=== PATIENT | female | born 1995 | race Caucasian/White ===

== ENCOUNTER 2017-02-04 20:07 | Emergency (ER) | payer SELFPAY ==
[~2017-02-04] VITALS: Ht 157.5 cm; Wt 54.4 kg
[~2017-02-04 20:07] MED LIST: ALPR0.254 PO; CEPH-264 PO; HYDR-965 PO; HYDR-971 PO; PHEN-318 PO
[2017-02-04] MEDS ORDERED: IV NORMAL SALINE 1000ML BAG 1,000 ML IV SCH ×2 (21:01→23:45)
[2017-02-04 21:12] LABS: BILIRUBIN,URINE NEGATIVE (NEG); GLUCOSE,URINE NEGATIVE (NEG); NITRITE,URINE NEGATIVE (NEG); PH,URINE 6.5; PROTEIN,URINE NEGATIVE (NEG-TRACE); UROBILINOGEN,URINE 0.2 mg/dL (0.2 mg/dL)
[2017-02-04 21:15] LABS: BASO # 0.1 x10^3/uL (0.0-0.2); BASO % 1 % (0-3); EOS % 7 % (0-3); HEMATOCRIT 33.7 % (36.0-47.0); HEMOGLOBIN 11.2 g/dL (12.0-15.5); LYMPH # 2.4 x10^3/uL (1.0-4.8); LYMPH % 39 % (24-48); MEAN CORPUSCULAR HEMOGLOBIN 26 pg (25-35); MEAN CORPUSCULAR HGB CONC 33 g/dL (31-37); MEAN CORPUSCULAR VOLUME 77 fL (79-100); MONO % 10 % (0-9); NEUT % 44 % (31-73); PLATELET COUNT 340 x10^3/uL (140-400); RED BLOOD COUNT 4.38 x10^6/uL (3.50-5.40); RED CELL DISTRIBUTION WIDTH 13.7 % (11.5-14.5); WHITE BLOOD COUNT 6.2 x10^3/uL (4.0-11.0)
[2017-02-04] MEDS ORDERED: IOHEXOL 300 MG/ML 75 ML VIAL IV ONE (21:15)
[2017-02-04] MEDS ORDERED: ONDANSETRON PF 4 MG/2 ML VIAL. IV ONE (21:15)
[2017-02-04 21:19] LABS: BACTERIA,URINE MODERATE /HPF (0-FEW); RBC,URINE 0 /HPF (0-2); SQUAMOUS EPITHELIAL CELL,UR MANY /LPF; YEAST,URINE PRESENT /HPF
[2017-02-04 21:21] LABS: CALCIUM 8.4 mg/dL (8.5-10.1); CREATININE 0.5 mg/dL (0.6-1.0); GFR 155.7; POTASSIUM 4.1 mmol/L (3.5-5.1)
[2017-02-04] MEDS: MORPHINE SULFATE 4 MG/ML DISP.SYRIN. IV/SQ PRN ×2 (21:21→23:37)
[2017-02-04 21:27] LABS: ALBUMIN 3.1 g/dL (3.4-5.0); ALBUMIN/GLOBULIN RATIO 0.9 (1.0-1.7); TOTAL BILIRUBIN 0.2 mg/dL (0.2-1.0); TOTAL PROTEIN 6.6 g/dL (6.4-8.2)
--- NOTE | 2017-02-04 22:29 | RAD ---
PROCEDURE CT study of the abdomen and pelvis with contrast HISTORY Nausea and vomiting and severe abdominal pain for 4 days. TECHNIQUE After IV infusion of 75 cc of Omnipaque 300, helical CT scanning of the abdomen and pelvis was performed. No GI contrast was administered. This may decrease the sensitivity to detect GI tract pathology. One or more of the following individualized dose reduction techniques were utilized for this study: 1. Automated exposure control 2. Adjustment of the mA and/or kV according to patient size 3. Use of iterative reconstruction technique COMPARISON August 30, 2016. FINDINGS The liver and spleen and pancreas are homogeneous. The gallbladder is surgically absent. No extrahepatic biliary ductal dilatation is seen. No adrenal mass is evident. Both kidneys are normal. Urinary bladder wall is smooth. No bulky abdominal or pelvic lymphadenopathy is seen. No significant change in size of inguinal lymph nodes bilaterally is seen. No focal aneurysmal dilatation of the abdominal aorta is seen. A moderate amount of fecal retention is seen throughout the colon and down into the rectosigmoid region. Postoperative changes of the stomach are seen. No small bowel obstruction is evident. There is wall thickening of the small bowel on the left side of the abdomen. The appendix appears normal. No free intraperitoneal air or free fluid is seen. No uterine mass is seen. Neither ovary can be visualized in this study given the fluid-filled small bowel loops. Generalized subcutaneous soft tissue edema is seen. No pleural effusion is evident. No lung base consolidation is seen. No osteolytic process is seen. IMPRESSION Moderate fecal retention throughout the colon down into the rectosigmoid region. There is wall thickening of the small bowel on the left side which could be due to enteritis. No bowel obstruction or free air or free fluid is evident. Generalized soft tissue edema of the abdomen and pelvis. No pleural effusion is seen. Electronically signed by: Tobias Monae MD (February 04, 2017 22:27:36)
--- NOTE | 2017-02-04 23:35 | PHYS DOC ---
Past Medical History Past Medical History: Gallstones, Kidney Stone, Ovarian Cyst, Seizure, UTI, Other Additional Past Medical Histor: pyodermia, PSYCHOGENIC NON EPILLEPTIC SEIZURES , cilliac, chrones Past Surgical History: Cholecystectomy, Gastric Bypass, Other Additional Past Surgical Histo: adenoidectomy Alcohol Use: None Drug Use: None Adult General Chief Complaint Chief Complaint: ABDOMINAL PAIN HPI HPI Patient is a 21 year old female brought to the ED by a friend with 2 complaints. #1, she is complaining of severe abdominal pain. This started about 2 weeks ago. She's had nausea with dry heaves but no vomiting. She's had liquid stools with no blood. She's had Tristan with abdominal pain in the past, she was told she might have celiac and also told she might have Crohn's. She thinks she had endoscopy, does not remember where. The patient is homeless, she works at [employer]. She is not able to follow a gluten-free diet as recommended because she is homeless. In fact, tonight she went to eat at [employer] and had some breadsticks and that seemed to make her abdominal pain worse. #2 she complains that he has had severe pain in both ankles and both wrists for a few days, it seems to be moving up to her knees and hips. It's hard to stand up because of pain. She's never had this before. She is not sure if any of those joints are swollen. She's had no fever or chills. Patient has no primary medical doctor, she is homeless, she is currently staying with a friend and is planning to move in with another friend or someone here in the next day or 2. Review of Systems Review of Systems Constitutional: Denies fever or chills [] Eyes: Denies change in visual acuity, redness, or eye pain [] HENT: Denies nasal congestion or sore throat [] Respiratory: Denies cough or shortness of breath [] GI: As in history of present illness : Denies dysuria or hematuria [] Musculoskeletal: Ankle and wrist pain as in history of present illness Integument: Denies rash or skin lesions [] Neurologic: Denies headache, focal weakness or sensory changes [] Current Medications Current Medications Current Medications Medications (Trade) Dose Ordered Sig/Julia Start Time Stop Time Status Last Admin Dose Admin Iohexol (Omnipaque 300 Mg/ml) 75 ml 1X ONCE 02/04/17 21:15 02/04/17 21:16 DC 02/04/17 21:35 75 ML Morphine Sulfate 4 mg PRN Q2HR PRN 02/04/17 23:45 02/05/17 23:44 Ondansetron HCl (Zofran) 4 mg PRN Q8HRS PRN 02/04/17 23:45 02/05/17 23:44 Sodium Chloride 1,000 ml @ 125 mls/hr Q8H 02/04/17 23:45 02/05/17 23:44 Allergies Allergies Allergies Coded Allergies Type Severity Reaction Last Updated Verified NSAIDS (Non-Steroidal Anti-Inflamma Allergy Intermediate 04/06/16 Yes Sulfa (Sulfonamide Antibiotics) Allergy Intermediate 04/06/16 Yes codeine Allergy Intermediate 04/06/16 Yes cyclobenzaprine Allergy Intermediate 04/06/16 Yes dicyclomine Allergy Intermediate 04/06/16 Yes fentanyl Allergy Intermediate 04/06/16 Yes ketorolac Allergy Intermediate 04/06/16 Yes tramadol Allergy Intermediate 04/06/16 Yes Physical Exam Physical Exam Constitutional: Well developed, well nourished, alert, mentating normally, appears to not feel well, no toxidrome, tachycardic HENT: Normocephalic, atraumatic, bilateral external ears normal, nose normal. [ ] Eyes: conjunctiva normal, no discharge. [] Neck: Normal range of motion, no stridor. [] Cardiovascular:Heart rate regular rhythm, no murmur [] Lungs & Thorax: Bilateral breath sounds clear to auscultation [] Abdomen: Bowel sounds are quiet but present, no bruit, no distention, no mass, no pulsatile mass. Tender to palpation across the upper abdomen on both right upper and left upper quadrants, less tender to palpation across the lower abdomen, no localized tenderness, no guarding Skin: Warm, dry, no erythema, no rash. [] Extremities: No tenderness, no cyanosis, no clubbing, ROM intact, no edema. Wrists and ankles are without swelling, no redness, no warmth, no deformity, no appreciable abnormality on exam. Neurologic: Alert and oriented X 3, normal motor function, normal sensory function, no focal deficits noted. [] Current Patient Data Vital Signs Vital Signs Date Time Temp Pulse Resp B/P (MAP) Pulse Ox O2 Delivery O2 Flow Rate FiO2 02/04/17 23:37 16 100 02/04/17 21:21 Room Air 02/04/17 21:09 106 112/79 (90) 02/04/17 20:19 98.8 98.8 Lab Values Laboratory Tests Test 02/04/17 19:29 02/04/17 20:20 02/04/17 20:30 POC Urine HCG, Qualitative Hcg negative (Negative) Urine Collection Type Void Urine Color Straw Urine Clarity Clear Urine pH 6.5 Urine Specific [place] <=1.005 Urine Protein Negative mg/dL (NEG-TRACE) Urine Glucose (UA) Negative mg/dL (NEG) Urine Ketones (Stick) Negative mg/dL (NEG) Urine Blood Negative (NEG) Urine Nitrite Negative (NEG) Urine Bilirubin Negative (NEG) Urine Urobilinogen Dipstick 0.2 mg/dL (0.2 mg/dL) Urine Leukocyte Esterase Moderate (NEG) Urine RBC 0 /HPF (0-2) Urine WBC 1-4 /HPF (0-4) Urine Squamous Epithelial Cells Many /LPF Urine Bacteria Moderate /HPF (0-FEW) Urine Yeast Present /HPF White Blood Count 6.2 x10^3/uL (4.0-11.0) Red Blood Count 4.38 x10^6/uL (3.50-5.40) Hemoglobin 11.2 g/dL (12.0-15.5) L Hematocrit 33.7 % (36.0-47.0) L Mean Corpuscular Volume 77 fL (79-100) L Mean Corpuscular Hemoglobin 26 pg (25-35) Mean Corpuscular Hemoglobin Concent 33 g/dL (31-37) Red Cell Distribution Width 13.7 % (11.5-14.5) Platelet Count 340 x10^3/uL (140-400) Neutrophils (%) (Auto) 44 % (31-73) Lymphocytes (%) (Auto) 39 % (24-48) Monocytes (%) (Auto) 10 % (0-9) H Eosinophils (%) (Auto) 7 % (0-3) H Basophils (%) (Auto) 1 % (0-3) Neutrophils # (Auto) 2.7 x10^3uL (1.8-7.7) Lymphocytes # (Auto) 2.4 x10^3/uL (1.0-4.8) Monocytes # (Auto) 0.6 x10^3/uL (0.0-1.1) Eosinophils # (Auto) 0.4 x10^3/uL (0.0-0.7) Basophils # (Auto) 0.1 x10^3/uL (0.0-0.2) Sodium Level 142 mmol/L (136-145) Potassium Level 4.1 mmol/L (3.5-5.1) Chloride Level 106 mmol/L (98-107) Carbon Dioxide Level 28 mmol/L (21-32) Anion Gap 8 (6-14) Blood Urea Nitrogen 9 mg/dL (7-20) Creatinine 0.5 mg/dL (0.6-1.0) L Estimated GFR (Cockcroft-Gault) 155.7 BUN/Creatinine Ratio 18 (6-20) Glucose Level 58 mg/dL (70-99) L Calcium Level 8.4 mg/dL (8.5-10.1) L Total Bilirubin 0.2 mg/dL (0.2-1.0) Aspartate Amino Transferase (AST) 22 U/L (15-37) Alanine Aminotransferase (ALT) 20 U/L (14-59) Alkaline Phosphatase 72 U/L (46-116) Total Protein 6.6 g/dL (6.4-8.2) Albumin 3.1 g/dL (3.4-5.0) L Albumin/Globulin Ratio 0.9 (1.0-1.7) L Lipase 122 U/L (73-393) Laboratory Tests 02/04/17 20:30 Laboratory Tests 02/04/17 20:30 EKG EKG [] Radiology/Procedures Radiology/Procedures CT scan of the abdomen and pelvis read by the radiologist. [] COMPARISON August 30, 2016. FINDINGS The liver and spleen and pancreas are homogeneous. The gallbladder is surgically absent. No extrahepatic biliary ductal dilatation is seen. No adrenal mass is evident. Both kidneys are normal. Urinary bladder wall is smooth. No bulky abdominal or pelvic lymphadenopathy is seen. No significant change in size of inguinal lymph nodes bilaterally is seen. No focal aneurysmal dilatation of the abdominal aorta is seen. A moderate amount of fecal retention is seen throughout the colon and down into the rectosigmoid region. Postoperative changes of the stomach are seen. No small bowel obstruction is evident. There is wall thickening of the small bowel on the left side of the abdomen. The appendix appears normal. No free intraperitoneal air or free fluid is seen. No uterine mass is seen. Neither ovary can be visualized in this study given the fluid-filled small bowel loops. Generalized subcutaneous soft tissue edema is seen. No pleural effusion is evident. No lung base consolidation is seen. No osteolytic process is seen. IMPRESSION Moderate fecal retention throughout the colon down into the rectosigmoid region. There is wall thickening of the small bowel on the left side which could be due to enteritis. No bowel obstruction or free air or free fluid is evident. Generalized soft tissue edema of the abdomen and pelvis. No pleural effusion is seen. Electronically signed by: Tobias Monae MD (February 04, 2017 22:27:36) Course & Med Decision Making Course & Med Decision Making Pertinent Labs and Imaging studies reviewed. (See chart for details) 21-year-old female complaining of abdominal pain, CT scan consistent with enteritis, nonspecific finding. No other specific findings noted. Labs Unremarkable including normal lipase and white count. Also complaining of bilateral wrist and bilateral ankle pain, I am not finding anything on exam, nonspecific joint pain without arthritis. I discussed with the patient and her friend that I recommend admitting her to the hospital for IV fluids, bowel rest, IV pain and nausea medication, GI consultation. I discussed the patient with Dr. crawley, [facility], who agreed to admit the patient. I wrote bridge orders. The patient ended up deciding that she cannot be admitted. She needs to move and also has missed too much work and needs to go to work. She asked for a prescription for pain medicine for discharge and I advised her that that would not be possible because I'm advising her to be admitted to the hospital for abdominal pain and I don't believe it is safe to discharge her with undiagnosed abdominal pain and give her opiates. I encouraged her to follow up as soon as possible and return if things worsen or if she changes her mind. [] Dragon Disclaimer Dragon Disclaimer This electronic medical record was generated, in whole or in part, using a voice recognition dictation system. Departure Departure Impression: Primary Impression: Abdominal pain Additional Impression: Enteritis Disposition: 07 AGAINST MEDICAL ADVICE Admitting Physician: Leslie Crawley Condition: STABLE Referrals: NO PCP (PCP) Patient Instructions: Abdominal Pain, [id number] Additional Instructions: As we discussed, CT scan showed inflammation of your small intestine. This is called "enteritis" but is not specific for any specific cause. It could be infection, it could be Crohn's disease, like you have been told in the past you might have. I recommended that you be admitted to the hospital for IV fluids, IV pain and nausea medicine, and to see GI specialist and have more testing. You have elected to not be admitted to the hospital and I am asking you to sign out AGAINST MEDICAL ADVICE to signify but I did advise you to stay but you elected not to. I advise you to stick with clear liquids over the next 2-3 days to rest your stomach. Make a follow-up appointment to be rechecked, you were given names and phone numbers of primary care doctors. If worse, or if you change your mind, return to emergency department. Problem Qualifiers DEENA GONSALES MD February 04, 2017 23:35
[2017-02-04] MEDS ORDERED: ONDANSETRON PF 4 MG/2 ML VIAL. IV PRN (23:45)
[2017-02-04] MEDS ORDERED: MORPHINE SULFATE 4 MG/ML DISP.SYRIN. IV PRN (23:45)
[2017-02-05] VITALS: BP 113/70
[2017-02-05] MEDS ORDERED: CARI350T PO (05:21)
[2017-02-05] MEDS ORDERED: ALPR1TAB6 PO (05:21)
[2017-02-05] MEDS ORDERED: LAMO200T3 PO (05:21)
== END 2017-02-05 00:16 | disposition left against medical advice (07) ==
LOC: ER 20:07
DX: K52.9 Noninfective gastroenteritis and colitis, unspecified (principal); R19.7 Diarrhea, unspecified; Z90.49 Acquired absence of other specified parts of digestive tract; Z98.84 Bariatric surgery status; Z59.0 Homelessness; Z88.2 Allergy status to sulfonamides; Z88.5 Allergy status to narcotic agent; Z88.6 Allergy status to analgesic agent; Z88.8 Allergy status to other drugs, medicaments and biological substances
CPT/HCPCS: 36415; 74177; 80053; 81001; 83690; 84703; 85027; 87086; 96361; 96374; 96375; 96376; 99285; J2270; J2405; J7030; Q9967; 81025

== ENCOUNTER 2017-02-05 03:03 | Inpatient (IN) | payer SELFPAY ==
[2017-02-05] VITALS (7 sets, daily range): BP systolic 88–113; BP diastolic 54–68
[~2017-02-05] VITALS: Ht 157.5 cm; Wt 54.4 kg
[2017-02-05] MEDS ORDERED: IV DEXTROSE 5 %-0.45 % NACL 1,000 ML IV ONE (03:30)
[2017-02-05] MEDS ORDERED: MORPHINE SULFATE 4 MG/ML DISP.SYRIN. IV/SQ PRN (03:30)
[2017-02-05] MEDS ORDERED: ONDANSETRON PF 4 MG/2 ML VIAL. IV ONE (03:30)
--- NOTE | 2017-02-05 04:23 | PHYS DOC ---
Past Medical History Past Medical History: Gallstones, Kidney Stone, Ovarian Cyst, Seizure, UTI, Other Additional Past Medical Histor: pyodermia, PSYCHOGENIC NON EPILLEPTIC SEIZURES , cilliac, chrones Past Surgical History: Cholecystectomy, Gastric Bypass, Other Additional Past Surgical Histo: adenoidectomy Alcohol Use: None Drug Use: None Adult General Chief Complaint Chief Complaint: ABDOMINAL PAIN HPI HPI Patient is a 21 year old female who presents with abdominal pain. Patient was seen in the emergency department late last evening and diagnosed with intractable abdominal pain and enteritis. Due to persistent severe symptoms the patient was told that she would need to be admitted the hospital. While initially agreeable, the patient decided to leave the emergency department AGAINST MEDICAL ADVICE. Patient returns to the emergency department however due to worsening symptoms. Patient states that her symptoms have not changed from her previous visit and she states that the worst of her pain is in her upper abdomen. Patient also states that she has been having trouble with multi-joint pain including her bilateral wrists and ankles. Patient denies any fevers. Patient has had multiple loose stools. Patient rates pain currently is 10 out of 10. Review of Systems Review of Systems Constitutional: Denies fever or chills [] Eyes: Denies change in visual acuity, redness, or eye pain [] HENT: Denies nasal congestion or sore throat [] Respiratory: Denies cough or shortness of breath [] Cardiovascular: Denies chest pain or edema [] GI: Abdominal pain, nausea, diarrhea [] : Denies dysuria or hematuria [] Musculoskeletal: Bilateral wrist and ankle pain [] Integument: Denies rash or skin lesions [] Neurologic: Denies headache, focal weakness or sensory changes [] Current Medications Current Medications Allergies Allergies Allergies Coded Allergies Type Severity Reaction Last Updated Verified NSAIDS (Non-Steroidal Anti-Inflamma Allergy Intermediate 04/06/16 Yes Sulfa (Sulfonamide Antibiotics) Allergy Intermediate 04/06/16 Yes codeine Allergy Intermediate 04/06/16 Yes cyclobenzaprine Allergy Intermediate 04/06/16 Yes dicyclomine Allergy Intermediate 04/06/16 Yes fentanyl Allergy Intermediate 04/06/16 Yes ketorolac Allergy Intermediate 04/06/16 Yes tramadol Allergy Intermediate 04/06/16 Yes Physical Exam Physical Exam Constitutional: Alert, afebrile, appears in moderate discomfort. [] HENT: Normocephalic, atraumatic, bilateral external ears normal, oropharynx moist, no oral exudates, nose normal. [] Eyes: PERRLA, EOMI, conjunctiva normal, no discharge. [] Neck: Normal range of motion, no tenderness, supple, no stridor. [] Cardiovascular: Heart rate regular rhythm, no murmur [] Lungs & Thorax: Bilateral breath sounds clear to auscultation [] Abdomen: Bowel sounds normal, soft, bilateral upper quadrant tenderness to palpation, no masses, no pulsatile masses. [] Skin: Warm, dry, no erythema, no rash. [] Back: No tenderness, no CVA tenderness. [] Extremities: No obvious deformities or joint swelling present, no cyanosis, no clubbing, ROM intact, no edema. [] Neurologic: Alert and oriented X 3, normal motor function, normal sensory function, no focal deficits noted. [] Current Patient Data Vital Signs Vital Signs Date Time Temp Pulse Resp B/P (MAP) Pulse Ox O2 Delivery O2 Flow Rate FiO2 02/05/17 03:09 99.1 95 15 125/76 (92) 97 Room Air 99.1 Lab Values EKG EKG Not performed[] Radiology/Procedures Radiology/Procedures Not performed [] Course & Med Decision Making Course & Med Decision Making Pertinent Labs and Imaging studies reviewed. (See chart for details) Patient was started on IV morphine, Zofran, and IV fluids. The patient has agreed to admission to the hospital for further treatment and specialist consult. Patient admitted to Dr. Crawley. A consult was placed to Dr. Schrader of gastroenterology. Dragon Disclaimer Dragon Disclaimer This electronic medical record was generated, in whole or in part, using a voice recognition dictation system. Departure Departure Impression: Primary Impression: Intractable abdominal pain Disposition: ADMITTED INPATIENT Admitting Physician: Leslie Crawley Condition: STABLE Referrals: NO PCP (PCP) SUZAN MCMAHON MD February 05, 2017 04:23
--- NOTE | 2017-02-05 04:38 | ACF ---
Admission Forms Criteria ABDOMINAL PAIN Clinical Indications for Admission to Inpatient Care (Place 'X' for any and all applicable criteria): Admission is indicated for ANY ONE of the following(1)(2)(3)(4)(5): [X]I. Inpatient admission required rather than observation care (Also use Abdominal Pain: Observation Care, as appropriate) because of ANY ONE of the following: [X]a) Severe pain requiring acute inpatient management [ ]b) Identification of etiology/finding that requires inpatient care (eg, aortic dissection, free air) [ ]c) Absent bowel sounds with complete ileus(6) [ ]d) Suspected toxic megacolon [ ]e) Severe electrolyte abnormalities requiring inpatient care [ ]f) High fever or infection requiring inpatient admission as indicated by ANY ONE of following(7)(8): [ ] i) Appropriate outpatient or observational care antimicrobial treatment unavailable, not effective, or not feasible [ ] ii) Documented bacteremia [ ] iii) Temperature > 104.9 degrees F (oral) [ ] iv) T >103.1 F (oral) or < 96.8 F(rectal) that does not respond to all emergency treatment measures [ ]g) Signs of intestinal obstruction [B] [ ]h) Hemodynamic instability [ ]i) IV fluid to replace significant ongoing losses (greater than 3 L/m2 per day) (12)(13) [ ]j) Percutaneous or open drainage (eg, abscess, biliary tract ) procedures [ ]k) Parenteral nutrition regimen that must be implemented on inpatient basis [ ]l) Other condition,treatment or monitoring requiring inpatient admission. [ ]II. Peritoneal signs present [ ]III. Surgery needed that cannot be performed on an ambulatory basis. [ ]IV. Evaluation requires patient to not eat or drink for extended period ( eg, more than 24 hours). [ ]V. Contraindications and/or Inappropriate clinical situations for Observational Care in patients with abdominal pain, when ANY ONE of the following is required: [ ]a) Thorough evaluation is required to prevent catastrophic events due to delays in diagnosing (e.g.Mesenteric ischemia) 1,3 [ ]b) Patient with severe pathology or with chronic symptoms unlikely to improve in the ED stay (3) [ ]. General contraindications and/or Inappropriate clinical situations for Observational Care in patients with abdominal pain, when ANY ONE of the following is required: [ ]a) Prediction of prolongation of LOS based on ANY ONE of the following may be considered as a contraindication for observational care 2, 3, 4, 5, 6, 7, 8, 9, 10, 11 [ ]i) Age > 65 yrs. [ ]ii) Patient arriving by ambulance [ ]iii) Patient with high acuity [ ]iv) Patient requiring vital sign monitoring [ ]v) Patient on IV medication [ ]b) Systolic blood pressures 180mmHg 3,12 [ ]c) Patient with altered mental status including delirium and other alteration of consciousness, (3) [ ]d) Patient whose discharge disposition will be to a [place] [facility] home or rehabilitation home should not be managed in Emergency Department Observation Unit. CMS rule requires 3 days hospital stay before such placement.3,13 [ ]e) Patient with failure to thrive due to broad array of etiologies 3,16,17 [ ]f) Inability to ambulate 3,14 Extended stay beyond goal length of stay may be needed for(2)(3): [ ]a) Persistent abdominal pain with suspected intra-abdominal process [ ]b) Diagnosed condition requiring continued stay (e.g., pancreatitis, complicated diverticulitis) [ ]c) Surgery (e.g., colectomy) The original [employer] [facility] content created by [employer] has been revised. The portions of the content which have been revised are identified through the use of italic text or in bold, and [facility] has neither reviewed nor approved the modified material.All other unmodified content is copyright [employer]. Please see references footnoted in the original [employer] [facility] edition 2016 Admission Criteria Met?: Yes RULA HENDRICKS February 05, 2017 04:38
[2017-02-05] MEDS ORDERED: IV DEXTROSE 5 %-0.45 % NACL 1,000 ML IV SCH (04:45)
[2017-02-05] MEDS ORDERED: ONDANSETRON PF 4 MG/2 ML VIAL. IV PRN ×2 (04:45→10:00)
[2017-02-05] MEDS ORDERED: ACETAMINOPHEN 325 MG TABLET. PO PRN ×2 (04:45→10:00)
[2017-02-05] MEDS ORDERED: CARI350T PO (05:21)
[2017-02-05] MEDS ORDERED: LAMO200T3 PO (05:21)
[2017-02-05] MEDS ORDERED: ALPR1TAB6 PO (05:21)
[2017-02-05] MEDS: MORPHINE SULFATE 4 MG/ML DISP.SYRIN. IV PRN ×5 (05:58→21:38)
--- NOTE | 2017-02-05 09:09 | PDOC1 ---
History and Physical Past Surgical History Past Surgical History: Cholecystectomy, Other Family History Family History: Other Social History ALCOHOL: none Drugs: None Current Problem List Problem List Problems Medical Problems: (1) Intractable abdominal pain Status: Acute Current Medications Current Medications Current Medications Medications (Trade) Dose Ordered Sig/Julia Start Time Stop Time Status Last Admin Dose Admin Acetaminophen (Tylenol) 650 mg PRN Q4HRS PRN 02/05/17 04:45 02/06/17 04:44 Dextrose/Sodium Chloride 1,000 ml @ 125 mls/hr Q8H 02/05/17 04:45 Lorazepam (Ativan) 1 mg 1X ONCE 02/05/17 04:45 02/05/17 04:46 DC 02/05/17 05:08 1 MG Morphine Sulfate 4 mg PRN Q2HR PRN 02/05/17 04:45 02/06/17 04:44 02/05/17 08:59 4 MG Ondansetron HCl (Zofran) 4 mg PRN Q8HRS PRN 02/05/17 04:45 02/06/17 04:44 Allergies Allergies Allergies Coded Allergies Type Severity Reaction Last Updated Verified NSAIDS (Non-Steroidal Anti-Inflamma Allergy Intermediate 04/06/16 Yes Sulfa (Sulfonamide Antibiotics) Allergy Intermediate 04/06/16 Yes codeine Allergy Intermediate 04/06/16 Yes cyclobenzaprine Allergy Intermediate 04/06/16 Yes dicyclomine Allergy Intermediate 04/06/16 Yes fentanyl Allergy Intermediate 04/06/16 Yes ketorolac Allergy Intermediate 04/06/16 Yes tramadol Allergy Intermediate 04/06/16 Yes ROS Review of System CONSTITUTIONAL: No fever or chills EYES: No recent changes SKIN: No rash or itching CARDIOVASCULAR: No chest pain, syncope, palpitations, or edema RESPIRATORY: No SOB or cough GASTROINTESTINAL: Nausea, abdominal pain, diarrhea. NEUROLOGICAL: No headaches or weakness ENDOCRINE: No cold or heat intolerance GENITOURINARY: No urgency or frequency of urination MUSCULOSKELETAL: No back pain or joint pain LYMPHATICS: No enlarged lymph nodes PSYCHIATRIC: No anxiety or depression Physical Exam Physical Exam GEN.: No apparent distress. Alert and oriented. HEENT: Head is normocephalic, atraumatic NECK: Supple. no JVD LUNGS: Clear to auscultation. HEART: RRR, S1, S2 present. Peripheral pulses intact ABDOMEN: Soft, LLQ tender Positive bowel sounds. EXTREMITIES: Without any cyanosis. NEUROLOGIC: Normal speech, normal tone PSYCHIATRIC: Normal affect, normal mood. SKIN: No ulcerations Vitals Vitals Vital Signs Date Time Temp Pulse Resp B/P (MAP) Pulse Ox O2 Delivery O2 Flow Rate FiO2 02/05/17 07:00 97.7 74 18 102/63 (76) 98 97.7 02/05/17 06:28 Room Air Labs Labs Laboratory Tests Test 02/05/17 03:18 Glucose (Fingerstick) 85 mg/dL (70-99) Laboratory Tests Test 02/05/17 03:18 Glucose (Fingerstick) 85 mg/dL (70-99) VTE Prophylaxis Ordered VTE Prophylaxis Devices: No VTE Pharmacological Prophylaxi: Contraindicated MAGDA LEIGH MD February 05, 2017 09:09
--- NOTE | 2017-02-05 09:22 | PDOC2 ---
GI CONSULT Reason For Consult: Abd pain HPI: HPI: 21 y/o female admitted through ER, currently homeless (last night at [facility] w/ a friend would have been last night), previously evaluated by Dr. Raygoza in 2015 for n/v and abd pain. Was seen in ER the night before, left AMA. H/o Aurelio -en-Y gastric bypass in 2012 w/ Dr. Smith at [facility] and cholecystectomy for gallstones. Previously evaluated (in ) w/ CT (retained stool in colon, free fluid in pelv, normal appendix), SBS (unremarkable), and Celiac serology ( normal). Also had D[employer] eval at that time. Had EGD prior to Aurelio-en-Y, no previous colonoscopy. Tells me has been having wrist, ankle, and knee pain for a couple days; also upper and RLQ pain after eating w/ dry heaves and brown watery stools about twice daily. Started Cipro 4 days ago for UTI. No bleeding. On Pepcid QD-BID and Carafate QID. Works at [employer]. No NSAIDs. CT from first ER visit showed moderate fecal retention and wall thickening of small bowel w/ generalized soft tissue edema of abd and pelv. Labs unrevealing, Hgb 11.2 - stable from previous admission. PMH: PMH: GERD, nephrolithiasis, anxiety, PCOS, Aurelio-en-Y, lithotripsy, cholecystectomy FH: Family History: No pertinent hx, Other (brother - Crohn's) Social History: Smoke: <1 pack per day ALCOHOL: none Drugs: None, Marijuana (in the past) ROS: GEN: Denies fevers, chills, sweats HEENT: Denies blurred vision, sore throat CV: Denies chest pain RESP: Denies shortness of air, cough GI: Per HPI : Denies hematuria, dysuria ENDO: Denies weight changes NEURO: Denies confusion, dizziness MSK: +joint pains SKIN: Denies jaundice, pruritus Vitals: Vitals: Vital Signs Date Time Temp Pulse Resp B/P (MAP) Pulse Ox O2 Delivery O2 Flow Rate FiO2 02/05/17 07:00 97.7 74 18 102/63 (76) 98 97.7 02/05/17 06:28 Room Air Reviewed. Labs: Labs: Laboratory Tests Test 02/05/17 03:18 Glucose (Fingerstick) 85 mg/dL (70-99) Allergies: Coded Allergies: NSAIDS (Non-Steroidal Anti-Inflamma (Verified Allergy, Intermediate, ) Sulfa (Sulfonamide Antibiotics) (Verified Allergy, Intermediate, 04/06/16) codeine (Verified Allergy, Intermediate, 04/06/16) cyclobenzaprine (Verified Allergy, Intermediate, 04/06/16) dicyclomine (Verified Allergy, Intermediate, 04/06/16) fentanyl (Verified Allergy, Intermediate, 04/06/16) ketorolac (Verified Allergy, Intermediate, 04/06/16) tramadol (Verified Allergy, Intermediate, 04/06/16) Medications: Current Medications Medications (Trade) Dose Ordered Sig/Julia Route PRN Reason Start Time Stop Time Status Last Admin Dose Admin Morphine Sulfate 4 mg PRN Q15MIN PRN IV/SQ PAIN GREATER THAN 3/10 02/05/17 03:30 02/06/17 03:29 02/05/17 03:58 Ondansetron HCl (Zofran) 4 mg 1X ONCE IV 02/05/17 03:30 02/05/17 03:31 DC 02/05/17 03:55 Dextrose/Sodium Chloride 1,000 ml @ 125 mls/hr 1X ONCE IV 02/05/17 03:30 02/05/17 11:29 02/05/17 03:58 Lorazepam (Ativan) 1 mg 1X ONCE IV 02/05/17 04:45 02/05/17 04:46 DC 02/05/17 05:08 Morphine Sulfate 4 mg PRN Q2HR PRN IV PAIN 02/05/17 04:45 02/06/17 04:44 02/05/17 05:58 Imaging: Imaging: CT A/P 02/04/17 IMPRESSION Moderate fecal retention throughout the colon down into the rectosigmoid region. There is wall thickening of the small bowel on the left side which could be due to enteritis. No bowel obstruction or free air or free fluid is evident. Generalized soft tissue edema of the abdomen and pelvis. No pleural effusion is seen. PE: GEN: NAD HEENT: Atraumatic, PERRL LUNGS: CTAB HEART: RRR ABD: BS+, diffusely tender to light palpation EXTREMITY: No edema SKIN: No rashes, no jaundice NEURO/PSYCH: A & O 3 A/P: A/P: Abd pain, nausea, diarrhea -CT as above -SBS previously neg, along w/ Celiac serology -s/p cholecystectomy Joint pains -per primary S/p Aurelio-en-Y gastric bypass, h/o GERD -[address] Smith -on H2 rosalba and sucralfate FH Crohn's -- With diarrhea and recent atbx use, check C Diff. Continue H2 rosalba and sucralfate. Try diet. Follow-up w/ Dr. Smith/[facility]. Will ask social work to see. KARI GLASGOW February 05, 2017 09:22
[2017-02-05] MEDS ORDERED: ALBUTEROL SULFATE 2.5 MG/3 ML NEBU. NEB PRN (10:00)
[2017-02-05] MEDS ORDERED: hydrALAZINE 20 MG/ML VIAL. IVP PRN (10:00)
--- NOTE | 2017-02-05 11:09 | HP ---
ADMIT DATE: 02/05/2017 CHIEF COMPLAINT: Abdominal pain. HISTORY OF PRESENT ILLNESS: A 21-year-old female patient with prior history of gallstones, cholecystectomy and Aurelio-en-Y gastric bypass surgery, presented to the ER with complaints of abdominal pain for nearly 3 days, also noted to have nausea, vomiting and the patient had a similar admission in 08/2016. At that time, she was evaluated by Dr. Raygoza. She is complaining of several joint pains with complaints of left and right lower quadrant abdominal pain with dry heaving and nausea and loose motions. She denies any trauma, fever, chills or travel history. Currently, she was staying in a hotel, homeless and she did a CT of the abdomen in the ER, which showed moderate fecal retention throughout the colon down the rectosigmoid region and also some wall thickening of the small bowel in the left side, which could be due to enteritis. PAST MEDICAL HISTORY: GERD, nephrolithiasis, anxiety, PCOS. PAST SURGICAL HISTORY: Lithotripsy, cholecystectomy. FAMILY HISTORY: Brother has Crohn's disease. SOCIAL HISTORY: Former smoker, quit smoking, no alcohol, no substance abuse. REVIEW OF SYSTEMS AND PHYSICAL EXAMINATION: Please see my electronic H and P. ALLERGIES: NSAIDS, SULFA, CODEINE, CYCLOBENZAPRINE, DICYCLOMINE, FENTANYL, TRAMADOL AND TORADOL. LABORATORY REVIEW: Chemistry 85. No CBC, BMP ordered. IMAGING STUDIES: CT of the abdomen as mentioned. ASSESSMENT AND PLAN: 1. Intractable abdominal pain, unclear etiology, questionable enteritis versus constipation. 2. Prior history of Aurelio-en-Y surgery. 3. Intractable nausea. 4. History of gastroesophageal reflux disease. PLAN: 1. Currently, the patient is on symptomatic treatment on IV hydration, normal saline at 75 to 100 mL per hour and IV Protonix p.r.n. 2. Full liquid diet. 3. Gastroenterology has been consulted. The patient continued to have persistent diarrhea. I will order C.diff. 4. Pain control with IV morphine 4 mg every 2 hours. 5. Fall precautions. The patient has a prior history of epilepsy. 6. Home medications reviewed and resumed 7. PRN Zofran for nausea and vomiting 8. Soma for fibromyalgia. MAGDA LEIGH MD DR: LEROY/aurora JOB#: [id number] / [id number] FRANKO
[2017-02-05] MEDS: ALPRAZolam 1 MG TABLET PO SCH ×2 (12:08→21:32)
[2017-02-05] MEDS: lamoTRIgine 100 MG TABLET. PO SCH ×2 (12:08→21:33)
[2017-02-05] MEDS: SUCRALFATE 1 GM TABLET. PO SCH ×3 (12:08→21:32)
[2017-02-05] MEDS: IV NORMAL SALINE 1000ML BAG 1,000 ML IV SCH ×2 (13:01→23:20)
[2017-02-05] MEDS ORDERED: HYDROcodone/APAP 7.5/325MG 1 TAB TABLET PO PRN (14:00)
[2017-02-05] MEDS: NICOTINE 21MG PATCH. TD SCH (14:35)
[2017-02-05] MEDS: CARISOPRODOL 350 MG TABLET PO SCH ×2 (16:28→21:33)
[2017-02-05] MEDS ORDERED: FAMOTIDINE 20 MG TABLET. PO SCH (21:00)
[2017-02-06 00:43] VITALS: BP 107/59
[2017-02-06] MEDS: MORPHINE SULFATE 4 MG/ML DISP.SYRIN. IV PRN ×4 (00:47→11:24)
[2017-02-06 03:00] VITALS: BP 88/47
[2017-02-06 03:45] VITALS: BP 103/57
[2017-02-06 07:00] VITALS: BP 102/61
[2017-02-06] MEDS: SUCRALFATE 1 GM TABLET. PO SCH ×3 (08:18→15:58)
--- NOTE | 2017-02-06 08:52 | PDOC ---
Subjective: Subjective: Ongoing abd pain. Watery stools. Asks for Roxicet. Objective: Objective: Reviewed nursing notes - pt asking for specific pain medication. Per RN - loose stool reported, C Diff not sent. Told staff she had celiac disease but could eat whatever she wanted. Tolerating diet. Vital Signs: Vital Signs Date Time Temp Pulse Resp B/P (MAP) Pulse Ox O2 Delivery O2 Flow Rate FiO2 02/06/17 08:20 16 Room Air 02/06/17 07:48 96 02/06/17 07:00 97.3 70 102/61 (75) 97.3 PE: GEN: NAD LUNGS: CTAB HEART: RRR ABD: BS+, doesn't react when I press w/ stethoscope, flinches when abd palpated w/ hand NEURO/PSYCH: A & O 3 A/P: Abd pain, diarrhea -CT: moderate fecal retention, wall thickening of left small bowel -SBS previously neg, along w/ Celiac serology -s/p cholecystectomy -took Cipro recently for UTI S/p Aurelio-en-Y gastric bypass, h/o GERD -[address] Smith, on H2 rosalba and sucralfate -- Again discussed previously neg Celiac serology. Stool not collected for C Diff. Continue diet, DC per primary. Follow-up w/ Dr. Smith. KARI GLASGOW February 06, 2017 08:51
[2017-02-06] MEDS: lamoTRIgine 100 MG TABLET. PO SCH (10:15)
[2017-02-06] MEDS: NICOTINE 21MG PATCH. TD SCH (10:15)
[2017-02-06] MEDS: ALPRAZolam 1 MG TABLET PO SCH (10:15)
[2017-02-06] MEDS: CARISOPRODOL 350 MG TABLET PO SCH (10:15)
[2017-02-06 11:00] VITALS: BP 102/62
[2017-02-06] MEDS: IV NORMAL SALINE 1000ML BAG 1,000 ML IV SCH (12:40)
[2017-02-06] MEDS ORDERED: oxyCODONE/APAP 7.5/325 1 TAB TABLET PO PRN (13:45)
[2017-02-06 15:00] VITALS: BP 102/62
[2017-02-06] MEDS ORDERED: CYCLOBENZAPRINE 10 MG TABLET. PO PRN (17:15)
--- NOTE | 2017-02-07 00:01 | DS ---
DATE OF DISCHARGE: 02/06/2017 DISCHARGE DIAGNOSES: 1. Abdominal pain, unclear etiology, possible due to enteritis versus constipation. 2. Previous workup such as celiac serology negative. 3. Prior history of Aurelio-en-Y gastric bypass. 4. History of anxiety. 5. Fibromyalgia. BRIEF HOSPITAL COURSE: A 21-year-old female patient admitted to the hospital for symptoms of intractable abdominal pain and nausea and diarrhea; however, during hospitalization, she never had a bowel movement, not able to collect a stool sample. She was evaluated by Gastroenterology. A CT abdomen did not reveal any acute findings other than constipation and fecal retention with some wall thickening of the left small bowel. She was treated symptomatically and symptoms are resolving with oral pain medications. During hospitalization, the patient received IV morphine and her symptoms appear to be improving and as per GI recommendations the patient is supposed to see Dr. Zelaya for followup of Aurelio-en-Y gastric bypass surgery. Today, her pain has been controlled with oral narcotics and she deemed clinically stable enough to go home and follow up with primary care doctor in 2 weeks. DISCHARGE DISPOSITION: Home. DISCHARGE CONDITION: Stable. DISCHARGE EXAMINATION: GENERAL: Alert, oriented x 3. HEART: S1, S2 present. LUNGS: Anterior chest clear. ABDOMEN: Soft, nontender, no organomegaly. EXTREMITIES: No edema. DISCHARGE DISPOSITION: Home. MEDICATIONS: Reviewed and reconciled, new scripts provided. Total time spent for discharge is 31 minutes for patient education, counseling, and coordination of care. MAGDA LEIGH MD DR: LEROY/aurora JOB#: [id number] / [id number]
== END 2017-02-06 12:00 | disposition home or self-care (01) | DRG 392 ==
LOC: ER 03:03 → 4 NORTH 03:15
PROVIDERS: ADMIT Internal Medicine; ATTEND Internal Medicine
DX: K52.9 Noninfective gastroenteritis and colitis, unspecified (principal); K59.00 Constipation, unspecified; F41.9 Anxiety disorder, unspecified; G40.909 Epilepsy, unspecified, not intractable, without status epilepticus; N20.0 Calculus of kidney; M79.7 Fibromyalgia; E28.2 Polycystic ovarian syndrome; F17.210 Nicotine dependence, cigarettes, uncomplicated; K21.9 Gastro-esophageal reflux disease without esophagitis; Z59.0 Homelessness; Z87.442 Personal history of urinary calculi; Z90.49 Acquired absence of other specified parts of digestive tract; Z98.84 Bariatric surgery status; Z88.1 Allergy status to other antibiotic agents; Z88.8 Allergy status to other drugs, medicaments and biological substances; Z88.2 Allergy status to sulfonamides; Z88.5 Allergy status to narcotic agent
CPT/HCPCS: 82947; 94250; 94760; 96374; 96375; J2060; J2270; J2405; J7030; 99285-25

== ENCOUNTER 2017-03-01 08:08 | Inpatient (IN) | payer SELFPAY ==
[~2017-03-01] VITALS: Ht 157.5 cm; Wt 59.4 kg
[~2017-03-01 08:08] MED LIST changes: +ALPR1TAB6 PO; +CARI350T PO; +LAMO200T3 PO; +OXYC-328 PO
--- NOTE | 2017-03-01 08:14 | PHYS DOC ---
Past Medical History Past Medical History: Gallstones, Kidney Stone, Ovarian Cyst, Seizure, UTI, Other Additional Past Medical Histor: pyodermia, PSYCHOGENIC NON EPILLEPTIC SEIZURES , cilliac, chrones Past Surgical History: Cholecystectomy, Gastric Bypass, Other Additional Past Surgical Histo: adenoidectomy Alcohol Use: None Drug Use: None Adult General Chief Complaint Chief Complaint: ABDOMINAL PAIN HPI HPI Patient is a 21 year old female presenting to the emergency department for evaluation of epigastric abdominal pain radiating towards her back that has been going on since last night. She says it is sharp pain and associated with nausea and nonbloody nonbilious emesis. There is no fevers chills dysuria hematuria vaginal bleeding or vaginal discharge. She says this is much different than the pain that when she was admitted and is much more severe. She was admitted to the hospital and appears to have had general surgery and cardiology consultation. It sounds as if she was going to have GI and gynecologic consultation as well but she left for Justin interviews prior to other consultations. Review of Systems Review of Systems Constitutional: Denies fever or chills [] Eyes: Denies change in visual acuity, redness, or eye pain [] HENT: Denies nasal congestion or sore throat [] Respiratory: Denies cough or shortness of breath [] Cardiovascular: No additional information not addressed in HPI [] GI: + abdominal pain, nausea, vomiting. No bloody stools or diarrhea [] : Denies dysuria or hematuria [] Musculoskeletal: Denies back pain or joint pain [] Integument: Denies rash or skin lesions [] Neurologic: Denies headache, focal weakness or sensory changes [] Current Medications Current Medications Current Medications Medications (Trade) Dose Ordered Sig/Julia Start Time Stop Time Status Last Admin Dose Admin Haloperidol Lactate (Haldol) 4 mg 1X ONCE 03/01/17 08:30 03/01/17 08:31 DC 03/01/17 08:48 4 MG Info (Do NOT chart on this entry -- for MONITORING) 1 each PRN DAILY PRN 03/01/17 08:45 03/03/17 08:44 Iohexol (Omnipaque 300 Mg/ml) 75 ml 1X ONCE 03/01/17 08:45 03/01/17 08:46 DC 03/01/17 09:10 75 ML Morphine Sulfate 5 mg 1X ONCE 03/01/17 10:00 03/01/17 10:01 DC Multi-Ingredient Mouthwash/Gargle (Gi Cocktail Single Dose) 15 ml 1X ONCE 03/01/17 08:30 03/01/17 08:31 DC 03/01/17 08:50 15 ML Ondansetron HCl (Zofran) 8 mg 1X ONCE 03/01/17 10:00 03/01/17 10:01 DC Pantoprazole Sodium (Protonix Vial) 40 mg 1X ONCE 03/01/17 08:30 03/01/17 08:31 DC 03/01/17 08:43 40 MG Sodium Chloride 1,000 ml @ 1,000 mls/hr 1X ONCE 03/01/17 08:30 03/01/17 09:29 DC 03/01/17 08:41 1,000 MLS/HR Allergies Allergies Allergies Coded Allergies Type Severity Reaction Last Updated Verified NSAIDS (Non-Steroidal Anti-Inflamma Allergy Intermediate 04/06/16 Yes codeine Allergy Intermediate 03/01/17 Yes diclofenac Allergy Intermediate 02/26/17 Yes dicyclomine Allergy Intermediate 04/06/16 Yes fentanyl Allergy Intermediate 04/06/16 Yes ketorolac Allergy Intermediate 04/06/16 Yes tizanidine Allergy Intermediate Hives 02/25/17 Yes tramadol Allergy Intermediate 03/01/17 Yes cyclobenzaprine Adverse Reaction Intermediate "DOESN'T WORK" 02/06/17 Yes Physical Exam Physical Exam Constitutional: Well developed, well nourished, no acute distress, non-toxic appearance. [] HENT: Normocephalic, atraumatic, bilateral external ears normal, oropharynx moist, no oral exudates, nose normal. [] Eyes: PERRLA, EOMI, conjunctiva normal, no discharge. [] Neck: Normal range of motion, no tenderness, supple, no stridor. [] Cardiovascular:Heart rate regular rhythm, no murmur [] Lungs & Thorax: Bilateral breath sounds clear to auscultation [] Abdomen: Bowel sounds normal, soft, + diffuse upper abd tenderness, no masses, no pulsatile masses. [] Skin: Warm, dry, no erythema, no rash. [] Back: No tenderness, no CVA tenderness. [] Extremities: No tenderness, no cyanosis, no clubbing, ROM intact, no edema. [] Neurologic: Alert and oriented X 3, normal motor function, normal sensory function, no focal deficits noted. [] Current Patient Data Vital Signs Vital Signs Date Time Temp Pulse Resp B/P (MAP) Pulse Ox O2 Delivery O2 Flow Rate FiO2 03/01/17 08:12 98.2 62 16 100 Room Air 98.2 Lab Values Laboratory Tests Test 03/01/17 08:32 White Blood Count 6.6 x10^3/uL (4.0-11.0) Red Blood Count 4.71 x10^6/uL (3.50-5.40) Hemoglobin 11.6 g/dL (12.0-15.5) L Hematocrit 35.4 % (36.0-47.0) L Mean Corpuscular Volume 75 fL (79-100) L Mean Corpuscular Hemoglobin 25 pg (25-35) Mean Corpuscular Hemoglobin Concent 33 g/dL (31-37) Red Cell Distribution Width 14.3 % (11.5-14.5) Platelet Count 323 x10^3/uL (140-400) Neutrophils (%) (Auto) 72 % (31-73) Lymphocytes (%) (Auto) 20 % (24-48) L Monocytes (%) (Auto) 5 % (0-9) Eosinophils (%) (Auto) 2 % (0-3) Basophils (%) (Auto) 1 % (0-3) Neutrophils # (Auto) 4.7 x10^3uL (1.8-7.7) Lymphocytes # (Auto) 1.3 x10^3/uL (1.0-4.8) Monocytes # (Auto) 0.4 x10^3/uL (0.0-1.1) Eosinophils # (Auto) 0.1 x10^3/uL (0.0-0.7) Basophils # (Auto) 0.0 x10^3/uL (0.0-0.2) Sodium Level 138 mmol/L (136-145) Potassium Level 4.0 mmol/L (3.5-5.1) Chloride Level 102 mmol/L (98-107) Carbon Dioxide Level 25 mmol/L (21-32) Anion Gap 11 (6-14) Blood Urea Nitrogen 6 mg/dL (7-20) L Creatinine 0.5 mg/dL (0.6-1.0) L Estimated GFR (Cockcroft-Gault) 155.7 BUN/Creatinine Ratio 12 (6-20) Glucose Level 116 mg/dL (70-99) H Lactic Acid Level 1.3 mmol/L (0.4-2.0) Calcium Level 9.3 mg/dL (8.5-10.1) Magnesium Level 1.9 mg/dL (1.8-2.4) Total Bilirubin 0.3 mg/dL (0.2-1.0) Aspartate Amino Transferase (AST) 22 U/L (15-37) Alanine Aminotransferase (ALT) 32 U/L (14-59) Alkaline Phosphatase 82 U/L (46-116) Creatine Kinase 61 U/L (26-192) Total Protein 7.9 g/dL (6.4-8.2) Albumin 3.8 g/dL (3.4-5.0) Albumin/Globulin Ratio 0.9 (1.0-1.7) L Laboratory Tests 03/01/17 08:32 Laboratory Tests 03/01/17 08:32 EKG EKG [] Radiology/Procedures Radiology/Procedures Indication abdominal pain. Contrast imaging through the abdomen was performed. 75 cc of Omnipaque 300 was administered intravenously. No oral contrast was administered. Note is made of previous examinations 02/25/2017 and 02/04/2017. The patient experienced vomiting during the IV contrast administration and the initial set of images, through the abdomen and pelvis by virtue of substantial motion are nondiagnostic. A second imaging acquisition through the abdomen and pelvis was performed. There is no free air. Postoperative changes in the gallbladder fossa and involving the stomach are noted. There is no evidence of pneumoperitoneum. No acute or significant finding is seen involving the liver or spleen. No pancreatic adrenal or renal anomalies are seen. An acute finding in the abdomen is not apparent. There is a " swirl" sign in the right upper quadrant but this is likely incidental. High-grade mechanical obstruction is not suggested on this exam. (The appearance is similar to a study 08/30/2016 although not present on the most recent study 02/25/2027). Intermittent obstruction not entirely excluded. The kidneys appear normal. The pelvis is unremarkable. IMPRESSION: No definite acute finding. No pneumoperitoneum. "Swirl" sign in the right upper quadrant probably incidental. Intermittent obstruction is not entirely excluded DICTATED and SIGNED BY: SPITTLER,SANTIAGO J MD DATE: 03/01/17 0928 Course & Med Decision Making Course & Med Decision Making Patient once again with abnormal CT and despite multiple rounds of nausea and pain medications she has shown no improvement. I asked patient if she states in the hospital whether she be willing to see the consultations as requested before. Patient says that she would follow directions this time and would see the consult. Patient will be admitted for further symptom control and consultation with GI and gynecology. Patient admitted in stable condition. Dragon Disclaimer Dragon Disclaimer This electronic medical record was generated, in whole or in part, using a voice recognition dictation system. Departure Departure Impression: Primary Impression: Intractable abdominal pain Additional Impression: Nausea & vomiting Disposition: ADMITTED INPATIENT Admitting Physician: Other (REUSCH) Referrals: NO PCP (PCP) Problem Qualifiers CARMEN SANTORO DO Mar 01, 2017 08:14
[2017-03-01] MEDS ORDERED: IV NORMAL SALINE 1000ML BAG 1,000 ML IV ONE (08:30)
[2017-03-01] MEDS ORDERED: HALOPERIDOL LACTATE 5 MG/ML VIAL. IVP ONE (08:30)
[2017-03-01] MEDS ORDERED: LIDO:MAALOX:DONNATAL 1:1:1 15 ML SINGLE DOSE SWSW ONE (08:30)
[2017-03-01] MEDS ORDERED: PANTOPRAZOLE IV PUSH 40 MG VIAL. IVP ONE (08:30)
[2017-03-01 08:42] LABS: BASO % 1 % (0-3); EOS % 2 % (0-3); HEMATOCRIT 35.4 % (36.0-47.0); HEMOGLOBIN 11.6 g/dL (12.0-15.5); LYMPH # 1.3 x10^3/uL (1.0-4.8); LYMPH % 20 % (24-48); MEAN CORPUSCULAR HEMOGLOBIN 25 pg (25-35); MEAN CORPUSCULAR HGB CONC 33 g/dL (31-37); MEAN CORPUSCULAR VOLUME 75 fL (79-100); MONO % 5 % (0-9); NEUT % 72 % (31-73); PLATELET COUNT 323 x10^3/uL (140-400); RED BLOOD COUNT 4.71 x10^6/uL (3.50-5.40); RED CELL DISTRIBUTION WIDTH 14.3 % (11.5-14.5); WHITE BLOOD COUNT 6.6 x10^3/uL (4.0-11.0)
[2017-03-01] MEDS ORDERED: IOHEXOL 300 MG/ML 75 ML VIAL IV ONE (08:45)
[2017-03-01] MEDS ORDERED: CONTRAST GIVEN MC PRN (08:45)
[2017-03-01 08:49] LABS: CALCIUM 9.3 mg/dL (8.5-10.1); CREATININE 0.5 mg/dL (0.6-1.0); GFR 155.7
[2017-03-01 08:55] LABS: ALBUMIN 3.8 g/dL (3.4-5.0); ALBUMIN/GLOBULIN RATIO 0.9 (1.0-1.7); MAGNESIUM 1.9 mg/dL (1.8-2.4); TOTAL BILIRUBIN 0.3 mg/dL (0.2-1.0); TOTAL PROTEIN 7.9 g/dL (6.4-8.2)
--- NOTE | 2017-03-01 09:57 | RAD ---
Indication abdominal pain. Contrast imaging through the abdomen was performed. 75 cc of Omnipaque 300 was administered intravenously. No oral contrast was administered. Note is made of previous examinations 02/25/2017 and 02/04/2017. The patient experienced vomiting during the IV contrast administration and the initial set of images, through the abdomen and pelvis by virtue of substantial motion are nondiagnostic. A second imaging acquisition through the abdomen and pelvis was performed. There is no free air. Postoperative changes in the gallbladder fossa and involving the stomach are noted. There is no evidence of pneumoperitoneum. No acute or significant finding is seen involving the liver or spleen. No pancreatic adrenal or renal anomalies are seen. An acute finding in the abdomen is not apparent. There is a " swirl" sign in the right upper quadrant but this is likely incidental. High-grade mechanical obstruction is not suggested on this exam. (The appearance is similar to a study 08/30/2016 although not present on the most recent study 02/25/2027). Intermittent obstruction not entirely excluded. The kidneys appear normal. The pelvis is unremarkable. IMPRESSION: No definite acute finding. No pneumoperitoneum. "Swirl" sign in the right upper quadrant probably incidental. Intermittent obstruction is not entirely excluded
[2017-03-01] MEDS ORDERED: MORPHINE SULFATE 10 MG/ML VIAL. IV ONE (10:00)
[2017-03-01] MEDS ORDERED: ONDANSETRON PF 4 MG/2 ML VIAL. IV ONE (10:00)
--- NOTE | 2017-03-01 10:40 | ACF ---
Admit Criteria Forms Admit Criteria Forms Admit Criteria Forms ABDOMINAL PAIN Clinical Indications for Admission to Inpatient Care (Place 'X' for any and all applicable criteria): Admission is indicated for ANY ONE of the following(1)(2)(3)(4)(5): [X]I. Inpatient admission required rather than observation care (Also use Abdominal Pain: Observation Care, as appropriate) because of ANY ONE of the following: [X]a) Severe pain requiring acute inpatient management [ ]b) Identification of etiology/finding that requires inpatient care (eg, aortic dissection, free air) [ ]c) Absent bowel sounds with complete ileus(6) [ ]d) Suspected toxic megacolon [ ]e) Severe electrolyte abnormalities requiring inpatient care [ ]f) High fever or infection requiring inpatient admission as indicated by ANY ONE of following(7)(8): [ ] i) Appropriate outpatient or observational care antimicrobial treatment unavailable, not effective, or not feasible [ ] ii) Documented bacteremia [ ] iii) Temperature > 104.9 degrees F (oral) [ ] iv) T >103.1 F (oral) or < 96.8 F(rectal) that does not respond to all emergency treatment measures [ ]g) Signs of intestinal obstruction [B] [ ]h) Hemodynamic instability [ ]i) IV fluid to replace significant ongoing losses (greater than 3 L/m2 per day) (12)(13) [ ]j) Percutaneous or open drainage (eg, abscess, biliary tract ) procedures [ ]k) Parenteral nutrition regimen that must be implemented on inpatient basis [ ]l) Other condition,treatment or monitoring requiring inpatient admission. [ ]II. Peritoneal signs present [ ]III. Surgery needed that cannot be performed on an ambulatory basis. [ ]IV. Evaluation requires patient to not eat or drink for extended period ( eg, more than 24 hours). [ ]V. Contraindications and/or Inappropriate clinical situations for Observational Care in patients with abdominal pain, when ANY ONE of the following is required: [ ]a) Thorough evaluation is required to prevent catastrophic events due to delays in diagnosing (e.g.Mesenteric ischemia) 1,3 [ ]b) Patient with severe pathology or with chronic symptoms unlikely to improve in the ED stay (3) [ ]. General contraindications and/or Inappropriate clinical situations for Observational Care in patients with abdominal pain, when ANY ONE of the following is required: [ ]a) Prediction of prolongation of LOS based on ANY ONE of the following may be considered as a contraindication for observational care 2, 3, 4, 5, 6, 7, 8, 9, 10, 11 [ ]i) Age > 65 yrs. [ ]ii) Patient arriving by ambulance [ ]iii) Patient with high acuity [ ]iv) Patient requiring vital sign monitoring [ ]v) Patient on IV medication [ ]b) Systolic blood pressures 180mmHg 3,12 [ ]c) Patient with altered mental status including delirium and other alteration of consciousness, (3) [ ]d) Patient whose discharge disposition will be to a assisted home or rehabilitation home should not be managed in Emergency Department Observation Unit. CMS rule requires 3 days hospital stay before such placement.3,13 [ ]e) Patient with failure to thrive due to broad array of etiologies 3,16,17 [ ]f) Inability to ambulate 3,14 Extended stay beyond goal length of stay may be needed for(2)(3): [ ]a) Persistent abdominal pain with suspected intra-abdominal process [ ]b) Diagnosed condition requiring continued stay (e.g., pancreatitis, complicated diverticulitis) [ ]c) Surgery (e.g., colectomy) The original [employer] content created by [employer] has been revised. The portions of the content which have been revised are identified through the use of italic text or in bold, and [facility] has neither reviewed nor approved the modified material.All other unmodified content is copyright [employer]. Please see references footnoted in the original [employer] edition 2016 SAUL BISWAS Mar 01, 2017 10:39
[2017-03-01] MEDS ORDERED: ONDANSETRON PF 4 MG/2 ML VIAL. IV PRN (12:00)
[2017-03-01 12:14] VITALS: BP 108/62
--- NOTE | 2017-03-01 13:35 | PDOC ---
G I PROGRESS NOTE Reason for Follow-up ABd pain recurrent Subjective Nausea and emesis today Physical Exam Lungs clear CV S1 S2' ABD hypoactive BS, soft, mild tenderness through out Review of Relevant I have reviewed the following items loren (where applicable) has been applied. Labs Laboratory Tests Test 03/01/17 08:32 White Blood Count 6.6 x10^3/uL (4.0-11.0) Red Blood Count 4.71 x10^6/uL (3.50-5.40) Hemoglobin 11.6 g/dL (12.0-15.5) Hematocrit 35.4 % (36.0-47.0) Mean Corpuscular Volume 75 fL (79-100) Mean Corpuscular Hemoglobin 25 pg (25-35) Mean Corpuscular Hemoglobin Concent 33 g/dL (31-37) Red Cell Distribution Width 14.3 % (11.5-14.5) Platelet Count 323 x10^3/uL (140-400) Neutrophils (%) (Auto) 72 % (31-73) Lymphocytes (%) (Auto) 20 % (24-48) Monocytes (%) (Auto) 5 % (0-9) Eosinophils (%) (Auto) 2 % (0-3) Basophils (%) (Auto) 1 % (0-3) Neutrophils # (Auto) 4.7 x10^3uL (1.8-7.7) Lymphocytes # (Auto) 1.3 x10^3/uL (1.0-4.8) Monocytes # (Auto) 0.4 x10^3/uL (0.0-1.1) Eosinophils # (Auto) 0.1 x10^3/uL (0.0-0.7) Basophils # (Auto) 0.0 x10^3/uL (0.0-0.2) Sodium Level 138 mmol/L (136-145) Potassium Level 4.0 mmol/L (3.5-5.1) Chloride Level 102 mmol/L (98-107) Carbon Dioxide Level 25 mmol/L (21-32) Anion Gap 11 (6-14) Blood Urea Nitrogen 6 mg/dL (7-20) Creatinine 0.5 mg/dL (0.6-1.0) Estimated GFR (Cockcroft-Gault) 155.7 BUN/Creatinine Ratio 12 (6-20) Glucose Level 116 mg/dL (70-99) Lactic Acid Level 1.3 mmol/L (0.4-2.0) Calcium Level 9.3 mg/dL (8.5-10.1) Magnesium Level 1.9 mg/dL (1.8-2.4) Total Bilirubin 0.3 mg/dL (0.2-1.0) Aspartate Amino Transf (AST/SGOT) 22 U/L (15-37) Alanine Aminotransferase (ALT/SGPT) 32 U/L (14-59) Alkaline Phosphatase 82 U/L (46-116) Creatine Kinase 61 U/L (26-192) Total Protein 7.9 g/dL (6.4-8.2) Albumin 3.8 g/dL (3.4-5.0) Albumin/Globulin Ratio 0.9 (1.0-1.7) Lipase 94 U/L (73-393) Laboratory Tests Test 03/01/17 08:32 White Blood Count 6.6 x10^3/uL (4.0-11.0) Red Blood Count 4.71 x10^6/uL (3.50-5.40) Hemoglobin 11.6 g/dL (12.0-15.5) Hematocrit 35.4 % (36.0-47.0) Mean Corpuscular Volume 75 fL (79-100) Mean Corpuscular Hemoglobin 25 pg (25-35) Mean Corpuscular Hemoglobin Concent 33 g/dL (31-37) Red Cell Distribution Width 14.3 % (11.5-14.5) Platelet Count 323 x10^3/uL (140-400) Neutrophils (%) (Auto) 72 % (31-73) Lymphocytes (%) (Auto) 20 % (24-48) Monocytes (%) (Auto) 5 % (0-9) Eosinophils (%) (Auto) 2 % (0-3) Basophils (%) (Auto) 1 % (0-3) Neutrophils # (Auto) 4.7 x10^3uL (1.8-7.7) Lymphocytes # (Auto) 1.3 x10^3/uL (1.0-4.8) Monocytes # (Auto) 0.4 x10^3/uL (0.0-1.1) Eosinophils # (Auto) 0.1 x10^3/uL (0.0-0.7) Basophils # (Auto) 0.0 x10^3/uL (0.0-0.2) Sodium Level 138 mmol/L (136-145) Potassium Level 4.0 mmol/L (3.5-5.1) Chloride Level 102 mmol/L (98-107) Carbon Dioxide Level 25 mmol/L (21-32) Anion Gap 11 (6-14) Blood Urea Nitrogen 6 mg/dL (7-20) Creatinine 0.5 mg/dL (0.6-1.0) Estimated GFR (Cockcroft-Gault) 155.7 BUN/Creatinine Ratio 12 (6-20) Glucose Level 116 mg/dL (70-99) Lactic Acid Level 1.3 mmol/L (0.4-2.0) Calcium Level 9.3 mg/dL (8.5-10.1) Magnesium Level 1.9 mg/dL (1.8-2.4) Total Bilirubin 0.3 mg/dL (0.2-1.0) Aspartate Amino Transf (AST/SGOT) 22 U/L (15-37) Alanine Aminotransferase (ALT/SGPT) 32 U/L (14-59) Alkaline Phosphatase 82 U/L (46-116) Creatine Kinase 61 U/L (26-192) Total Protein 7.9 g/dL (6.4-8.2) Albumin 3.8 g/dL (3.4-5.0) Albumin/Globulin Ratio 0.9 (1.0-1.7) Lipase 94 U/L (73-393) Medications Current Medications Multi-Ingredient Mouthwash/Gargle (Gi Cocktail Single Dose) 15 ml 1X ONCE SWSW Last administered on 03/01/17 08:50; Start 03/01/17 at 08:30; Stop 03/01/17 at 08:31; Status DC Pantoprazole Sodium (Protonix Vial) 40 mg 1X ONCE IVP Last administered on 08:43; Start 03/01/17 at 08:30; Stop 03/01/17 at 08:31; Status DC Sodium Chloride 1,000 ml @ 1,000 mls/hr 1X ONCE IV Last administered on 08:41; Start 03/01/17 at 08:30; Stop 03/01/17 at 09:29; Status DC Haloperidol Lactate (Haldol) 4 mg 1X ONCE IVP Last administered on 03/01/17 08:48; Start 03/01/17 at 08:30; Stop 03/01/17 at 08:31; Status DC Iohexol (Omnipaque 300 Mg/ml) 75 ml 1X ONCE IV Last administered on 03/01/17 09:10; Start 03/01/17 at 08:45; Stop 03/01/17 at 08:46; Status DC Info (Do NOT chart on this entry -- for MONITORING) 1 each PRN DAILY PRN MC SEE COMMENTS; Start 03/01/17 at 08:45; Stop 03/03/17 at 08:44 Morphine Sulfate 5 mg 1X ONCE IV Last administered on 03/01/17 10:44; Start 03/01/17 at 10:00; Stop 03/01/17 at 10:01; Status DC Ondansetron HCl (Zofran) 8 mg 1X ONCE IV Last administered on 03/01/17 10:43 ; Start 03/01/17 at 10:00; Stop 03/01/17 at 10:01; Status DC Ondansetron HCl (Zofran) 4 mg PRN Q8HRS PRN IV NAUSEA/VOMITING; Start 03/01/17 at 12:00; Stop 03/02/17 at 11:59 Active Scripts Active Reported Percocet 10-325 Mg Tablet (Oxycodone/Acetaminophen) 1 Each Tablet 1 Tab PO PRN Q6HRS PRN Lamictal (Lamotrigine) 200 Mg Tablet 1 Tab PO BID Soma (Carisoprodol) 350 Mg Tablet 1 Tab PO BID Alprazolam 1 Mg Tablet 1 Tab PO BID Vitals/I & O Vital Sign - Last 24 Hours 03/01/17 03/01/17 03/01/17 03/01/17 08:12 08:20 08:50 09:50 Temp 98.2 98.2 Pulse 62 62 76 59 Resp 16 B/P (MAP) 128/72 (90) 122/68 (86) 124/59 (80) Pulse Ox 100 99 O2 Delivery Room Air Room Air Room Air 03/01/17 03/01/17 03/01/17 03/01/17 10:20 10:50 11:20 12:14 Temp 97.7 97.7 Pulse 63 60 61 71 Resp 20 B/P (MAP) 110/73 (85) 99/64 (76) 97/54 (68) 108/62 (77) Pulse Ox 99 98 94 O2 Delivery Room Air Room Air Room Air 03/01/17 03/01/17 12:15 12:46 Resp 16 Pulse Ox 98 O2 Delivery Room Air Room Air Problem List Problems Medical Problems: (1) Intractable abdominal pain Status: Acute (2) Nausea & vomiting Status: Acute Assessment Abd pain- S/P gastric bypass/analilia, etiology to be determined. Partial SBO, adhesions, and/or internal hernia lead differential. IBD, malignancy possible as well. Plan iv fluids/antiemetics/analgesics sb series in am KENY CUMMINGS MD Mar 01, 2017 13:35
[2017-03-01] MEDS: MORPHINE SULFATE 2 MG/ML DISP.SYRIN. IV PRN ×4 (13:58→23:20)
[2017-03-01] MEDS ORDERED: PROCHLORPERAZINE 10 MG/2 ML VIAL. IV PRN (14:00)
[2017-03-01] MEDS ORDERED: CARI350T PO (14:01)
[2017-03-01] MEDS ORDERED: ACET500T68 PO (14:01)
[2017-03-01] MEDS: IV NORMAL SALINE 1000ML BAG 1,000 ML IV SCH ×2 (14:02→20:19)
--- NOTE | 2017-03-01 14:42 | PDOC2 ---
CONSULT Date of Consult Date of Consult DATE: 03/01/17 TIME: 14:38 Reason for Consult Reason for Consult: Abd pain Identification/Chief Complaint Chief Complaint RUQ pain radiating to bacN/V Source Source: Patient Past Medical History Cardiovascular: No pertinent hx Pulmonary: No pertinent hx CENTRAL NERVOUS SYSTEM: Other GI: Other Psych: Anxiety, Panic Past Surgical History Past Surgical History: Cholecystectomy Family History Family History: No Significant Social History ALCOHOL: none Drugs: None Current Problem List Problem List Problems Medical Problems: (1) Intractable abdominal pain Status: Acute (2) Nausea & vomiting Status: Acute Current Medications Current Medications Current Medications Multi-Ingredient Mouthwash/Gargle (Gi Cocktail Single Dose) 15 ml 1X ONCE SWSW Last administered on 03/01/17 08:50; Start 03/01/17 at 08:30; Stop 03/01/17 at 08:31; Status DC Pantoprazole Sodium (Protonix Vial) 40 mg 1X ONCE IVP Last administered on 08:43; Start 03/01/17 at 08:30; Stop 03/01/17 at 08:31; Status DC Sodium Chloride 1,000 ml @ 1,000 mls/hr 1X ONCE IV Last administered on 08:41; Start 03/01/17 at 08:30; Stop 03/01/17 at 09:29; Status DC Haloperidol Lactate (Haldol) 4 mg 1X ONCE IVP Last administered on 03/01/17 08:48; Start 03/01/17 at 08:30; Stop 03/01/17 at 08:31; Status DC Iohexol (Omnipaque 300 Mg/ml) 75 ml 1X ONCE IV Last administered on 03/01/17 09:10; Start 03/01/17 at 08:45; Stop 03/01/17 at 08:46; Status DC Info (Do NOT chart on this entry -- for MONITORING) 1 each PRN DAILY PRN MC SEE COMMENTS; Start 03/01/17 at 08:45; Stop 03/03/17 at 08:44 Morphine Sulfate 5 mg 1X ONCE IV Last administered on 03/01/17 10:44; Start 03/01/17 at 10:00; Stop 03/01/17 at 10:01; Status DC Ondansetron HCl (Zofran) 8 mg 1X ONCE IV Last administered on 03/01/17 10:43 ; Start 03/01/17 at 10:00; Stop 03/01/17 at 10:01; Status DC Ondansetron HCl (Zofran) 4 mg PRN Q8HRS PRN IV NAUSEA/VOMITING; Start 03/01/17 at 12:00; Stop 03/02/17 at 11:59 Sodium Chloride 1,000 ml @ 100 mls/hr Q10H IV Last administered on 03/01/17 14:02; Start 03/01/17 at 13:45 Prochlorperazine Edisylate (Compazine) 10 mg PRN Q8HRS PRN IV NAUSEA/VOMITING Last administered on 03/01/17 13:56; Start 03/01/17 at 14:00 Morphine Sulfate 2 mg PRN Q2HR PRN IV PAIN Last administered on 03/01/17 13:58 ; Start 03/01/17 at 14:00 Active Scripts Active Reported Acetaminophen 500 Mg Tablet 1 Tab PO Q6HRS Soma (Carisoprodol) 350 Mg Tablet 1 Tab PO BID Lamictal (Lamotrigine) 200 Mg Tablet 1 Tab PO BID Alprazolam 1 Mg Tablet 1 Tab PO BID Allergies Allergies: Coded Allergies: NSAIDS (Non-Steroidal Anti-Inflamma (Verified Allergy, Intermediate, ) codeine (Verified Allergy, Intermediate, 03/01/17) Tolerates oxycodone diclofenac (Verified Allergy, Intermediate, 02/26/17) dicyclomine (Verified Allergy, Intermediate, 04/06/16) fentanyl (Verified Allergy, Intermediate, 04/06/16) ketorolac (Verified Allergy, Intermediate, 04/06/16) tizanidine (Verified Allergy, Intermediate, Hives, 02/25/17) tramadol (Verified Allergy, Intermediate, 03/01/17) Tolerates oxycodone cyclobenzaprine (Verified Adverse Reaction, Intermediate, "DOESN'T WORK", 02/06/17) Physical Exam General: Alert, Oriented X3, Cooperative, No acute distress HEENT: PERRLA, Mucous membr. moist/pink Abdomen: Other (TTP RUQ Pelvic exam unremarkable, Pap and cultures performed) Extremities: No clubbing, No cyanosis, No edema, Normal pulses, No tenderness/ swelling Vitals VITALS Vital Signs Date Time Temp Pulse Resp B/P (MAP) Pulse Ox O2 Delivery O2 Flow Rate FiO2 03/01/17 14:28 16 98 Room Air 03/01/17 12:14 97.7 71 108/62 (77) 97.7 Labs Labs Laboratory Tests Test 03/01/17 08:32 White Blood Count 6.6 x10^3/uL (4.0-11.0) Red Blood Count 4.71 x10^6/uL (3.50-5.40) Hemoglobin 11.6 g/dL (12.0-15.5) Hematocrit 35.4 % (36.0-47.0) Mean Corpuscular Volume 75 fL (79-100) Mean Corpuscular Hemoglobin 25 pg (25-35) Mean Corpuscular Hemoglobin Concent 33 g/dL (31-37) Red Cell Distribution Width 14.3 % (11.5-14.5) Platelet Count 323 x10^3/uL (140-400) Neutrophils (%) (Auto) 72 % (31-73) Lymphocytes (%) (Auto) 20 % (24-48) Monocytes (%) (Auto) 5 % (0-9) Eosinophils (%) (Auto) 2 % (0-3) Basophils (%) (Auto) 1 % (0-3) Neutrophils # (Auto) 4.7 x10^3uL (1.8-7.7) Lymphocytes # (Auto) 1.3 x10^3/uL (1.0-4.8) Monocytes # (Auto) 0.4 x10^3/uL (0.0-1.1) Eosinophils # (Auto) 0.1 x10^3/uL (0.0-0.7) Basophils # (Auto) 0.0 x10^3/uL (0.0-0.2) Sodium Level 138 mmol/L (136-145) Potassium Level 4.0 mmol/L (3.5-5.1) Chloride Level 102 mmol/L (98-107) Carbon Dioxide Level 25 mmol/L (21-32) Anion Gap 11 (6-14) Blood Urea Nitrogen 6 mg/dL (7-20) Creatinine 0.5 mg/dL (0.6-1.0) Estimated GFR (Cockcroft-Gault) 155.7 BUN/Creatinine Ratio 12 (6-20) Glucose Level 116 mg/dL (70-99) Lactic Acid Level 1.3 mmol/L (0.4-2.0) Calcium Level 9.3 mg/dL (8.5-10.1) Magnesium Level 1.9 mg/dL (1.8-2.4) Total Bilirubin 0.3 mg/dL (0.2-1.0) Aspartate Amino Transf (AST/SGOT) 22 U/L (15-37) Alanine Aminotransferase (ALT/SGPT) 32 U/L (14-59) Alkaline Phosphatase 82 U/L (46-116) Creatine Kinase 61 U/L (26-192) Total Protein 7.9 g/dL (6.4-8.2) Albumin 3.8 g/dL (3.4-5.0) Albumin/Globulin Ratio 0.9 (1.0-1.7) Lipase 94 U/L (73-393) Laboratory Tests Test 03/01/17 08:32 White Blood Count 6.6 x10^3/uL (4.0-11.0) Red Blood Count 4.71 x10^6/uL (3.50-5.40) Hemoglobin 11.6 g/dL (12.0-15.5) Hematocrit 35.4 % (36.0-47.0) Mean Corpuscular Volume 75 fL (79-100) Mean Corpuscular Hemoglobin 25 pg (25-35) Mean Corpuscular Hemoglobin Concent 33 g/dL (31-37) Red Cell Distribution Width 14.3 % (11.5-14.5) Platelet Count 323 x10^3/uL (140-400) Neutrophils (%) (Auto) 72 % (31-73) Lymphocytes (%) (Auto) 20 % (24-48) Monocytes (%) (Auto) 5 % (0-9) Eosinophils (%) (Auto) 2 % (0-3) Basophils (%) (Auto) 1 % (0-3) Neutrophils # (Auto) 4.7 x10^3uL (1.8-7.7) Lymphocytes # (Auto) 1.3 x10^3/uL (1.0-4.8) Monocytes # (Auto) 0.4 x10^3/uL (0.0-1.1) Eosinophils # (Auto) 0.1 x10^3/uL (0.0-0.7) Basophils # (Auto) 0.0 x10^3/uL (0.0-0.2) Sodium Level 138 mmol/L (136-145) Potassium Level 4.0 mmol/L (3.5-5.1) Chloride Level 102 mmol/L (98-107) Carbon Dioxide Level 25 mmol/L (21-32) Anion Gap 11 (6-14) Blood Urea Nitrogen 6 mg/dL (7-20) Creatinine 0.5 mg/dL (0.6-1.0) Estimated GFR (Cockcroft-Gault) 155.7 BUN/Creatinine Ratio 12 (6-20) Glucose Level 116 mg/dL (70-99) Lactic Acid Level 1.3 mmol/L (0.4-2.0) Calcium Level 9.3 mg/dL (8.5-10.1) Magnesium Level 1.9 mg/dL (1.8-2.4) Total Bilirubin 0.3 mg/dL (0.2-1.0) Aspartate Amino Transf (AST/SGOT) 22 U/L (15-37) Alanine Aminotransferase (ALT/SGPT) 32 U/L (14-59) Alkaline Phosphatase 82 U/L (46-116) Creatine Kinase 61 U/L (26-192) Total Protein 7.9 g/dL (6.4-8.2) Albumin 3.8 g/dL (3.4-5.0) Albumin/Globulin Ratio 0.9 (1.0-1.7) Lipase 94 U/L (73-393) Assessment/Plan Assessment/Plan Benign pelvic exam Will follow as needed DUNG ROMERO MD Mar 01, 2017 14:42
[2017-03-01 15:48] VITALS: BP 97/52
[2017-03-01 19:00] VITALS: BP 99/63
[2017-03-01] MEDS: CARISOPRODOL 350 MG TABLET PO SCH (20:19)
[2017-03-01] MEDS: ALPRAZolam 1 MG TABLET PO SCH (20:19)
[2017-03-01] MEDS: lamoTRIgine 100 MG TABLET. PO SCH (20:19)
--- NOTE | 2017-03-01 20:45 | HP ---
ADMIT DATE: 03/01/2017 CHIEF COMPLAINT: Abdominal pain. HISTORY OF PRESENT ILLNESS: The patient is a 21-year-old woman with a past medical history of gastric bypass for weight loss purposes 4 years ago, who presented to the Emergency Room with recurrent abdominal pain. She relates that she actually had been here in the hospital in the past week and partial workup had been done. She, however, had to leave for a job interview. Pain recurred with ____ yesterday and was not amenable to any medications she had at home and therefore she was presented to the hospital. She states pain is all over centered, however, right above her umbilicus. She endorses nausea as well as emesis today. Denies any diarrhea, has not constipated bowel movement yesterday. The patient is now admitted for further workup. PAST MEDICAL HISTORY: Aurelio-en-Y gastric bypass in 2012, cholecystectomy, GERD, history of nephrolithiasis, PCOS. FAMILY HISTORY: Brother with Crohn's. SOCIAL HISTORY: Homeless, smokes less than 1 pack a day, history of cannabis use. No alcohol or other drugs. ALLERGIES: NSAIDS. MEDICATIONS: MAR reconciled with home medications. REVIEW OF SYSTEMS: Positive as per HPI as above. Rest of organ system review is negative. PHYSICAL EXAMINATION: VITAL SIGNS: From today show a blood pressure of 108/62, heart rate of 71, respiratory rate at 20. She is afebrile. GENERAL: This is a well-nourished 21-year-old woman, awake, alert, in mild distress secondary to abdominal pain. HEENT: Shows no scleral icterus. NECK: Supple without any lymphadenopathy. LUNGS: Clear. HEART: Regular rate and rhythm. ABDOMEN: With positive bowel sounds, soft, tenderness to palpation throughout without any guarding or rebound. EXTREMITIES: Show no edema. SKIN: Warm, soft and dry. LABORATORY DATA: CBC with a WBC of 6.6, hemoglobin 11.6, MCV of 75, platelets of 323. Chemistries with BUN and creatinine of 6 and 0.5, normal electrolytes. Normal LFTs, albumin at 3.8. IMAGING STUDIES: CT of the abdomen and pelvis from today, no definite acute findings, ____ sign in the right upper quadrant, probably incidental. ASSESSMENT AND PLAN: The patient is a 21-year-old woman with recurrent abdominal pain for which she actually had been seen by Dr. Raygoza on an outpatient basis in August without findings including a negative celiac workup. Given her previous history, questions of adhesions is higher on list. Further workup will be undertaken as per Dr. Raygoza, who has seen the patient already. To complete the abdominal workup, GRIEVANCE AND APPEALS COORDINATOR consult had been requested at previous hospitalization, but the patient had left before consult had been completed. This has been requested once again. We will keep her n.p.o. for the time being, she has antiemetics as well as IV pain medications available. We will continue IV fluids. ANGELO WAGNER MD DR: DEBORA/nts JOB#: [id number] / [id number]
[2017-03-01 23:00] VITALS: BP 114/69
[2017-03-01] MEDS: oxyCODONE/APAP 10/325 1 TAB TABLET PO PRN (23:31)
[2017-03-02] MEDS: MORPHINE SULFATE 2 MG/ML DISP.SYRIN. IV PRN ×8 (02:15→22:09)
[2017-03-02 03:00] VITALS: BP 101/51
[2017-03-02] MEDS: oxyCODONE/APAP 10/325 1 TAB TABLET PO PRN ×5 (03:31→21:53)
[2017-03-02 04:37] LABS: BASO % 1 % (0-3); EOS % 3 % (0-3); HEMATOCRIT 28.9 % (36.0-47.0); HEMOGLOBIN 9.3 g/dL (12.0-15.5); LYMPH # 2.4 x10^3/uL (1.0-4.8); LYMPH % 42 % (24-48); MEAN CORPUSCULAR HEMOGLOBIN 25 pg (25-35); MEAN CORPUSCULAR HGB CONC 32 g/dL (31-37); MEAN CORPUSCULAR VOLUME 77 fL (79-100); MONO % 9 % (0-9); NEUT % 45 % (31-73); PLATELET COUNT 236 x10^3/uL (140-400); RED BLOOD COUNT 3.76 x10^6/uL (3.50-5.40); RED CELL DISTRIBUTION WIDTH 14.1 % (11.5-14.5); WHITE BLOOD COUNT 5.6 x10^3/uL (4.0-11.0)
[2017-03-02 04:51] LABS: CALCIUM 7.9 mg/dL (8.5-10.1); CREATININE 0.5 mg/dL (0.6-1.0); GFR 155.7; POTASSIUM 3.6 mmol/L (3.5-5.1)
[2017-03-02 07:00] VITALS: BP 112/61
[2017-03-02] MEDS ORDERED: BARIUM SULFATE 340 GM SUSPENSION. PO ONE (07:45)
[2017-03-02] MEDS ORDERED: BARIUM SULFATE 60% 355 ML SUSP PO ONE (07:45)
[2017-03-02] MEDS ORDERED: SIMETHICONE/SOD BICARB/CITRIC ACID PACKET. PO ONE (07:45)
[2017-03-02] MEDS: ALPRAZolam 1 MG TABLET PO SCH ×2 (08:09→20:10)
[2017-03-02] MEDS: CARISOPRODOL 350 MG TABLET PO SCH ×2 (08:09→20:09)
[2017-03-02] MEDS: lamoTRIgine 100 MG TABLET. PO SCH ×2 (09:00→20:10)
--- NOTE | 2017-03-02 09:09 | PDOC ---
Objective: Objective: Out for SBS. Per RN - asked for pain and nausea meds before leaving. Vital Signs: Vital Signs Date Time Temp Pulse Resp B/P (MAP) Pulse Ox O2 Delivery O2 Flow Rate FiO2 03/02/17 08:11 12 100 Room Air 03/02/17 07:00 98.7 65 112/61 (78) 98.7 Labs: Laboratory Tests Test 03/02/17 03:45 03/02/17 03:48 Sodium Level 142 mmol/L Potassium Level 3.6 mmol/L Chloride Level 108 mmol/L Carbon Dioxide Level 25 mmol/L Anion Gap 9 Blood Urea Nitrogen 4 mg/dL Creatinine 0.5 mg/dL Estimated GFR (Cockcroft-Gault) 155.7 Glucose Level 101 mg/dL Calcium Level 7.9 mg/dL White Blood Count 5.6 x10^3/uL Red Blood Count 3.76 x10^6/uL Hemoglobin 9.3 g/dL Hematocrit 28.9 % Mean Corpuscular Volume 77 fL Mean Corpuscular Hemoglobin 25 pg Mean Corpuscular Hemoglobin Concent 32 g/dL Red Cell Distribution Width 14.1 % Platelet Count 236 x10^3/uL Neutrophils (%) (Auto) 45 % Lymphocytes (%) (Auto) 42 % Monocytes (%) (Auto) 9 % Eosinophils (%) (Auto) 3 % Basophils (%) (Auto) 1 % Neutrophils # (Auto) 2.6 x10^3uL Lymphocytes # (Auto) 2.4 x10^3/uL Monocytes # (Auto) 0.5 x10^3/uL Eosinophils # (Auto) 0.2 x10^3/uL Basophils # (Auto) 0.0 x10^3/uL Imaging: CT A/P 03/01/17 IMPRESSION: No definite acute finding. No pneumoperitoneum. "Swirl" sign in the right upper quadrant probably incidental. Intermittent obstruction is not entirely excluded. PE: no exam/out of room A/P: Abd pain - chronic -s/p Aurelio-en-Y, cholecystectomy -h/o GERD on H2 rosalba and Carafate -multiple CTs here, normal SBS, normal Celiac serology, surgery hand COMMUNITY PROGRAM ASSISTANT have seen -usually asks for refills of all meds prior to DC -- Out of room for imaging. Will follow on results. KARI GLASGOW Mar 02, 2017 09:09
[2017-03-02] MEDS: SUCRALFATE 1 GM TABLET. PO SCH ×4 (09:30→20:09)
[2017-03-02] MEDS: IV NORMAL SALINE 1000ML BAG 1,000 ML IV SCH ×2 (09:45→14:26)
[2017-03-02] MEDS ORDERED: ACETAMINOPHEN 325 MG TABLET. PO PRN (13:00)
[2017-03-02] MEDS ORDERED: DOCUSATE SODIUM 100 MG CAPSULE. PO PRN (13:00)
[2017-03-02] MEDS ORDERED: hydrALAZINE 20 MG/ML VIAL. IVP PRN (13:00)
[2017-03-02] MEDS ORDERED: ONDANSETRON PF 4 MG/2 ML VIAL. IV PRN (13:00)
--- NOTE | 2017-03-02 13:02 | PDOC ---
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 , no intervention SBS pending cont ivf, npo, pain control pt is possible a pain meds seeker hope dc soon History of Present Illness History of Present Illness still abd pain, nausea, very anxious Vitals Vitals Vital Signs Date Time Temp Pulse Resp B/P (MAP) Pulse Ox O2 Delivery O2 Flow Rate FiO2 03/02/17 08:11 12 100 Room Air 03/02/17 07:00 98.7 65 112/61 (78) 98.7 Physical Exam General: Alert, Oriented X3, Cooperative, No acute distress Heart: Regular rate Lungs: Clear Abdomen: Other (TTP RUQ Pelvic exam unremarkable, Pap and cultures performed) Extremities: No clubbing, No cyanosis, No edema, Normal pulses, No tenderness/ swelling Labs LABS Laboratory Tests Test 03/02/17 03:45 03/02/17 03:48 Sodium Level 142 mmol/L (136-145) Potassium Level 3.6 mmol/L (3.5-5.1) Chloride Level 108 mmol/L (98-107) Carbon Dioxide Level 25 mmol/L (21-32) Anion Gap 9 (6-14) Blood Urea Nitrogen 4 mg/dL (7-20) Creatinine 0.5 mg/dL (0.6-1.0) Estimated GFR (Cockcroft-Gault) 155.7 Glucose Level 101 mg/dL (70-99) Calcium Level 7.9 mg/dL (8.5-10.1) White Blood Count 5.6 x10^3/uL (4.0-11.0) Red Blood Count 3.76 x10^6/uL (3.50-5.40) Hemoglobin 9.3 g/dL (12.0-15.5) Hematocrit 28.9 % (36.0-47.0) Mean Corpuscular Volume 77 fL (79-100) Mean Corpuscular Hemoglobin 25 pg (25-35) Mean Corpuscular Hemoglobin Concent 32 g/dL (31-37) Red Cell Distribution Width 14.1 % (11.5-14.5) Platelet Count 236 x10^3/uL (140-400) Neutrophils (%) (Auto) 45 % (31-73) Lymphocytes (%) (Auto) 42 % (24-48) Monocytes (%) (Auto) 9 % (0-9) Eosinophils (%) (Auto) 3 % (0-3) Basophils (%) (Auto) 1 % (0-3) Neutrophils # (Auto) 2.6 x10^3uL (1.8-7.7) Lymphocytes # (Auto) 2.4 x10^3/uL (1.0-4.8) Monocytes # (Auto) 0.5 x10^3/uL (0.0-1.1) Eosinophils # (Auto) 0.2 x10^3/uL (0.0-0.7) Basophils # (Auto) 0.0 x10^3/uL (0.0-0.2) Review of Systems Review of Systems no fever, chills, sob or chest pain Assessment and Plan Assessmemt and Plan Problems Medical Problems: (1) Intractable abdominal pain Status: Acute (2) Nausea & vomiting Status: Acute Problems: Comment Review of Relevant I have reviewed the following items loren (where applicable) has been applied. Labs Laboratory Tests Test 03/01/17 08:32 03/02/17 03:45 03/02/17 03:48 White Blood Count 6.6 x10^3/uL (4.0-11.0) 5.6 x10^3/uL (4.0-11.0) Red Blood Count 4.71 x10^6/uL (3.50-5.40) 3.76 x10^6/uL (3.50-5.40) Hemoglobin 11.6 g/dL (12.0-15.5) 9.3 g/dL (12.0-15.5) Hematocrit 35.4 % (36.0-47.0) 28.9 % (36.0-47.0) Mean Corpuscular Volume 75 fL (79-100) 77 fL (79-100) Mean Corpuscular Hemoglobin 25 pg (25-35) 25 pg (25-35) Mean Corpuscular Hemoglobin Concent 33 g/dL (31-37) 32 g/dL (31-37) Red Cell Distribution Width 14.3 % (11.5-14.5) 14.1 % (11.5-14.5) Platelet Count 323 x10^3/uL (140-400) 236 x10^3/uL (140-400) Neutrophils (%) (Auto) 72 % (31-73) 45 % (31-73) Lymphocytes (%) (Auto) 20 % (24-48) 42 % (24-48) Monocytes (%) (Auto) 5 % (0-9) 9 % (0-9) Eosinophils (%) (Auto) 2 % (0-3) 3 % (0-3) Basophils (%) (Auto) 1 % (0-3) 1 % (0-3) Neutrophils # (Auto) 4.7 x10^3uL (1.8-7.7) 2.6 x10^3uL (1.8-7.7) Lymphocytes # (Auto) 1.3 x10^3/uL (1.0-4.8) 2.4 x10^3/uL (1.0-4.8) Monocytes # (Auto) 0.4 x10^3/uL (0.0-1.1) 0.5 x10^3/uL (0.0-1.1) Eosinophils # (Auto) 0.1 x10^3/uL (0.0-0.7) 0.2 x10^3/uL (0.0-0.7) Basophils # (Auto) 0.0 x10^3/uL (0.0-0.2) 0.0 x10^3/uL (0.0-0.2) Sodium Level 138 mmol/L (136-145) 142 mmol/L (136-145) Potassium Level 4.0 mmol/L (3.5-5.1) 3.6 mmol/L (3.5-5.1) Chloride Level 102 mmol/L (98-107) 108 mmol/L (98-107) Carbon Dioxide Level 25 mmol/L (21-32) 25 mmol/L (21-32) Anion Gap 11 (6-14) 9 (6-14) Blood Urea Nitrogen 6 mg/dL (7-20) 4 mg/dL (7-20) Creatinine 0.5 mg/dL (0.6-1.0) 0.5 mg/dL (0.6-1.0) Estimated GFR (Cockcroft-Gault) 155.7 155.7 BUN/Creatinine Ratio 12 (6-20) Glucose Level 116 mg/dL (70-99) 101 mg/dL (70-99) Lactic Acid Level 1.3 mmol/L (0.4-2.0) Calcium Level 9.3 mg/dL (8.5-10.1) 7.9 mg/dL (8.5-10.1) Magnesium Level 1.9 mg/dL (1.8-2.4) Total Bilirubin 0.3 mg/dL (0.2-1.0) Aspartate Amino Transf (AST/SGOT) 22 U/L (15-37) Alanine Aminotransferase (ALT/SGPT) 32 U/L (14-59) Alkaline Phosphatase 82 U/L (46-116) Creatine Kinase 61 U/L (26-192) Total Protein 7.9 g/dL (6.4-8.2) Albumin 3.8 g/dL (3.4-5.0) Albumin/Globulin Ratio 0.9 (1.0-1.7) Lipase 94 U/L (73-393) Laboratory Tests Test 03/02/17 03:45 03/02/17 03:48 Sodium Level 142 mmol/L (136-145) Potassium Level 3.6 mmol/L (3.5-5.1) Chloride Level 108 mmol/L (98-107) Carbon Dioxide Level 25 mmol/L (21-32) Anion Gap 9 (6-14) Blood Urea Nitrogen 4 mg/dL (7-20) Creatinine 0.5 mg/dL (0.6-1.0) Estimated GFR (Cockcroft-Gault) 155.7 Glucose Level 101 mg/dL (70-99) Calcium Level 7.9 mg/dL (8.5-10.1) White Blood Count 5.6 x10^3/uL (4.0-11.0) Red Blood Count 3.76 x10^6/uL (3.50-5.40) Hemoglobin 9.3 g/dL (12.0-15.5) Hematocrit 28.9 % (36.0-47.0) Mean Corpuscular Volume 77 fL (79-100) Mean Corpuscular Hemoglobin 25 pg (25-35) Mean Corpuscular Hemoglobin Concent 32 g/dL (31-37) Red Cell Distribution Width 14.1 % (11.5-14.5) Platelet Count 236 x10^3/uL (140-400) Neutrophils (%) (Auto) 45 % (31-73) Lymphocytes (%) (Auto) 42 % (24-48) Monocytes (%) (Auto) 9 % (0-9) Eosinophils (%) (Auto) 3 % (0-3) Basophils (%) (Auto) 1 % (0-3) Neutrophils # (Auto) 2.6 x10^3uL (1.8-7.7) Lymphocytes # (Auto) 2.4 x10^3/uL (1.0-4.8) Monocytes # (Auto) 0.5 x10^3/uL (0.0-1.1) Eosinophils # (Auto) 0.2 x10^3/uL (0.0-0.7) Basophils # (Auto) 0.0 x10^3/uL (0.0-0.2) Medications Current Medications Multi-Ingredient Mouthwash/Gargle (Gi Cocktail Single Dose) 15 ml 1X ONCE SWSW Last administered on 03/01/17 08:50; Start 03/01/17 at 08:30; Stop 03/01/17 at 08:31; Status DC Pantoprazole Sodium (Protonix Vial) 40 mg 1X ONCE IVP Last administered on 08:43; Start 03/01/17 at 08:30; Stop 03/01/17 at 08:31; Status DC Sodium Chloride 1,000 ml @ 1,000 mls/hr 1X ONCE IV Last administered on 08:41; Start 03/01/17 at 08:30; Stop 03/01/17 at 09:29; Status DC Haloperidol Lactate (Haldol) 4 mg 1X ONCE IVP Last administered on 03/01/17 08:48; Start 03/01/17 at 08:30; Stop 03/01/17 at 08:31; Status DC Iohexol (Omnipaque 300 Mg/ml) 75 ml 1X ONCE IV Last administered on 03/01/17 09:10; Start 03/01/17 at 08:45; Stop 03/01/17 at 08:46; Status DC Info (Do NOT chart on this entry -- for MONITORING) 1 each PRN DAILY PRN MC SEE COMMENTS; Start 03/01/17 at 08:45; Stop 03/03/17 at 08:44 Morphine Sulfate 5 mg 1X ONCE IV Last administered on 03/01/17 10:44; Start 03/01/17 at 10:00; Stop 03/01/17 at 10:01; Status DC Ondansetron HCl (Zofran) 8 mg 1X ONCE IV Last administered on 03/01/17 10:43 ; Start 03/01/17 at 10:00; Stop 03/01/17 at 10:01; Status DC Ondansetron HCl (Zofran) 4 mg PRN Q8HRS PRN IV NAUSEA/VOMITING Last administered on 03/01/17 19:20; Start 03/01/17 at 12:00; Stop 03/02/17 at 11:59 ; Status DC Sodium Chloride 1,000 ml @ 100 mls/hr Q10H IV Last administered on 03/01/17 20:19; Start 03/01/17 at 13:45 Prochlorperazine Edisylate (Compazine) 10 mg PRN Q8HRS PRN IV NAUSEA/VOMITING Last administered on 03/01/17 13:56; Start 03/01/17 at 14:00 Morphine Sulfate 2 mg PRN Q2HR PRN IV PAIN Last administered on 03/02/17 08:11 ; Start 03/01/17 at 14:00 Alprazolam (Xanax) 1 mg BID PO Last administered on 03/02/17 08:09; Start 08/07 at 21:00 Carisoprodol (Soma) 350 mg BID PO Last administered on 03/02/17 08:09; Start 03/01/17 at 21:00 Lamotrigine (LaMICtal) 200 mg BID PO Last administered on 03/01/17 20:19; Start 03/01/17 at 21:00 Oxycodone/ Acetaminophen (Percocet 10/325) 1 tab PRN Q4HRS PRN PO SEVERE PAIN Last administered on 03/02/17 08:10; Start 03/01/17 at 23:15 Barium Sulfate (E-Z-Hd) 340 gm 1X ONCE PO Last administered on 03/02/17 11:04 ; Start 03/02/17 at 07:45; Stop 03/02/17 at 07:46; Status DC Barium Sulfate (Liquid E-Z Paque) 355 ml 1X ONCE PO Last administered on 09:14; Start 03/02/17 at 07:45; Stop 03/02/17 at 07:46; Status DC Simethicone/ Sodium Bicarb/ Citric Ac (E-Z-Gas) 1 packet 1X ONCE PO ; Start 09/06 at 07:45; Stop 03/02/17 at 07:46; Status DC Famotidine (Pepcid) 20 mg QHS PO ; Start 03/02/17 at 21:00 Sucralfate (Carafate) 1 gm QIDACHS PO ; Start 03/02/17 at 09:30 Active Scripts Active Reported Acetaminophen 500 Mg Tablet 1 Tab PO Q6HRS Soma (Carisoprodol) 350 Mg Tablet 1 Tab PO BID Lamictal (Lamotrigine) 200 Mg Tablet 1 Tab PO BID Alprazolam 1 Mg Tablet 1 Tab PO BID Vitals/I & O Vital Sign - Last 24 Hours 03/01/17 03/01/17 03/01/17 03/01/17 13:58 15:48 19:00 19:20 Temp 97.9 98.8 97.9 98.8 Pulse 65 75 Resp 16 22 18 20 B/P (MAP) 97/52 (67) 99/63 (75) Pulse Ox 98 97 100 97 O2 Delivery Room Air Room Air Room Air Room Air 03/01/17 03/01/17 03/01/17 03/01/17 20:00 21:20 23:00 23:20 Temp 98.1 98.1 Pulse 68 Resp 20 18 20 B/P (MAP) 114/69 (84) Pulse Ox 97 97 97 O2 Delivery Room Air Room Air Room Air Room Air 03/01/17 03/01/17 03/02/17 03/02/17 23:31 23:50 00:31 02:15 Resp 20 20 Pulse Ox 97 97 97 97 O2 Delivery Room Air Room Air 03/02/17 03/02/17 03/02/17 03/02/17 03:00 03:31 04:19 07:00 Temp 97.7 98.7 97.7 98.7 Pulse 66 65 Resp 18 20 20 18 B/P (MAP) 101/51 (68) 112/61 (78) Pulse Ox 94 97 97 100 O2 Delivery Room Air Room Air Room Air Room Air 03/02/17 03/02/17 03/02/17 03/02/17 08:00 08:05 08:07 08:10 Resp 18 18 12 Pulse Ox 97 O2 Delivery Room Air Room Air Room Air Room Air 03/02/17 08:11 Resp 12 Pulse Ox 100 O2 Delivery Room Air Intake and Output 03/01/17 03/01/17 03/02/17 14:59 22:59 06:59 Intake Total 1000 ml 400 ml 0 ml Balance 1000 ml 400 ml 0 ml TONY HOPE MD Mar 02, 2017 13:02
--- NOTE | 2017-03-02 13:14 | RAD ---
EXAM: Single contrast upper GI and small bowel follow-through. HISTORY: Abdominal pain, vomiting, gastric bypass. COMPARISON: CT, 03/01/2017. Small bowel follow-through 09/03/2016. FINDINGS: A bankruptcy attorney image was obtained. Stool throughout the colon is consistent with constipation. Cholecystectomy clips are noted. There are no distended small bowel loops. Barium contrast was administered orally and followed in its course to the esophagus, postoperative stomach, small bowel and proximal colon with fluoroscopy and plain radiograph. 21 fluoroscopic images were obtained. Fluoroscopy time 3.6 minutes. The esophagus appears normal in morphology and mucosal pattern. The gastroesophageal junction opened promptly and is in its expected position. No reflux was observed. The postoperative stomach appears as expected without evidence of gastrogastric fistula. The efferent limb is mildly prominent but not dilated. There are no clearly dilated small bowel loops more distally. Progression was somewhat slow, with contrast reaching the right colon at 180 minutes. No clear stricture or transition point is identified. IMPRESSION: 1. Mildly slow transit of the small bowel at 180 minutes. This is similar to the study of 09/03/2016. 2. No evidence of obstruction. The swelling of the mesentery seen on prior CT there is compressed the superior mesenteric vein, but does not clearly result in obstruction. Correlate clinically to assess significance. 3. Expected changes of gastric bypass procedure. No gastrogastric fistula.
[2017-03-02 15:00] VITALS: BP 99/62
[2017-03-02 19:00] VITALS: BP 107/75
[2017-03-02] MEDS ORDERED: FAMOTIDINE 20 MG TABLET. PO SCH (21:00)
[2017-03-02 23:00] VITALS: BP 111/62
[2017-03-03] MEDS: MORPHINE SULFATE 2 MG/ML DISP.SYRIN. IV PRN ×4 (00:05→07:53)
[2017-03-03] MEDS: oxyCODONE/APAP 10/325 1 TAB TABLET PO PRN ×4 (02:07→16:18)
[2017-03-03] MEDS: IV NORMAL SALINE 1000ML BAG 1,000 ML IV SCH ×2 (02:24→15:45)
[2017-03-03 03:00] VITALS: BP 107/64
[2017-03-03 04:52] LABS: BASO # 0.1 x10^3/uL (0.0-0.2); BASO % 1 % (0-3); EOS % 7 % (0-3); HEMATOCRIT 29.2 % (36.0-47.0); HEMOGLOBIN 9.4 g/dL (12.0-15.5); LYMPH % 48 % (24-48); MEAN CORPUSCULAR HEMOGLOBIN 25 pg (25-35); MEAN CORPUSCULAR HGB CONC 32 g/dL (31-37); MEAN CORPUSCULAR VOLUME 77 fL (79-100); MONO % 8 % (0-9); NEUT % 36 % (31-73); PLATELET COUNT 228 x10^3/uL (140-400); RED CELL DISTRIBUTION WIDTH 14.2 % (11.5-14.5); WHITE BLOOD COUNT 6.2 x10^3/uL (4.0-11.0)
[2017-03-03 05:29] LABS: CALCIUM 8.1 mg/dL (8.5-10.1); CREATININE 0.6 mg/dL (0.6-1.0); GFR 126.2; POTASSIUM 3.9 mmol/L (3.5-5.1)
[2017-03-03 07:00] VITALS: BP 115/74
[2017-03-03] MEDS: SUCRALFATE 1 GM TABLET. PO SCH ×3 (07:47→16:18)
[2017-03-03] MEDS: CARISOPRODOL 350 MG TABLET PO SCH (07:47)
[2017-03-03] MEDS: lamoTRIgine 100 MG TABLET. PO SCH (07:47)
[2017-03-03] MEDS: ALPRAZolam 1 MG TABLET PO SCH (07:48)
[2017-03-03] MEDS ORDERED: ALPR1TAB6 PO (09:45)
[2017-03-03] MEDS ORDERED: OXYC1TAB9 PO (09:45)
[2017-03-03 11:00] VITALS: BP 100/55
--- NOTE | 2017-03-03 12:35 | PDOC ---
Subjective: Subjective: Still has pain, eating well. Wants to make sure she has the correct prescriptions before she leaves. "I need to look at them." Objective: Objective: Per RN - eating well, DC today. Apparently pt's mom requested to page Dr. Smith during the night last night. Vital Signs: Vital Signs Date Time Temp Pulse Resp B/P (MAP) Pulse Ox O2 Delivery O2 Flow Rate FiO2 03/03/17 12:21 16 Room Air 03/03/17 11:00 97.9 75 100/55 (70) 99 97.9 Labs: Laboratory Tests Test 03/03/17 04:20 White Blood Count 6.2 x10^3/uL Red Blood Count 3.80 x10^6/uL Hemoglobin 9.4 g/dL Hematocrit 29.2 % Mean Corpuscular Volume 77 fL Mean Corpuscular Hemoglobin 25 pg Mean Corpuscular Hemoglobin Concent 32 g/dL Red Cell Distribution Width 14.2 % Platelet Count 228 x10^3/uL Neutrophils (%) (Auto) 36 % Lymphocytes (%) (Auto) 48 % Monocytes (%) (Auto) 8 % Eosinophils (%) (Auto) 7 % Basophils (%) (Auto) 1 % Neutrophils # (Auto) 2.3 x10^3uL Lymphocytes # (Auto) 3.0 x10^3/uL Monocytes # (Auto) 0.5 x10^3/uL Eosinophils # (Auto) 0.4 x10^3/uL Basophils # (Auto) 0.1 x10^3/uL Sodium Level 141 mmol/L Potassium Level 3.9 mmol/L Chloride Level 108 mmol/L Carbon Dioxide Level 26 mmol/L Anion Gap 7 Blood Urea Nitrogen 6 mg/dL Creatinine 0.6 mg/dL Estimated GFR (Cockcroft-Gault) 126.2 Glucose Level 92 mg/dL Calcium Level 8.1 mg/dL Imaging: UGI, SBFT 03/02/17 IMPRESSION: 1. Mildly slow transit of the small bowel at 180 minutes. This is similar to the study of 09/03/2016. 2. No evidence of obstruction. The swelling of the mesentery seen on prior CT there is compressed the superior mesenteric vein, but does not clearly result in obstruction. Correlate clinically to assess significance. 3. Expected changes of gastric bypass procedure. No gastrogastric fistula. PE: GEN: curled up in bed LUNGS: clear HEART: RRR ABD: heating pad NEURO/PSYCH: A & O 3 A/P: Abd pain - chronic -s/p Aurelio-en-Y, cholecystectomy -h/o GERD on H2 rosalba and Carafate -multiple CTs here, normal SBS x 2, normal Celiac serology, surgery and [employer] evals -- DC planned for today, okay w/ GI, again suggested f/u w/ bariatric surgeon. KARI GLASGOW Mar 03, 2017 12:35
--- NOTE | 2017-03-03 12:36 | PDOC3 ---
Discharge Summary [facility] Date of Admission: Mar 01, 2017 Discharge Date: Mar 03, 2017 Admitting Diagnosis Abd pain - chronic -s/p Aurelio-en-Y, cholecystectomy -h/o GERD on H2 rosalba and Carafate ANxiety Problems: Final Diagnosis CONSULTS gi ob Brief Hospital Course Ms. Villarreal is a 21 old F, severe anxiety, s/p Aurelio en Y gastric bypass sx, cholecystectomy before, comes here for pain control. She has this chronic abd pain. ct neg. SBS neg. no GI intervention done. still severe pain. pt eats well. she said no PCP, no money, and homeless, and was rejected by medicaid, not sure why , and not willing to talk to SW again. dc home with percocet 10/325 30pills, xanax 1mg 20pills. dc time 35min . General: Alert, Oriented X3, Cooperative, No acute distress Heart: Regular rate Lungs: Clear Abdomen: Other (TTP RUQ Pelvic exam unremarkable, Pap and cultures performed) Extremities: No clubbing, No cyanosis, No edema, Normal pulses, No tenderness/ swelling Problems: Disposition home CONDITION AT DISCHARGE: Improved Diet gi soft Scheduled Acetaminophen (Acetaminophen), 1 TAB PO Q6HRS, (Reported) Alprazolam (Alprazolam), 1 TAB PO BID Carisoprodol (Soma), 1 TAB PO BID, (Reported) Lamotrigine (Lamictal), 1 TAB PO BID, (Reported) Scheduled PRN Oxycodone Hcl/Acetaminophen (Oxycodone-Acetaminophen 10-325), 1 TAB PO PRN Q4HRS PRN for SEVERE PAIN Discontinued Medications Carisoprodol (Soma), 1 TAB PO BID, (Reported) Follow Up pcp and gi sx TONY Elena MD Mar 03, 2017 12:36
[2017-03-03] MEDS ORDERED: CARI350T14 PO (13:09)
[2017-03-03 15:00] VITALS: BP 119/69
== END 2017-03-03 17:30 | disposition home or self-care (01) | DRG 392 ==
LOC: ER 08:08 → 4 NORTH 10:04
PROVIDERS: ADMIT Internal Medicine Hematology & Oncology; ATTEND Internal Medicine Hematology & Oncology
DX: R10.9 Unspecified abdominal pain (principal); F17.210 Nicotine dependence, cigarettes, uncomplicated; F41.9 Anxiety disorder, unspecified; G89.29 Other chronic pain; K21.9 Gastro-esophageal reflux disease without esophagitis; K46.9 Unspecified abdominal hernia without obstruction or gangrene; Z59.0 Homelessness; Z87.442 Personal history of urinary calculi; Z98.84 Bariatric surgery status; Z90.49 Acquired absence of other specified parts of digestive tract
CPT/HCPCS: 36415; 74177; 74249; 80048; 80053; 82550; 83605; 83690; 83735; 85027; 88175; 96361; 96374; 96375; C9113; J0780; J1630; J2270; J2405; J7030; Q9967; 99285-25

== ENCOUNTER 2017-04-27 16:55 | Emergency (ER) | payer SELFPAY ==
[~2017-04-27] VITALS: Ht 157.5 cm; Wt 59.0 kg
[~2017-04-27 16:55] MED LIST changes: +ACET500T68 PO; +CARI350T14 PO; +OXYC1TAB9 PO
[2017-04-27 17:16] VITALS: BP 116/68
--- NOTE | 2017-04-27 17:47 | PHYS DOC ---
Past Medical History Past Medical History: Gallstones, Kidney Stone, Ovarian Cyst, Seizure, UTI, Other Additional Past Medical Histor: pyodermia, PSYCHOGENIC NON EPILLEPTIC SEIZURES , cilliac, chrones Past Surgical History: Cholecystectomy, Gastric Bypass, Other Additional Past Surgical Histo: adenoidectomy Alcohol Use: None Drug Use: None Adult General Chief Complaint Chief Complaint: RIB PAIN [facility] HPI Patient is a 21 year old female presents to emergency department stating that she fell down her stairs approximately one week ago and landed on her left ribs. She states that she hit the floor with the ribs as well as a bar at the bottom of the floor. Patient states that she did have increased pain and discomfort with deep breathing. Patient states that she also has dental pain on bilateral lower back areas. Patient appears to be allergic to nonsteroidal anti- inflammatories and cannot take ibuprofen or Toradol. Patient is also allergic to tramadol. Patient states she's been taken Tylenol for her pain and discomfort with minimal relief. Review of Systems Review of Systems Constitutional: Denies fever or chills [] Eyes: Denies change in visual acuity, redness, or eye pain [] HENT: Denies nasal congestion or sore throat. Complaint of dental pain Respiratory: Denies cough or shortness of breath [] Cardiovascular: No additional information not addressed in HPI [] GI: Denies abdominal pain, nausea, vomiting, bloody stools or diarrhea [] : Denies dysuria or hematuria [] Musculoskeletal: Denies back pain or joint pain [] Integument: Denies rash or skin lesions [] Neurologic: Denies headache, focal weakness or sensory changes [] Endocrine: Denies polyuria or polydipsia [] Allergies Allergies Allergies Coded Allergies Type Severity Reaction Last Updated Verified NSAIDS (Non-Steroidal Anti-Inflamma Allergy Intermediate 04/06/16 Yes codeine Allergy Intermediate 03/01/17 Yes diclofenac Allergy Intermediate 02/26/17 Yes dicyclomine Allergy Intermediate 04/06/16 Yes fentanyl Allergy Intermediate 04/06/16 Yes ketorolac Allergy Intermediate 04/06/16 Yes tizanidine Allergy Intermediate Hives 02/25/17 Yes tramadol Allergy Intermediate 03/01/17 Yes cyclobenzaprine Adverse Reaction Intermediate "DOESN'T WORK" 02/06/17 Yes Physical Exam Physical Exam Constitutional: Well developed, well nourished, no acute distress, non-toxic appearance. [] HENT: Normocephalic, atraumatic, bilateral external ears normal, oropharynx moist, no oral exudates, nose normal. Patient appears to have redness noted at the bilateral molar areas on each side. Tenderness noted. Eyes: PERRLA, EOMI, conjunctiva normal, no discharge. [] Neck: Normal range of motion, no tenderness, supple, no stridor. [] Cardiovascular:Heart rate regular rhythm, no murmur [] Lungs & Thorax: Bilateral breath sounds clear to auscultation bilateral hand sewer appeared with no crepitus no deformities are no step-offs noted. No discoloration noted. Equal chest expansion noted. Abdomen: Bowel sounds normal, soft, no tenderness, no masses, no pulsatile masses. [] Skin: Warm, dry, no erythema, no rash. [] Back: No tenderness Extremities: No tenderness, no cyanosis, no clubbing, ROM intact, no edema. [] Neurologic: Alert and oriented X 3, normal motor function, normal sensory function, no focal deficits noted. [] Psychologic: Affect normal, judgement normal, mood normal. [] Current Patient Data Vital Signs Vital Signs Date Time Temp Pulse Resp B/P (MAP) Pulse Ox O2 Delivery O2 Flow Rate FiO2 04/27/17 17:16 105 20 99 Room Air Lab Values Laboratory Tests Test 04/27/17 16:47 POC Urine HCG, Qualitative Hcg negative (Negative) EKG EKG [] Radiology/Procedures Radiology/Procedures [] Course & Med Decision Making Course & Med Decision Making Pertinent Labs and Imaging studies reviewed. (See chart for details) X-rays were negative for any bony abnormalities per . Lidoderm patch will be placed on the ribs for pain. Recommended Tylenol for dental pain as well as amoxicillin. Patient will be discharged home in stable condition signs and symptoms to return back to emergency department as been provided. Patient agrees with discharge instructions treatment regimens and follow-up recommendations. [] Dragon Disclaimer Dragon Disclaimer This electronic medical record was generated, in whole or in part, using a voice recognition dictation system. Departure Departure Impression: Primary Impression: Rib pain on left side Additional Impression: Pain, dental Disposition: HOME, SELF-CARE Condition: STABLE Referrals: NO PCP (PCP) Patient Instructions: Dental Pain, [id number], Rib Contusion Additional Instructions: Activity as tolerated. Lidoderm patches as needed to help with the pain and discomfort upon placed a daily. Tylenol for dental pain. Levaquin for dental infection. She states the chair allergic to amoxicillin. Ice packs on 20 minutes off 20 minutes several times a day. Follow-up with the dentist within the next week. Follow-up through primary care physician in the next week. Return back to emergency department for signs and symptoms of become worse. Scripts Levofloxacin (LEVAQUIN) 500 Mg Tablet 1 TAB PO DAILY, #10 TAB Prov: MAURICIO GARCIA APRN 04/27/17 Lidocaine (Lidocaine) 1 Each Adh..patch 1 EACH TP DAILY, #5 PATCH Prov: MAURICIO GARCIA APRN 04/27/17 Problem Qualifiers MAURICIO GARCIA APRN Apr 27, 2017 17:47
[2017-04-27] MEDS ORDERED: LEVO500T59 PO (18:26)
[2017-04-27] MEDS ORDERED: LIDO700A39 TP (18:26)
[2017-04-27] MEDS ORDERED: ALPR1TAB6 PO (18:34)
[2017-04-27] MEDS ORDERED: LIDOCAINE (700MG/PATCH) PATCH. TD ONE (18:45)
--- NOTE | 2017-04-28 08:38 | RAD ---
Indication persistent pain associated with a fall 2 weeks previously. A single view of the chest was obtained as well as films targeted to left ribs. No prior imaging of the chest is available. The heart and pulmonary vessels appear normal. The lungs are clear. There is no pleural fluid. There is no pneumothorax. Films of left ribs appear normal. IMPRESSION: Normal single view of the chest. Normal plain films left ribs
== END 2017-04-27 18:30 | disposition home or self-care (01) ==
LOC: ER 16:55
DX: R07.81 Pleurodynia (principal); K08.89 Other specified disorders of teeth and supporting structures; Z87.442 Personal history of urinary calculi; Z90.49 Acquired absence of other specified parts of digestive tract; Z98.84 Bariatric surgery status; W10.9XXA Fall (on) (from) unspecified stairs and steps, initial encounter; Y93.89 Activity, other specified; Y99.8 Other external cause status; Y92.89 Other specified places as the place of occurrence of the external cause
CPT/HCPCS: 71101; 81025; 99284

== ENCOUNTER 2017-06-02 15:08 | Emergency (ER) | payer SELFPAY ==
[~2017-06-02] VITALS: Ht 157.5 cm; Wt 59.0 kg
[~2017-06-02 15:08] MED LIST changes: +LEVO500T59 PO; +LIDO700A39 TP
[2017-06-02] MEDS ORDERED: FAMOTIDINE 20 MG/2 ML VIAL IVP ONE (15:45)
[2017-06-02] MEDS ORDERED: MORPHINE SULFATE 10 MG/ML VIAL. IV ONE (15:45)
[2017-06-02] MEDS ORDERED: IV NORMAL SALINE 1000ML BAG 1,000 ML IV ONE (15:45)
[2017-06-02] MEDS ORDERED: ONDANSETRON PF 4 MG/2 ML VIAL. IV ONE (15:45)
[2017-06-02] MEDS ORDERED: HALOPERIDOL LACTATE 5 MG/ML VIAL. IVP ONE (15:45)
[2017-06-02 15:54] LABS: BASO % 1 % (0-3); EOS % 4 % (0-3); HEMATOCRIT 34.6 % (36.0-47.0); HEMOGLOBIN 10.9 g/dL (12.0-15.5); LYMPH # 1.1 x10^3/uL (1.0-4.8); LYMPH % 32 % (24-48); MEAN CORPUSCULAR HEMOGLOBIN 25 pg (25-35); MEAN CORPUSCULAR HGB CONC 32 g/dL (31-37); MEAN CORPUSCULAR VOLUME 79 fL (79-100); MONO % 10 % (0-9); NEUT % 54 % (31-73); PLATELET COUNT 230 x10^3/uL (140-400); RED BLOOD COUNT 4.37 x10^6/uL (3.50-5.40); RED CELL DISTRIBUTION WIDTH 18.4 % (11.5-14.5); WHITE BLOOD COUNT 3.6 x10^3/uL (4.0-11.0)
[2017-06-02 16:04] LABS: BILIRUBIN,URINE NEGATIVE (NEG); GLUCOSE,URINE NEGATIVE (NEG); NITRITE,URINE NEGATIVE (NEG); PH,URINE 6.5; PROTEIN,URINE NEGATIVE (NEG-TRACE); UROBILINOGEN,URINE 0.2 mg/dL (0.2 mg/dL)
[2017-06-02 16:07] LABS: BARBITURATES NEG (NEG); BENZODIAZEPINES POS (NEG); CANNABINOIDS NEG (NEG); COCAINE NEG (NEG); METHADONE NEG (NEG); OPIATES POS (NEG); PHENCYCLIDINE NEG (NEG)
[2017-06-02 16:11] LABS: CALCIUM 8.8 mg/dL (8.5-10.1); CREATININE 0.6 mg/dL (0.6-1.0); GFR 126.2; POTASSIUM 3.4 mmol/L (3.5-5.1)
--- NOTE | 2017-06-02 16:16 | PHYS DOC ---
Past Medical History Past Medical History: Asthma, Gallstones, Kidney Stone, Ovarian Cyst, Seizure, UTI, Other Additional Past Medical Histor: pyodermia, PSYCHOGENIC NON EPILLEPTIC SEIZURES , cilliac, chrones Past Surgical History: Cholecystectomy, Gastric Bypass, Other Additional Past Surgical Histo: adenoidectomy Alcohol Use: None Drug Use: None Adult General Chief Complaint Chief Complaint: ABDOMINAL PAIN HPI HPI Patient is a 21 year old female with history of asthma, kidney stones, gallstones, who presents today with moderate right lower quadrant abdominal pain with nausea and vomiting that began 2 days ago. Patient's also complaining of right upper and lower dental pain that began 2 days ago. Patient denies any fever. Denies any trismus. Denies any chance she is . She is under house arrest. Patient denies any unusual vaginal discharge. Denies any concerns for STDs. Review of Systems Review of Systems Constitutional: Denies fever or chills [] Eyes: Denies change in visual acuity, redness, or eye pain [] HENT: Right upper and lower dental pain Respiratory: Denies cough or shortness of breath [] Cardiovascular: No additional information not addressed in HPI [] GI: Right lower quadrant abdominal pain with nausea and vomiting : Denies dysuria or hematuria [] Musculoskeletal: Denies back pain or joint pain [] Integument: Denies rash or skin lesions [] Neurologic: Denies headache, focal weakness or sensory changes [] Current Medications Current Medications Current Medications Medications (Trade) Dose Ordered Sig/Julia Start Time Stop Time Status Last Admin Dose Admin Famotidine (Pepcid) 20 mg 1X ONCE 06/02/17 15:45 06/02/17 15:46 DC 06/02/17 16:04 20 MG Haloperidol Lactate (Haldol) 5 mg 1X ONCE 06/02/17 15:45 06/02/17 15:46 DC 06/02/17 16:04 5 MG Morphine Sulfate 5 mg 1X ONCE 06/02/17 15:45 06/02/17 15:46 DC 06/02/17 16:05 5 MG Ondansetron HCl (Zofran) 4 mg 1X ONCE 06/02/17 15:45 06/02/17 15:46 DC 06/02/17 16:04 4 MG Sodium Chloride 1,000 ml @ 1,000 mls/hr 1X ONCE 06/02/17 15:45 06/02/17 16:44 DC 06/02/17 16:04 1,000 MLS/HR Allergies Allergies Allergies Coded Allergies Type Severity Reaction Last Updated Verified NSAIDS (Non-Steroidal Anti-Inflamma Allergy Intermediate 04/06/16 Yes codeine Allergy Intermediate 03/01/17 Yes diclofenac Allergy Intermediate 02/26/17 Yes dicyclomine Allergy Intermediate 04/06/16 Yes fentanyl Allergy Intermediate 04/06/16 Yes ketorolac Allergy Intermediate 04/06/16 Yes tizanidine Allergy Intermediate Hives 02/25/17 Yes tramadol Allergy Intermediate 03/01/17 Yes cyclobenzaprine Adverse Reaction Intermediate "DOESN'T WORK" 02/06/17 Yes Physical Exam Physical Exam Constitutional: Well developed, well nourished, no acute distress, non-toxic appearance. [] HENT: Normocephalic, atraumatic, bilateral external ears normal, oropharynx moist, no oral exudates, nose normal. [] Dentition noted. Scattered infected dental caries noted. Tooth #2 and 19 are broken and decayed no dental abscess or gum erythema. Eyes: PERRLA, EOMI, conjunctiva normal, no discharge. [] Neck: Normal range of motion, no tenderness, supple, no stridor. [] Cardiovascular:Heart rate regular rhythm, no murmur [] Lungs & Thorax: Bilateral breath sounds clear to auscultation [] Abdomen: Bowel sounds normal, soft, no right lower quadrant tenderness with a negative psoas sign, negative obturator sign, negative Rovsing sign, no masses, no pulsatile masses. No guarding, no rebound pain or tenderness Skin: Warm, dry, no erythema, no rash. [] Back: No tenderness, no CVA tenderness. [] Extremities: No tenderness, no cyanosis, no clubbing, ROM intact, no edema. [] Neurologic: Alert and oriented X 3, normal motor function, normal sensory function, no focal deficits noted. [] Psychologic: Affect normal, judgement normal, mood normal. [] Current Patient Data Vital Signs Vital Signs Date Time Temp Pulse Resp B/P (MAP) Pulse Ox O2 Delivery O2 Flow Rate FiO2 06/02/17 16:22 83 19 108/63 (78) 97 Room Air 06/02/17 15:27 98.2 98.2 Lab Values Laboratory Tests Test 06/02/17 15:20 06/02/17 15:25 06/02/17 15:30 Urine Collection Type Unknown Urine Color Yellow Urine Clarity Clear Urine pH 6.5 Urine Specific [place] 1.010 Urine Protein Negative mg/dL (NEG-TRACE) Urine Glucose (UA) Negative mg/dL (NEG) Urine Ketones (Stick) Negative mg/dL (NEG) Urine Blood Large (NEG) Urine Nitrite Negative (NEG) Urine Bilirubin Negative (NEG) Urine Urobilinogen Dipstick 0.2 mg/dL (0.2 mg/dL) Urine Leukocyte Esterase Trace (NEG) Urine RBC >40 /HPF (0-2) Urine WBC 1-4 /HPF (0-4) Urine Squamous Epithelial Cells Mod /LPF Urine Bacteria Few /HPF (0-FEW) Urine Opiates Screen Pos (NEG) Urine Methadone Screen Neg (NEG) Urine Barbiturates Neg (NEG) Urine Phencyclidine Screen Neg (NEG) Urine Amphetamine/Methamphetamine Neg (NEG) Urine Benzodiazepines Screen Pos (NEG) Urine Cocaine Screen Neg (NEG) Urine Cannabinoids Screen Neg (NEG) Urine Ethyl Alcohol Neg (NEG) POC Urine HCG, Qualitative Hcg negative (Negative) White Blood Count 3.6 x10^3/uL (4.0-11.0) L Red Blood Count 4.37 x10^6/uL (3.50-5.40) Hemoglobin 10.9 g/dL (12.0-15.5) L Hematocrit 34.6 % (36.0-47.0) L Mean Corpuscular Volume 79 fL (79-100) Mean Corpuscular Hemoglobin 25 pg (25-35) Mean Corpuscular Hemoglobin Concent 32 g/dL (31-37) Red Cell Distribution Width 18.4 % (11.5-14.5) H Platelet Count 230 x10^3/uL (140-400) Neutrophils (%) (Auto) 54 % (31-73) Lymphocytes (%) (Auto) 32 % (24-48) Monocytes (%) (Auto) 10 % (0-9) H Eosinophils (%) (Auto) 4 % (0-3) H Basophils (%) (Auto) 1 % (0-3) Neutrophils # (Auto) 1.9 x10^3uL (1.8-7.7) Lymphocytes # (Auto) 1.1 x10^3/uL (1.0-4.8) Monocytes # (Auto) 0.4 x10^3/uL (0.0-1.1) Eosinophils # (Auto) 0.1 x10^3/uL (0.0-0.7) Basophils # (Auto) 0.0 x10^3/uL (0.0-0.2) Sodium Level 145 mmol/L (136-145) Potassium Level 3.4 mmol/L (3.5-5.1) L Chloride Level 107 mmol/L (98-107) Carbon Dioxide Level 27 mmol/L (21-32) Anion Gap 11 (6-14) Blood Urea Nitrogen 8 mg/dL (7-20) Creatinine 0.6 mg/dL (0.6-1.0) Estimated GFR (Cockcroft-Gault) 126.2 BUN/Creatinine Ratio 13 (6-20) Glucose Level 123 mg/dL (70-99) H Calcium Level 8.8 mg/dL (8.5-10.1) Total Bilirubin 0.1 mg/dL (0.2-1.0) L Aspartate Amino Transferase (AST) 38 U/L (15-37) H Alanine Aminotransferase (ALT) 24 U/L (14-59) Alkaline Phosphatase 73 U/L (46-116) Total Protein 6.9 g/dL (6.4-8.2) Albumin 3.3 g/dL (3.4-5.0) L Albumin/Globulin Ratio 0.9 (1.0-1.7) L Ethyl Alcohol Level < 10 mg/dL (0-10) Laboratory Tests 06/02/17 15:30 Laboratory Tests 06/02/17 15:30 EKG EKG [] Radiology/Procedures Radiology/Procedures []PROCEDURE: ABDOMEN COMPLETE Indication:Abdominal pain. Grayscale images of the abdomen were obtained. Comparison none. Note is made of several abdominal and pelvic CT examinations the most recent being 03/01/2017 Liver:There is some increased attenuation of the ultrasound beam by the liver compatible with fatty infiltration. A focal mass lesion is not seen and the visualized liver Gallbladder:The patient has had a previous cholecystectomy. The common bile duct diameter of approximately 8 mm is probably normal given the postcholecystectomy state Spleen:Normal Pancreas:As visualized normal Kidneys:Normal Abdominal aorta and IVC:Normal Ancillary findings:No definite abnormality is seen in the right lower quadrant Impression:Status post cholecystectomy. Mildly prominent common bile duct is likely normal given the postcholecystectomy state. Fatty infiltration of the liver DICTATED and SIGNED BY: SANTIAGO VALIENTE MD DATE: 06/02/171700 CC: LOY HEREDIA APRN; NO PCP; NON,STAFF ~ Course & Med Decision Making Course & Med Decision Making Pertinent Labs and Imaging studies reviewed. (See chart for details) Patient is in the ED with right lower quadrant abdominal pain as well as dental pain. She has been seen in the ED multiple times for dental pain as well as abdominal pain. She could not get a CT of the abdomen and pelvic because she's had multiple CTs and has no tenderness on exam to the RLQ. CBC with a WBC of 3.6 which is lower than her normal WBC. Recommended she follows up with the PCP to have this rechecked. CMP with AST of 38, ALT is normal. Abdominal ultrasound was negative for any acute findings. She is advised to follow-up with her PCP or GI doctor which was provided. Discharged with Zofran. She was provided return precautions and discharged in stable condition. Discharged with penicillin for chronic dental infection. Instructed to take Tylenol for pain. Dragon Disclaimer Dragon Disclaimer This electronic medical record was generated, in whole or in part, using a voice recognition dictation system. Departure Departure Impression: Primary Impression: Abdominal pain Additional Impressions: Dentalgia Infected dental caries Disposition: HOME, SELF-CARE Condition: STABLE Referrals: NO PCP (PCP) KENY CUMMINGS MD follow up with your doctor as well as the provided doctor as soon as you can Patient Instructions: Abdominal Pain, Dental Caries Additional Instructions: You were seen for chronic abdominal pain with nausea and vomiting. Please follow -up with your primary care doctor or the provided form coverer as soon as possible. You need to follow up with your primary care doctor as well to have your labs rechecked. You can take Tylenol for your chronic pain. Please complete your antibiotics for dental infection and follow-up with your dentist as soon as possible Scripts Penicillin V Potassium (PENICILLIN V POTASSIUM) 500 Mg Tablet 1 TAB PO TID, #30 TAB Prov: LOY HEREDIA APRN 06/02/17 Problem Qualifiers Primary Impression: Abdominal pain Abdominal location: right lower quadrant Qualified Codes: R10.31 - Right lower quadrant pain LOY HEREDIA APRN Jun 02, 2017 16:16
[2017-06-02 16:17] LABS: ALBUMIN 3.3 g/dL (3.4-5.0); ALBUMIN/GLOBULIN RATIO 0.9 (1.0-1.7); TOTAL BILIRUBIN 0.1 mg/dL (0.2-1.0); TOTAL PROTEIN 6.9 g/dL (6.4-8.2)
[2017-06-02 16:23] LABS: BACTERIA,URINE FEW /HPF (0-FEW); RBC,URINE >40 /HPF (0-2); SQUAMOUS EPITHELIAL CELL,UR MOD /LPF
--- NOTE | 2017-06-02 17:06 | RAD ---
Indication:Abdominal pain. Grayscale images of the abdomen were obtained. Comparison none. Note is made of several abdominal and pelvic CT examinations the most recent being 03/01/2017 Liver:There is some increased attenuation of the ultrasound beam by the liver compatible with fatty infiltration. A focal mass lesion is not seen and the visualized liver Gallbladder:The patient has had a previous cholecystectomy. The common bile duct diameter of approximately 8 mm is probably normal given the postcholecystectomy state Spleen:Normal Pancreas:As visualized normal Kidneys:Normal Abdominal aorta and IVC:Normal Ancillary findings:No definite abnormality is seen in the right lower quadrant Impression:Status post cholecystectomy. Mildly prominent common bile duct is likely normal given the postcholecystectomy state. Fatty infiltration of the liver
[2017-06-02 17:22] VITALS: BP 104/59
[2017-06-02] MEDS ORDERED: PENI500T PO (17:22)
== END 2017-06-02 17:37 | disposition home or self-care (01) ==
LOC: ER 15:08
DX: R10.31 Right lower quadrant pain (principal); K04.7 Periapical abscess without sinus; K02.9 Dental caries, unspecified; R11.2 Nausea with vomiting, unspecified; J45.909 Unspecified asthma, uncomplicated; Z87.442 Personal history of urinary calculi; Z90.49 Acquired absence of other specified parts of digestive tract; Z87.440 Personal history of urinary (tract) infections; Z98.84 Bariatric surgery status; Z88.6 Allergy status to analgesic agent; Z88.4 Allergy status to anesthetic agent; Z88.5 Allergy status to narcotic agent; Z88.8 Allergy status to other drugs, medicaments and biological substances
CPT/HCPCS: 36415; 76700; 80053; 80307; 81001; 81025; 85025; 96361; 96374; 96375; 99285; G0480; J1630; J2270; J2405; J7030; S0028; G0479

== ENCOUNTER 2017-12-25 17:39 | Emergency (ER) | payer SELFPAY ==
[2017-12-25] MEDS: HYDROcodone/APAP 5/325MG 1 TAB TABLET PO (18:37)
[2017-12-28 15:22] LABS: CHLAMYDIA PROBE Negative (Negative); GC PROBE Negative (Negative)
== END 2017-12-25 19:13 | disposition home or self-care (01) ==
LOC: ER 17:39
DX: L73.1 Pseudofolliculitis barbae (principal); N76.0 Acute vaginitis; J45.909 Unspecified asthma, uncomplicated; Z87.442 Personal history of urinary calculi; Z87.440 Personal history of urinary (tract) infections; Z90.49 Acquired absence of other specified parts of digestive tract; Z98.84 Bariatric surgery status; Z88.6 Allergy status to analgesic agent; Z88.5 Allergy status to narcotic agent; Z88.4 Allergy status to anesthetic agent; Z88.8 Allergy status to other drugs, medicaments and biological substances; Z88.1 Allergy status to other antibiotic agents
CPT/HCPCS: 87491; 87591; 99284; Q0111

== ENCOUNTER 2018-05-09 20:30 | Emergency (ER) | payer SELFPAY ==
[~2018-05-09] VITALS: Ht 157.5 cm; Wt 61.2 kg
[~2018-05-09 20:30] MED LIST changes: +METR500T PO; +OXYC-411 PO; -OXYC1TAB9 PO; +PENI500T PO; +SULF1TAB24 PO
--- NOTE | 2018-05-09 21:03 | PHYS DOC ---
Past Medical History Past Medical History: Asthma, Gallstones, Kidney Stone, Ovarian Cyst, Seizure, UTI, Other Additional Past Medical Histor: pyodermia, PSYCHOGENIC NON EPILLEPTIC SEIZURES , cilliac, chrones Past Surgical History: Cholecystectomy, Gastric Bypass, Other Additional Past Surgical Histo: adenoidectomy Alcohol Use: None Drug Use: None Adult General Chief Complaint Chief Complaint: ABDOMINAL PAIN HPI HPI Patient is a 22-year-old female that presents to the emergency department complaining of severe abdominal pain. Patient states that her symptoms began on Thursday. She describes the pain as sharp and radiating to her back and is 10/10 in severity. She states that laying on her stomach makes the pain worse and says that nothing has helped improve the pain. He states that she has had kidney stones before but that this pain "is much worse". She says that she has a history of panic attacks which have been treated previously with alprazolam. Review of Systems Review of Systems Constitutional: Endorses fever and chills [] Eyes: Denies change in visual acuity, redness, or eye pain [] HENT: Denies nasal congestion or sore throat [] Respiratory: Denies cough or shortness of breath [] Cardiovascular: Denies chest pain. Endorses palpitations[] GI: Endorses abdominal pain, nausea, vomiting. Denies bloody stools or diarrhea [] : Denies dysuria or hematuria [] Musculoskeletal: Endorses back pain [] Neurologic: Denies headache, focal weakness or sensory changes [] Complete systems were reviewed and found to be within normal limits, except as documented in this note. Current Medications Current Medications Current Medications Medications (Trade) Dose Ordered Sig/Julia Start Time Stop Time Status Last Admin Dose Admin Famotidine (Pepcid Vial) 20 mg 1X ONCE 05/09/18 21:30 05/09/18 21:31 DC 05/09/18 21:40 20 MG Info (CONTRAST GIVEN -- Rx MONITORING) 1 each PRN DAILY PRN 05/09/18 21:45 05/11/18 21:44 Iohexol (Omnipaque 240 Mg/ml) 30 ml 1X ONCE 05/09/18 22:00 05/09/18 22:01 DC 05/09/18 21:53 30 ML Lorazepam (Ativan) 1 mg 1X ONCE 05/09/18 21:30 05/09/18 21:31 DC 05/09/18 21:41 1 MG Morphine Sulfate (Morphine Sulfate) 4 mg 1X ONCE 05/09/18 23:00 05/09/18 23:01 DC 05/09/18 22:54 4 MG Ondansetron HCl (Zofran) 4 mg 1X ONCE 05/09/18 21:30 05/09/18 21:31 DC 05/09/18 21:41 4 MG Sodium Chloride 1,000 ml @ 1,000 mls/hr 1X ONCE 05/09/18 21:30 05/09/18 22:29 DC 05/09/18 21:30 1,000 MLS/HR Allergies Allergies Allergies Coded Allergies Type Severity Reaction Last Updated Verified NSAIDS (Non-Steroidal Anti-Inflamma Allergy Severe 05/09/18 Yes diclofenac Allergy Severe 05/09/18 Yes ketorolac Allergy Severe 05/09/18 Yes meloxicam Allergy Severe "I STOP BREATHING" 05/09/18 Yes codeine Allergy Intermediate 03/01/17 Yes dicyclomine Allergy Intermediate 04/06/16 Yes fentanyl Allergy Intermediate 04/06/16 Yes tizanidine Allergy Intermediate Hives 02/25/17 Yes tramadol Allergy Intermediate 03/01/17 Yes amoxicillin Allergy Mild rash 12/25/17 Yes cyclobenzaprine Adverse Reaction Intermediate "DOESN'T WORK" 02/06/17 Yes Physical Exam Physical Exam Constitutional: Well developed, well nourished, acute distress, non-toxic appearance. [] HENT: Normocephalic, atraumatic, bilateral external ears normal, oropharynx moist, no oral exudates, nose normal. [] Eyes: PERRL, EOMI. [] Neck: Normal range of motion, no tenderness, supple, no stridor. [] Cardiovascular:Heart rate regular rhythm, no murmur [] Lungs & Thorax: Bilateral breath sounds clear to auscultation [] Abdomen: Bowel sounds normal, soft, severe bilateral upper abdominal pain, no masses, no pulsatile masses. [] Skin: Warm, dry, no erythema, no rash. [] Back: Bilateral flank pain, no CVA tenderness. [] Extremities: No tenderness, no cyanosis, no clubbing, ROM intact, no edema. [] Neurologic: Alert and oriented X 3, normal motor function, normal sensory function, no focal deficits noted. [] Current Patient Data Vital Signs Vital Signs Date Time Temp Pulse Resp B/P (MAP) Pulse Ox O2 Delivery O2 Flow Rate FiO2 05/09/18 20:38 98.0 104 22 132/74 (93) 100 Room Air 98.0 Lab Values Laboratory Tests Test 05/09/18 20:45 05/09/18 20:46 White Blood Count 6.8 x10^3/uL (4.0-11.0) Red Blood Count 4.90 x10^6/uL (3.50-5.40) Hemoglobin 10.8 g/dL (12.0-15.5) L Hematocrit 34.6 % (36.0-47.0) L Mean Corpuscular Volume 71 fL (79-100) L Mean Corpuscular Hemoglobin 22 pg (25-35) L Mean Corpuscular Hemoglobin Concent 31 g/dL (31-37) Red Cell Distribution Width 15.9 % (11.5-14.5) H Platelet Count 403 x10^3/uL (140-400) H Neutrophils (%) (Auto) 48 % (31-73) Lymphocytes (%) (Auto) 41 % (24-48) Monocytes (%) (Auto) 7 % (0-9) Eosinophils (%) (Auto) 3 % (0-3) Basophils (%) (Auto) 1 % (0-3) Neutrophils # (Auto) 3.3 x10^3uL (1.8-7.7) Lymphocytes # (Auto) 2.8 x10^3/uL (1.0-4.8) Monocytes # (Auto) 0.5 x10^3/uL (0.0-1.1) Eosinophils # (Auto) 0.2 x10^3/uL (0.0-0.7) Basophils # (Auto) 0.1 x10^3/uL (0.0-0.2) Platelet Estimate Adequate (ADEQUATE) Hypochromasia Mod Microcytosis Mod Urine Collection Type Unknown Urine Color Yellow Urine Clarity Clear Urine pH 8.0 Urine Specific [place] 1.015 Urine Protein Negative mg/dL (NEG-TRACE) Urine Glucose (UA) Negative mg/dL (NEG) Urine Ketones (Stick) Negative mg/dL (NEG) Urine Blood Negative (NEG) Urine Nitrite Negative (NEG) Urine Bilirubin Negative (NEG) Urine Urobilinogen Dipstick 0.2 mg/dL (0.2 mg/dL) Urine Leukocyte Esterase Negative (NEG) Urine RBC 0 /HPF (0-2) Urine WBC 0 /HPF (0-4) Urine Squamous Epithelial Cells Mod /LPF Urine Bacteria 0 /HPF (0-FEW) Urine Mucus Slight /LPF Sodium Level 138 mmol/L (136-145) Potassium Level 4.4 mmol/L (3.5-5.1) Chloride Level 101 mmol/L (98-107) Carbon Dioxide Level 26 mmol/L (21-32) Anion Gap 11 (6-14) Blood Urea Nitrogen 3 mg/dL (7-20) L Creatinine 0.6 mg/dL (0.6-1.0) Estimated GFR (Cockcroft-Gault) 125.0 BUN/Creatinine Ratio 5 (6-20) L Glucose Level 94 mg/dL (70-99) Calcium Level 9.5 mg/dL (8.5-10.1) Total Bilirubin 0.3 mg/dL (0.2-1.0) Aspartate Amino Transferase (AST) 23 U/L (15-37) Alanine Aminotransferase (ALT) 21 U/L (14-59) Alkaline Phosphatase 69 U/L (46-116) Total Protein 7.7 g/dL (6.4-8.2) Albumin 3.9 g/dL (3.4-5.0) Albumin/Globulin Ratio 1.0 (1.0-1.7) Lipase 100 U/L (73-393) POC Urine HCG, Qualitative Hcg negative (Negative) Laboratory Tests 05/09/18 20:45 Laboratory Tests 05/09/18 20:45 EKG EKG [] Radiology/Procedures Radiology/Procedures [] Course & Med Decision Making Course & Med Decision Making Pertinent Labs and Imaging studies reviewed. (See chart for details) [] Dragon Disclaimer Dragon Disclaimer This electronic medical record was generated, in whole or in part, using a voice recognition dictation system. Departure Departure Impression: Primary Impression: Abdominal pain Additional Impression: Back pain Disposition: HOME, SELF-CARE Condition: STABLE Referrals: NO PCP (PCP) Patient Instructions: Abdominal Pain (Nonspecific), Chronic Back Pain Scripts Lidocaine (Lidocaine) 1 Each Adh..patch 1 EACH TP Q12HR, #5 PATCH Keep patch on for 12 hours then please remove and keep off for next 12 hours. Prov: FCO FLORES DO 05/09/18 Orphenadrine Citrate (ORPHENADRINE CITRATE) 100 Mg Tablet.er 1 TAB PO BID PRN for MUSCLE PAIN, #14 TAB 0 Refills Prov: FCO FLORES DO 05/09/18 Problem Qualifiers Primary Impression: Abdominal pain Abdominal location: generalized Qualified Codes: R10.84 - Generalized abdominal pain Additional Impression: Back pain Back pain location: thoracic back pain Chronicity: chronic Back pain laterality: bilateral Qualified Codes: M54.6 - Pain in thoracic spine; G89.29 - Other chronic pain FCO FLORES DO May 09, 2018 21:03
[2018-05-09 21:26] LABS: BASO # 0.1 x10^3/uL (0.0-0.2); BASO % 1 % (0-3); EOS # 0.2 x10^3/uL (0.0-0.7); EOS % 3 % (0-3); HEMATOCRIT 34.6 % (36.0-47.0); HEMOGLOBIN 10.8 g/dL (12.0-15.5); LYMPH # 2.8 x10^3/uL (1.0-4.8); LYMPH % 41 % (24-48); MEAN CORPUSCULAR HEMOGLOBIN 22 pg (25-35); MEAN CORPUSCULAR HGB CONC 31 g/dL (31-37); MEAN CORPUSCULAR VOLUME 71 fL (79-100); MONO # 0.5 x10^3/uL (0.0-1.1); MONO % 7 % (0-9); NEUT # 3.3 x10^3uL (1.8-7.7); NEUT % 48 % (31-73); PLATELET COUNT 403 x10^3/uL (140-400); RED CELL DISTRIBUTION WIDTH 15.9 % (11.5-14.5); WHITE BLOOD COUNT 6.8 x10^3/uL (4.0-11.0)
[2018-05-09] MEDS ORDERED: FAMOTIDINE 20 MG/2 ML VIAL IVP ONE (21:30)
[2018-05-09] MEDS ORDERED: IV NORMAL SALINE 1000ML BAG 1,000 ML IV ONE (21:30)
[2018-05-09] MEDS ORDERED: ONDANSETRON PF 4 MG/2 ML VIAL. IV ONE (21:30)
[2018-05-09] MEDS ORDERED: LORazepam 1 MG TABLET PO ONE (21:30)
[2018-05-09 21:33] LABS: BILIRUBIN,URINE NEGATIVE (NEG); CLARITY,URINE CLEAR; COLOR,URINE YELLOW; NITRITE,URINE NEGATIVE (NEG); PROTEIN,URINE NEGATIVE (NEG-TRACE); UROBILINOGEN,URINE 0.2 mg/dL (0.2 mg/dL)
[2018-05-09 21:36] LABS: CALCIUM 9.5 mg/dL (8.5-10.1); CREATININE 0.6 mg/dL (0.6-1.0); POTASSIUM 4.4 mmol/L (3.5-5.1)
[2018-05-09 21:44] LABS: BACTERIA,URINE 0 /HPF (0-FEW); RBC,URINE 0 /HPF (0-2); SQUAMOUS EPITHELIAL CELL,UR MOD /LPF; WBC,URINE 0 /HPF (0-4)
[2018-05-09 21:45] LABS: ALBUMIN 3.9 g/dL (3.4-5.0); TOTAL BILIRUBIN 0.3 mg/dL (0.2-1.0); TOTAL PROTEIN 7.7 g/dL (6.4-8.2)
[2018-05-09] MEDS ORDERED: CONTRAST GIVEN. MC PRN (21:45)
[2018-05-09] MEDS ORDERED: IOHEXOL 240 MG/ML 50ML VIAL. PO ONE (22:00)
[2018-05-09 22:02] LABS: HYPOCHROMIA MOD; MICROCYTOSIS MOD; PLT ESTIMATE ADEQUATE (ADEQUATE)
[2018-05-09] MEDS ORDERED: MORPHINE SULFATE 4 MG/ML VIAL. IV ONE ×2 (22:30→23:00)
--- NOTE | 2018-05-09 23:05 | RAD ---
PQRS Compliance statement: One or more of the following individualized dose reduction techniques were utilized for this examination: 1. Automated exposure control. 2. Adjustment of the mA and/or kV according to patient size. 3. Use of iterative reconstruction technique. Indication:severe abd and bilat flank pain, oral only per order, TECHNIQUE: CT abdomen and pelvis without IV contrast with multiplanar reformats. COMPARISON: 03/01/2017 FINDINGS: Limited exam due to lack of IV contrast. Heart is normal in size. Clear lung bases. The noncontrast morphology of the liver and spleen is within normal limits. Status post cholecystectomy. Noncontrast appearance of the pancreas and adrenals within normal limits. No nephrolithiasis or hydronephrosis. No free pelvic fluid or ascites. No bowel obstruction. No enlarged retroperitoneal or pelvic adenopathy. Enlarged bilateral groin lymph nodes are seen, the largest on the right side measuring 1.5 x 1.1 cm and on the left side measuring 1.1 x 0.8 cm. 6.0 x 4.6 cm right adnexal low attenuating lesion is seen. Stable twisting of the central mesentery seen. No pneumoperitoneum. Gastric bypass changes noted. Urinary bladder demonstrates no radiopaque stones. Anteverted uterus. No suspicious bony lesion. IMPRESSION: Limited exam due to lack of IV contrast. 1. No bowel obstruction. 2. Mildly enlarged bilateral groin lymph nodes likely reactive. 3. Right adnexal low attenuating lesion likely cyst. Nonemergent ultrasound of the pelvis is recommended. Electronically signed by: Yunier Garcia DO (05/09/2018 11:01 PM) [facility]
[2018-05-09 23:06] VITALS: BP 99/56
[2018-05-09] MEDS ORDERED: ORPH100T PO (23:42)
[2018-05-09] MEDS ORDERED: LIDO700A39 TP (23:42)
[2018-05-10] MEDS ORDERED: oxyCODONE IR 5 MG TABLET PO ONE
[2018-05-10] MEDS ORDERED: LORazepam 1 MG TABLET PO ONE
[2018-05-10] MEDS ORDERED: ORPHENADRINE CITRATE 60 MG/2 ML VIAL. IV ONE
[2018-05-10] MEDS ORDERED: LIDOCAINE (700MG/PATCH) PATCH. TD ONE
== END 2018-05-10 00:08 | disposition home or self-care (01) ==
LOC: ER 20:30
DX: R10.84 Generalized abdominal pain (principal); R11.2 Nausea with vomiting, unspecified; G89.29 Other chronic pain; M54.6 Pain in thoracic spine; J45.909 Unspecified asthma, uncomplicated; Z87.442 Personal history of urinary calculi; Z87.440 Personal history of urinary (tract) infections; Z90.49 Acquired absence of other specified parts of digestive tract; Z98.84 Bariatric surgery status; Z88.6 Allergy status to analgesic agent; Z88.1 Allergy status to other antibiotic agents; Z88.8 Allergy status to other drugs, medicaments and biological substances
CPT/HCPCS: 36415; 74176; 80053; 81001; 81025; 83690; 85025; 96361; 96374; 96375; 96376; 99285; J2270; J2360; J2405; J7030; Q9966; S0028

== ENCOUNTER 2018-05-23 22:35 | Emergency (ER) | payer SELFPAY ==
[~2018-05-23] VITALS: Ht 157.5 cm; Wt 64.0 kg
[~2018-05-23 22:35] MED LIST changes: +ORPH100T PO
[2018-05-23 22:45] VITALS: BP 103/58
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
[2018-05-23] MEDS ORDERED: ALPRAZolam 0.5 MG TABLET PO ONE (23:15)
[2018-05-23] MEDS ORDERED: FAMOTIDINE 20 MG/2 ML VIAL IVP ONE (23:15)
[2018-05-23] MEDS ORDERED: ONDANSETRON PF 4 MG/2 ML VIAL. IV ONE (23:15)
[2018-05-23] MEDS ORDERED: MORPHINE SULFATE 10 MG/ML VIAL. IV ONE (23:15)
[2018-05-23] MEDS ORDERED: IV NORMAL SALINE 1000ML BAG 1,000 ML IV ONE (23:15)
[2018-05-23 23:27] LABS: BILIRUBIN,URINE NEGATIVE (NEG); CLARITY,URINE CLEAR; COLOR,URINE YELLOW; NITRITE,URINE NEGATIVE (NEG); PH,URINE 6.5; PROTEIN,URINE NEGATIVE (NEG-TRACE); UROBILINOGEN,URINE 0.2 mg/dL (0.2 mg/dL)
[2018-05-23 23:33] LABS: BARBITURATES NEG (NEG); BENZODIAZEPINES NEG (NEG); CANNABINOIDS NEG (NEG); COCAINE NEG (NEG); METHADONE NEG (NEG); OPIATES POS (NEG); PHENCYCLIDINE NEG (NEG)
[2018-05-23 23:34] LABS: BACTERIA,URINE 0 /HPF (0-FEW); RBC,URINE 0 /HPF (0-2); SQUAMOUS EPITHELIAL CELL,UR FEW /LPF; WBC,URINE 0 /HPF (0-4)
[2018-05-23 23:37] LABS: AMPHETAMINE/METHAMPHETAMINE NEG (NEG)
[2018-05-23 23:48] LABS: BASO # 0.1 x10^3/uL (0.0-0.2); BASO % 1 % (0-3); EOS # 0.3 x10^3/uL (0.0-0.7); EOS % 4 % (0-3); HEMATOCRIT 33.4 % (36.0-47.0); HEMOGLOBIN 10.4 g/dL (12.0-15.5); LYMPH # 4.1 x10^3/uL (1.0-4.8); LYMPH % 51 % (24-48); MEAN CORPUSCULAR HEMOGLOBIN 22 pg (25-35); MEAN CORPUSCULAR HGB CONC 31 g/dL (31-37); MEAN CORPUSCULAR VOLUME 71 fL (79-100); MONO # 0.6 x10^3/uL (0.0-1.1); MONO % 7 % (0-9); NEUT % 38 % (31-73); PLATELET COUNT 379 x10^3/uL (140-400); RED BLOOD COUNT 4.73 x10^6/uL (3.50-5.40); RED CELL DISTRIBUTION WIDTH 15.7 % (11.5-14.5); WHITE BLOOD COUNT 8.1 x10^3/uL (4.0-11.0)
[2018-05-23 23:55] LABS: CALCIUM 8.7 mg/dL (8.5-10.1); CREATININE 0.6 mg/dL (0.6-1.0); POTASSIUM 4.2 mmol/L (3.5-5.1)
[2018-05-24 00:01] LABS: ALBUMIN 3.5 g/dL (3.4-5.0); ALBUMIN/GLOBULIN RATIO 1.1 (1.0-1.7); TOTAL BILIRUBIN 0.2 mg/dL (0.2-1.0); TOTAL PROTEIN 6.8 g/dL (6.4-8.2)
--- NOTE | 2018-05-24 00:41 | RAD ---
Complete pelvic ultrasound HISTORY: Pelvic pain. TECHNIQUE: Transvaginal sonography with grayscale and duplex Doppler sonography was utilized. FINDINGS: Retroverted uterus. Small subcentimeter cervical cysts. No uterine mass. Uterus measures 5.8 x 3.9 x 2.6 cm. Endometrium thickness is 0.5 cm which is normal. No endometrial mass or hypervascularity. Right ovary measures 3.6 x 2.7 x 2.1 cm with a dominant 2.2 x 2.1 x 1.4 cm follicle and a few subcentimeter follicles. Left ovary measures 3.4 x 2.5 x 2.0 cm. Left ovarian follicles are present largest measuring 1.6 cm. There is symmetric intact bilateral ovarian blood flow with normal waveforms. No significant volume of pelvic free fluid documented. IMPRESSION: Normal exam. Electronically signed by: Rod Morris MD (05/24/2018 12:37 AM) [facility]
[2018-05-24] MEDS ORDERED: MORPHINE SULFATE 10 MG/ML VIAL. IV ONE (01:00)
--- NOTE | 2018-05-24 01:50 | RAD ---
Lumbar spine x-rays 3 views HISTORY: Fall, back pain, history of prior treatment for lumbar fracture 2 years ago. FINDINGS: Mild dextroconvex lumbar scoliosis. Lumbar vertebral body height and alignment intact. No fracture of the lumbar spine evident. Mild endplate Schmorl's nodes at T12-L1 and L1-L2 with disc space narrowing at these levels. IMPRESSION: No acute osseous injury of the lumbar spine. Changes of lumbar disc disease. Electronically signed by: Rod Morris MD (05/24/2018 1:47 AM) [facility]
[2018-05-24 04:34] LABS: PLT ESTIMATE ADEQUATE (ADEQUATE)
[2018-05-24 04:35] LABS: HYPOCHROMIA MOD; MICROCYTOSIS MOD
== END 2018-05-24 01:06 | disposition home or self-care (01) ==
LOC: ER 22:35
DX: S30.0XXA Contusion of lower back and pelvis, initial encounter (principal); N83.201 Unspecified ovarian cyst, right side; J45.909 Unspecified asthma, uncomplicated; F41.9 Anxiety disorder, unspecified; K21.9 Gastro-esophageal reflux disease without esophagitis; Z90.49 Acquired absence of other specified parts of digestive tract; Z90.89 Acquired absence of other organs; Z87.442 Personal history of urinary calculi; Z88.6 Allergy status to analgesic agent; Z88.5 Allergy status to narcotic agent; Z88.1 Allergy status to other antibiotic agents; Z88.8 Allergy status to other drugs, medicaments and biological substances; W18.30XA Fall on same level, unspecified, initial encounter; Y93.89 Activity, other specified; Y92.89 Other specified places as the place of occurrence of the external cause; Y99.8 Other external cause status
CPT/HCPCS: 36415; 72100; 76830; 80053; 80307; 81001; 81025; 85025; 96374; 96375; 96376; 99285; G0480; J2270; J2405; J7030; S0028; G0479

== ENCOUNTER 2018-06-08 22:09 | Emergency (ER) | payer SELFPAY ==
[~2018-06-08] VITALS: Ht 160 cm; Wt 64.0 kg
[2018-06-08 23:37] LABS: BILIRUBIN,URINE NEGATIVE (NEG); CLARITY,URINE CLEAR; COLOR,URINE YELLOW; NITRITE,URINE NEGATIVE (NEG); PROTEIN,URINE NEGATIVE (NEG-TRACE); UROBILINOGEN,URINE 0.2 mg/dL (0.2 mg/dL)
--- NOTE | 2018-06-08 23:40 | PHYS DOC ---
Past Medical History Past Medical History: Asthma, Gallstones, Kidney Stone, Ovarian Cyst, Seizure, UTI, Other Additional Past Medical Histor: pyodermia, PSYCHOGENIC NON EPILLEPTIC SEIZURES , cilliac, chrones Past Surgical History: Cholecystectomy, Gastric Bypass, Other Additional Past Surgical Histo: adenoidectomy Alcohol Use: None Drug Use: None Adult General Chief Complaint Chief Complaint: ABDOMINAL PAIN HPI HPI Patient is a 22 year old female who presents with abdominal pain. Patient began having pain about 16 hours earlier. Over the course of this day, her pain worsened and she had persistent nausea. No vomiting. The pain is located in the upper portion of her abdomen. The patient is status post gastric bypass surgery which was completed 5 years earlier. She also had cholecystectomy in the same year. No fever or chills. Her last menstrual cycle was 2 weeks earlier. She does endorse some difficulty getting her urine stream to start. She denies any irregular vaginal discharge. Review of Systems Review of Systems Constitutional: Denies fever or chills Eyes: Denies HENT: Denies Respiratory: Denies cough Cardiovascular: No additional information GI: as documented above : Denies dysuria or hematuria Musculoskeletal: Denies back pain or joint pain Integument: Denies rash or skin lesions Neurologic: Denies headache, Endocrine: Denies polyuria All other systems were reviewed and found to be within normal limits, except as documented in this note. Current Medications Current Medications Current Medications Medications (Trade) Dose Ordered Sig/Julia Start Time Stop Time Status Last Admin Dose Admin Famotidine (Pepcid Vial) 20 mg 1X ONCE 06/09/18 02:15 06/09/18 02:16 DC 06/09/18 02:02 20 MG Lorazepam (Ativan) 1 mg 1X ONCE 06/09/18 02:00 06/09/18 02:01 DC 06/09/18 02:02 1 MG Morphine Sulfate (Morphine Sulfate) 4 mg 1X ONCE 06/09/18 03:00 06/09/18 03:01 Ondansetron HCl (Zofran) 4 mg 1X ONCE 06/09/18 02:00 06/09/18 02:01 DC 06/09/18 02:00 4 MG Sodium Chloride 1,000 ml @ 1,000 mls/hr 1X ONCE 06/09/18 03:00 06/09/18 03:59 06/09/18 02:31 1,000 MLS/HR Allergies Allergies Allergies Coded Allergies Type Severity Reaction Last Updated Verified NSAIDS (Non-Steroidal Anti-Inflamma Allergy Severe 05/09/18 Yes diclofenac Allergy Severe 05/09/18 Yes ketorolac Allergy Severe 05/09/18 Yes meloxicam Allergy Severe "I STOP BREATHING" 05/09/18 Yes codeine Allergy Intermediate 03/01/17 Yes dicyclomine Allergy Intermediate 04/06/16 Yes fentanyl Allergy Intermediate 04/06/16 Yes tizanidine Allergy Intermediate Hives 02/25/17 Yes tramadol Allergy Intermediate 03/01/17 Yes amoxicillin Allergy Mild rash 12/25/17 Yes cyclobenzaprine Adverse Reaction Intermediate "DOESN'T WORK" 02/06/17 Yes Physical Exam Physical Exam Constitutional: Well developed, well nourished, uncomfortable appearing female HENT: Normocephalic, atraumatic, bilateral external ears normal, oropharynx moist Eyes: PERRLA, EOMI Neck: Normal range of motion Cardiovascular:Heart rate regular rhythm, no murmur Lungs & Thorax: Bilateral breath sounds clear to auscultation Abdomen: Bowel sounds normal, soft, TTP over epigastrium. Abd soft Skin: Warm, dry Extremities: No tenderness, no edema Neurologic: Alert and oriented X 3 Psychologic: Affect normal Current Patient Data Vital Signs Vital Signs Date Time Temp Pulse Resp B/P (MAP) Pulse Ox O2 Delivery O2 Flow Rate FiO2 06/09/18 01:25 19 99 Room Air 06/08/18 23:37 98.3 76 114/67 (83) 98.3 Lab Values Laboratory Tests Test 06/08/18 22:42 06/08/18 23:32 06/08/18 23:59 Urine Collection Type Unknown Urine Color Yellow Urine Clarity Clear Urine pH 8.0 Urine Specific [place] <=1.005 Urine Protein Negative mg/dL (NEG-TRACE) Urine Glucose (UA) Negative mg/dL (NEG) Urine Ketones (Stick) Negative mg/dL (NEG) Urine Blood Large (NEG) Urine Nitrite Negative (NEG) Urine Bilirubin Negative (NEG) Urine Urobilinogen Dipstick 0.2 mg/dL (0.2 mg/dL) Urine Leukocyte Esterase Trace (NEG) Urine RBC 20-40 /HPF (0-2) Urine WBC Occ /HPF (0-4) Urine Squamous Epithelial Cells Few /LPF Urine Bacteria 0 /HPF (0-FEW) POC Urine HCG, Qualitative Hcg negative (Negative) White Blood Count 7.1 x10^3/uL (4.0-11.0) Red Blood Count 4.62 x10^6/uL (3.50-5.40) Hemoglobin 10.2 g/dL (12.0-15.5) L Hematocrit 32.2 % (36.0-47.0) L Mean Corpuscular Volume 70 fL (79-100) L Mean Corpuscular Hemoglobin 22 pg (25-35) L Mean Corpuscular Hemoglobin Concent 32 g/dL (31-37) Red Cell Distribution Width 16.3 % (11.5-14.5) H Platelet Count 343 x10^3/uL (140-400) Neutrophils (%) (Auto) 34 % (31-73) Lymphocytes (%) (Auto) 53 % (24-48) H Monocytes (%) (Auto) 8 % (0-9) Eosinophils (%) (Auto) 3 % (0-3) Basophils (%) (Auto) 1 % (0-3) Neutrophils # (Auto) 2.4 x10^3uL (1.8-7.7) Lymphocytes # (Auto) 3.8 x10^3/uL (1.0-4.8) Monocytes # (Auto) 0.6 x10^3/uL (0.0-1.1) Eosinophils # (Auto) 0.2 x10^3/uL (0.0-0.7) Basophils # (Auto) 0.1 x10^3/uL (0.0-0.2) Platelet Estimate Adequate (ADEQUATE) Hypochromasia Slight Microcytosis Marked Sodium Level 140 mmol/L (136-145) Potassium Level 3.8 mmol/L (3.5-5.1) Chloride Level 105 mmol/L (98-107) Carbon Dioxide Level 24 mmol/L (21-32) Anion Gap 11 (6-14) Blood Urea Nitrogen 6 mg/dL (7-20) L Creatinine 0.6 mg/dL (0.6-1.0) Estimated GFR (Cockcroft-Gault) 125.0 Glucose Level 90 mg/dL (70-99) Calcium Level 9.0 mg/dL (8.5-10.1) Total Bilirubin 0.4 mg/dL (0.2-1.0) Direct Bilirubin 0.1 mg/dL (0.0-0.2) Aspartate Amino Transferase (AST) 18 U/L (15-37) Alanine Aminotransferase (ALT) 18 U/L (14-59) Alkaline Phosphatase 65 U/L (46-116) Total Protein 7.5 g/dL (6.4-8.2) Albumin 3.8 g/dL (3.4-5.0) Lipase 113 U/L (73-393) Laboratory Tests 06/08/18 23:59 Laboratory Tests 06/08/18 23:59 EKG EKG [] Radiology/Procedures Radiology/Procedures FINDINGS: The bibasilar lungs are clear. No evidence of free air identified in the abdomen. The evaluation of the solid organs is limited due to lack of IV contrast. The evaluation of bowel is limited due to lack of oral contrast. The visualized noncontrasted liver, spleen, adrenals grossly appears unremarkable. Cholecystectomy clips identified. Prior changes of gastric bypass. The small bowel is nondilated. Feces and gas noted throughout the colon. The appendix is normal. Urinary bladder is mildly distended. No evidence of intrarenal collecting system calculi or hydronephrosis identified. There is a punctate 2 mm calcification identified in the right pelvis region which is most likely pelvic phlebolith or less likely ureteral calculus. The course of the ureters evaluation is limited on this examination due to multiple nondistended small bowel loops in the abdomen. No evidence of lytic bony destructive lesion. IMPRESSION: 1. No evidence of intrarenal collecting system calculi or hydronephrosis identified. There is a punctate 2 mm calcification identified in the right pelvis region which is most likely pelvic phlebolith or less likely ureteral calculus. The course of the ureters evaluation is limited on this examination due to multiple nondistended small bowel loops in the abdomen. Course & Med Decision Making Course & Med Decision Making Pertinent Labs and Imaging studies reviewed. (See chart for details) 23:30: Patient is seen and examined. Standard abd pain workup ordered. Meds for pain/nausea. Allergy to codeine and fentanyl but has tolerated morphine in the past. 02:45: All results are reviewed and discussed with the patient. There are no acute findings on her lab panel other than she is noted to have hematuria. Her last period was 2 weeks earlier. She denies vaginal bleeding. CT scan findings as documented above. Given her clinical presentation, it seems likely that she is having a small stone. There is no [place]. Her pain is currently improved although she continues to complain of pain. I did review the patient's [facility] record which did reveal a couple of recent prescriptions for opiates but no prolonged history of frequent prescriptions. This evening, she'll be discharged home. She'll be given medication for pain at home. She is advised to follow-up with her primary care doctor or return to the ER for any new or worsening symptoms. Dragon Disclaimer Dragon Disclaimer This electronic medical record was generated, in whole or in part, using a voice recognition dictation system. Departure Departure Referrals: ALEX PEOPLES (PCP) SEGUN HERNÁNDEZ DO Jun 08, 2018 23:40
[2018-06-08 23:42] LABS: BACTERIA,URINE 0 /HPF (0-FEW); RBC,URINE 20-40 /HPF (0-2); SQUAMOUS EPITHELIAL CELL,UR FEW /LPF; WBC,URINE OCC /HPF (0-4)
[2018-06-08] MEDS ORDERED: ONDANSETRON PF 4 MG/2 ML VIAL. IV ONE (23:45)
[2018-06-08] MEDS ORDERED: MORPHINE SULFATE 4 MG/ML VIAL. IV ONE (23:45)
[2018-06-09 00:11] LABS: BASO # 0.1 x10^3/uL (0.0-0.2); BASO % 1 % (0-3); EOS # 0.2 x10^3/uL (0.0-0.7); EOS % 3 % (0-3); HEMATOCRIT 32.2 % (36.0-47.0); HEMOGLOBIN 10.2 g/dL (12.0-15.5); LYMPH # 3.8 x10^3/uL (1.0-4.8); LYMPH % 53 % (24-48); MEAN CORPUSCULAR HEMOGLOBIN 22 pg (25-35); MEAN CORPUSCULAR HGB CONC 32 g/dL (31-37); MEAN CORPUSCULAR VOLUME 70 fL (79-100); MONO # 0.6 x10^3/uL (0.0-1.1); MONO % 8 % (0-9); NEUT # 2.4 x10^3uL (1.8-7.7); NEUT % 34 % (31-73); PLATELET COUNT 343 x10^3/uL (140-400); RED BLOOD COUNT 4.62 x10^6/uL (3.50-5.40); RED CELL DISTRIBUTION WIDTH 16.3 % (11.5-14.5); WHITE BLOOD COUNT 7.1 x10^3/uL (4.0-11.0)
[2018-06-09 00:26] LABS: CREATININE 0.6 mg/dL (0.6-1.0); POTASSIUM 3.8 mmol/L (3.5-5.1)
[2018-06-09 00:31] LABS: ALBUMIN 3.8 g/dL (3.4-5.0); DIRECT BILIRUBIN 0.1 mg/dL (0.0-0.2); TOTAL BILIRUBIN 0.4 mg/dL (0.2-1.0); TOTAL PROTEIN 7.5 g/dL (6.4-8.2)
[2018-06-09] MEDS ORDERED: MORPHINE SULFATE 4 MG/ML VIAL. IV ONE ×2 (01:00→03:00)
--- NOTE | 2018-06-09 01:55 | RAD ---
Examination: Ultrasound kidneys HISTORY: History of right flank pain, blood in the uterine COMPARISON: None available. FINDINGS: The right kidney measures 9.5 x 4.8 x 4.0 cm . The left kidney measures 10.6 x 4.9 x 4.2 cm. Bilateral ureteral jets identified identified in the urinary bladder. No evidence of hydronephrosis. Urinary bladder is mildly distended. IMPRESSION: 1. No evidence of hydronephrosis. Electronically signed by: Jamie Lugo MD (06/09/2018 1:52 AM) [facility]
[2018-06-09] MEDS ORDERED: ONDANSETRON PF 4 MG/2 ML VIAL. IV ONE (02:00)
[2018-06-09] MEDS ORDERED: FAMOTIDINE 20 MG/2 ML VIAL IVP ONE (02:15)
--- NOTE | 2018-06-09 02:17 | RAD ---
Examination: CT of the abdomen pelvis without contrast HISTORY: History of hematuria, abdominal pain COMPARISON: 05/09/2018 TECHNIQUE: Axial CT images of the abdomen pelvis were performed without contrast. Coronal and sagittal deformities are performed Exposure: One or more of the following individualized dose reduction techniques were utilized for this examination: 1. Automated exposure control 2. Adjustment of the mA and/or kV according to patient size 3. Use of iterative reconstruction technique. FINDINGS: The bibasilar lungs are clear. No evidence of free air identified in the abdomen. The evaluation of the solid organs is limited due to lack of IV contrast. The evaluation of bowel is limited due to lack of oral contrast. The visualized noncontrasted liver, spleen, adrenals grossly appears unremarkable. Cholecystectomy clips identified. Prior changes of gastric bypass. The small bowel is nondilated. Feces and gas noted throughout the colon. The appendix is normal. Urinary bladder is mildly distended. No evidence of intrarenal collecting system calculi or hydronephrosis identified. There is a punctate 2 mm calcification identified in the right pelvis region which is most likely pelvic phlebolith or less likely ureteral calculus. The course of the ureters evaluation is limited on this examination due to multiple nondistended small bowel loops in the abdomen. No evidence of lytic bony destructive lesion. IMPRESSION: 1. No evidence of intrarenal collecting system calculi or hydronephrosis identified. There is a punctate 2 mm calcification identified in the right pelvis region which is most likely pelvic phlebolith or less likely ureteral calculus. The course of the ureters evaluation is limited on this examination due to multiple nondistended small bowel loops in the abdomen. Electronically signed by: Jamie Lugo MD (06/09/2018 2:14 AM) [facility] [place]
[2018-06-09 02:47] LABS: PLT ESTIMATE ADEQUATE (ADEQUATE)
[2018-06-09 02:48] LABS: HYPOCHROMIA SLIGHT; MICROCYTOSIS MARKED
[2018-06-09] MEDS ORDERED: OXYC5CAP PO (02:56)
[2018-06-09] MEDS ORDERED: IV NORMAL SALINE 1000ML BAG 1,000 ML IV ONE (03:00)
[2018-06-09 03:19] VITALS: BP 117/60
== END 2018-06-09 03:31 | disposition home or self-care (01) ==
LOC: ER 22:09
DX: R10.13 Epigastric pain (principal); R11.0 Nausea; J45.909 Unspecified asthma, uncomplicated; Z90.49 Acquired absence of other specified parts of digestive tract; Z90.89 Acquired absence of other organs; Z87.440 Personal history of urinary (tract) infections; Z88.8 Allergy status to other drugs, medicaments and biological substances; Z88.1 Allergy status to other antibiotic agents; Z88.6 Allergy status to analgesic agent; Z88.5 Allergy status to narcotic agent
CPT/HCPCS: 36415; 74176; 76770; 80048; 80076; 81001; 81025; 83690; 85025; 96374; 96375; 96376; 99285; J2060; J2270; J2405; J7030; S0028

== ENCOUNTER 2018-07-07 04:05 | Emergency (ER) | payer SELFPAY ==
[~2018-07-07] VITALS: Ht 157.5 cm; Wt 64.0 kg
[~2018-07-07 04:05] MED LIST changes: +OXYC5CAP PO
[2018-07-07 04:48] LABS: BILIRUBIN,URINE SMALL (NEG); CLARITY,URINE CLOUDY; COLOR,URINE AMBER; NITRITE,URINE NEGATIVE (NEG); PH,URINE 5.5; PROTEIN,URINE 30 mg/dL (NEG-TRACE)
[2018-07-07 04:54] LABS: RBC,URINE TNTC /HPF (0-2)
[2018-07-07 04:55] LABS: AMORPHOUS SEDIMENT,UR PRESENT /HPF; BACTERIA,URINE MOD /HPF (0-FEW); SQUAMOUS EPITHELIAL CELL,UR MANY /LPF
[2018-07-07 05:13] LABS: BASO % 1 % (0-3); EOS # 0.2 x10^3/uL (0.0-0.7); EOS % 3 % (0-3); HEMATOCRIT 32.8 % (36.0-47.0); LYMPH # 1.8 x10^3/uL (1.0-4.8); LYMPH % 39 % (24-48); MEAN CORPUSCULAR HEMOGLOBIN 21 pg (25-35); MEAN CORPUSCULAR HGB CONC 31 g/dL (31-37); MEAN CORPUSCULAR VOLUME 70 fL (79-100); MONO # 0.5 x10^3/uL (0.0-1.1); MONO % 10 % (0-9); NEUT # 2.2 x10^3uL (1.8-7.7); NEUT % 47 % (31-73); PLATELET COUNT 287 x10^3/uL (140-400); RED BLOOD COUNT 4.72 x10^6/uL (3.50-5.40); RED CELL DISTRIBUTION WIDTH 17.4 % (11.5-14.5); WHITE BLOOD COUNT 4.7 x10^3/uL (4.0-11.0)
[2018-07-07 05:18] LABS: CREATININE 0.7 mg/dL (0.6-1.0); GFR 104.6; POTASSIUM 3.5 mmol/L (3.5-5.1)
[2018-07-07 05:23] LABS: ALBUMIN 3.5 g/dL (3.4-5.0); DIRECT BILIRUBIN 0.1 mg/dL (0.0-0.2); TOTAL BILIRUBIN 0.2 mg/dL (0.2-1.0); TOTAL PROTEIN 7.3 g/dL (6.4-8.2)
[2018-07-07] MEDS ORDERED: PROCHLORPERAZINE 10 MG/2 ML VIAL. IV ONE (05:30)
[2018-07-07] MEDS ORDERED: MORPHINE SULFATE 4 MG/ML VIAL. IV ONE ×2 (05:30→07:00)
[2018-07-07] MEDS ORDERED: IV NORMAL SALINE 1000ML BAG 1,000 ML IV ONE (05:30)
--- NOTE | 2018-07-07 05:39 | PHYS DOC ---
Past Medical History Past Medical History: Gallstones Additional Past Medical Histor: pyodermia, PSYCHOGENIC NON EPILLEPTIC SEIZURES , cilliac, chrones Past Surgical History: Cholecystectomy, Gastric Bypass, Tonsillectomy Additional Past Surgical Histo: RHINOPLASTY Alcohol Use: None Drug Use: None Adult General Chief Complaint Chief Complaint: ABDOMINAL PAIN HPI HPI Patient is a 22 year old female who presents with abdominal pain. The patient states she was evaluated in the emergency department one month earlier when she was diagnosed with a kidney stone. She was discharged home with prescription for pain medications. She had since followed up with her primary care physician on 18 of June and was prescribed 60 Percocet at that time. The patient is treated for chronic low back pain and sees her doctor monthly. She presents to the ER today complaining of abdominal pain. The pain is been diffuse but sometimes localizes to the right upper quadrant. She also has lower abdominal pain. She complains of difficulty starting her urine stream and some dysuria. No fever. She did have some nausea with emesis that started in the last 12 hours. She describes a few streaks of blood in the last episode of emesis but no overt bleeding. Review of Systems Review of Systems Constitutional: + chills Eyes: Denies change in visual acuity HENT: Denies nasal congestion or sore throat Respiratory: Denies cough or shortness of breath Cardiovascular: No additional information not addressed in HPI GI: as documented above : as documented above Musculoskeletal: Denies back pain Integument: Denies rash or skin lesions Neurologic: Denies neuro complaints All other systems were reviewed and found to be within normal limits, except as documented in this note. Current Medications Current Medications Current Medications Medications (Trade) Dose Ordered Sig/Julia Start Time Stop Time Status Last Admin Dose Admin Morphine Sulfate (Morphine Sulfate) 4 mg 1X ONCE 07/07/18 07:00 07/07/18 07:01 DC 07/07/18 06:54 4 MG Ondansetron HCl (Zofran) 4 mg 1X ONCE 07/07/18 07:00 07/07/18 07:01 DC 07/07/18 06:54 4 MG Prochlorperazine Edisylate (Compazine) 10 mg 1X ONCE 07/07/18 05:30 07/07/18 05:31 DC 07/07/18 05:11 10 MG Sodium Chloride 1,000 ml @ 1,000 mls/hr 1X ONCE 07/07/18 05:30 07/07/18 06:29 DC 07/07/18 05:10 1,000 MLS/HR Allergies Allergies Allergies Coded Allergies Type Severity Reaction Last Updated Verified NSAIDS (Non-Steroidal Anti-Inflamma Allergy Severe 05/09/18 Yes diclofenac Allergy Severe 05/09/18 Yes ketorolac Allergy Severe 05/09/18 Yes meloxicam Allergy Severe "I STOP BREATHING" 05/09/18 Yes codeine Allergy Intermediate 03/01/17 Yes dicyclomine Allergy Intermediate 04/06/16 Yes fentanyl Allergy Intermediate 04/06/16 Yes tizanidine Allergy Intermediate Hives 02/25/17 Yes tramadol Allergy Intermediate 03/01/17 Yes amoxicillin Allergy Mild rash 12/25/17 Yes cyclobenzaprine Adverse Reaction Intermediate "DOESN'T WORK" 02/06/17 Yes Physical Exam Physical Exam Constitutional: Well developed, well nourished, mild distress, actively nauseated HENT: Normocephalic, atraumatic, bilateral external ears normal, oropharynx moist Eyes: PERRLA Neck: Normal range of motion Cardiovascular:Heart rate regular rhythm Lungs & Thorax: Bilateral breath sounds clear Abdomen: Bowel sounds normal, soft, subjectively tender to palpation but no guarding or rebound Skin: Warm, dry, no erythema Back: No tenderness Extremities: No edema Neurologic: Alert and oriented X 3 Psychologic: Affect normal Current Patient Data Vital Signs Vital Signs Date Time Temp Pulse Resp B/P (MAP) Pulse Ox O2 Delivery O2 Flow Rate FiO2 07/07/18 06:30 76 96/53 (67) 98 07/07/18 04:40 98.1 16 Room Air 98.1 Lab Values Laboratory Tests Test 07/07/18 04:35 07/07/18 04:43 07/07/18 04:50 Urine Collection Type Unknown Urine Color Maria Guadalupe Urine Clarity Cloudy Urine pH 5.5 Urine Specific [place] >=1.030 Urine Protein 30 mg/dL (NEG-TRACE) Urine Glucose (UA) Negative mg/dL (NEG) Urine Ketones (Stick) Negative mg/dL (NEG) Urine Blood Large (NEG) Urine Nitrite Negative (NEG) Urine Bilirubin Small (NEG) Urine Urobilinogen Dipstick 1.0 mg/dL (0.2 mg/dL) Urine Leukocyte Esterase Moderate (NEG) Urine RBC Tntc /HPF (0-2) Urine WBC 5-10 /HPF (0-4) Urine Squamous Epithelial Cells Many /LPF Urine Amorphous Sediment Present /HPF Urine Bacteria Mod /HPF (0-FEW) Urine Mucus Mod /LPF POC Urine HCG, Qualitative Hcg negative (Negative) White Blood Count 4.7 x10^3/uL (4.0-11.0) Red Blood Count 4.72 x10^6/uL (3.50-5.40) Hemoglobin 10.0 g/dL (12.0-15.5) L Hematocrit 32.8 % (36.0-47.0) L Mean Corpuscular Volume 70 fL (79-100) L Mean Corpuscular Hemoglobin 21 pg (25-35) L Mean Corpuscular Hemoglobin Concent 31 g/dL (31-37) Red Cell Distribution Width 17.4 % (11.5-14.5) H Platelet Count 287 x10^3/uL (140-400) Neutrophils (%) (Auto) 47 % (31-73) Lymphocytes (%) (Auto) 39 % (24-48) Monocytes (%) (Auto) 10 % (0-9) H Eosinophils (%) (Auto) 3 % (0-3) Basophils (%) (Auto) 1 % (0-3) Neutrophils # (Auto) 2.2 x10^3uL (1.8-7.7) Lymphocytes # (Auto) 1.8 x10^3/uL (1.0-4.8) Monocytes # (Auto) 0.5 x10^3/uL (0.0-1.1) Eosinophils # (Auto) 0.2 x10^3/uL (0.0-0.7) Basophils # (Auto) 0.0 x10^3/uL (0.0-0.2) Platelet Estimate Adequate (ADEQUATE) Hypochromasia Mod Poikilocytosis Present Anisocytosis Present Microcytosis Marked Ovalocytes Present Sodium Level 139 mmol/L (136-145) Potassium Level 3.5 mmol/L (3.5-5.1) Chloride Level 104 mmol/L (98-107) Carbon Dioxide Level 24 mmol/L (21-32) Anion Gap 11 (6-14) Blood Urea Nitrogen 7 mg/dL (7-20) Creatinine 0.7 mg/dL (0.6-1.0) Estimated GFR (Cockcroft-Gault) 104.6 Glucose Level 93 mg/dL (70-99) Calcium Level 9.0 mg/dL (8.5-10.1) Total Bilirubin 0.2 mg/dL (0.2-1.0) Direct Bilirubin 0.1 mg/dL (0.0-0.2) Aspartate Amino Transferase (AST) 145 U/L (15-37) H Alanine Aminotransferase (ALT) 147 U/L (14-59) H Alkaline Phosphatase 127 U/L (46-116) H Total Protein 7.3 g/dL (6.4-8.2) Albumin 3.5 g/dL (3.4-5.0) Laboratory Tests 07/07/18 04:50 Laboratory Tests 07/07/18 04:50 EKG EKG [] Radiology/Procedures Radiology/Procedures FINDINGS: Lack of intravenous contrast limits evaluation of solid organs, vasculature, and lymph nodes. Also evaluation is limited given lack of retroperitoneal/visceral fat. Lower chest: Dependent opacities likely atelectasis. Relative hypoattenuation of the blood pool to the myocardium may be seen with anemia. Abdomen and Pelvis: No focal liver lesion. Cholecystectomy clips are seen. No biliary ductal dilatation. Spleen is unremarkable. Adrenal glands are normal. Kidneys are normal in size and shape. No hydronephrosis. Moderate to large volume colonic stool content. No small or large bowel dilatation to suggest bowel obstruction. Changes of prior bowel surgery are seen with suture line in the mid abdomen. Extensively prominent mesenteric lymph nodes are seen. Otherwise no abdominal or pelvic lymphadenopathy. Bones: Visualized osseous structures are unremarkable. IMPRESSION: 1. No definite renal tract calculi are seen. 2. Prominent mesenteric lymph nodes are seen, may be seen with mesenteric adenitis. 3. Relative hypoattenuation of the blood pool to the myocardium may be seen with anemia. Course & Med Decision Making Course & Med Decision Making Pertinent Labs and Imaging studies reviewed. (See chart for details) Patient is again evaluated in the ER for abdominal pain. I saw this patient about one month earlier for the same complaint. At that time, she had a punctate calculus that was not possible to be a kidney stone. She had hematuria at that time so renal lithiasis was the working diagnosis. She was discharged home with pain medications. She presents with exactly the same presentation this evening. Her urinalysis does show hematuria. CT scan is ordered. Medications for pain. 06:00: Pain is currently improved. Patient sleeping. No additional emesis. Labs/CT pending. 07:30. CT scan is returned and documented above. Again, the patient has no acute findings to explain her pain or her hematuria. This is a similar workup to one month earlier. This visit, however, she is noted to have some transaminitis which has not been present on other lab panels. The patient does take Percocet frequently. For chronic pain. Patient will be discharged home today. She is encouraged to follow up with her primary care physician and GI regarding her elevated LFTs. She is advised to stop taking Percocet. In lieu of this, she is provided a prescription for oxycodone. She is also advised to avoid any other Tylenol or alcohol until her LFTs have been further worked up. She is currently feeling better and agreeable to the plan for discharge home. UA with few WBC's so she is placed on levaquin for a short course. Dragon Disclaimer Dragon Disclaimer This electronic medical record was generated, in whole or in part, using a voice recognition dictation system. Departure Departure Referrals: ALEX PEOPLES (PCP) Scripts Levofloxacin (LEVAQUIN) 500 Mg Tablet 500 MG PO DAILY for 5 Days, #5 TAB Prov: SEGUN HERNÁNDEZ DO 07/07/18 Metoclopramide Hcl (REGLAN) 10 Mg Tablet 1 TAB PO QID for nausea, #20 TAB Prov: SEGUN HERNÁNDEZ DO 07/07/18 Oxycodone Hcl (OXYCODONE HCL) 5 Mg Tablet 1 TAB PO QID, #30 TAB Prov: SEGUN HERNÁNDEZ DO 07/07/18 SEGUN HERNÁNDEZ DO Jul 07, 2018 05:39
--- NOTE | 2018-07-07 06:06 | RAD ---
EXAM: CT Abdomen and Pelvis without IV contrast CLINICAL HISTORY: ABD PAIN, HEMATURIA. COMPARISON: 06/09/2018, 05/09/2018 TECHNIQUE: Helical CT of the abdomen and pelvis without intravenous contrast. Axial, coronal and sagittal reformatted images were generated. PQRS compliance statement - One or more of the following individualized dose reduction techniques were utilized for this study: 1. Automated exposure control 2. Adjustment of the mA and/or kV according to patient size 3. Use of iterative reconstruction technique FINDINGS: Lack of intravenous contrast limits evaluation of solid organs, vasculature, and lymph nodes. Also evaluation is limited given lack of retroperitoneal/visceral fat. Lower chest: Dependent opacities likely atelectasis. Relative hypoattenuation of the blood pool to the myocardium may be seen with anemia. Abdomen and Pelvis: No focal liver lesion. Cholecystectomy clips are seen. No biliary ductal dilatation. Spleen is unremarkable. Adrenal glands are normal. Kidneys are normal in size and shape. No hydronephrosis. Moderate to large volume colonic stool content. No small or large bowel dilatation to suggest bowel obstruction. Changes of prior bowel surgery are seen with suture line in the mid abdomen. Extensively prominent mesenteric lymph nodes are seen. Otherwise no abdominal or pelvic lymphadenopathy. Bones: Visualized osseous structures are unremarkable. IMPRESSION: 1. No definite renal tract calculi are seen. 2. Prominent mesenteric lymph nodes are seen, may be seen with mesenteric adenitis. 3. Relative hypoattenuation of the blood pool to the myocardium may be seen with anemia. Electronically signed by: Surinder Rodriguez MD (07/07/2018 6:02 AM) [id number]
[2018-07-07 06:30] VITALS: BP 96/53
[2018-07-07] MEDS ORDERED: ONDANSETRON PF 4 MG/2 ML VIAL. IV ONE (07:00)
[2018-07-07] MEDS ORDERED: OXYC5TAB95 PO (07:17)
[2018-07-07] MEDS ORDERED: METO10TA81 PO (07:20)
[2018-07-07] MEDS ORDERED: LEVO500T59 PO (07:38)
[2018-07-07 09:43] LABS: ANISOCYTOSIS PRESENT; HYPOCHROMIA MOD; MICROCYTOSIS MARKED; OVALOCYTES PRESENT; PLT ESTIMATE ADEQUATE (ADEQUATE); POIKILOCYTOSIS PRESENT
== END 2018-07-07 07:37 | disposition home or self-care (01) ==
LOC: ER 04:05
DX: R10.84 Generalized abdominal pain (principal); R11.2 Nausea with vomiting, unspecified; R30.0 Dysuria; Z87.442 Personal history of urinary calculi; Z90.49 Acquired absence of other specified parts of digestive tract; Z90.89 Acquired absence of other organs; Z88.1 Allergy status to other antibiotic agents; Z88.5 Allergy status to narcotic agent; Z88.8 Allergy status to other drugs, medicaments and biological substances
CPT/HCPCS: 36415; 74176; 80048; 80076; 81001; 81025; 85025; 96361; 96374; 96375; 96376; 99285; J0780; J2270; J2405; J7030; 99284

== ENCOUNTER 2018-07-29 18:24 | Emergency (ER) | payer SELFPAY ==
[~2018-07-29] VITALS: Ht 157.5 cm; Wt 61.2 kg
[~2018-07-29 18:24] MED LIST changes: +METO10TA81 PO; +OXYC5TAB95 PO
[2018-07-29 18:50] VITALS: BP 147/74
[2018-07-29] MEDS ORDERED: IV NORMAL SALINE 1000ML BAG 1,000 ML IV SCH (18:54)
[2018-07-29] MEDS ORDERED: ONDANSETRON PF 4 MG/2 ML VIAL. IV ONE (19:00)
[2018-07-29] MEDS ORDERED: MORPHINE SULFATE 4 MG/ML VIAL. IV ONE ×2 (19:00→19:45)
[2018-07-29 19:04] LABS: BILIRUBIN,URINE NEGATIVE (NEG); CLARITY,URINE CLOUDY; COLOR,URINE YELLOW; NITRITE,URINE NEGATIVE (NEG); PROTEIN,URINE NEGATIVE (NEG-TRACE); UROBILINOGEN,URINE 0.2 mg/dL (0.2 mg/dL)
[2018-07-29 19:11] LABS: BARBITURATES NEG (NEG); BENZODIAZEPINES POS (NEG); CANNABINOIDS NEG (NEG); COCAINE NEG (NEG); METHADONE NEG (NEG); OPIATES POS (NEG); PHENCYCLIDINE NEG (NEG)
[2018-07-29 19:15] LABS: AMPHETAMINE/METHAMPHETAMINE NEG (NEG)
[2018-07-29 19:32] LABS: BACTERIA,URINE FEW /HPF (0-FEW)
[2018-07-29 19:33] LABS: SQUAMOUS EPITHELIAL CELL,UR MANY /LPF
[2018-07-29 19:36] LABS: BASO % 1 % (0-3); EOS % 1 % (0-3); HEMATOCRIT 34.2 % (36.0-47.0); HEMOGLOBIN 10.6 g/dL (12.0-15.5); LYMPH # 2.1 x10^3/uL (1.0-4.8); LYMPH % 32 % (24-48); MEAN CORPUSCULAR HEMOGLOBIN 21 pg (25-35); MEAN CORPUSCULAR HGB CONC 31 g/dL (31-37); MEAN CORPUSCULAR VOLUME 69 fL (79-100); MONO # 0.5 x10^3/uL (0.0-1.1); MONO % 8 % (0-9); NEUT % 59 % (31-73); PLATELET COUNT 384 x10^3/uL (140-400); RED BLOOD COUNT 4.96 x10^6/uL (3.50-5.40); RED CELL DISTRIBUTION WIDTH 17.9 % (11.5-14.5); WHITE BLOOD COUNT 6.7 x10^3/uL (4.0-11.0)
[2018-07-29 19:41] LABS: CALCIUM 9.4 mg/dL (8.5-10.1); CREATININE 0.6 mg/dL (0.6-1.0); POTASSIUM 4.1 mmol/L (3.5-5.1)
[2018-07-29 19:49] LABS: ALBUMIN 3.6 g/dL (3.4-5.0); ALBUMIN/GLOBULIN RATIO 0.9 (1.0-1.7); TOTAL BILIRUBIN 0.2 mg/dL (0.2-1.0); TOTAL PROTEIN 7.4 g/dL (6.4-8.2)
[2018-07-29 20:38] LABS: ANISOCYTOSIS SLIGHT; HYPOCHROMIA SLIGHT; MICROCYTOSIS MOD; PLT ESTIMATE ADEQUATE (ADEQUATE)
[2018-07-29] MEDS ORDERED: CONTRAST GIVEN. MC PRN (20:45)
--- NOTE | 2018-07-29 20:50 | RAD ---
EXAM: Abdomen and pelvis CT with intravenous contrast. HISTORY: Right lower quadrant pain. TECHNIQUE: Computed tomographic images of the abdomen and pelvis were obtained following the administration of 75 cc Omnipaque 300 intravenous contrast. Multiplanar reformatting was performed. *One or more of the following individualized dose reduction techniques were utilized for this examination: 1. Automated exposure control. 2. Adjustment of the mA and/or kV according to patient size. 3. Use of iterative reconstruction technique. COMPARISON: 07/07/2018. FINDINGS: Evaluation of the lower thorax demonstrates posterior dependent atelectasis. There is no infiltrate or pleural effusion. The heart is normal in size. No focal hepatic lesion is seen. The gallbladder is surgically absent. The pancreas is unremarkable. The spleen is upper normal in size. There are postoperative changes involving the stomach and small bowel. There is dilatation of the small bowel the level of anastomosis within the left mid abdomen. This is likely postoperative. There is no clear transition point to suggest obstruction or abnormal bowel wall thickening to suggest enteritis. The kidneys are unremarkable. The adrenal glands are unremarkable. There is no appendicitis. There is no lymphadenopathy. The bladder, uterus and adnexal regions are unremarkable. There is no suspicious osseous lesion. IMPRESSION: 1. Stable postoperative changes involving the stomach and small bowel, with a prominent loop of small bowel at the level of anastomosis within the left mid abdomen. There is no evidence of obstruction. 2. Otherwise, relatively unremarkable abdomen and pelvis CT. Electronically signed by: Humaira Love MD (07/29/2018 8:47 PM) [facility]
[2018-07-29] MEDS ORDERED: IOHEXOL 300 MG/ML 100ML VIAL. IV ONE (21:00)
--- NOTE | 2018-07-29 21:05 | PHYS DOC ---
Past Medical History Past Medical History: Gallstones Additional Past Medical Histor: pyodermia, PSYCHOGENIC NON EPILLEPTIC SEIZURES , cilliac, chrones, pcos Past Surgical History: Cholecystectomy, Gastric Bypass, Tonsillectomy Additional Past Surgical Histo: RHINOPLASTY Alcohol Use: None Drug Use: None Adult General Chief Complaint Chief Complaint: ABDOMINAL PAIN [facility] HPI Patient is a 22-year-old female who presents with complaint of right lower quadrant abdominal pain that started yesterday. Patient states that she has had nausea and vomiting with the pain. She rates the pain at a 9 out of 10. She states that she thinks that it could be her PCP last pain. She indicates that she has chronic pain and is prescribed Percocet for this pain but states the Percocet is not helping. She denies any chest pain or shortness of breath. She also denies any fever. Patient denies any urinary discomfort. She states the pain is worsened with movement and with palpation of her abdomen. She states that nothing is improving her pain. Review of Systems Review of Systems Constitutional: Denies fever or chills [] Respiratory: Denies cough or shortness of breath [] Cardiovascular: No additional information not addressed in HPI [] GI: Complains of right lower quadrant pain with nausea and vomiting.[] : Denies dysuria or hematuria [] Integument: Denies rash or skin lesions [] All other systems were reviewed and found to be within normal limits, except as documented in this note. Current Medications Current Medications Current Medications Medications (Trade) Dose Ordered Sig/Julia Start Time Stop Time Status Last Admin Dose Admin Info (CONTRAST GIVEN -- Rx MONITORING) 1 each PRN DAILY PRN 07/29/18 20:45 07/31/18 20:44 Iohexol (Omnipaque 300 Mg/ml) 75 ml 1X ONCE 07/29/18 21:00 07/29/18 21:01 DC 07/29/18 20:44 75 ML Lorazepam (Ativan) 0.25 mg 1X ONCE 07/29/18 20:00 07/29/18 20:05 DC 07/29/18 20:00 0.25 MG Morphine Sulfate (Morphine Sulfate) 4 mg 1X ONCE 07/29/18 19:45 07/29/18 19:49 DC 07/29/18 20:01 4 MG Ondansetron HCl (Zofran Odt) 4 mg 1X ONCE 07/29/18 21:15 07/29/18 21:19 DC 07/29/18 21:17 4 MG Ondansetron HCl (Zofran) 4 mg 1X ONCE 07/29/18 19:00 07/29/18 19:01 DC 07/29/18 19:25 4 MG Sodium Chloride 1,000 ml @ 1,000 mls/hr Q1H 07/29/18 18:54 07/29/18 19:53 DC 07/29/18 19:25 1,000 MLS/HR Allergies Allergies Allergies Coded Allergies Type Severity Reaction Last Updated Verified NSAIDS (Non-Steroidal Anti-Inflamma Allergy Severe 05/09/18 Yes diclofenac Allergy Severe 05/09/18 Yes ketorolac Allergy Severe 05/09/18 Yes meloxicam Allergy Severe "I STOP BREATHING" 05/09/18 Yes codeine Allergy Intermediate 03/01/17 Yes dicyclomine Allergy Intermediate 04/06/16 Yes fentanyl Allergy Intermediate 04/06/16 Yes tizanidine Allergy Intermediate Hives 02/25/17 Yes tramadol Allergy Intermediate 03/01/17 Yes amoxicillin Allergy Mild rash 12/25/17 Yes cyclobenzaprine Adverse Reaction Intermediate "DOESN'T WORK" 02/06/17 Yes Physical Exam Physical Exam Constitutional: Well developed, well nourished, no acute distress, non-toxic appearance. [] HENT: Normocephalic, atraumatic, bilateral external ears normal, oropharynx moist, no oral exudates, nose normal. [] Eyes: PERRLA, EOMI, conjunctiva normal, no discharge. [] Neck: Normal range of motion, no tenderness, supple, no stridor. [] Cardiovascular:Heart rate regular rhythm [] Lungs & Thorax: Bilateral breath sounds clear to auscultation [] Abdomen: Bowel sounds normal, soft, with moderate tenderness to palpation in the right lower quadrant. [] Skin: Warm, dry, no erythema, no rash. [] Extremities: No tenderness, no cyanosis, no clubbing, ROM intact, no edema. [] Neurologic: Alert and oriented X 3, normal motor function, normal sensory function, no focal deficits noted. [] Current Patient Data Vital Signs Vital Signs Date Time Temp Pulse Resp B/P (MAP) Pulse Ox O2 Delivery O2 Flow Rate FiO2 11/8/18 20:01 16 100 Room Air 07/29/18 18:50 98.2 94 147/74 (98) 98.2 Lab Values Laboratory Tests Test 07/29/18 18:45 07/29/18 18:47 07/29/18 19:19 Urine Collection Type Unknown Urine Color Yellow Urine Clarity Cloudy Urine pH 8.0 Urine Specific [place] 1.025 Urine Protein Negative mg/dL (NEG-TRACE) Urine Glucose (UA) Negative mg/dL (NEG) Urine Ketones (Stick) Negative mg/dL (NEG) Urine Blood Large (NEG) Urine Nitrite Negative (NEG) Urine Bilirubin Negative (NEG) Urine Urobilinogen Dipstick 0.2 mg/dL (0.2 mg/dL) Urine Leukocyte Esterase Small (NEG) Urine RBC 6-10 /HPF (0-2) Urine WBC 1-4 /HPF (0-4) Urine Squamous Epithelial Cells Many /LPF Urine Bacteria Few /HPF (0-FEW) Urine Mucus Marked /LPF Urine Opiates Screen Pos (NEG) Urine Methadone Screen Neg (NEG) Urine Barbiturates Neg (NEG) Urine Phencyclidine Screen Neg (NEG) Urine Amphetamine/Methamphetamine Neg (NEG) Urine Benzodiazepines Screen Pos (NEG) Urine Cocaine Screen Neg (NEG) Urine Cannabinoids Screen Neg (NEG) Urine Ethyl Alcohol Neg (NEG) POC Urine HCG, Qualitative Hcg negative (Negative) White Blood Count 6.7 x10^3/uL (4.0-11.0) Red Blood Count 4.96 x10^6/uL (3.50-5.40) Hemoglobin 10.6 g/dL (12.0-15.5) L Hematocrit 34.2 % (36.0-47.0) L Mean Corpuscular Volume 69 fL (79-100) L Mean Corpuscular Hemoglobin 21 pg (25-35) L Mean Corpuscular Hemoglobin Concent 31 g/dL (31-37) Red Cell Distribution Width 17.9 % (11.5-14.5) H Platelet Count 384 x10^3/uL (140-400) Neutrophils (%) (Auto) 59 % (31-73) Lymphocytes (%) (Auto) 32 % (24-48) Monocytes (%) (Auto) 8 % (0-9) Eosinophils (%) (Auto) 1 % (0-3) Basophils (%) (Auto) 1 % (0-3) Neutrophils # (Auto) 4.0 x10^3uL (1.8-7.7) Lymphocytes # (Auto) 2.1 x10^3/uL (1.0-4.8) Monocytes # (Auto) 0.5 x10^3/uL (0.0-1.1) Eosinophils # (Auto) 0.0 x10^3/uL (0.0-0.7) Basophils # (Auto) 0.0 x10^3/uL (0.0-0.2) Platelet Estimate Adequate (ADEQUATE) Hypochromasia Slight Anisocytosis Slight Microcytosis Mod Sodium Level 143 mmol/L (136-145) Potassium Level 4.1 mmol/L (3.5-5.1) Chloride Level 106 mmol/L (98-107) Carbon Dioxide Level 25 mmol/L (21-32) Anion Gap 12 (6-14) Blood Urea Nitrogen 7 mg/dL (7-20) Creatinine 0.6 mg/dL (0.6-1.0) Estimated GFR (Cockcroft-Gault) 125.0 BUN/Creatinine Ratio 12 (6-20) Glucose Level 94 mg/dL (70-99) Calcium Level 9.4 mg/dL (8.5-10.1) Total Bilirubin 0.2 mg/dL (0.2-1.0) Aspartate Amino Transferase (AST) 20 U/L (15-37) Alanine Aminotransferase (ALT) 18 U/L (14-59) Alkaline Phosphatase 70 U/L (46-116) Total Protein 7.4 g/dL (6.4-8.2) Albumin 3.6 g/dL (3.4-5.0) Albumin/Globulin Ratio 0.9 (1.0-1.7) L Lipase 151 U/L (73-393) Laboratory Tests 07/29/18 19:19 Laboratory Tests 07/29/18 19:19 EKG EKG [] Radiology/Procedures Radiology/Procedures [] Impressions: CT abdomen and pelvis demonstrates no acute process. Course & Med Decision Making Course & Med Decision Making Pertinent Labs and Imaging studies reviewed. (See chart for details) Patient had initially indicated the medication that she normally takes for her pain has not been helping with her pain. Patient later stated that the last time she was seen here that she was told by that doctor that he recommended against her taking Percocet due to the Tylenol that is in it. She states that that physician had prescribed plain oxycodone. After completion of workup and informing patient that there were no acute CT findings, patient was informed that she would be discharged home. At this point, patient began to bargain for additional pain medication and ultimately stated that she does not have any of her medication at home because her father recently and she doesn't have any of her medications now. This is a complete change from the history that she had a provided when she had first arrived. When patient was informed that she would need to see her primary care doctor for further pain medication, she continued to escalate her story in order to bargain for additional pain medication. Ultimately, she was given a single by mouth dose of Percocet prior to discharge. Dragon Disclaimer Dragon Disclaimer This electronic medical record was generated, in whole or in part, using a voice recognition dictation system. Departure Departure Impression: Primary Impression: Abdominal pain Additional Impression: Drug-seeking behavior Disposition: 01 HOME, SELF-CARE Condition: STABLE Referrals: ALEX PEOPLES (PCP) Patient Instructions: Abdominal Pain Additional Instructions: Continue taking medications already prescribed and follow-up with your primary provider. Problem Qualifiers Primary Impression: Abdominal pain Abdominal location: right lower quadrant Qualified Codes: R10.31 - Right lower quadrant pain NKIHIL SANTOS Jr. DO Jul 29, 2018 21:05
[2018-07-29] MEDS ORDERED: ONDANSETRON ODT 4 MG TAB.RAPDIS. ONE (21:11)
[2018-07-29] MEDS ORDERED: ONDANSETRON ODT 4 MG TAB.RAPDIS. PO ONE (21:15)
[2018-07-29] MEDS ORDERED: oxyCODONE/APAP 5/325 1 TAB TABLET PO ONE (21:30)
== END 2018-07-29 21:37 | disposition home or self-care (01) ==
LOC: ER 18:24
DX: R10.31 Right lower quadrant pain (principal); R11.2 Nausea with vomiting, unspecified; Z76.5 Malingerer [conscious simulation]; Z98.890 Other specified postprocedural states; Z90.49 Acquired absence of other specified parts of digestive tract; Z90.89 Acquired absence of other organs; Z88.6 Allergy status to analgesic agent; Z88.8 Allergy status to other drugs, medicaments and biological substances; Z88.1 Allergy status to other antibiotic agents; Z88.5 Allergy status to narcotic agent
CPT/HCPCS: 36415; 74177; 80053; 80307; 81001; 81025; 83690; 85025; 96361; 96374; 96375; 96376; 99285; J2060; J2270; J2405; J7030; Q0162; Q9967; 87086

== ENCOUNTER 2018-07-31 13:28 | Emergency (ER) | payer OTHER ==
[~2018-07-31] VITALS: Ht 157.5 cm; Wt 61.2 kg
[2018-07-31 14:10] VITALS: BP 130/62
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
[2018-07-31] MEDS ORDERED: ONDANSETRON ODT 4 MG TAB.RAPDIS. PO ONE (14:45)
== END 2018-07-31 14:47 | disposition home or self-care (01) ==
LOC: ER 13:28
DX: R07.89 Other chest pain (principal); Z76.5 Malingerer [conscious simulation]; Z90.49 Acquired absence of other specified parts of digestive tract; Z90.89 Acquired absence of other organs; Z88.6 Allergy status to analgesic agent; Z88.5 Allergy status to narcotic agent; Z88.1 Allergy status to other antibiotic agents; Z88.8 Allergy status to other drugs, medicaments and biological substances
CPT/HCPCS: 71046; 99284; Q0162

== ENCOUNTER 2018-08-13 05:51 | Emergency (ER) | payer SELFPAY ==
[~2018-08-13] VITALS: Ht 170.2 cm; Wt 61.2 kg
[~2018-08-13 05:51] MED LIST changes: +HYDR-3164 PO; +HYDR-3165 PO; -HYDR-965 PO; -HYDR-971 PO
[2018-08-13 06:36] LABS: BILIRUBIN,URINE NEGATIVE (NEG); CLARITY,URINE CLOUDY; COLOR,URINE YELLOW; NITRITE,URINE NEGATIVE (NEG); PH,URINE 5.5; PROTEIN,URINE NEGATIVE (NEG-TRACE); UROBILINOGEN,URINE 0.2 mg/dL (0.2 mg/dL)
[2018-08-13 06:43] LABS: SQUAMOUS EPITHELIAL CELL,UR MANY /LPF
[2018-08-13 06:44] LABS: BACTERIA,URINE MANY /HPF (0-FEW); RBC,URINE OCC /HPF (0-2)
--- NOTE | 2018-08-13 06:49 | PHYS DOC ---
Past Medical History Past Medical History: Anxiety, Asthma, Gallstones Additional Past Medical Histor: pyodermia, PSYCHOGENIC SEIZURES, cilliac, chrones, pcos, muscle spasms Past Surgical History: Cholecystectomy, Gastric Bypass, Tonsillectomy Additional Past Surgical Histo: RHINOPLASTY, adenoidectomy Additional Information: 09/22 ppd Alcohol Use: None Drug Use: None Adult General Chief Complaint Chief Complaint: abd pain and nausea with vomiting HPI HPI This is a pleasant 22-year-old female presenting to the emergency department today with abdominal pain with nausea and vomiting over the past 24 hours. The pain is a sharp moderate to severe pain that comes and goes in the right side of the abdomen. The pain is nonradiating intermittent and is without alleviating factors. She tried taking her Percocet which did not improve for pain. She is been having dry heaving since. She has a history of gastric bypass surgery in the past along with cholecystectomy. She reports having a fever of 101 last night. She denies dysuria polyuria increase in vaginal discharge or exposure to STDs. Review of systems is negative for chest pain shortness of breath. Positive for nausea abdominal pain and vomiting. Negative for headache neck stiffness. She denies being . All other review of systems is negative. ED course: 22-year-old female presenting the emergency department today with abdominal pain nausea and vomiting. On arrival she is afebrile with a normal heart rate. Saturating well on room air. On examination she is soft and nontender abdomen. It is nondistended. No rebound tenderness or guarding. The remainder the exam is unremarkable. We will give her IV fluids nausea and pain medication here in the emergency room. Blood work sent. Plan on doing CT the abdomen pelvis. CBC shows normal white blood cell count. Hemoglobin is up from previous. Microcytic anemia. Chemistry panel is negative. negative. Urinalysis shows small leuk esterase with negative nitrites. Contaminated specimen. Patient does not have dysuria or polyuria and her symptoms are not consistent with UTI. CT the abdomen pelvis shows no acute abnormality. Repeat abdominal exam: Soft nontender abdomen without rebound tenderness or guarding present. Negative McBurneys point. Negative Ernst sign. The patient has been examined and was not found to have an emergency medical condition. The patient was then discharged home in stable condition to follow up with their primary care physician over the next 1 day. They were to return if their symptoms worsened or if they were concerned for any reason. They were also instructed to return to the emergency department if they were unable to get the recommended and appropriate follow-up. [id number] discharge instructions and return precautions were given. Patient's questions were answered to their satisfaction. Patient is comfortable with plan. Current Medications Current Medications Current Medications Medications (Trade) Dose Ordered Sig/Julia Start Time Stop Time Status Last Admin Dose Admin Info (CONTRAST GIVEN -- Rx MONITORING) 1 each PRN DAILY PRN 08/13/18 08:30 08/15/18 08:29 Iohexol (Omnipaque 300 Mg/ml) 75 ml 1X ONCE 08/13/18 08:30 08/13/18 08:31 DC 08/13/18 08:30 75 ML Metoclopramide HCl (Reglan Vial) 10 mg 1X ONCE 08/13/18 08:45 08/13/18 08:46 DC 08/13/18 08:41 10 MG Morphine Sulfate (Morphine Sulfate) 2 mg PRN Q1HR PRN 08/13/18 06:45 08/13/18 08:40 2 MG Ondansetron HCl (Zofran) 4 mg 1X ONCE 08/13/18 07:00 08/13/18 07:01 DC 08/13/18 06:53 4 MG Sodium Chloride 500 ml @ 500 mls/hr 1X ONCE 08/13/18 07:00 08/13/18 07:59 DC 08/13/18 06:52 500 MLS/HR Allergies Allergies Allergies Coded Allergies Type Severity Reaction Last Updated Verified NSAIDS (Non-Steroidal Anti-Inflamma Allergy Severe "Not supposed to have after bypass" 08/13/18 Yes diclofenac Allergy Severe Hives 08/13/18 Yes meloxicam Allergy Severe "Couldn't breathe" 08/13/18 Yes codeine Allergy Intermediate Hives 08/13/18 Yes dicyclomine Allergy Intermediate Hives 08/13/18 Yes fentanyl Allergy Intermediate "Hives and couldn't breathe" 08/13/18 Yes ketorolac Allergy Intermediate Hives 08/13/18 Yes tizanidine Allergy Intermediate Hives 02/25/17 Yes tramadol Allergy Intermediate Hives 08/13/18 Yes amoxicillin Allergy Mild rash 12/25/17 Yes cyclobenzaprine Adverse Reaction Intermediate "DOESN'T WORK" 02/06/17 Yes Physical Exam Physical Exam Constitutional: Well developed, well nourished, no acute distress, non-toxic appearance. [] HENT: Normocephalic, atraumatic, bilateral external ears normal, oropharynx moist, no oral exudates, nose normal. [] Eyes: PERRLA, EOMI, conjunctiva normal, no discharge. [] Neck: Normal range of motion, no tenderness, supple, no stridor. [] Cardiovascular:Heart rate regular rhythm, no murmur [] Lungs & Thorax: Bilateral breath sounds clear to auscultation [] Abdomen: Bowel sounds normal, soft, no tenderness, no masses, no pulsatile masses. Negative McBurney's point. Negative Ernst sign. Skin: Warm, dry, no erythema, no rash. [] Back: No tenderness, no CVA tenderness. [] Extremities: No tenderness, no cyanosis, no clubbing, ROM intact, no edema. [] Neurologic: Alert and oriented X 3, normal motor function, normal sensory function, no focal deficits noted. [] Psychologic: Affect normal, judgement normal, mood normal. [] Current Patient Data Vital Signs Vital Signs Date Time Temp Pulse Resp B/P (MAP) Pulse Ox O2 Delivery O2 Flow Rate FiO2 08/13/18 09:50 62 21 100/63 (75) 99 Room Air 08/13/18 06:00 98.0 98.0 Lab Values Laboratory Tests Test 08/13/18 06:05 08/13/18 06:08 08/13/18 06:36 Urine Collection Type Unknown Urine Color Yellow Urine Clarity Cloudy Urine pH 5.5 Urine Specific [place] >=1.030 Urine Protein Negative mg/dL (NEG-TRACE) Urine Glucose (UA) Negative mg/dL (NEG) Urine Ketones (Stick) Negative mg/dL (NEG) Urine Blood Negative (NEG) Urine Nitrite Negative (NEG) Urine Bilirubin Negative (NEG) Urine Urobilinogen Dipstick 0.2 mg/dL (0.2 mg/dL) Urine Leukocyte Esterase Small (NEG) Urine RBC Occ /HPF (0-2) Urine WBC 5-10 /HPF (0-4) Urine Squamous Epithelial Cells Many /LPF Urine Bacteria Many /HPF (0-FEW) Urine Mucus Marked /LPF POC Urine HCG, Qualitative Hcg negative (Negative) White Blood Count 8.0 x10^3/uL (4.0-11.0) Red Blood Count 5.14 x10^6/uL (3.50-5.40) Hemoglobin 11.2 g/dL (12.0-15.5) L Hematocrit 35.5 % (36.0-47.0) L Mean Corpuscular Volume 69 fL (79-100) L Mean Corpuscular Hemoglobin 22 pg (25-35) L Mean Corpuscular Hemoglobin Concent 31 g/dL (31-37) Red Cell Distribution Width 18.4 % (11.5-14.5) H Platelet Count 465 x10^3/uL (140-400) H Neutrophils (%) (Auto) 73 % (31-73) Lymphocytes (%) (Auto) 22 % (24-48) L Monocytes (%) (Auto) 4 % (0-9) Eosinophils (%) (Auto) 1 % (0-3) Basophils (%) (Auto) 1 % (0-3) Neutrophils # (Auto) 5.9 x10^3uL (1.8-7.7) Lymphocytes # (Auto) 1.8 x10^3/uL (1.0-4.8) Monocytes # (Auto) 0.3 x10^3/uL (0.0-1.1) Eosinophils # (Auto) 0.0 x10^3/uL (0.0-0.7) Basophils # (Auto) 0.0 x10^3/uL (0.0-0.2) Platelet Estimate Increased (ADEQUATE) Hypochromasia Mod Poikilocytosis Slight Anisocytosis Slight Microcytosis Marked Tear Drop Cells Occ Ovalocytes Few Erik Cells Occ Schistocytes Occ Sodium Level 137 mmol/L (136-145) Potassium Level 4.7 mmol/L (3.5-5.1) Chloride Level 102 mmol/L (98-107) Carbon Dioxide Level 24 mmol/L (21-32) Anion Gap 11 (6-14) Blood Urea Nitrogen 10 mg/dL (7-20) Creatinine 0.7 mg/dL (0.6-1.0) Estimated GFR (Cockcroft-Gault) 104.6 BUN/Creatinine Ratio 14 (6-20) Glucose Level 109 mg/dL (70-99) H Calcium Level 9.3 mg/dL (8.5-10.1) Total Bilirubin 0.4 mg/dL (0.2-1.0) Aspartate Amino Transferase (AST) 25 U/L (15-37) Alanine Aminotransferase (ALT) 15 U/L (14-59) Alkaline Phosphatase 70 U/L (46-116) Total Protein 8.3 g/dL (6.4-8.2) H Albumin 3.8 g/dL (3.4-5.0) Albumin/Globulin Ratio 0.8 (1.0-1.7) L Lipase 115 U/L (73-393) Serum Test, Qualitative Negative (NEG) Laboratory Tests 08/13/18 06:36 Laboratory Tests 08/13/18 06:36 EKG EKG [] Radiology/Procedures Radiology/Procedures [] Course & Med Decision Making Course & Med Decision Making Pertinent Labs and Imaging studies reviewed. (See chart for details) [] Dragon Disclaimer Dragon Disclaimer This electronic medical record was generated, in whole or in part, using a voice recognition dictation system. Departure Departure Impression: Primary Impression: Abdominal pain Additional Impression: Nausea & vomiting Disposition: 01 HOME, SELF-CARE Condition: STABLE Referrals: ALEX PEOPLES (PCP) Patient Instructions: Abdominal Pain Additional Instructions: Thank you for allowing us to participate in your care today. Return to the emergency department you have any new or worsening symptoms, or if you are concerned for any reason. Return to emergency department if you have any new or concerning symptoms including but not limited to fever, chills, nausea, vomiting, intractable pain, any new rashes, chest pain, shortness of air , uncontrolled bleeding, difficulty breathing, and/or vision loss. Follow up with your primary care physician within 1 day. Call your Primary Doctor tomorrow and inform them of your visit today. If you do not have a primary care provider we are happy to provide you with a list of our primary care providers contact information. This condition should be evaluated by your primary care physician and any recommended consulting services for continued management within 1 day after discharge. If at any time, you are having difficulty getting into your primary care doctor or a specialist, return to the emergency department. Problem Qualifiers VONDA ALCANTARA MD Aug 13, 2018 06:49
[2018-08-13] MEDS: MORPHINE SULFATE 2 MG/ML VIAL. IV PRN ×2 (06:52→08:40)
[2018-08-13 06:53] LABS: BASO % 1 % (0-3); EOS % 1 % (0-3); HEMATOCRIT 35.5 % (36.0-47.0); HEMOGLOBIN 11.2 g/dL (12.0-15.5); LYMPH # 1.8 x10^3/uL (1.0-4.8); LYMPH % 22 % (24-48); MEAN CORPUSCULAR HEMOGLOBIN 22 pg (25-35); MEAN CORPUSCULAR HGB CONC 31 g/dL (31-37); MEAN CORPUSCULAR VOLUME 69 fL (79-100); MONO # 0.3 x10^3/uL (0.0-1.1); MONO % 4 % (0-9); NEUT # 5.9 x10^3uL (1.8-7.7); NEUT % 73 % (31-73); PLATELET COUNT 465 x10^3/uL (140-400); RED BLOOD COUNT 5.14 x10^6/uL (3.50-5.40); RED CELL DISTRIBUTION WIDTH 18.4 % (11.5-14.5)
[2018-08-13 06:54] LABS: PREG TEST PT QUAL NEGATIVE (NEG)
[2018-08-13 06:59] LABS: CALCIUM 9.3 mg/dL (8.5-10.1); CREATININE 0.7 mg/dL (0.6-1.0); GFR 104.6; POTASSIUM 4.7 mmol/L (3.5-5.1)
[2018-08-13] MEDS ORDERED: IV NORMAL SALINE 500ML BAG 500 ML IV ONE (07:00)
[2018-08-13] MEDS ORDERED: ONDANSETRON PF 4 MG/2 ML VIAL. IV ONE (07:00)
[2018-08-13 07:03] LABS: ALBUMIN 3.8 g/dL (3.4-5.0); ALBUMIN/GLOBULIN RATIO 0.8 (1.0-1.7); TOTAL BILIRUBIN 0.4 mg/dL (0.2-1.0); TOTAL PROTEIN 8.3 g/dL (6.4-8.2)
[2018-08-13] MEDS ORDERED: CONTRAST GIVEN. MC PRN (08:30)
[2018-08-13] MEDS ORDERED: IOHEXOL 300 MG/ML 100ML VIAL. IV ONE (08:30)
[2018-08-13] MEDS ORDERED: METOCLOPRAMIDE HCL 10 MG/2 ML VIAL. IV ONE (08:45)
--- NOTE | 2018-08-13 09:46 | RAD ---
CT of the abdomen and pelvis with contrast, 08/13/2018: HISTORY: Abdominal pain, nausea and vomiting Multidetector CT imaging was performed following an IV bolus injection of iodinated contrast material. No oral contrast material was administered as requested. Comparison is made to a study from 07/29/2018. The gallbladder is surgically absent. No hepatic abnormality is seen. No pancreatic abnormality is detected. The spleen is of normal size. The kidneys show no evidence of obstruction or mass. There are surgical sutures related to the stomach and small bowel in the left abdomen compatible with a history of previous gastric bypass surgery. The bowel loops are not dilated. The appendix is not clearly visualized. No dilated appendix or pericecal inflammatory process is seen. No free fluid or free air is evident in the abdomen or pelvis. No abdominal or pelvic adenopathy is seen. IMPRESSION: No acute abdominal or pelvic abnormality is detected. PQRS Compliance Statement: One or more of the following individualized dose reduction techniques were utilized for this examination: 1. Automated exposure control 2. Adjustment of the mA and/or kV according to patient size 3. Use of iterative reconstruction technique Electronically signed by: Иван Leos MD (08/13/2018 9:43 AM) [facility]
[2018-08-13 09:50] VITALS: BP 100/63
[2018-08-13 10:30] LABS: PLT ESTIMATE INCREASED (ADEQUATE)
[2018-08-13 10:32] LABS: ANISOCYTOSIS SLIGHT; HYPOCHROMIA MOD; MICROCYTOSIS MARKED; OVALOCYTES FEW; POIKILOCYTOSIS SLIGHT; TEAR DROP CELLS OCC
[2018-08-13 10:33] LABS: BURR CELLS OCC; SCHISTOCYTES OCC
[2018-08-13] MEDS ORDERED: ONDA4TAB7 PO (10:56)
== END 2018-08-13 11:32 | disposition home or self-care (01) ==
LOC: ER 05:51
DX: R11.2 Nausea with vomiting, unspecified (principal); R10.9 Unspecified abdominal pain; D50.9 Iron deficiency anemia, unspecified; F41.9 Anxiety disorder, unspecified; J45.909 Unspecified asthma, uncomplicated; F17.200 Nicotine dependence, unspecified, uncomplicated; Z90.49 Acquired absence of other specified parts of digestive tract; Z90.89 Acquired absence of other organs; Z88.6 Allergy status to analgesic agent; Z88.8 Allergy status to other drugs, medicaments and biological substances; Z88.5 Allergy status to narcotic agent; Z88.1 Allergy status to other antibiotic agents
CPT/HCPCS: 36415; 74177; 80053; 81001; 81025; 83690; 84703; 85025; 87086; 96361; 96374; 96375; 96376; 99284; J2270; J2405; J2765; J7040; Q9967

== ENCOUNTER 2018-09-18 00:36 | Emergency (ER) | payer SELFPAY ==
[~2018-09-18] VITALS: Ht 160 cm; Wt 64.0 kg
[~2018-09-18 00:36] MED LIST changes: +ONDA4TAB7 PO; -OXYC-328 PO; +OXYC1TAB22 PO; +OXYC5TAB4 PO; -OXYC5TAB95 PO
--- NOTE | 2018-09-18 01:48 | PHYS DOC ---
Past Medical History Past Medical History: Anxiety, Asthma, Gallstones Additional Past Medical Histor: pyodermia, PSYCHOGENIC SEIZURES, cilliac, chrones, pcos, muscle spasms Past Surgical History: Cholecystectomy, Gastric Bypass, Tonsillectomy Additional Past Surgical Histo: RHINOPLASTY, adenoidectomy Alcohol Use: None Drug Use: None Adult General Chief Complaint Chief Complaint: ABDOMINAL PAIN HPI HPI Patient is a 22 year old F P/W [facility] thinks she is having withdrawals, takes percocet 10's tid alprazolam one's tid. carisoprodol 350 qid off all meds, three days. thinks she is withdrawing , having increasing pain and panci attacks etc apparently doctor is out of town and so she can't get them 5 ct's normal since april. complaining of abdo pain creeping up slowly since off meds, sharp and intermittent. Review of Systems Review of Systems Constitutional: Denies fever or chills [] Eyes: Denies change in visual acuity, redness, or eye pain [] HENT: Denies nasal congestion or sore throat [] Respiratory: Denies cough or shortness of breath [] Cardiovascular: No additional information not addressed in HPI [] GI: Denies abdominal pain, nausea, vomiting, bloody stools or diarrhea [] : Denies dysuria or hematuria [] Musculoskeletal: Denies back pain or joint pain [] Integument: Denies rash or skin lesions [] Neurologic: Denies headache, focal weakness or sensory changes [] Endocrine: Denies polyuria or polydipsia [] All other systems were reviewed and found to be within normal limits, except as documented in this note. Current Medications Current Medications Current Medications Medications (Trade) Dose Ordered Sig/Julia Start Time Stop Time Status Last Admin Dose Admin Alprazolam (Xanax) 1 mg 1X ONCE 09/18/18 02:00 09/18/18 02:01 DC 09/18/18 02:33 1 MG Carisoprodol (Soma) 350 mg 1X ONCE 09/18/18 02:30 09/18/18 02:31 DC 09/18/18 02:32 350 MG Oxycodone/ Acetaminophen (Percocet 10/325) 1 tab 1X ONCE 09/18/18 02:00 09/18/18 02:01 DC 09/18/18 02:33 1 TAB Allergies Allergies Allergies Coded Allergies Type Severity Reaction Last Updated Verified NSAIDS (Non-Steroidal Anti-Inflamma Allergy Severe "Not supposed to have after bypass" 08/13/18 Yes diclofenac Allergy Severe Hives 08/13/18 Yes meloxicam Allergy Severe "Couldn't breathe" 08/13/18 Yes codeine Allergy Intermediate Hives 08/13/18 Yes dicyclomine Allergy Intermediate Hives 08/13/18 Yes fentanyl Allergy Intermediate "Hives and couldn't breathe" 08/13/18 Yes ketorolac Allergy Intermediate Hives 08/13/18 Yes tizanidine Allergy Intermediate Hives 02/25/17 Yes tramadol Allergy Intermediate Hives 08/13/18 Yes amoxicillin Allergy Mild rash 12/25/17 Yes cyclobenzaprine Adverse Reaction Intermediate "DOESN'T WORK" 02/06/17 Yes Physical Exam Physical Exam Constitutional: Well developed anxious, non-toxic appearance. [] HENT: Normocephalic, atraumatic, bilateral external ears normal, oropharynx moist, no oral exudates, nose normal. [] Eyes: PERRLA, EOMI, conjunctiva normal, no discharge. [] Neck: Normal range of motion, no tenderness, supple, no stridor. [] Pulmonary: Normal respiratory effort no increased work of breathing no obvious chest wall trauma Abdomen: Bowel sounds normal, soft, epigastric and some mild right mid abdominal tenderness patient is tearful with light palpation even of her sweater before even examining her abdomen. In light of that no obvious peritoneal signs No masses, no pulsatile masses. [] Skin: Warm, dry, no erythema, no rash. [] Back: Bilateral CVA tenderness noted no focality Extremities: No tenderness, no cyanosis, no clubbing, ROM intact, no edema. [] Neurologic: Alert and oriented X 3, normal motor function, normal sensory function, no focal deficits noted. [] Psychologic: Anxious and tearful Current Patient Data Vital Signs Vital Signs Date Time Temp Pulse Resp B/P (MAP) Pulse Ox O2 Delivery O2 Flow Rate FiO2 09/18/18 02:33 16 100 Room Air Lab Values Laboratory Tests Test 09/18/18 00:42 09/18/18 00:46 Urine Collection Type Unknown Urine Color Yellow Urine Clarity Cloudy Urine pH 5.5 Urine Specific [place] 1.025 Urine Protein Negative mg/dL (NEG-TRACE) Urine Glucose (UA) Negative mg/dL (NEG) Urine Ketones (Stick) Negative mg/dL (NEG) Urine Blood Negative (NEG) Urine Nitrite Negative (NEG) Urine Bilirubin Negative (NEG) Urine Urobilinogen Dipstick 0.2 mg/dL (0.2 mg/dL) Urine Leukocyte Esterase Small (NEG) Urine RBC 1-2 /HPF (0-2) Urine WBC 5-10 /HPF (0-4) Urine Squamous Epithelial Cells Many /LPF Urine Bacteria Many /HPF (0-FEW) Urine Mucus Marked /LPF POC Urine HCG, Qualitative Hcg negative (Negative) EKG EKG [] Radiology/Procedures Radiology/Procedures [] Course & Med Decision Making Course & Med Decision Making Pertinent Labs and Imaging studies reviewed. (See chart for details) []20-year-old female with history of drug-seeking behavior as well as a prior gastric bypass surgery she's had 5 CT scans since April at this facility that were basically totally normal essentially one of them suggested a possible renal colic less however this also could've been a phlebolith. Currently presenting with recurrent abdominal pain in the setting of her doctor FOR AN EMERGENCY AND SHE HAS RUN OUT OF HER MEDICATION. SHE HAS HAD INCREASING PAIN FOR THE LAST 3 DAYS AND SHE IS FEELING WITHDRAWALS AND PANIC ATTACKS. THIS SOUNDS REASONABLE GIVEN THE FACT THAT HER LAST K TRACKS PRESCRIPTION WAS AUGUST 16 AND SHE HAS RECENTLY RUN OUT OF THE MONTH SUPPLY AND HER DOCTOR IS OUT OF TOWN. We have checked a urinalysis and U and the emergency room or give her oral dose of Percocet alprazolam and care so protocol and I will refill those for the next few days until she can get in to see her doctor. I specifically told him about the 5 CT scans that she has had here recently and that I really felt that the risk of radiation was really not in her best interest especially in light of the fact that withdrawal from her medication is the likely etiology of her symptoms she is agreeable to that she will come back for further evaluation within 48 hours should her symptoms progress in any way despite being on these medications. Dragon Disclaimer Dragon Disclaimer This electronic medical record was generated, in whole or in part, using a voice recognition dictation system. Departure Departure Impression: Primary Impression: Chronic pain Disposition: 01 HOME, SELF-CARE Condition: STABLE Referrals: ALEX PEOPLES (PCP) Scripts Carisoprodol (CARISOPRODOL) 350 Mg Tablet 1 TAB PO QID, #16 TAB Prov: DAMIÁN IBARRA MD 09/18/18 Alprazolam (ALPRAZOLAM) 1 Mg Tablet 1 TAB PO TID, #12 TAB Prov: DAMIÁN IBARRA MD 09/18/18 Oxycodone/Apap 10-325 (PERCOCET 10-325 MG TABLET ) 1 Each Tablet 1 TAB PO TID PRN for PAIN, #12 TAB 0 Refills Prov: DAMIÁN IBARRA MD 09/18/18 DAMIÁN IBARRA MD Sep 18, 2018 01:48
[2018-09-18] MEDS ORDERED: oxyCODONE/APAP 10/325 1 TAB TABLET PO ONE (02:00)
[2018-09-18] MEDS ORDERED: ALPRAZolam 0.5 MG TABLET PO ONE (02:00)
[2018-09-18] MEDS ORDERED: ALPR1TAB6 PO (02:12)
[2018-09-18] MEDS ORDERED: CARI350T14 PO (02:12)
[2018-09-18] MEDS ORDERED: OXYC1TAB22 PO (02:12)
[2018-09-18 02:16] LABS: BILIRUBIN,URINE NEGATIVE (NEG); CLARITY,URINE CLOUDY; COLOR,URINE YELLOW; NITRITE,URINE NEGATIVE (NEG); PH,URINE 5.5; PROTEIN,URINE NEGATIVE (NEG-TRACE); UROBILINOGEN,URINE 0.2 mg/dL (0.2 mg/dL)
[2018-09-18] MEDS ORDERED: CARISOPRODOL 350 MG TABLET PO ONE (02:30)
[2018-09-18 02:31] VITALS: BP 108/55
[2018-09-18 02:40] LABS: BACTERIA,URINE MANY /HPF (0-FEW); SQUAMOUS EPITHELIAL CELL,UR MANY /LPF
== END 2018-09-18 03:20 | disposition home or self-care (01) ==
LOC: ER 00:36
DX: G89.29 Other chronic pain (principal); R10.13 Epigastric pain; F41.9 Anxiety disorder, unspecified; J45.909 Unspecified asthma, uncomplicated; Z90.49 Acquired absence of other specified parts of digestive tract; Z98.84 Bariatric surgery status; Z88.6 Allergy status to analgesic agent; Z88.5 Allergy status to narcotic agent; Z88.1 Allergy status to other antibiotic agents; Z88.8 Allergy status to other drugs, medicaments and biological substances; Z88.4 Allergy status to anesthetic agent
CPT/HCPCS: 81001; 81025; 87086; 99284

== ENCOUNTER 2018-10-20 18:22 | Emergency (ER) | payer SELFPAY ==
[~2018-10-20] VITALS: Ht 157.5 cm; Wt 64.0 kg
[2018-10-20 18:25] VITALS: BP 141/73
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
[2018-10-20] MEDS ORDERED: oxyCODONE/APAP 7.5/325 1 TAB TABLET PO ONE (18:45)
[2018-10-20] MEDS: ALPRAZolam 0.5 MG TABLET PO ONE ×2 (18:47→18:54)
== END 2018-10-20 18:55 | disposition home or self-care (01) ==
LOC: ER 18:22
DX: M54.6 Pain in thoracic spine (principal); G89.11 Acute pain due to trauma; G89.29 Other chronic pain; F41.9 Anxiety disorder, unspecified; J45.909 Unspecified asthma, uncomplicated; Z79.891 Long term (current) use of opiate analgesic; Z90.49 Acquired absence of other specified parts of digestive tract; Z98.84 Bariatric surgery status; Z88.6 Allergy status to analgesic agent; Z88.1 Allergy status to other antibiotic agents; Z88.5 Allergy status to narcotic agent; Z88.8 Allergy status to other drugs, medicaments and biological substances; W00.0XXA Fall on same level due to ice and snow, initial encounter; Y93.89 Activity, other specified; Y92.89 Other specified places as the place of occurrence of the external cause; Y99.8 Other external cause status
CPT/HCPCS: 99283

== ENCOUNTER 2018-11-04 03:26 | Emergency (ER) | payer SELFPAY ==
[~2018-11-04] VITALS: Ht 157.5 cm; Wt 64.0 kg
[2018-11-04 04:30] VITALS: BP 94/60
[2018-11-04] MEDS ORDERED: ALPR1TAB6 PO (04:36)
[2018-11-04] MEDS ORDERED: OXYC1TAB19 PO (04:36)
[2018-11-04] MEDS ORDERED: CARI350T PO (04:36)
--- NOTE | 2018-11-04 04:36 | PHYS DOC ---
Past Medical History Past Medical History: Anxiety, Asthma, Gallstones Additional Past Medical Histor: pyodermia, PSYCHOGENIC SEIZURES, cilliac, chrones, pcos, muscle spasms Past Surgical History: Cholecystectomy, Gastric Bypass, Tonsillectomy Additional Past Surgical Histo: RHINOPLASTY, adenoidectomy Alcohol Use: None Drug Use: None Adult General Chief Complaint Chief Complaint: FLANK PAIN HPI HPI Patient is a 22 year old female with history of anxiety, chronic back pain, chronic anxiety, who presented to the ED today with a long extensive story about her back pain and the need to refill several medications including oxycodone 7.5/325 mg, Xanax 1 mg, Soma 325 mg. She states she takes these medications for chronic back pain and anxiety and her own PCP prescribes them. She states she is currently out of the medications. She states her doctor only comes to the clinic on Mondays and Fridays and that she cannot be seen until she comes up with the money for the $150 co-pay . She states she has chronic mid back pain that radiates to the left lower extremity. Patient denies any loss of bowel/bladder function. After long discussion I offered patient radiology studies for her back, she does not need them, she states she is supposed to have surgery to her thoracic spine in December 2018 and the plan will be to remove her from all the pain medications after her surgery. Informed patient we will give her a 48 hour supply of the medication so that she can see her primary care physician/pain management physician on Thursday. [] Review of Systems Review of Systems Constitutional: Denies fever or chills [] Eyes: Denies change in visual acuity, redness, or eye pain [] HENT: Denies nasal congestion or sore throat [] Respiratory: Denies cough or shortness of breath [] Cardiovascular: [ no chest pain or palpitations Abdomen: Denies nausea, vomiting, bloody stools or diarrhea [] : Denies dysuria or hematuria [] Musculoskeletal: See history of present illness, she also has pain and swelling of her distal right third finger around the nail for the past several days. She denies trauma [] Integument: Denies rash or skin lesions [] Neurologic: Denies headache, focal weakness or sensory changes [] Endocrine: Denies polyuria or polydipsia [] All other systems were reviewed and found to be within normal limits, except as documented in this note. Allergies Allergies Allergies Coded Allergies Type Severity Reaction Last Updated Verified NSAIDS (Non-Steroidal Anti-Inflamma Allergy Severe "Not supposed to have after bypass" 08/13/18 Yes diclofenac Allergy Severe Hives 08/13/18 Yes meloxicam Allergy Severe "Couldn't breathe" 08/13/18 Yes codeine Allergy Intermediate Hives 08/13/18 Yes dicyclomine Allergy Intermediate Hives 08/13/18 Yes fentanyl Allergy Intermediate "Hives and couldn't breathe" 08/13/18 Yes ketorolac Allergy Intermediate Hives 08/13/18 Yes tizanidine Allergy Intermediate Hives 02/25/17 Yes tramadol Allergy Intermediate Hives 08/13/18 Yes amoxicillin Allergy Mild rash 12/25/17 Yes cyclobenzaprine Adverse Reaction Intermediate "DOESN'T WORK" 02/06/17 Yes Physical Exam Physical Exam Constitutional: Well developed, well nourished, mild discomfort, non-toxic appearance. [] HENT: Normocephalic, atraumatic, bilateral external ears normal, oropharynx moist, no oral exudates, nose normal. [] Eyes: PERRLA, EOMI, conjunctiva normal, no discharge. [] Neck: Normal range of motion, no tenderness, supple, no stridor. [] Cardiovascular:Heart rate regular rhythm, no murmur [] Lungs & Thorax: Bilateral breath sounds clear to auscultation [] Abdomen: Bowel sounds normal, soft, no tenderness, no masses, no pulsatile masses. [] Skin: Warm, dry, no erythema, no rash. [] Back: Tenderness bilateral lumbar and thoracic paraspinal musculature. There is no step-off, no crepitus. Patient has normal gait. DTRs are 2/4 and symmetric. No CVA tenderness. [] Extremities: Tenderness and erythema around the right long finger nailbed. There is no drainable abscess appreciated. FDS, FDP, and extensor mechanisms are intact, no cyanosis, no clubbing, ROM intact, no edema. [] Neurologic: Alert and oriented X 3, normal motor function, normal sensory function, no focal deficits noted. [] Psychologic: Affect tearful but distractible, judgement normal, mood normal. [] EKG EKG [] Radiology/Procedures Radiology/Procedures [] Course & Med Decision Making Course & Med Decision Making Pertinent Labs and Imaging studies reviewed. (See chart for details) ED course and medical decision making: Reviewed patient's scheduled medicine prescription history via [employer]. It appears that the last time she had prescriptions filled was on September 24, 2018 where she had 30 day supply of alprazolam, SOMA, and oxycodone acetaminophen. Given the time of day, will prescribe a 48 hour supply to enable her to have a Thursday appointment for refill of these medicines by her pain management team. There is no evidence of a cauda equina syndrome, no evidence of significant infection etiology of her right third finger.[] Dragon Disclaimer Dragon Disclaimer This electronic medical record was generated, in whole or in part, using a voice recognition dictation system. Departure Departure Impression: Primary Impression: Chronic back pain Additional Impression: Paronychia Disposition: 01 HOME, SELF-CARE Condition: IMPROVED Referrals: ALEX PEOPLES (PCP) Follow-up in 2 days Patient Instructions: Chronic Back Pain, Paronychia Additional Instructions: Follow-up with your pain management team in 2 days. Call today to set the appointment. Return to the ER if loss of bowel or bladder control, fever of more than 101, or any other concerns. Scripts Oxycodone/Apap 7.5-325 (PERCOCET 7.5-325 MG TABLET ) 1 Each Tablet 1 TAB PO PRN Q6HRS PRN for PAIN, #10 TAB 0 Refills Prov: GILDARDO WILSON DO 11/04/18 Alprazolam (ALPRAZOLAM) 1 Mg Tablet 1 MG PO PRN Q6HRS PRN for ANXIETY / AGITATION, #10 TAB 0 Refills Prov: GILDARDO WILSON DO 11/04/18 Carisoprodol (SOMA) 350 Mg Tablet 350 MG PO TID&HS, #10 TAB Prov: GILDARDO WILSON DO 11/04/18 Problem Qualifiers Primary Impression: Chronic back pain Back pain location: back pain in unspecified location Back pain laterality: unspecified Qualified Codes: M54.9 - Dorsalgia, unspecified; G89.29 - Other chronic pain GILDARDO WILSON DO Nov 04, 2018 04:36
[2018-11-04] MEDS ORDERED: ALPRAZolam 0.5 MG TABLET PO ONE (05:00)
[2018-11-04] MEDS ORDERED: oxyCODONE/APAP 7.5/325 1 TAB TABLET PO ONE (05:00)
== END 2018-11-04 04:52 | disposition home or self-care (01) ==
LOC: ER 03:26
DX: G89.29 Other chronic pain (principal); L03.011 Cellulitis of right finger; M54.5 Low back pain; M54.6 Pain in thoracic spine; F41.9 Anxiety disorder, unspecified; J45.909 Unspecified asthma, uncomplicated; Z90.89 Acquired absence of other organs; Z90.49 Acquired absence of other specified parts of digestive tract; Z88.6 Allergy status to analgesic agent; Z88.5 Allergy status to narcotic agent; Z88.1 Allergy status to other antibiotic agents; Z88.8 Allergy status to other drugs, medicaments and biological substances
CPT/HCPCS: 99283

== ENCOUNTER 2018-11-10 00:57 | Emergency (ER) | payer OTHER ==
[~2018-11-10] VITALS: Ht 157.5 cm; Wt 64.0 kg
[~2018-11-10 00:57] MED LIST changes: +OXYC1TAB19 PO
--- NOTE | 2018-11-10 01:11 | PHYS DOC ---
Past Medical History Past Medical History: Anxiety, Asthma, Gallstones Additional Past Medical Histor: pyodermia, PSYCHOGENIC SEIZURES, cilliac, chrones, pcos, muscle spasms Past Surgical History: Cholecystectomy, Gastric Bypass, Tonsillectomy Additional Past Surgical Histo: RHINOPLASTY, adenoidectomy Alcohol Use: None Drug Use: None Adult General Chief Complaint Chief Complaint: ABDOMINAL PAIN HPI HPI Patient is a 22 year old female presenting with abdominal pain. patient has had [address] since May 2018 this is in the last 6 months at this facility alone all were essentially normal 1 showed a possible very small punctate calculus in the renal pelvis but it was indeterminate for kidney stone. Coming back in with lower abdominal pain fairly chronic overall. she ran out of her meds a couple days back and she feels like she is having an anxiety attack and also low back spasms as well Review of Systems Review of Systems Constitutional: Denies fever or chills [] Eyes: Denies change in visual acuity, redness, or eye pain [] HENT: Denies nasal congestion or sore throat [] Respiratory: Denies cough or shortness of breath [] Cardiovascular: No additional information not addressed in HPI [] GI: Denies abdominal pain, nausea, vomiting, bloody stools or diarrhea [] : Denies dysuria or hematuria [] Musculoskeletal: Denies back pain or joint pain [] Integument: Denies rash or skin lesions [] Neurologic: Denies headache, focal weakness or sensory changes [] Endocrine: Denies polyuria or polydipsia [] All other systems were reviewed and found to be within normal limits, except as documented in this note. Current Medications Current Medications Current Medications Medications (Trade) Dose Ordered Sig/Julia Start Time Stop Time Status Last Admin Dose Admin Alprazolam (Xanax) 1 mg 1X ONCE 11/10/18 03:00 11/10/18 03:01 DC 11/10/18 02:40 1 MG Ketamine HCl (Ketamine) 15 mg 1X ONCE 11/10/18 02:00 11/10/18 02:01 DC Lorazepam (Ativan) 1 mg 1X ONCE 11/10/18 02:00 11/10/18 02:01 DC 11/10/18 01:44 1 MG Oxycodone/ Acetaminophen (Percocet 10/325) 1 tab 1X ONCE 11/10/18 02:00 11/10/18 02:01 DC 11/10/18 01:51 1 TAB Allergies Allergies Allergies Coded Allergies Type Severity Reaction Last Updated Verified NSAIDS (Non-Steroidal Anti-Inflamma Allergy Severe "Not supposed to have after bypass" 08/13/18 Yes diclofenac Allergy Severe Hives 08/13/18 Yes meloxicam Allergy Severe "Couldn't breathe" 08/13/18 Yes codeine Allergy Intermediate Hives 08/13/18 Yes dicyclomine Allergy Intermediate Hives 08/13/18 Yes fentanyl Allergy Intermediate "Hives and couldn't breathe" 08/13/18 Yes ketorolac Allergy Intermediate Hives 08/13/18 Yes tizanidine Allergy Intermediate Hives 02/25/17 Yes tramadol Allergy Intermediate Hives 08/13/18 Yes amoxicillin Allergy Mild rash 12/25/17 Yes ketamine Allergy Mild HIVES 11/10/18 Yes cyclobenzaprine Adverse Reaction Intermediate "DOESN'T WORK" 02/06/17 Yes Physical Exam Physical Exam Constitutional: Well developed, well nourished, tearful distress, non-toxic appearance. [] HENT: Normocephalic, atraumatic, bilateral external ears normal, oropharynx moist, no oral exudates, nose normal. [] Eyes: PERRLA, EOMI, conjunctiva normal, no discharge. [] Neck: Normal range of motion, no tenderness, supple, no stridor. [] Cardiovascular:Heart rate regular rhythm, no murmur [] Lungs & Thorax: Bilateral breath sounds clear to auscultation [] Abdomen: Bowel sounds normal, soft, rlq and mid epigastric ttp, no masses, no pulsatile masses. [] Skin: Warm, dry, no erythema, no rash. [] Back:ttp noted lower b/l Extremities: No tenderness, no cyanosis, no clubbing, ROM intact, no edema. [] Neurologic: Alert and oriented X 3, normal motor function, normal sensory function, no focal deficits noted. [] Psychologic: Affect normal, judgement normal, anxious and tearful and then will become calm and cooperative when focused on a topic Current Patient Data Vital Signs Vital Signs Date Time Temp Pulse Resp B/P (MAP) Pulse Ox O2 Delivery O2 Flow Rate FiO2 11/10/18 01:44 86 20 108/70 (83) 100 Room Air 11/10/18 01:08 97.5 97.5 Lab Values Laboratory Tests Test 11/10/18 01:04 11/10/18 01:06 11/10/18 01:15 Urine Collection Type Unknown Urine Color Yellow Urine Clarity Cloudy Urine pH 6.5 Urine Specific [place] 1.025 Urine Protein Negative mg/dL (NEG-TRACE) Urine Glucose (UA) Negative mg/dL (NEG) Urine Ketones (Stick) Negative mg/dL (NEG) Urine Blood Negative (NEG) Urine Nitrite Negative (NEG) Urine Bilirubin Negative (NEG) Urine Urobilinogen Dipstick 1.0 mg/dL (0.2 mg/dL) Urine Leukocyte Esterase Moderate (NEG) Urine RBC 0 /HPF (0-2) Urine WBC 5-10 /HPF (0-4) Urine Squamous Epithelial Cells Many /LPF Urine Bacteria Moderate /HPF (0-FEW) Urine Mucus Marked /LPF POC Urine HCG, Qualitative Hcg negative (Negative) White Blood Count 11.0 x10^3/uL (4.0-11.0) Red Blood Count 5.53 x10^6/uL (3.50-5.40) H Hemoglobin 11.6 g/dL (12.0-15.5) L Hematocrit 38.3 % (36.0-47.0) Mean Corpuscular Volume 69 fL (79-100) L Mean Corpuscular Hemoglobin 21 pg (25-35) L Mean Corpuscular Hemoglobin Concent 30 g/dL (31-37) L Red Cell Distribution Width 16.2 % (11.5-14.5) H Platelet Count 493 x10^3/uL (140-400) H Neutrophils (%) (Auto) 63 % (31-73) Lymphocytes (%) (Auto) 32 % (24-48) Monocytes (%) (Auto) 4 % (0-9) Eosinophils (%) (Auto) 1 % (0-3) Basophils (%) (Auto) 1 % (0-3) Neutrophils # (Auto) 7.0 x10^3uL (1.8-7.7) Lymphocytes # (Auto) 3.5 x10^3/uL (1.0-4.8) Monocytes # (Auto) 0.4 x10^3/uL (0.0-1.1) Eosinophils # (Auto) 0.1 x10^3/uL (0.0-0.7) Basophils # (Auto) 0.1 x10^3/uL (0.0-0.2) Platelet Estimate Increased (ADEQUATE) Hypochromasia Mod Microcytosis Mod Sodium Level 142 mmol/L (136-145) Potassium Level 3.5 mmol/L (3.5-5.1) Chloride Level 105 mmol/L (98-107) Carbon Dioxide Level 24 mmol/L (21-32) Anion Gap 13 (6-14) Blood Urea Nitrogen 7 mg/dL (7-20) Creatinine 0.7 mg/dL (0.6-1.0) Estimated GFR (Cockcroft-Gault) 104.6 BUN/Creatinine Ratio 10 (6-20) Glucose Level 108 mg/dL (70-99) H Calcium Level 9.3 mg/dL (8.5-10.1) Total Bilirubin 0.3 mg/dL (0.2-1.0) Aspartate Amino Transferase (AST) 18 U/L (15-37) Alanine Aminotransferase (ALT) 14 U/L (14-59) Alkaline Phosphatase 77 U/L (46-116) Total Protein 8.1 g/dL (6.4-8.2) Albumin 3.8 g/dL (3.4-5.0) Albumin/Globulin Ratio 0.9 (1.0-1.7) L Lipase 308 U/L (73-393) Laboratory Tests 11/10/18 01:15 Laboratory Tests 11/10/18 01:15 EKG EKG [] Radiology/Procedures Radiology/Procedures [] Course & Med Decision Making Course & Med Decision Making Pertinent Labs and Imaging studies reviewed. (See chart for details) []labs unremarkable. no iv narcotics given did give a oxycodone in er, she CHEWED IT WITNESSED BY NURSING STAFF. i advised her this was not appropirate way to ingest oxycodone. i told her i think she is withdrawing from her meds and she should focus on trying to gradually decrease use with aim to eventually get off the meds. she noted a finger problem, she appears to have a healing paronychia nothing to drain some discoloration ofnail mild residual erythema so we gave keflex. i refilled her meds for a couple days and advised her to see her pmd alecia no indication for imaging she has had so many ct's here in the recent past i dont think it is necessary Heriberto Disclaimer Heriberto Disclaimer This electronic medical record was generated, in whole or in part, using a voice recognition dictation system. Departure Departure Impression: Primary Impression: Chronic narcotic use Disposition: HOME, SELF-CARE Condition: STABLE Referrals: ALEX PEOPLES (PCP) Scripts Cephalexin (CEPHALEXIN) 500 Mg Capsule 1 CAP PO QID, #28 CAP Prov: DAMIÁN IBARRA MD 11/10/18 Carisoprodol (CARISOPRODOL) 350 Mg Tablet 1 TAB PO QID, #16 TAB Prov: DAMIÁN IBARRA MD 11/10/18 Alprazolam (ALPRAZOLAM) 1 Mg Tablet 1 TAB PO BID, #10 TAB Prov: DAMIÁN IBARRA MD 11/10/18 Oxycodone/Apap 10-325 (PERCOCET 10-325 MG TABLET ) 1 Each Tablet 1 TAB PO PRN Q6HRS PRN for PAIN, #10 TAB 0 Refills Prov: DAMIÁN IBARRA MD 11/10/18 DAMIÁN IBARRA MD Nov 10, 2018 01:11
[2018-11-10 01:14] LABS: BILIRUBIN,URINE NEGATIVE (NEG); CLARITY,URINE CLOUDY; COLOR,URINE YELLOW; NITRITE,URINE NEGATIVE (NEG); PH,URINE 6.5; PROTEIN,URINE NEGATIVE (NEG-TRACE)
[2018-11-10 01:23] LABS: BASO # 0.1 x10^3/uL (0.0-0.2); BASO % 1 % (0-3); EOS # 0.1 x10^3/uL (0.0-0.7); EOS % 1 % (0-3); HEMATOCRIT 38.3 % (36.0-47.0); HEMOGLOBIN 11.6 g/dL (12.0-15.5); LYMPH # 3.5 x10^3/uL (1.0-4.8); LYMPH % 32 % (24-48); MEAN CORPUSCULAR HEMOGLOBIN 21 pg (25-35); MEAN CORPUSCULAR HGB CONC 30 g/dL (31-37); MEAN CORPUSCULAR VOLUME 69 fL (79-100); MONO # 0.4 x10^3/uL (0.0-1.1); MONO % 4 % (0-9); NEUT % 63 % (31-73); PLATELET COUNT 493 x10^3/uL (140-400); RED BLOOD COUNT 5.53 x10^6/uL (3.50-5.40); RED CELL DISTRIBUTION WIDTH 16.2 % (11.5-14.5)
[2018-11-10 01:28] LABS: BACTERIA,URINE MODERATE /HPF (0-FEW); RBC,URINE 0 /HPF (0-2); SQUAMOUS EPITHELIAL CELL,UR MANY /LPF
[2018-11-10 01:32] LABS: CALCIUM 9.3 mg/dL (8.5-10.1); CREATININE 0.7 mg/dL (0.6-1.0); GFR 104.6; POTASSIUM 3.5 mmol/L (3.5-5.1)
[2018-11-10 01:42] LABS: ALBUMIN 3.8 g/dL (3.4-5.0); ALBUMIN/GLOBULIN RATIO 0.9 (1.0-1.7); TOTAL BILIRUBIN 0.3 mg/dL (0.2-1.0); TOTAL PROTEIN 8.1 g/dL (6.4-8.2)
[2018-11-10 01:44] VITALS: BP 108/70
[2018-11-10] MEDS ORDERED: ALPR1TAB6 PO (01:55)
[2018-11-10] MEDS ORDERED: CARI350T14 PO (01:55)
[2018-11-10] MEDS ORDERED: OXYC1TAB22 PO (01:55)
[2018-11-10] MEDS ORDERED: oxyCODONE/APAP 10/325 1 TAB TABLET PO ONE (02:00)
[2018-11-10] MEDS ORDERED: KETAMINE HCL IN NACL, ISO-OSM 50 MG/5 ML SYRINGE IV ONE (02:00)
[2018-11-10 02:28] LABS: HYPOCHROMIA MOD; MICROCYTOSIS MOD; PLT ESTIMATE INCREASED (ADEQUATE)
[2018-11-10] MEDS ORDERED: CEPH500C PO (02:54)
[2018-11-10] MEDS ORDERED: ALPRAZolam 0.5 MG TABLET PO ONE (03:00)
== END 2018-11-10 02:50 | disposition home or self-care (01) ==
LOC: ER 00:57
DX: F11.90 Opioid use, unspecified, uncomplicated (principal); R10.31 Right lower quadrant pain; R10.13 Epigastric pain; M54.5 Low back pain; F41.9 Anxiety disorder, unspecified; J45.909 Unspecified asthma, uncomplicated; Z90.49 Acquired absence of other specified parts of digestive tract; Z90.89 Acquired absence of other organs; Z88.6 Allergy status to analgesic agent; Z88.5 Allergy status to narcotic agent; Z88.1 Allergy status to other antibiotic agents; Z88.8 Allergy status to other drugs, medicaments and biological substances
CPT/HCPCS: 36415; 80053; 81001; 81025; 83690; 85025; 87086; 96374; 99283; J2060; 99284

== ENCOUNTER 2018-11-16 00:20 | Inpatient (IN) | payer OTHER ==
[~2018-11-16] VITALS: Ht 157.5 cm; Wt 64.0 kg
[~2018-11-16 00:20] MED LIST changes: +CEPH500C PO
[2018-11-16] MEDS ORDERED: IV NORMAL SALINE 1000ML BAG 1,000 ML IV ONE ×3 (01:00→11:45)
[2018-11-16] MEDS ORDERED: ONDANSETRON PF 4 MG/2 ML VIAL. IV ONE ×2 (01:00)
[2018-11-16] MEDS ORDERED: MORPHINE SULFATE 4 MG/ML VIAL. IV ONE (01:00)
[2018-11-16 01:14] LABS: BASO # 0.1 x10^3/uL (0.0-0.2); BASO % 1 % (0-3); EOS # 0.2 x10^3/uL (0.0-0.7); EOS % 2 % (0-3); HEMOGLOBIN 9.5 g/dL (12.0-15.5); LYMPH # 3.8 x10^3/uL (1.0-4.8); LYMPH % 39 % (24-48); MEAN CORPUSCULAR HEMOGLOBIN 21 pg (25-35); MEAN CORPUSCULAR HGB CONC 31 g/dL (31-37); MEAN CORPUSCULAR VOLUME 69 fL (79-100); MONO # 0.5 x10^3/uL (0.0-1.1); MONO % 5 % (0-9); NEUT # 5.1 x10^3uL (1.8-7.7); NEUT % 53 % (31-73); PLATELET COUNT 322 x10^3/uL (140-400); RED BLOOD COUNT 4.49 x10^6/uL (3.50-5.40); RED CELL DISTRIBUTION WIDTH 16.5 % (11.5-14.5); WHITE BLOOD COUNT 9.7 x10^3/uL (4.0-11.0)
[2018-11-16 01:23] LABS: CALCIUM 8.5 mg/dL (8.5-10.1); CREATININE 0.5 mg/dL (0.6-1.0); GFR 154.3; POTASSIUM 3.8 mmol/L (3.5-5.1)
[2018-11-16 01:29] LABS: ALBUMIN/GLOBULIN RATIO 0.9 (1.0-1.7); TOTAL BILIRUBIN 0.2 mg/dL (0.2-1.0); TOTAL PROTEIN 6.5 g/dL (6.4-8.2)
[2018-11-16] MEDS ORDERED: diphenhydrAMINE 50 MG/ML VIAL IVP ONE (01:30)
[2018-11-16] MEDS ORDERED: ALPRAZolam 0.5 MG TABLET ONE (02:30)
[2018-11-16 02:33] LABS: BILIRUBIN,URINE NEGATIVE (NEG); CLARITY,URINE CLEAR; COLOR,URINE YELLOW; NITRITE,URINE NEGATIVE (NEG); PH,URINE 6.5; PROTEIN,URINE NEGATIVE (NEG-TRACE); UROBILINOGEN,URINE 0.2 mg/dL (0.2 mg/dL)
[2018-11-16] MEDS: oxyCODONE/APAP 10/325 1 TAB TABLET PO PRN ×5 (02:35→23:43)
[2018-11-16] MEDS: IV NORMAL SALINE 1000ML BAG 1,000 ML IV SCH ×2 (02:36→10:40)
[2018-11-16 02:42] LABS: BACTERIA,URINE FEW /HPF (0-FEW); RBC,URINE OCC /HPF (0-2); SQUAMOUS EPITHELIAL CELL,UR MANY /LPF
--- NOTE | 2018-11-16 02:43 | PHYS DOC ---
Past Medical History Past Medical History: Anxiety, Asthma, Gallstones Additional Past Medical Histor: pyodermia, PSYCHOGENIC SEIZURES, cilliac, chrones, pcos, muscle spasms Past Surgical History: Cholecystectomy, Gastric Bypass, Tonsillectomy Additional Past Surgical Histo: RHINOPLASTY, adenoidectomy Alcohol Use: None Drug Use: None Adult General Chief Complaint Chief Complaint: ABDOMINAL PAIN [facility] HPI Patient is a 22 year old female with a history of chronic abdominal pain who is been here several times in the past has had 7 CT scans in May that it looked essentially stable who apparently was over at [facility] yesterday. When asked why she was over there she said that she was over an outside of town to try to help her mother out with something and she was having pain so she went over there to get checked out. They did a CT scan and they saw her report of some twisting of the central mesentery with no signs of obstruction they wanted to admit her overnight to consider an operation in the morning she said that she had to leave AGAINST MEDICAL ADVICE right away because her partner and she share one car and she had to get back to the [facility] area where she is living.. Of note when she was here on November 10 I did recommend that she receive further pain medication refills from her primary care doctor and she tells me she has not been able to see that person yet. Patient states that she has had abdominal pain ever since every day on a long- standing basis however yesterday it seemed to get worse like somebody was stabbing her with a pair of scissors in the center of the abdomen and she is having some diarrhea she is passing flatus she is able to eat without vomiting. Review of Systems Review of Systems Constitutional: Denies fever or chills [] Eyes: Denies change in visual acuity, redness, or eye pain [] HENT: Denies nasal congestion or sore throat [] Respiratory: Denies cough or shortness of breath [] Cardiovascular: No additional information not addressed in HPI [] GI: Denies abdominal pain, nausea, vomiting, bloody stools or diarrhea [] : Denies dysuria or hematuria [] Musculoskeletal: Denies back pain or joint pain [] Integument: Denies rash or skin lesions [] Neurologic: Denies headache, focal weakness or sensory changes [] Endocrine: Denies polyuria or polydipsia [] All other systems were reviewed and found to be within normal limits, except as documented in this note. Current Medications Current Medications Current Medications Medications (Trade) Dose Ordered Sig/Julia Start Time Stop Time Status Last Admin Dose Admin Alprazolam (Xanax) 0.5 mg STK-MED ONCE 11/16/18 02:30 11/16/18 02:31 DC Diphenhydramine HCl (Benadryl) 25 mg 1X ONCE 11/16/18 01:30 11/16/18 01:31 DC 11/16/18 01:20 25 MG Morphine Sulfate (Morphine Sulfate) 4 mg 1X ONCE 11/16/18 01:00 11/16/18 01:01 DC 11/16/18 01:02 4 MG Ondansetron HCl (Zofran) 4 mg 1X ONCE 11/16/18 01:00 11/16/18 01:01 DC Oxycodone/ Acetaminophen (Percocet 10/325) 1 tab PRN Q4HRS PRN 11/16/18 02:30 Sodium Chloride 1,000 ml @ 100 mls/hr Q10H 11/16/18 02:30 11/17/18 02:29 Allergies Allergies Allergies Coded Allergies Type Severity Reaction Last Updated Verified NSAIDS (Non-Steroidal Anti-Inflamma Allergy Severe "Not supposed to have after bypass" 08/13/18 Yes diclofenac Allergy Severe Hives 08/13/18 Yes meloxicam Allergy Severe "Couldn't breathe" 08/13/18 Yes codeine Allergy Intermediate Hives 08/13/18 Yes dicyclomine Allergy Intermediate Hives 08/13/18 Yes fentanyl Allergy Intermediate "Hives and couldn't breathe" 08/13/18 Yes ketorolac Allergy Intermediate Hives 08/13/18 Yes tizanidine Allergy Intermediate Hives 02/25/17 Yes tramadol Allergy Intermediate Hives 08/13/18 Yes amoxicillin Allergy Mild rash 12/25/17 Yes ketamine Allergy Mild HIVES 11/10/18 Yes cyclobenzaprine Adverse Reaction Intermediate "DOESN'T WORK" 02/06/17 Yes Physical Exam Physical Exam Constitutional: Well developed, well nourished mild distress, non-toxic appearance. [] HENT: Normocephalic, atraumatic, bilateral external ears normal, oropharynx moist, no oral exudates, nose normal. [] Eyes: PERRLA, EOMI, conjunctiva normal, no discharge. [] Neck: Normal range of motion, no tenderness, supple, no stridor. [] Pulmonary: Normal respiratory effort no increased work of breathing no obvious chest wall trauma Abdomen: Bowel sounds normal, soft, diffusely tender with light palpation but there are no obvious peritoneal signs Skin: Warm, dry, no erythema, no rash. [] Back: No tenderness, no CVA tenderness. [] Extremities: No tenderness, no cyanosis, no clubbing, ROM intact, no edema. [] Neurologic: Alert and oriented X 3, normal motor function, normal sensory function, no focal deficits noted. [] Psychologic: Affect normal, judgement normal, mood normal. [] Current Patient Data Vital Signs Vital Signs Date Time Temp Pulse Resp B/P (MAP) Pulse Ox O2 Delivery O2 Flow Rate FiO2 11/16/18 01:02 15 99 Room Air 11/16/18 00:30 97.8 92 121/58 (79) 97.8 Lab Values Laboratory Tests Test 11/16/18 01:03 11/16/18 02:22 White Blood Count 9.7 x10^3/uL (4.0-11.0) Red Blood Count 4.49 x10^6/uL (3.50-5.40) Hemoglobin 9.5 g/dL (12.0-15.5) L Hematocrit 31.0 % (36.0-47.0) L Mean Corpuscular Volume 69 fL (79-100) L Mean Corpuscular Hemoglobin 21 pg (25-35) L Mean Corpuscular Hemoglobin Concent 31 g/dL (31-37) Red Cell Distribution Width 16.5 % (11.5-14.5) H Platelet Count 322 x10^3/uL (140-400) Neutrophils (%) (Auto) 53 % (31-73) Lymphocytes (%) (Auto) 39 % (24-48) Monocytes (%) (Auto) 5 % (0-9) Eosinophils (%) (Auto) 2 % (0-3) Basophils (%) (Auto) 1 % (0-3) Neutrophils # (Auto) 5.1 x10^3uL (1.8-7.7) Lymphocytes # (Auto) 3.8 x10^3/uL (1.0-4.8) Monocytes # (Auto) 0.5 x10^3/uL (0.0-1.1) Eosinophils # (Auto) 0.2 x10^3/uL (0.0-0.7) Basophils # (Auto) 0.1 x10^3/uL (0.0-0.2) Prothrombin Time 13.0 SEC (11.7-14.0) Prothrombin Time INR 1.0 (0.8-1.1) Sodium Level 140 mmol/L (136-145) Potassium Level 3.8 mmol/L (3.5-5.1) Chloride Level 105 mmol/L (98-107) Carbon Dioxide Level 26 mmol/L (21-32) Anion Gap 9 (6-14) Blood Urea Nitrogen 6 mg/dL (7-20) L Creatinine 0.5 mg/dL (0.6-1.0) L Estimated GFR (Cockcroft-Gault) 154.3 BUN/Creatinine Ratio 12 (6-20) Glucose Level 95 mg/dL (70-99) Calcium Level 8.5 mg/dL (8.5-10.1) Total Bilirubin 0.2 mg/dL (0.2-1.0) Aspartate Amino Transferase (AST) 15 U/L (15-37) Alanine Aminotransferase (ALT) 11 U/L (14-59) L Alkaline Phosphatase 56 U/L (46-116) Total Protein 6.5 g/dL (6.4-8.2) Albumin 3.0 g/dL (3.4-5.0) L Albumin/Globulin Ratio 0.9 (1.0-1.7) L Lipase 77 U/L (73-393) POC Urine HCG, Qualitative Hcg negative (Negative) Laboratory Tests 11/16/18 01:03 Laboratory Tests 11/16/18 01:03 EKG EKG [] Radiology/Procedures Radiology/Procedures [] Impressions: CT abdomen and pelvis from [facility] that was done at [id number] 15 dictated at [address] Garcia impression: #1 appendix is not visualized #2 no bowel obstruction. No nephrolithiasis or hydronephrosis. #3 twisting of the mesentery with focal loop of small bowel surrounding. Findings may represent an internal hernia history of prior abdominal surgery. (FULL REPORT IS IN [facility] CHART) Course & Med Decision Making Course & Med Decision Making Pertinent Labs and Imaging studies reviewed. (See chart for details) I spoke with the nurse practitioner over at [place] that saw this patient. She was able to cloud images from the CT scan over to our system I did speak with radiologist currently instructional leader Dr. Ferdinand BUSBY at 1:30 AM we were actually able to review the images from November 15, 2018 which have been uploaded into our system compared to the images from her recent CT scan August 13, 2018. This anatomic location this area of mesentery looks extremely similar to prior stable in nature according to Dr. Busby. He says there is no inflammatory changes there are some prominent lymph nodes that are probably reactive but there are no signs of bowel obstruction overall this is a stable CT scan in his opinion compared to August 13, 2018. As patient has had multiple CT scans in our facility I suspect that the read from [place] did not have the benefit of reviewing prior recent images. I KNOW THIS patient currently VERY well. She was just here in November 10 to get refills of her pain medication her overall clinical picture is quite similar to usual. I think is very unlikely that she has an acute surgical emergency based on the above. She'll be admitted to the medical service routine surgery consultation. Patient has no vomiting she is passing flatus.[ ] Dragon Disclaimer Dragon Disclaimer This electronic medical record was generated, in whole or in part, using a voice recognition dictation system. Departure Departure Impression: Primary Impression: Abdominal pain Disposition: ADMITTED INPATIENT Admitting Physician: Maria Ines Santa Condition: STABLE Referrals: ALEX PEOPLES (PCP) DAIMÁN IBARRA MD Nov 16, 2018 02:43
[2018-11-16] MEDS: ALPRAZolam 0.5 MG TABLET PO PRN ×5 (02:44→23:42)
[2018-11-16 03:10] VITALS: BP 107/58
[2018-11-16] MEDS: METHOCARBAMOL 500 MG TABLET PO PRN ×2 (04:11→22:48)
[2018-11-16 04:21] LABS: ANISOCYTOSIS SLIGHT; HYPOCHROMIA MOD; MICROCYTOSIS MOD; PLT ESTIMATE ADEQUATE (ADEQUATE); POLYCHROMASIA SLIGHT
--- NOTE | 2018-11-16 05:42 | NUR ---
Per Dr. Tan Santa, no other narcotics to be given to patient. No new orders.
[2018-11-16] MEDS ORDERED: NICOTINE 21MG PATCH. TD PRN (05:45)
[2018-11-16 07:00] VITALS: BP 102/59
[2018-11-16] MEDS ORDERED: HYDROmorphone 2 MG/ML VIAL IV ONE ×3 (08:45→21:30)
--- NOTE | 2018-11-16 08:48 | PDOC2 ---
MEGAN WARNER [employer]TER [employer] WR[employer]PER 11/16/18 0848: CONSULT Date of Consult Date of Consult DATE: 11/16/18 TIME: 08:38 Reason for Consult Reason for Consult: abdominal pain Referring Physician Referring Physician: ER Identification/Chief Complaint Chief Complaint abdominal pain Source Source: Chart review, Patient History of Present Illness Reason for Visit: Patient reports worsening of her abdominal and back pain. Significantly the last few days. I noted multiple ER records and 2 admission for this problems. She has had multiple Ct's and other imaging. She was seen at [place] yesterday-Ct was concerning for possible mesentry twisting with focal loop of small bowel surrounding--she then left AMA for family issues and came here I reviewed ER note--ER physician discussed with radiology and previous imaging compared-- no inflammatory changes there are some prominent lymph nodes that are probably reactive but there are no signs of bowel obstruction overall this is a stable CT scan in his opinion compared to August 13, 2018. As patient has had multiple CT scans in our facility I suspect that the read from [place] did not have the benefit of reviewing prior recent images. She is currently eating a regular breakfast tray, reports loose stools(3-4 days) , dry heaves Has not followed up with bariatric surgeon is this occurred--reports does not have the money to FU with him Past Medical History Cardiovascular: No pertinent hx Pulmonary: No pertinent hx CENTRAL NERVOUS SYSTEM: Other GI: Other Psych: Anxiety, Panic Past Surgical History Past Surgical History: Cholecystectomy Family History Family History: No Significant Social History 1 pack per day ALCOHOL: none Drugs: None Current Problem List Problem List Problems Medical Problems: (1) Abdominal pain Status: Acute Current Medications Current Medications Current Medications Morphine Sulfate (Morphine Sulfate) 4 mg 1X ONCE IV Last administered on at 01:02; Start 11/16/18 at 01:00; Stop 11/16/18 at 01:01; Status DC Sodium Chloride 1,000 ml @ 1,000 mls/hr 1X ONCE IV Last administered on at 01:00; Start 11/16/18 at 01:00; Stop 11/16/18 at 01:59; Status DC Ondansetron HCl (Zofran) 4 mg 1X ONCE IV Last administered on 11/16/18at 01:01 ; Start 11/16/18 at 01:00; Stop 11/16/18 at 01:01; Status DC Ondansetron HCl (Zofran) 4 mg 1X ONCE IV ; Start 11/16/18 at 01:00; Stop at 01:01; Status DC Diphenhydramine HCl (Benadryl) 25 mg 1X ONCE IVP Last administered on at 01:20; Start 11/16/18 at 01:30; Stop 11/16/18 at 01:31; Status DC Sodium Chloride 1,000 ml @ 100 mls/hr Q10H IV Last administered on 11/16/18at 02:36; Start 11/16/18 at 02:30; Stop 11/17/18 at 02:29 Oxycodone/ Acetaminophen (Percocet 10/325) 1 tab PRN Q4HRS PRN PO PAIN Last administered on 11/16/18at 02:35; Start 11/16/18 at 02:30 Alprazolam (Xanax) 1 mg PRN Q4HRS PRN PO ANXIETY Last administered on at 02:44; Start 11/16/18 at 02:30 Alprazolam (Xanax) 0.5 mg STK-MED ONCE .ROUTE ; Start 11/16/18 at 02:30; Stop at 02:31; Status DC Methocarbamol (Robaxin) 500 mg PRN Q6HRS PRN PO MUSCLE SPASMS; Start 11/16/18 at 03:15 Nicotine (Nicoderm Cq 21mg) 1 patch PRN DAILY PRN TD SMOKING CESSATION; Start 11/16/18 at 05:45 Active Scripts Active Cephalexin 500 Mg Capsule 1 Cap PO QID Carisoprodol 350 Mg Tablet 1 Tab PO QID Alprazolam 1 Mg Tablet 1 Tab PO BID Percocet 10-325 Mg Tablet (Oxycodone/Acetaminophen) 1 Each Tablet 1 Tab PO PRN Q6HRS PRN Percocet 7.5-325 Mg Tablet (Oxycodone/Acetaminophen) 1 Each Tablet 1 Tab PO PRN Q6HRS PRN Alprazolam 1 Mg Tablet 1 Mg PO PRN Q6HRS PRN Soma (Carisoprodol) 350 Mg Tablet 350 Mg PO TID&HS Carisoprodol 350 Mg Tablet 1 Tab PO QID Alprazolam 1 Mg Tablet 1 Tab PO TID Percocet 10-325 Mg Tablet (Oxycodone/Acetaminophen) 1 Each Tablet 1 Tab PO TID PRN Zofran (Ondansetron Hcl) 4 Mg Tablet 1 Tab PO PRN Q6-8HRS Reglan (Metoclopramide Hcl) 10 Mg Tablet 1 Tab PO QID Oxycodone Hcl 5 Mg Capsule 1-2 Cap PO TID PRN Lidocaine 1 Each Adh..patch 1 Each TP Q12HR Keep patch on for 12 hours then please remove and keep off for next 12 hours. Orphenadrine Citrate 100 Mg Tablet.er 1 Tab PO BID PRN Penicillin V Potassium 500 Mg Tablet 1 Tab PO TID Reported Acetaminophen 500 Mg Tablet 1 Tab PO Q6HRS Lamictal (Lamotrigine) 200 Mg Tablet 1 Tab PO BID Allergies Allergies: Coded Allergies: NSAIDS (Non-Steroidal Anti-Inflamma (Verified Allergy, Severe, "Not supposed to have after bypass", 08/13/18) diclofenac (Verified Allergy, Severe, Hives, 08/13/18) meloxicam (Verified Allergy, Severe, "Couldn't breathe", 08/13/18) amoxicillin (Verified Allergy, Intermediate, rash, 11/16/18) codeine (Verified Allergy, Intermediate, Hives, 08/13/18) Tolerates oxycodone dicyclomine (Verified Allergy, Intermediate, Hives, 08/13/18) fentanyl (Verified Allergy, Intermediate, "Hives and couldn't breathe", ) ketamine (Verified Allergy, Intermediate, HIVES, 11/16/18) ketorolac (Verified Allergy, Intermediate, Hives, 08/13/18) lidocaine (Verified Allergy, Intermediate, Rash, 11/16/18) tizanidine (Verified Allergy, Intermediate, Hives, 02/25/17) tramadol (Verified Allergy, Intermediate, Hives, 08/13/18) Tolerates oxycodone cyclobenzaprine (Verified Adverse Reaction, Intermediate, "DOESN'T WORK", 02/06/17) ROS General: YES: Other (sweats); No: Chills PSYCHOLOGICAL ROS: No: Anxiety, Depression Eyes: No Blurry vision, No Double vision HEENT: No: Heacaches, Sore Throat Hematological and Lymphatic: No: Bleeding Problems, Blood Clots Respiratory: No: Cough, Shortness of breath Cardiovascular: No Chest Pain, No Palpitations Gastrointestinal: Yes Other (see hpi) Genitourinary: YES Dysuria; No Incontinence Musculoskeletal: Yes Joint Pain, Yes Pain In: (back) Neurological: No Confusion, No Numbness/Tingling Skin: No Pruritus, No Rash Physical Exam General: Alert, Oriented X3, Cooperative, No acute distress HEENT: PERRLA, Mucous membr. moist/pink Lungs: Clear to auscultation, Normal air movement Heart: Regular rate, Normal S1, Normal S2, No murmurs Abdomen: Soft, Other (generalized tenderness with light touch, lap site scars, ND) Extremities: No clubbing, No cyanosis Skin: No rashes, No breakdown Neuro: Normal speech, Sensation intact Psych/Mental Status: Mental status NL, Mood NL MUSCULOSKELETAL: No deformity, No swelling Vitals VITALS Vital Signs Date Time Temp Pulse Resp B/P (MAP) Pulse Ox O2 Delivery O2 Flow Rate FiO2 11/16/18 07:00 98.3 56 16 102/59 (73) 98 Room Air 98.3 Labs Labs Laboratory Tests Test 11/16/18 01:03 11/16/18 01:25 11/16/18 02:15 11/16/18 02:22 White Blood Count 9.7 x10^3/uL (4.0-11.0) Red Blood Count 4.49 x10^6/uL (3.50-5.40) Hemoglobin 9.5 g/dL (12.0-15.5) Hematocrit 31.0 % (36.0-47.0) Mean Corpuscular Volume 69 fL (79-100) Mean Corpuscular Hemoglobin 21 pg (25-35) Mean Corpuscular Hemoglobin Concent 31 g/dL (31-37) Red Cell Distribution Width 16.5 % (11.5-14.5) Platelet Count 322 x10^3/uL (140-400) Neutrophils (%) (Auto) 53 % (31-73) Lymphocytes (%) (Auto) 39 % (24-48) Monocytes (%) (Auto) 5 % (0-9) Eosinophils (%) (Auto) 2 % (0-3) Basophils (%) (Auto) 1 % (0-3) Neutrophils # (Auto) 5.1 x10^3uL (1.8-7.7) Lymphocytes # (Auto) 3.8 x10^3/uL (1.0-4.8) Monocytes # (Auto) 0.5 x10^3/uL (0.0-1.1) Eosinophils # (Auto) 0.2 x10^3/uL (0.0-0.7) Basophils # (Auto) 0.1 x10^3/uL (0.0-0.2) Platelet Estimate Adequate (ADEQUATE) Polychromasia Slight Hypochromasia Mod Anisocytosis Slight Microcytosis Mod Prothrombin Time 13.0 SEC (11.7-14.0) Prothromb Time International Ratio 1.0 (0.8-1.1) Sodium Level 140 mmol/L (136-145) Potassium Level 3.8 mmol/L (3.5-5.1) Chloride Level 105 mmol/L (98-107) Carbon Dioxide Level 26 mmol/L (21-32) Anion Gap 9 (6-14) Blood Urea Nitrogen 6 mg/dL (7-20) Creatinine 0.5 mg/dL (0.6-1.0) Estimated GFR (Cockcroft-Gault) 154.3 BUN/Creatinine Ratio 12 (6-20) Glucose Level 95 mg/dL (70-99) Calcium Level 8.5 mg/dL (8.5-10.1) Total Bilirubin 0.2 mg/dL (0.2-1.0) Aspartate Amino Transf (AST/SGOT) 15 U/L (15-37) Alanine Aminotransferase (ALT/SGPT) 11 U/L (14-59) Alkaline Phosphatase 56 U/L (46-116) Total Protein 6.5 g/dL (6.4-8.2) Albumin 3.0 g/dL (3.4-5.0) Albumin/Globulin Ratio 0.9 (1.0-1.7) Lipase 77 U/L (73-393) Lactic Acid Level 0.8 mmol/L (0.4-2.0) Urine Collection Type Unknown Urine Color Yellow Urine Clarity Clear Urine pH 6.5 Urine Specific [place] >=1.030 Urine Protein Negative mg/dL (NEG-TRACE) Urine Glucose (UA) Negative mg/dL (NEG) Urine Ketones (Stick) Negative mg/dL (NEG) Urine Blood Negative (NEG) Urine Nitrite Negative (NEG) Urine Bilirubin Negative (NEG) Urine Urobilinogen Dipstick 0.2 mg/dL (0.2 mg/dL) Urine Leukocyte Esterase Small (NEG) Urine RBC Occ /HPF (0-2) Urine WBC 5-10 /HPF (0-4) Urine Squamous Epithelial Cells Many /LPF Urine Bacteria Few /HPF (0-FEW) Bedside Urine HCG, Qualitative Hcg negative (Negative) Laboratory Tests Test 11/16/18 01:03 11/16/18 01:25 11/16/18 02:15 11/16/18 02:22 White Blood Count 9.7 x10^3/uL (4.0-11.0) Red Blood Count 4.49 x10^6/uL (3.50-5.40) Hemoglobin 9.5 g/dL (12.0-15.5) Hematocrit 31.0 % (36.0-47.0) Mean Corpuscular Volume 69 fL (79-100) Mean Corpuscular Hemoglobin 21 pg (25-35) Mean Corpuscular Hemoglobin Concent 31 g/dL (31-37) Red Cell Distribution Width 16.5 % (11.5-14.5) Platelet Count 322 x10^3/uL (140-400) Neutrophils (%) (Auto) 53 % (31-73) Lymphocytes (%) (Auto) 39 % (24-48) Monocytes (%) (Auto) 5 % (0-9) Eosinophils (%) (Auto) 2 % (0-3) Basophils (%) (Auto) 1 % (0-3) Neutrophils # (Auto) 5.1 x10^3uL (1.8-7.7) Lymphocytes # (Auto) 3.8 x10^3/uL (1.0-4.8) Monocytes # (Auto) 0.5 x10^3/uL (0.0-1.1) Eosinophils # (Auto) 0.2 x10^3/uL (0.0-0.7) Basophils # (Auto) 0.1 x10^3/uL (0.0-0.2) Platelet Estimate Adequate (ADEQUATE) Polychromasia Slight Hypochromasia Mod Anisocytosis Slight Microcytosis Mod Prothrombin Time 13.0 SEC (11.7-14.0) Prothromb Time International Ratio 1.0 (0.8-1.1) Sodium Level 140 mmol/L (136-145) Potassium Level 3.8 mmol/L (3.5-5.1) Chloride Level 105 mmol/L (98-107) Carbon Dioxide Level 26 mmol/L (21-32) Anion Gap 9 (6-14) Blood Urea Nitrogen 6 mg/dL (7-20) Creatinine 0.5 mg/dL (0.6-1.0) Estimated GFR (Cockcroft-Gault) 154.3 BUN/Creatinine Ratio 12 (6-20) Glucose Level 95 mg/dL (70-99) Calcium Level 8.5 mg/dL (8.5-10.1) Total Bilirubin 0.2 mg/dL (0.2-1.0) Aspartate Amino Transf (AST/SGOT) 15 U/L (15-37) Alanine Aminotransferase (ALT/SGPT) 11 U/L (14-59) Alkaline Phosphatase 56 U/L (46-116) Total Protein 6.5 g/dL (6.4-8.2) Albumin 3.0 g/dL (3.4-5.0) Albumin/Globulin Ratio 0.9 (1.0-1.7) Lipase 77 U/L (73-393) Lactic Acid Level 0.8 mmol/L (0.4-2.0) Urine Collection Type Unknown Urine Color Yellow Urine Clarity Clear Urine pH 6.5 Urine Specific [place] >=1.030 Urine Protein Negative mg/dL (NEG-TRACE) Urine Glucose (UA) Negative mg/dL (NEG) Urine Ketones (Stick) Negative mg/dL (NEG) Urine Blood Negative (NEG) Urine Nitrite Negative (NEG) Urine Bilirubin Negative (NEG) Urine Urobilinogen Dipstick 0.2 mg/dL (0.2 mg/dL) Urine Leukocyte Esterase Small (NEG) Urine RBC Occ /HPF (0-2) Urine WBC 5-10 /HPF (0-4) Urine Squamous Epithelial Cells Many /LPF Urine Bacteria Few /HPF (0-FEW) Bedside Urine HCG, Qualitative Hcg negative (Negative) Assessment/Plan Assessment/Plan chronic abdominal pain I d/w Dr Maitas--Ct findings reviewed, based on previous imaging appears more of a stable CT finding--she is tolerating a regular diet this AM I explained to her I would not adjust any narcotics and she would have to discuss with primary physician here Will consult GI--has seen in past, however I did recommend that she FU with Dr Smith that did her gastric bypass KENY MATIAS MD 11/16/18 1338: CONSULT Assessment/Plan Assessment/Plan Above reviewed, pt seen and examined by myself; 22 year old female S/P prior laparoscopic gastric bypass By Dr Smith; complains of worsening abdominal pain for the last week. The pain prompted her reporting to the ER at [place] and a CT scan was performed there. She describes the pain as severe, nonradiating, and persistent. There are no relieving factors. She reports "spitting up" some as well. The report noted a concern about mesenteric twisting, however there was no clear obstruction. The ER note indicated that review of her CT scan showed similar findings as a prior CT here in July. PMH/PSH/ROS/SH as above. Exam: alert, appears uncomfortable, lungs clear, heart RR and R, abdomen tender mid abdomen with palpation, ext neg for edema. Labs and CT reviewed; A/P) Abdominal pain S/P lab gastric bypass, I've reviewed the CT and note the concern for mesenteric twisting, however the appearance is similar as in July. Unsure if appearance due to prior Aurelio en Y. Given her persistent pain, would recommend that she be transferred to [facility] with Dr Smith who performed her bypass. We are not a bariatric center and do not perform revisional bariatric surgeries here at [facility]. Discussed with MEGAN Alvarado APRN Nov 16, 2018 08:48 KENY MATIAS MD Nov 16, 2018 13:38
--- NOTE | 2018-11-16 08:58 | PDOC1 ---
History and Physical Date of Admission Date of Admission DATE: 11/16/18 TIME: 08:58 Identification/Chief Complaint Chief Complaint Past Medical History Past Medical History: Anxiety, Asthma, Gallstones Additional Past Medical Histor: pyodermia, PSYCHOGENIC SEIZURES, cilliac, chrones, pcos, muscle spasms Past Surgical History: Cholecystectomy, Gastric Bypass, Tonsillectomy Additional Past Surgical Histo: RHINOPLASTY, adenoidectomy Alcohol Use: None Drug Use: None FHX ANXIETY History of Present Illness History of Present Illness seen in er with history of chronic abdominal pain who is been here several times in the past has had 7 CT scans in May that it looked essentially stable who apparently was over at [facility] 11/14 When asked why she was over there she said that she was over an outside of town to try to help her mother out with something and she was having pain so she went over there to get checked out. They did a CT scan and they saw her report of some twisting of the central mesentery with no signs of obstruction they wanted to admit her overnight to consider an operation in the morning she said that she had to leave AGAINST MEDICAL ADVICE Past Medical History Cardiovascular: No pertinent hx Pulmonary: No pertinent hx CENTRAL NERVOUS SYSTEM: Other GI: Other (BYPASS, GASTRIC) Psych: Anxiety, Panic Renal/: No pertinent hx Past Surgical History Past Surgical History: Cholecystectomy Family History Family History: No Significant Social History Smoke: 1 pack per day ALCOHOL: none Drugs: None Current Problem List Problem List Problems Medical Problems: (1) Abdominal pain Status: Acute Current Medications Current Medications Current Medications Morphine Sulfate (Morphine Sulfate) 4 mg 1X ONCE IV Last administered on at 01:02; Start 11/16/18 at 01:00; Stop 11/16/18 at 01:01; Status DC Sodium Chloride 1,000 ml @ 1,000 mls/hr 1X ONCE IV Last administered on at 01:00; Start 11/16/18 at 01:00; Stop 11/16/18 at 01:59; Status DC Ondansetron HCl (Zofran) 4 mg 1X ONCE IV Last administered on 11/16/18at 01:01 ; Start 11/16/18 at 01:00; Stop 11/16/18 at 01:01; Status DC Ondansetron HCl (Zofran) 4 mg 1X ONCE IV ; Start 11/16/18 at 01:00; Stop at 01:01; Status DC Diphenhydramine HCl (Benadryl) 25 mg 1X ONCE IVP Last administered on at 01:20; Start 11/16/18 at 01:30; Stop 11/16/18 at 01:31; Status DC Sodium Chloride 1,000 ml @ 100 mls/hr Q10H IV Last administered on 11/16/18at 02:36; Start 11/16/18 at 02:30; Stop 11/17/18 at 02:29 Oxycodone/ Acetaminophen (Percocet 10/325) 1 tab PRN Q4HRS PRN PO PAIN Last administered on 11/16/18at 02:35; Start 11/16/18 at 02:30 Alprazolam (Xanax) 1 mg PRN Q4HRS PRN PO ANXIETY Last administered on at 02:44; Start 11/16/18 at 02:30 Alprazolam (Xanax) 0.5 mg STK-MED ONCE .ROUTE ; Start 11/16/18 at 02:30; Stop at 02:31; Status DC Methocarbamol (Robaxin) 500 mg PRN Q6HRS PRN PO MUSCLE SPASMS; Start 11/16/18 at 03:15 Nicotine (Nicoderm Cq 21mg) 1 patch PRN DAILY PRN TD SMOKING CESSATION; Start 11/16/18 at 05:45 Hydromorphone HCl (Dilaudid) 1 mg 1X ONCE IV Last administered on 11/16/18at 08 :54; Start 11/16/18 at 08:45; Stop 11/16/18 at 08:48; Status DC Active Scripts Active Cephalexin 500 Mg Capsule 1 Cap PO QID Carisoprodol 350 Mg Tablet 1 Tab PO QID Alprazolam 1 Mg Tablet 1 Tab PO BID Percocet 10-325 Mg Tablet (Oxycodone/Acetaminophen) 1 Each Tablet 1 Tab PO PRN Q6HRS PRN Percocet 7.5-325 Mg Tablet (Oxycodone/Acetaminophen) 1 Each Tablet 1 Tab PO PRN Q6HRS PRN Alprazolam 1 Mg Tablet 1 Mg PO PRN Q6HRS PRN Soma (Carisoprodol) 350 Mg Tablet 350 Mg PO TID&HS Carisoprodol 350 Mg Tablet 1 Tab PO QID Alprazolam 1 Mg Tablet 1 Tab PO TID Percocet 10-325 Mg Tablet (Oxycodone/Acetaminophen) 1 Each Tablet 1 Tab PO TID PRN Zofran (Ondansetron Hcl) 4 Mg Tablet 1 Tab PO PRN Q6-8HRS Reglan (Metoclopramide Hcl) 10 Mg Tablet 1 Tab PO QID Oxycodone Hcl 5 Mg Capsule 1-2 Cap PO TID PRN Lidocaine 1 Each Adh..patch 1 Each TP Q12HR Keep patch on for 12 hours then please remove and keep off for next 12 hours. Orphenadrine Citrate 100 Mg Tablet.er 1 Tab PO BID PRN Penicillin V Potassium 500 Mg Tablet 1 Tab PO TID Reported Acetaminophen 500 Mg Tablet 1 Tab PO Q6HRS Lamictal (Lamotrigine) 200 Mg Tablet 1 Tab PO BID Allergies Allergies: Coded Allergies: NSAIDS (Non-Steroidal Anti-Inflamma (Verified Allergy, Severe, "Not supposed to have after bypass", 08/13/18) diclofenac (Verified Allergy, Severe, Hives, 08/13/18) meloxicam (Verified Allergy, Severe, "Couldn't breathe", 08/13/18) codeine (Verified Allergy, Intermediate, Hives, 08/13/18) Tolerates oxycodone dicyclomine (Verified Allergy, Intermediate, Hives, 08/13/18) fentanyl (Verified Allergy, Intermediate, "Hives and couldn't breathe", ) ketorolac (Verified Allergy, Intermediate, Hives, 08/13/18) tizanidine (Verified Allergy, Intermediate, Hives, 02/25/17) tramadol (Verified Allergy, Intermediate, Hives, 08/13/18) Tolerates oxycodone amoxicillin (Verified Allergy, Mild, rash, 12/25/17) ketamine (Verified Allergy, Mild, HIVES, 11/10/18) cyclobenzaprine (Verified Adverse Reaction, Intermediate, "DOESN'T WORK", 02/06/17) ROS Review of System Review of Systems Review of Systems Constitutional: Denies fever or chills [] Eyes: Denies change in visual acuity, redness, or eye pain [] HENT: Denies nasal congestion or sore throat [] Respiratory: Denies cough or shortness of breath [] Cardiovascular: No additional information not addressed in HPI [] GI: Denies abdominal pain, nausea, vomiting, bloody stools or diarrhea [] : Denies dysuria or hematuria [] Musculoskeletal: Denies back pain or joint pain [] Integument: Denies rash or skin lesions [] Neurologic: Denies headache, focal weakness or sensory changes [] Endocrine: Denies polyuria or polydipsia [] 14 pt systems were reviewed and found to be within normal limits, except as documented PSYCHOLOGICAL ROS: YES: Anxiety Physical Exam Physical Exam Physical Exam Physical Exam Constitutional: Well developed, well nourished mild distress, non-toxic appearance. [] HENT: Normocephalic, atraumatic, bilateral external ears normal, oropharynx moist, no oral exudates, nose normal. [] Eyes: PERRLA, EOMI, conjunctiva normal, no discharge. [] Neck: Normal range of motion, no tenderness, supple, no stridor. [] Pulmonary: Normal respiratory effort no increased work of breathing no obvious chest wall trauma Abdomen: Bowel sounds normal, soft, diffusely tender with light palpation but there are no obvious peritoneal signs Skin: Warm, dry, no erythema, no rash. [] Back: No tenderness, no CVA tenderness. [] Extremities: No tenderness, no cyanosis, no clubbing, ROM intact, no edema. [] Neurologic: Alert and oriented X 3, normal motor function, normal sensory function, no focal deficits noted. [] Psychologic: Affect normal, judgement normal, mood normal. [] General: Alert, Oriented X3, Cooperative, No acute distress Lungs: Clear to auscultation Breasts: Not examined Abdomen: Soft PELVIC: Examination not indicated Extremities: No cyanosis Neuro: Normal speech, Cranial nerves 3-12 NL Psych/Mental Status: Mental status NL, Mood NL Vitals Vitals Vital Signs Date Time Temp Pulse Resp B/P (MAP) Pulse Ox O2 Delivery O2 Flow Rate FiO2 11/16/18 08:54 Room Air 11/16/18 07:00 98.3 56 16 102/59 (73) 98 98.3 Labs Labs Laboratory Tests Test 11/16/18 01:03 11/16/18 01:25 11/16/18 02:15 11/16/18 02:22 White Blood Count 9.7 x10^3/uL (4.0-11.0) Red Blood Count 4.49 x10^6/uL (3.50-5.40) Hemoglobin 9.5 g/dL (12.0-15.5) Hematocrit 31.0 % (36.0-47.0) Mean Corpuscular Volume 69 fL (79-100) Mean Corpuscular Hemoglobin 21 pg (25-35) Mean Corpuscular Hemoglobin Concent 31 g/dL (31-37) Red Cell Distribution Width 16.5 % (11.5-14.5) Platelet Count 322 x10^3/uL (140-400) Neutrophils (%) (Auto) 53 % (31-73) Lymphocytes (%) (Auto) 39 % (24-48) Monocytes (%) (Auto) 5 % (0-9) Eosinophils (%) (Auto) 2 % (0-3) Basophils (%) (Auto) 1 % (0-3) Neutrophils # (Auto) 5.1 x10^3uL (1.8-7.7) Lymphocytes # (Auto) 3.8 x10^3/uL (1.0-4.8) Monocytes # (Auto) 0.5 x10^3/uL (0.0-1.1) Eosinophils # (Auto) 0.2 x10^3/uL (0.0-0.7) Basophils # (Auto) 0.1 x10^3/uL (0.0-0.2) Platelet Estimate Adequate (ADEQUATE) Polychromasia Slight Hypochromasia Mod Anisocytosis Slight Microcytosis Mod Prothrombin Time 13.0 SEC (11.7-14.0) Prothromb Time International Ratio 1.0 (0.8-1.1) Sodium Level 140 mmol/L (136-145) Potassium Level 3.8 mmol/L (3.5-5.1) Chloride Level 105 mmol/L (98-107) Carbon Dioxide Level 26 mmol/L (21-32) Anion Gap 9 (6-14) Blood Urea Nitrogen 6 mg/dL (7-20) Creatinine 0.5 mg/dL (0.6-1.0) Estimated GFR (Cockcroft-Gault) 154.3 BUN/Creatinine Ratio 12 (6-20) Glucose Level 95 mg/dL (70-99) Calcium Level 8.5 mg/dL (8.5-10.1) Total Bilirubin 0.2 mg/dL (0.2-1.0) Aspartate Amino Transf (AST/SGOT) 15 U/L (15-37) Alanine Aminotransferase (ALT/SGPT) 11 U/L (14-59) Alkaline Phosphatase 56 U/L (46-116) Total Protein 6.5 g/dL (6.4-8.2) Albumin 3.0 g/dL (3.4-5.0) Albumin/Globulin Ratio 0.9 (1.0-1.7) Lipase 77 U/L (73-393) Lactic Acid Level 0.8 mmol/L (0.4-2.0) Urine Collection Type Unknown Urine Color Yellow Urine Clarity Clear Urine pH 6.5 Urine Specific [place] >=1.030 Urine Protein Negative mg/dL (NEG-TRACE) Urine Glucose (UA) Negative mg/dL (NEG) Urine Ketones (Stick) Negative mg/dL (NEG) Urine Blood Negative (NEG) Urine Nitrite Negative (NEG) Urine Bilirubin Negative (NEG) Urine Urobilinogen Dipstick 0.2 mg/dL (0.2 mg/dL) Urine Leukocyte Esterase Small (NEG) Urine RBC Occ /HPF (0-2) Urine WBC 5-10 /HPF (0-4) Urine Squamous Epithelial Cells Many /LPF Urine Bacteria Few /HPF (0-FEW) Bedside Urine HCG, Qualitative Hcg negative (Negative) Laboratory Tests Test 11/16/18 01:03 11/16/18 01:25 11/16/18 02:15 11/16/18 02:22 White Blood Count 9.7 x10^3/uL (4.0-11.0) Red Blood Count 4.49 x10^6/uL (3.50-5.40) Hemoglobin 9.5 g/dL (12.0-15.5) Hematocrit 31.0 % (36.0-47.0) Mean Corpuscular Volume 69 fL (79-100) Mean Corpuscular Hemoglobin 21 pg (25-35) Mean Corpuscular Hemoglobin Concent 31 g/dL (31-37) Red Cell Distribution Width 16.5 % (11.5-14.5) Platelet Count 322 x10^3/uL (140-400) Neutrophils (%) (Auto) 53 % (31-73) Lymphocytes (%) (Auto) 39 % (24-48) Monocytes (%) (Auto) 5 % (0-9) Eosinophils (%) (Auto) 2 % (0-3) Basophils (%) (Auto) 1 % (0-3) Neutrophils # (Auto) 5.1 x10^3uL (1.8-7.7) Lymphocytes # (Auto) 3.8 x10^3/uL (1.0-4.8) Monocytes # (Auto) 0.5 x10^3/uL (0.0-1.1) Eosinophils # (Auto) 0.2 x10^3/uL (0.0-0.7) Basophils # (Auto) 0.1 x10^3/uL (0.0-0.2) Platelet Estimate Adequate (ADEQUATE) Polychromasia Slight Hypochromasia Mod Anisocytosis Slight Microcytosis Mod Prothrombin Time 13.0 SEC (11.7-14.0) Prothromb Time International Ratio 1.0 (0.8-1.1) Sodium Level 140 mmol/L (136-145) Potassium Level 3.8 mmol/L (3.5-5.1) Chloride Level 105 mmol/L (98-107) Carbon Dioxide Level 26 mmol/L (21-32) Anion Gap 9 (6-14) Blood Urea Nitrogen 6 mg/dL (7-20) Creatinine 0.5 mg/dL (0.6-1.0) Estimated GFR (Cockcroft-Gault) 154.3 BUN/Creatinine Ratio 12 (6-20) Glucose Level 95 mg/dL (70-99) Calcium Level 8.5 mg/dL (8.5-10.1) Total Bilirubin 0.2 mg/dL (0.2-1.0) Aspartate Amino Transf (AST/SGOT) 15 U/L (15-37) Alanine Aminotransferase (ALT/SGPT) 11 U/L (14-59) Alkaline Phosphatase 56 U/L (46-116) Total Protein 6.5 g/dL (6.4-8.2) Albumin 3.0 g/dL (3.4-5.0) Albumin/Globulin Ratio 0.9 (1.0-1.7) Lipase 77 U/L (73-393) Lactic Acid Level 0.8 mmol/L (0.4-2.0) Urine Collection Type Unknown Urine Color Yellow Urine Clarity Clear Urine pH 6.5 Urine Specific [place] >=1.030 Urine Protein Negative mg/dL (NEG-TRACE) Urine Glucose (UA) Negative mg/dL (NEG) Urine Ketones (Stick) Negative mg/dL (NEG) Urine Blood Negative (NEG) Urine Nitrite Negative (NEG) Urine Bilirubin Negative (NEG) Urine Urobilinogen Dipstick 0.2 mg/dL (0.2 mg/dL) Urine Leukocyte Esterase Small (NEG) Urine RBC Occ /HPF (0-2) Urine WBC 5-10 /HPF (0-4) Urine Squamous Epithelial Cells Many /LPF Urine Bacteria Few /HPF (0-FEW) Bedside Urine HCG, Qualitative Hcg negative (Negative) Images Images PER MY PERSONAL REVIEW OLD CT CT of the abdomen and pelvis with contrast, 08/13/2018: HISTORY: Abdominal pain, nausea and vomiting Multidetector CT imaging was performed following an IV bolus injection of iodinated contrast material. No oral contrast material was administered as requested. Comparison is made to a study from 07/29/2018. The gallbladder is surgically absent. No hepatic abnormality is seen. No pancreatic abnormality is detected. The spleen is of normal size. The kidneys show no evidence of obstruction or mass. There are surgical sutures related to the stomach and small bowel in the left abdomen compatible with a history of previous gastric bypass surgery. The bowel loops are not dilated. The appendix is not clearly visualized. No dilated appendix or pericecal inflammatory process is seen. No free fluid or free air is evident in the abdomen or pelvis. No abdominal or pelvic adenopathy is seen. IMPRESSION: No acute abdominal or pelvic abnormality is detected. PQRS Compliance Statement: One or more of the following individualized dose reduction techniques were utilized for this examination: 1. Automated exposure control 2. Adjustment of the mA and/or kV according to patient size 3. Use of iterative reconstruction technique Electronically signed by: Иван Leos MD (08/13/2018 9:43 AM) [facility] VTE Prophylaxis Ordered VTE Prophylaxis Devices: No VTE Pharmacological Prophylaxi: Contraindicated Assessment/Plan Assessment/Plan Impression: Abdominal pain HYPOTENSION ANXIETY DISORDER MICROCYTIC ANEMIA DEHYDRATION TOBACCO ABUSE POSSIBLE UTI plan iv dilaudid 1 mg x 1 iv fluid bolus 1000 ml NS X 1 SURG CONSULT[address] FU with Dr Smith that did her gastric bypass SOON REG DIET ADAT GI CONSULT AMBULATE HOME LATER TODAY IF OK WITH GI IV FLUID SUPPORT IV PROTONIX MELVI MOTA MD Nov 16, 2018 08:58
[2018-11-16 10:58] VITALS: BP 81/52
--- NOTE | 2018-11-16 10:59 | NUR ---
Patients blood pressure 81/52, notified Dr. Castellanos, new order received for NS 1 L bolus.
[2018-11-16] MEDS ORDERED: ALPRAZolam 1 MG TABLET PO PRN (11:45)
[2018-11-16] MEDS ORDERED: ONDANSETRON ODT 4 MG TAB.RAPDIS. PO PRN (12:00)
[2018-11-16] MEDS ORDERED: ACETAMINOPHEN 500 MG TABLET PO PRN (12:00)
[2018-11-16] MEDS ORDERED: LIDOCAINE (700MG/PATCH) PATCH. TD SCH (12:30)
[2018-11-16] MEDS: lamoTRIgine 100 MG TABLET. PO SCH ×2 (12:33→19:46)
[2018-11-16] MEDS: METOCLOPRAMIDE 10 MG TABLET. PO SCH ×3 (12:33→19:47)
[2018-11-16] MEDS ORDERED: IRON POLYSACCHARIDE COMPLEX 150 MG CAPSULE PO SCH (13:00)
--- NOTE | 2018-11-16 13:21 | PDOC2 ---
GI CONSULT Reason For Consult: Abd pain HPI: HPI: 22 y/o female seen earlier this morning. Chronic pain issues. Left C ER AMA - CT abnormal w/ concern for mesentery twisting, then ER physician (here) reviewed new/old imaging - chronic findings. Surgery following, GI asked to see for abd pain. Pain ongoing for awhile w/ retching and diarrhea ("going like crazy" - but none today). History difficult - she is quite dramatic, boyfriend and mom present with lots of questions, wanting to know why she's not having surgery now. S/p Aurelio-en-Y (Dr. Dupont - can't remember when last saw) and some vague h/o PUD (?after bypass). On Pepcid but off Carafate. Lots of CTs in the past, also SBS and celiac serology (both neg/normal). S/p cholecystectomy for stones. Recent atbx use for finger infection. Concern for drug-seeking in the past and recs to follow-up w/ bariatric surgeon. PMH: PMH: GERD, nephrolithiasis, anxiety, ?PUD, chronic pain Aurelio-en-Y, lithotripsy, cholecystectomy FH: Family History: No pertinent hx, Other Social History: Smoke: <1 pack per day ALCOHOL: none Drugs: Marijuana ROS: GEN: Denies fevers, chills, sweats HEENT: Denies blurred vision, sore throat CV: Denies chest pain RESP: Denies shortness of air, cough GI: Per HPI : Denies hematuria, dysuria ENDO: Denies weight changes NEURO: Denies confusion, dizziness MSK: Denies weakness, joint pain/swelling SKIN: Denies jaundice, pruritus Vitals: Vitals: Vital Signs Date Time Temp Pulse Resp B/P (MAP) Pulse Ox O2 Delivery O2 Flow Rate FiO2 11/16/18 11:35 Room Air 11/16/18 10:58 97.9 66 16 81/52 (62) 98 97.9 Labs: Labs: Laboratory Tests Test 11/16/18 01:03 11/16/18 01:25 11/16/18 02:15 11/16/18 02:22 White Blood Count 9.7 x10^3/uL (4.0-11.0) Red Blood Count 4.49 x10^6/uL (3.50-5.40) Hemoglobin 9.5 g/dL (12.0-15.5) Hematocrit 31.0 % (36.0-47.0) Mean Corpuscular Volume 69 fL (79-100) Mean Corpuscular Hemoglobin 21 pg (25-35) Mean Corpuscular Hemoglobin Concent 31 g/dL (31-37) Red Cell Distribution Width 16.5 % (11.5-14.5) Platelet Count 322 x10^3/uL (140-400) Neutrophils (%) (Auto) 53 % (31-73) Lymphocytes (%) (Auto) 39 % (24-48) Monocytes (%) (Auto) 5 % (0-9) Eosinophils (%) (Auto) 2 % (0-3) Basophils (%) (Auto) 1 % (0-3) Neutrophils # (Auto) 5.1 x10^3uL (1.8-7.7) Lymphocytes # (Auto) 3.8 x10^3/uL (1.0-4.8) Monocytes # (Auto) 0.5 x10^3/uL (0.0-1.1) Eosinophils # (Auto) 0.2 x10^3/uL (0.0-0.7) Basophils # (Auto) 0.1 x10^3/uL (0.0-0.2) Platelet Estimate Adequate (ADEQUATE) Polychromasia Slight Hypochromasia Mod Anisocytosis Slight Microcytosis Mod Prothrombin Time 13.0 SEC (11.7-14.0) Prothromb Time International Ratio 1.0 (0.8-1.1) Sodium Level 140 mmol/L (136-145) Potassium Level 3.8 mmol/L (3.5-5.1) Chloride Level 105 mmol/L (98-107) Carbon Dioxide Level 26 mmol/L (21-32) Anion Gap 9 (6-14) Blood Urea Nitrogen 6 mg/dL (7-20) Creatinine 0.5 mg/dL (0.6-1.0) Estimated GFR (Cockcroft-Gault) 154.3 BUN/Creatinine Ratio 12 (6-20) Glucose Level 95 mg/dL (70-99) Calcium Level 8.5 mg/dL (8.5-10.1) Total Bilirubin 0.2 mg/dL (0.2-1.0) Aspartate Amino Transf (AST/SGOT) 15 U/L (15-37) Alanine Aminotransferase (ALT/SGPT) 11 U/L (14-59) Alkaline Phosphatase 56 U/L (46-116) Total Protein 6.5 g/dL (6.4-8.2) Albumin 3.0 g/dL (3.4-5.0) Albumin/Globulin Ratio 0.9 (1.0-1.7) Lipase 77 U/L (73-393) Lactic Acid Level 0.8 mmol/L (0.4-2.0) Urine Collection Type Unknown Urine Color Yellow Urine Clarity Clear Urine pH 6.5 Urine Specific [place] >=1.030 Urine Protein Negative mg/dL (NEG-TRACE) Urine Glucose (UA) Negative mg/dL (NEG) Urine Ketones (Stick) Negative mg/dL (NEG) Urine Blood Negative (NEG) Urine Nitrite Negative (NEG) Urine Bilirubin Negative (NEG) Urine Urobilinogen Dipstick 0.2 mg/dL (0.2 mg/dL) Urine Leukocyte Esterase Small (NEG) Urine RBC Occ /HPF (0-2) Urine WBC 5-10 /HPF (0-4) Urine Squamous Epithelial Cells Many /LPF Urine Bacteria Few /HPF (0-FEW) Bedside Urine HCG, Qualitative Hcg negative (Negative) Test 11/16/18 12:25 Iron Level 10 ug/dL (50-170) Total Iron Binding Capacity 405 ug/dL (250-450) Iron Saturation 2 % (15-34) Allergies: Coded Allergies: NSAIDS (Non-Steroidal Anti-Inflamma (Verified Allergy, Severe, "Not supposed to have after bypass", 08/13/18) diclofenac (Verified Allergy, Severe, Hives, 08/13/18) meloxicam (Verified Allergy, Severe, "Couldn't breathe", 08/13/18) amoxicillin (Verified Allergy, Intermediate, rash, 11/16/18) codeine (Verified Allergy, Intermediate, Hives, 08/13/18) Tolerates oxycodone dicyclomine (Verified Allergy, Intermediate, Hives, 08/13/18) fentanyl (Verified Allergy, Intermediate, "Hives and couldn't breathe", ) ketamine (Verified Allergy, Intermediate, HIVES, 11/16/18) ketorolac (Verified Allergy, Intermediate, Hives, 08/13/18) lidocaine (Verified Allergy, Intermediate, Rash, 11/16/18) tizanidine (Verified Allergy, Intermediate, Hives, 02/25/17) tramadol (Verified Allergy, Intermediate, Hives, 08/13/18) Tolerates oxycodone cyclobenzaprine (Verified Adverse Reaction, Intermediate, "DOESN'T WORK", 02/06/17) Medications: Current Medications Medications (Trade) Dose Ordered Sig/Julia Route PRN Reason Start Time Stop Time Status Last Admin Dose Admin Morphine Sulfate (Morphine Sulfate) 4 mg 1X ONCE IV 11/16/18 01:00 11/16/18 01:01 DC 11/16/18 01:02 Sodium Chloride 1,000 ml @ 1,000 mls/hr 1X ONCE IV 11/16/18 01:00 11/16/18 01:59 DC 11/16/18 01:00 Ondansetron HCl (Zofran) 4 mg 1X ONCE IV 11/16/18 01:00 11/16/18 01:01 DC 11/16/18 01:01 Diphenhydramine HCl (Benadryl) 25 mg 1X ONCE IVP 11/16/18 01:30 11/16/18 01:31 DC 11/16/18 01:20 Sodium Chloride 1,000 ml @ 100 mls/hr Q10H IV 11/16/18 02:30 11/17/18 02:29 11/16/18 10:40 Oxycodone/ Acetaminophen (Percocet 10/325) 1 tab PRN Q4HRS PRN PO MODERATE-SEVERE PAIN 11/16/18 02:30 11/16/18 10:39 Alprazolam (Xanax) 1 mg PRN Q4HRS PRN PO ANXIETY 11/16/18 02:30 11/16/18 10:39 Nicotine (Nicoderm Cq 21mg) 1 patch PRN DAILY PRN TD SMOKING CESSATION 11/16/18 05:45 11/16/18 10:40 Hydromorphone HCl (Dilaudid) 1 mg 1X ONCE IV 11/16/18 08:45 11/16/18 08:48 DC 11/16/18 08:54 Sodium Chloride 1,000 ml @ 1,000 mls/hr 1X ONCE IV 11/16/18 11:00 11/16/18 11:59 DC 11/16/18 11:00 Metoclopramide HCl (Reglan) 10 mg QID PO 11/16/18 13:00 11/16/18 12:33 Lamotrigine (LaMICtal) 200 mg BID PO 11/16/18 12:30 11/16/18 12:33 Polysaccharide Iron Complex (Niferex 150) 150 mg DAILY PO 11/16/18 13:00 11/16/18 12:33 Imaging: Imaging: Reviewed. PE: GEN: NAD HEENT: Atraumatic, PERRL LUNGS: CTAB HEART: RRR ABD: BS+, soft, non-distended, more tender w/ palpation w/ hands compared to stethoscope EXTREMITY: No edema SKIN: No rashes, no jaundice NEURO/PSYCH: A & O 3, tearful A/P: A/P: Chronic abd pain, retching, diarrhea S/p Aurelio-en-Y, ?PUD ?abnormal CT - stable per discussion in chart [id number] CRC screen - average risk S/p cholecystectomy -- Pain control per primary. Agree with PPI - change to PO if eating. Add Carafate and iron. Check stool studies consider her reports of diarrhea and recent atbx use. KARI GLASGOW Nov 16, 2018 13:21
[2018-11-16] MEDS: DOXYCYCLINE HYCLATE 100 MG in IV DEXTROSE 5% 100ML 100 ML IV SCH ×2 (13:50→21:05)
--- NOTE | 2018-11-16 14:04 | RAD ---
EXAM: Abdomen acute complete. HISTORY: Pain. COMPARISON: CT dated 08/12/2018. FINDINGS: A frontal view the chest and frontal upright and supine views of the abdomen are obtained. There is no infiltrate, pleural effusion or pneumothorax. The heart is normal in size. There is gas and stool within the colon. There are no SPECT sutures within the left mid abdomen and left upper quadrant. There is no evidence of bowel obstruction. There are postoperative clips. There is no free air. IMPRESSION: 1. No acute pulmonary finding. 2. Nonobstructive bowel gas pattern. Electronically signed by: Humaira Love MD (11/16/2018 2:01 PM) [place] [id number]
[2018-11-16 14:15] VITALS: BP_SYST 83; BP_SYST 90; BP_DIAS 38; BP_DIAS 46
--- NOTE | 2018-11-16 14:29 | NUR ---
NEIL notified pt needs inpatient transfer to [facility]. NEIL phoned [facility] transfer line and requested a transfer. NEIL faxed referral and provided Physician phone number. Acceptance and admission pending. Will continue to follow.
[2018-11-16] MEDS: FERROUS SULFATE ORAL 300 MG/5 ML SOLUTION. PO SCH (14:45)
[2018-11-16] MEDS: SUCRALFATE 1 GM/10 ML ORAL.SUSP. PO SCH ×2 (16:08→19:47)
[2018-11-16] MEDS: CYANOCOBALAMIN (VITAMIN B-12) 1,000 MCG/ML VIAL IM SCH (16:32)
[2018-11-16 19:50] VITALS: BP 92/49
[2018-11-16 23:04] VITALS: BP 97/50
[2018-11-16] MEDS ORDERED: diphenhydrAMINE HCL 25 MG CAPSULE PO ONE (23:15)
[2018-11-17 03:21] VITALS: BP 91/40
[2018-11-17] MEDS: ALPRAZolam 0.5 MG TABLET PO PRN (03:48)
[2018-11-17] MEDS: oxyCODONE/APAP 10/325 1 TAB TABLET PO PRN (03:48)
[2018-11-17] MEDS: IV NORMAL SALINE 1000ML BAG 1,000 ML IV SCH (03:51)
[2018-11-17 06:01] LABS: BASO # 0.1 x10^3/uL (0.0-0.2); BASO % 1 % (0-3); EOS # 0.3 x10^3/uL (0.0-0.7); EOS % 5 % (0-3); HEMATOCRIT 26.2 % (36.0-47.0); HEMOGLOBIN 8.1 g/dL (12.0-15.5); LYMPH # 3.1 x10^3/uL (1.0-4.8); LYMPH % 52 % (24-48); MEAN CORPUSCULAR HEMOGLOBIN 21 pg (25-35); MEAN CORPUSCULAR HGB CONC 31 g/dL (31-37); MEAN CORPUSCULAR VOLUME 70 fL (79-100); MONO # 0.4 x10^3/uL (0.0-1.1); MONO % 7 % (0-9); NEUT # 2.2 x10^3uL (1.8-7.7); NEUT % 36 % (31-73); PLATELET COUNT 244 x10^3/uL (140-400); RED BLOOD COUNT 3.76 x10^6/uL (3.50-5.40); RED CELL DISTRIBUTION WIDTH 16.8 % (11.5-14.5)
[2018-11-17 06:23] LABS: CALCIUM 8.2 mg/dL (8.5-10.1); CREATININE 0.5 mg/dL (0.6-1.0); GFR 154.3; POTASSIUM 4.1 mmol/L (3.5-5.1)
[2018-11-17 07:00] VITALS: BP 91/50
[2018-11-17] MEDS ORDERED: PANTOPRAZOLE IV PUSH 40 MG VIAL. IVP SCH (07:30)
[2018-11-17] MEDS: SUCRALFATE 1 GM/10 ML ORAL.SUSP. PO SCH ×2 (07:30→11:30)
[2018-11-17] MEDS ORDERED: BARIUM SULFATE 60% 355 ML SUSP PO ONE (08:00)
[2018-11-17] MEDS: FERROUS SULFATE ORAL 300 MG/5 ML SOLUTION. PO SCH (08:00)
--- NOTE | 2018-11-17 08:42 | PDOC ---
Objective: Objective: RN called me last night and said the pt told her Dr. Raygoza was going to order stronger pain meds. Reviewed w/ today's RN - possible transfer to [facility]? Currently out for SBS, was upset she couldn't have pain meds before, but was also upset she was awakened during the night for vitals. No stools charted. Vital Signs: Vital Signs Date Time Temp Pulse Resp B/P (MAP) Pulse Ox O2 Delivery O2 Flow Rate FiO2 11/17/18 07:00 98.0 66 16 91/50 (64) 98 Room Air 98.0 Labs: Laboratory Tests Test 11/16/18 12:25 11/17/18 05:20 Erythrocyte Sedimentation Rate 10 Reticulocyte Count (auto) 1.1 % Iron Level 10 ug/dL Total Iron Binding Capacity 405 ug/dL Iron Saturation 2 % Vitamin B12 Level 189 pg/mL Prolactin 53.0 ng/mL Anti-Nuclear Antibody Interpret Pending White Blood Count 6.0 x10^3/uL Red Blood Count 3.76 x10^6/uL Hemoglobin 8.1 g/dL Hematocrit 26.2 % Mean Corpuscular Volume 70 fL Mean Corpuscular Hemoglobin 21 pg Mean Corpuscular Hemoglobin Concent 31 g/dL Red Cell Distribution Width 16.8 % Platelet Count 244 x10^3/uL Neutrophils (%) (Auto) 36 % Lymphocytes (%) (Auto) 52 % Monocytes (%) (Auto) 7 % Eosinophils (%) (Auto) 5 % Basophils (%) (Auto) 1 % Neutrophils # (Auto) 2.2 x10^3uL Lymphocytes # (Auto) 3.1 x10^3/uL Monocytes # (Auto) 0.4 x10^3/uL Eosinophils # (Auto) 0.3 x10^3/uL Basophils # (Auto) 0.1 x10^3/uL Sodium Level 142 mmol/L Potassium Level 4.1 mmol/L Chloride Level 108 mmol/L Carbon Dioxide Level 27 mmol/L Anion Gap 7 Blood Urea Nitrogen 5 mg/dL Creatinine 0.5 mg/dL Estimated GFR (Cockcroft-Gault) 154.3 Glucose Level 90 mg/dL Calcium Level 8.2 mg/dL Imaging: SBS 11/17 pending Acute Abd Series 11/16 IMPRESSION: 1. No acute pulmonary finding. 2. Nonobstructive bowel gas pattern. PE: out of room A/P: Chronic abd pain, s/p Aurelio-en-Y - on PPI and Carafate Anemia - iron and B12 deficient, now on replacement -- Out for SBS, will follow on results. Pain control per hospitalist. Note possible transfer plans. ALDA and Cortisol pending. Note elevated prolactin level - will review w/ Dr. Raygoza. KARI GLASGOW Nov 17, 2018 08:42
--- NOTE | 2018-11-17 08:56 | PDOC ---
PROGRESS NOTES History of Present Illness History of Present Illness Assessment/Plan Assessment/Plan Impression: Abdominal pain HX ULCERS HYPOTENSION ANXIETY DISORDER MICROCYTIC ANEMIA DEHYDRATION TOBACCO ABUSE POSSIBLE UTI plan iv dilaudid 1 mg SPARINGLY iv fluid bolus 1000 ml NS PRN SURG CONSULTED PREFER TRANSFER TO [facility] FU with Dr Smith that did her gastric bypass SOON REG DIET ADAT GI CONSULT AMBULATE TRANSFER TO [facility] TODAY IF OK WITH GI IV FLUID SUPPORT IV PROTONIX Vitals Vitals Vital Signs Date Time Temp Pulse Resp B/P (MAP) Pulse Ox O2 Delivery O2 Flow Rate FiO2 11/17/18 07:00 98.0 66 16 91/50 (64) 98 Room Air 98.0 Physical Exam General: Alert, Oriented X3, Cooperative, No acute distress, mild distress Heart: Regular rate, Normal S1, Normal S2, No murmurs Lungs: Clear Abdomen: Soft Extremities: No cyanosis Skin: No rashes, No breakdown Labs LABS EXAM: Abdomen acute complete. HISTORY: Pain. COMPARISON: CT dated 08/12/2018. FINDINGS: A frontal view the chest and frontal upright and supine views of the abdomen are obtained. There is no infiltrate, pleural effusion or pneumothorax. The heart is normal in size. There is gas and stool within the colon. There are no SPECT sutures within the left mid abdomen and left upper quadrant. There is no evidence of bowel obstruction. There are postoperative clips. There is no free air. IMPRESSION: 1. No acute pulmonary finding. 2. Nonobstructive bowel gas pattern. Electronically signed by: Humaira Love MD (11/16/2018 2:01 PM) [facility] Laboratory Tests Test 11/16/18 12:25 11/17/18 05:20 Erythrocyte Sedimentation Rate 10 (0-25) Reticulocyte Count (auto) 1.1 % (0.5-2.5) Iron Level 10 ug/dL (50-170) Total Iron Binding Capacity 405 ug/dL (250-450) Iron Saturation 2 % (15-34) Vitamin B12 Level 189 pg/mL (247-911) Prolactin 53.0 ng/mL (4.8-23.3) White Blood Count 6.0 x10^3/uL (4.0-11.0) Red Blood Count 3.76 x10^6/uL (3.50-5.40) Hemoglobin 8.1 g/dL (12.0-15.5) Hematocrit 26.2 % (36.0-47.0) Mean Corpuscular Volume 70 fL (79-100) Mean Corpuscular Hemoglobin 21 pg (25-35) Mean Corpuscular Hemoglobin Concent 31 g/dL (31-37) Red Cell Distribution Width 16.8 % (11.5-14.5) Platelet Count 244 x10^3/uL (140-400) Neutrophils (%) (Auto) 36 % (31-73) Lymphocytes (%) (Auto) 52 % (24-48) Monocytes (%) (Auto) 7 % (0-9) Eosinophils (%) (Auto) 5 % (0-3) Basophils (%) (Auto) 1 % (0-3) Neutrophils # (Auto) 2.2 x10^3uL (1.8-7.7) Lymphocytes # (Auto) 3.1 x10^3/uL (1.0-4.8) Monocytes # (Auto) 0.4 x10^3/uL (0.0-1.1) Eosinophils # (Auto) 0.3 x10^3/uL (0.0-0.7) Basophils # (Auto) 0.1 x10^3/uL (0.0-0.2) Sodium Level 142 mmol/L (136-145) Potassium Level 4.1 mmol/L (3.5-5.1) Chloride Level 108 mmol/L (98-107) Carbon Dioxide Level 27 mmol/L (21-32) Anion Gap 7 (6-14) Blood Urea Nitrogen 5 mg/dL (7-20) Creatinine 0.5 mg/dL (0.6-1.0) Estimated GFR (Cockcroft-Gault) 154.3 Glucose Level 90 mg/dL (70-99) Calcium Level 8.2 mg/dL (8.5-10.1) Assessment and Plan Assessmemt and Plan Problems Medical Problems: (1) Abdominal pain Status: Acute Comment Review of Relevant I have reviewed the following items loren (where applicable) has been applied. Labs Laboratory Tests Test 11/16/18 01:03 11/16/18 01:25 11/16/18 02:15 11/16/18 02:22 White Blood Count 9.7 x10^3/uL (4.0-11.0) Red Blood Count 4.49 x10^6/uL (3.50-5.40) Hemoglobin 9.5 g/dL (12.0-15.5) Hematocrit 31.0 % (36.0-47.0) Mean Corpuscular Volume 69 fL (79-100) Mean Corpuscular Hemoglobin 21 pg (25-35) Mean Corpuscular Hemoglobin Concent 31 g/dL (31-37) Red Cell Distribution Width 16.5 % (11.5-14.5) Platelet Count 322 x10^3/uL (140-400) Neutrophils (%) (Auto) 53 % (31-73) Lymphocytes (%) (Auto) 39 % (24-48) Monocytes (%) (Auto) 5 % (0-9) Eosinophils (%) (Auto) 2 % (0-3) Basophils (%) (Auto) 1 % (0-3) Neutrophils # (Auto) 5.1 x10^3uL (1.8-7.7) Lymphocytes # (Auto) 3.8 x10^3/uL (1.0-4.8) Monocytes # (Auto) 0.5 x10^3/uL (0.0-1.1) Eosinophils # (Auto) 0.2 x10^3/uL (0.0-0.7) Basophils # (Auto) 0.1 x10^3/uL (0.0-0.2) Platelet Estimate Adequate (ADEQUATE) Polychromasia Slight Hypochromasia Mod Anisocytosis Slight Microcytosis Mod Prothrombin Time 13.0 SEC (11.7-14.0) Prothromb Time International Ratio 1.0 (0.8-1.1) Sodium Level 140 mmol/L (136-145) Potassium Level 3.8 mmol/L (3.5-5.1) Chloride Level 105 mmol/L (98-107) Carbon Dioxide Level 26 mmol/L (21-32) Anion Gap 9 (6-14) Blood Urea Nitrogen 6 mg/dL (7-20) Creatinine 0.5 mg/dL (0.6-1.0) Estimated GFR (Cockcroft-Gault) 154.3 BUN/Creatinine Ratio 12 (6-20) Glucose Level 95 mg/dL (70-99) Calcium Level 8.5 mg/dL (8.5-10.1) Total Bilirubin 0.2 mg/dL (0.2-1.0) Aspartate Amino Transf (AST/SGOT) 15 U/L (15-37) Alanine Aminotransferase (ALT/SGPT) 11 U/L (14-59) Alkaline Phosphatase 56 U/L (46-116) Total Protein 6.5 g/dL (6.4-8.2) Albumin 3.0 g/dL (3.4-5.0) Albumin/Globulin Ratio 0.9 (1.0-1.7) Lipase 77 U/L (73-393) Lactic Acid Level 0.8 mmol/L (0.4-2.0) Urine Collection Type Unknown Urine Color Yellow Urine Clarity Clear Urine pH 6.5 Urine Specific [place] >=1.030 Urine Protein Negative mg/dL (NEG-TRACE) Urine Glucose (UA) Negative mg/dL (NEG) Urine Ketones (Stick) Negative mg/dL (NEG) Urine Blood Negative (NEG) Urine Nitrite Negative (NEG) Urine Bilirubin Negative (NEG) Urine Urobilinogen Dipstick 0.2 mg/dL (0.2 mg/dL) Urine Leukocyte Esterase Small (NEG) Urine RBC Occ /HPF (0-2) Urine WBC 5-10 /HPF (0-4) Urine Squamous Epithelial Cells Many /LPF Urine Bacteria Few /HPF (0-FEW) Bedside Urine HCG, Qualitative Hcg negative (Negative) Test 11/16/18 12:25 11/17/18 05:20 Erythrocyte Sedimentation Rate 10 (0-25) Reticulocyte Count (auto) 1.1 % (0.5-2.5) Iron Level 10 ug/dL (50-170) Total Iron Binding Capacity 405 ug/dL (250-450) Iron Saturation 2 % (15-34) Vitamin B12 Level 189 pg/mL (247-911) Prolactin 53.0 ng/mL (4.8-23.3) White Blood Count 6.0 x10^3/uL (4.0-11.0) Red Blood Count 3.76 x10^6/uL (3.50-5.40) Hemoglobin 8.1 g/dL (12.0-15.5) Hematocrit 26.2 % (36.0-47.0) Mean Corpuscular Volume 70 fL (79-100) Mean Corpuscular Hemoglobin 21 pg (25-35) Mean Corpuscular Hemoglobin Concent 31 g/dL (31-37) Red Cell Distribution Width 16.8 % (11.5-14.5) Platelet Count 244 x10^3/uL (140-400) Neutrophils (%) (Auto) 36 % (31-73) Lymphocytes (%) (Auto) 52 % (24-48) Monocytes (%) (Auto) 7 % (0-9) Eosinophils (%) (Auto) 5 % (0-3) Basophils (%) (Auto) 1 % (0-3) Neutrophils # (Auto) 2.2 x10^3uL (1.8-7.7) Lymphocytes # (Auto) 3.1 x10^3/uL (1.0-4.8) Monocytes # (Auto) 0.4 x10^3/uL (0.0-1.1) Eosinophils # (Auto) 0.3 x10^3/uL (0.0-0.7) Basophils # (Auto) 0.1 x10^3/uL (0.0-0.2) Sodium Level 142 mmol/L (136-145) Potassium Level 4.1 mmol/L (3.5-5.1) Chloride Level 108 mmol/L (98-107) Carbon Dioxide Level 27 mmol/L (21-32) Anion Gap 7 (6-14) Blood Urea Nitrogen 5 mg/dL (7-20) Creatinine 0.5 mg/dL (0.6-1.0) Estimated GFR (Cockcroft-Gault) 154.3 Glucose Level 90 mg/dL (70-99) Calcium Level 8.2 mg/dL (8.5-10.1) Laboratory Tests Test 11/16/18 12:25 11/17/18 05:20 Erythrocyte Sedimentation Rate 10 (0-25) Reticulocyte Count (auto) 1.1 % (0.5-2.5) Iron Level 10 ug/dL (50-170) Total Iron Binding Capacity 405 ug/dL (250-450) Iron Saturation 2 % (15-34) Vitamin B12 Level 189 pg/mL (247-911) Prolactin 53.0 ng/mL (4.8-23.3) White Blood Count 6.0 x10^3/uL (4.0-11.0) Red Blood Count 3.76 x10^6/uL (3.50-5.40) Hemoglobin 8.1 g/dL (12.0-15.5) Hematocrit 26.2 % (36.0-47.0) Mean Corpuscular Volume 70 fL (79-100) Mean Corpuscular Hemoglobin 21 pg (25-35) Mean Corpuscular Hemoglobin Concent 31 g/dL (31-37) Red Cell Distribution Width 16.8 % (11.5-14.5) Platelet Count 244 x10^3/uL (140-400) Neutrophils (%) (Auto) 36 % (31-73) Lymphocytes (%) (Auto) 52 % (24-48) Monocytes (%) (Auto) 7 % (0-9) Eosinophils (%) (Auto) 5 % (0-3) Basophils (%) (Auto) 1 % (0-3) Neutrophils # (Auto) 2.2 x10^3uL (1.8-7.7) Lymphocytes # (Auto) 3.1 x10^3/uL (1.0-4.8) Monocytes # (Auto) 0.4 x10^3/uL (0.0-1.1) Eosinophils # (Auto) 0.3 x10^3/uL (0.0-0.7) Basophils # (Auto) 0.1 x10^3/uL (0.0-0.2) Sodium Level 142 mmol/L (136-145) Potassium Level 4.1 mmol/L (3.5-5.1) Chloride Level 108 mmol/L (98-107) Carbon Dioxide Level 27 mmol/L (21-32) Anion Gap 7 (6-14) Blood Urea Nitrogen 5 mg/dL (7-20) Creatinine 0.5 mg/dL (0.6-1.0) Estimated GFR (Cockcroft-Gault) 154.3 Glucose Level 90 mg/dL (70-99) Calcium Level 8.2 mg/dL (8.5-10.1) Medications Current Medications Morphine Sulfate (Morphine Sulfate) 4 mg 1X ONCE IV Last administered on at 01:02; Start 11/16/18 at 01:00; Stop 11/16/18 at 01:01; Status DC Sodium Chloride 1,000 ml @ 1,000 mls/hr 1X ONCE IV Last administered on 01:00; Start 11/16/18 at 01:00; Stop 11/16/18 at 01:59; Status DC Ondansetron HCl (Zofran) 4 mg 1X ONCE IV Last administered on 11/16/18at 01:01 ; Start 11/16/18 at 01:00; Stop 11/16/18 at 01:01; Status DC Ondansetron HCl (Zofran) 4 mg 1X ONCE IV ; Start 11/16/18 at 01:00; Stop at 01:01; Status DC Diphenhydramine HCl (Benadryl) 25 mg 1X ONCE IVP Last administered on at 01:20; Start 11/16/18 at 01:30; Stop 11/16/18 at 01:31; Status DC Sodium Chloride 1,000 ml @ 100 mls/hr Q10H IV Last administered on 11/17/18 03:51; Start 11/16/18 at 02:30; Stop 11/17/18 at 02:29; Status DC Oxycodone/ Acetaminophen (Percocet 10/325) 1 tab PRN Q4HRS PRN PO MODERATE- SEVERE PAIN Last administered on 11/17/18 03:48; Start 11/16/18 at 02:30 Alprazolam (Xanax) 1 mg PRN Q4HRS PRN PO ANXIETY Last administered on 03:48; Start 11/16/18 at 02:30 Alprazolam (Xanax) 0.5 mg STK-MED ONCE .ROUTE ; Start 11/16/18 at 02:30; Stop at 02:31; Status DC Methocarbamol (Robaxin) 500 mg PRN Q6HRS PRN PO MUSCLE SPASMS Last administered on 11/16/18at 22:48; Start 11/16/18 at 03:15 Nicotine (Nicoderm Cq 21mg) 1 patch PRN DAILY PRN TD SMOKING CESSATION Last administered on 11/16/18at 10:40; Start 11/16/18 at 05:45 Hydromorphone HCl (Dilaudid) 1 mg 1X ONCE IV Last administered on 11/16/18at 08 :54; Start 11/16/18 at 08:45; Stop 11/16/18 at 08:48; Status DC Sodium Chloride 1,000 ml @ 1,000 mls/hr 1X ONCE IV Last administered on at 11:00; Start 11/16/18 at 11:00; Stop 11/16/18 at 11:59; Status DC Alprazolam (Xanax) 1 mg PRN Q6HRS PRN PO ANXIETY / AGITATION; Start 11/16/18 at 11:45; Stop 11/16/18 at 11:45; Status DC Metoclopramide HCl (Reglan) 10 mg QID PO Last administered on 11/16/18at 19:47; Start 11/16/18 at 13:00 Acetaminophen (Tylenol) 500 mg PRN Q6HRS PRN PO MILD PAIN / TEMP; Start at 12:00 Lamotrigine (LaMICtal) 200 mg BID PO Last administered on 11/16/18at 19:46; Start 11/16/18 at 12:30 Lidocaine (Lidoderm) 1 patch DAILY TD ; Start 11/16/18 at 12:30; Stop 11/16/18 at 13:05; Status DC Ondansetron HCl (Zofran Odt) 4 mg PRN Q6HRS PRN PO NAUSEA/VOMITING Last administered on 11/16/18at 22:48; Start 11/16/18 at 12:00 Sodium Chloride 1,000 ml @ 125 mls/hr 1X ONCE IV ; Start 11/16/18 at 11:45; Stop 11/16/18 at 19:44; Status DC Pantoprazole Sodium (PROTONIX VIAL for IV PUSH) 40 mg DAILYAC IVP ; Start at 07:30; Stop 11/17/18 at 08:42; Status DC Doxycycline Hyclate 100 mg/ Dextrose 100 ml @ 50 mls/hr Q12HR IV Last administered on 11/16/18at 21:05; Start 11/16/18 at 13:00 Polysaccharide Iron Complex (Niferex 150) 150 mg DAILY PO Last administered on 11/16/18at 12:33; Start 11/16/18 at 13:00; Stop 11/16/18 at 14:45; Status DC Sucralfate (Carafate) 1 gm QIDACHS PO Last administered on 11/16/18at 19:47; Start 11/16/18 at 16:30 Ferrous Sulfate (Iron Oral Solution) 300 mg BIDWMEALS PO ; Start 11/16/18 at 17: 00 Cyanocobalamin (Vitamin B-12) 1,000 mcg DAILY IM Last administered on at 16:32; Start 11/16/18 at 16:30 Hydromorphone HCl (Dilaudid) 0.5 mg 1X ONCE IV Last administered on 11/16/18at 16:24; Start 11/16/18 at 16:15; Stop 11/16/18 at 16:16; Status DC Hydromorphone HCl (Dilaudid) 1 mg 1X ONCE IV Last administered on 11/16/18at 21 :43; Start 11/16/18 at 21:30; Stop 11/16/18 at 21:32; Status DC Diphenhydramine HCl (Benadryl) 25 mg 1X ONCE PO Last administered on at 23:42; Start 11/16/18 at 23:15; Stop 11/16/18 at 23:16; Status DC Barium Sulfate (Liquid E-Z Paque) 710 ml 1X ONCE PO ; Start 11/17/18 at 08:00; Stop 11/17/18 at 08:01; Status DC Pantoprazole Sodium (Protonix) 40 mg DAILYAC PO ; Start 11/18/18 at 07:30 Active Scripts Active Cephalexin 500 Mg Capsule 1 Cap PO QID Carisoprodol 350 Mg Tablet 1 Tab PO QID Alprazolam 1 Mg Tablet 1 Tab PO BID Percocet 10-325 Mg Tablet (Oxycodone/Acetaminophen) 1 Each Tablet 1 Tab PO PRN Q6HRS PRN Percocet 7.5-325 Mg Tablet (Oxycodone/Acetaminophen) 1 Each Tablet 1 Tab PO PRN Q6HRS PRN Alprazolam 1 Mg Tablet 1 Mg PO PRN Q6HRS PRN Soma (Carisoprodol) 350 Mg Tablet 350 Mg PO TID&HS Carisoprodol 350 Mg Tablet 1 Tab PO QID Alprazolam 1 Mg Tablet 1 Tab PO TID Percocet 10-325 Mg Tablet (Oxycodone/Acetaminophen) 1 Each Tablet 1 Tab PO TID PRN Zofran (Ondansetron Hcl) 4 Mg Tablet 1 Tab PO PRN Q6-8HRS Reglan (Metoclopramide Hcl) 10 Mg Tablet 1 Tab PO QID Oxycodone Hcl 5 Mg Capsule 1-2 Cap PO TID PRN Lidocaine 1 Each Adh..patch 1 Each TP Q12HR Keep patch on for 12 hours then please remove and keep off for next 12 hours. Orphenadrine Citrate 100 Mg Tablet.er 1 Tab PO BID PRN Penicillin V Potassium 500 Mg Tablet 1 Tab PO TID Reported Acetaminophen 500 Mg Tablet 1 Tab PO Q6HRS Lamictal (Lamotrigine) 200 Mg Tablet 1 Tab PO BID Vitals/I & O Vital Sign - Last 24 Hours 11/16/18 11/16/18 11/16/18 11/16/18 09:45 10:39 10:58 14:15 Temp 97.9 97.9 Pulse 66 70 Resp 16 B/P (MAP) 81/52 (62) 90/46 (61) Pulse Ox 98 O2 Delivery Room Air Room Air Room Air 11/16/18 11/16/18 11/16/18 11/16/18 14:15 14:49 16:24 16:51 Pulse 61 B/P (MAP) 83/38 (53) O2 Delivery Room Air Room Air Room Air 11/16/18 11/16/18 11/16/18 11/16/18 19:46 19:50 20:00 21:43 Temp 97.9 97.9 Pulse 83 Resp 18 B/P (MAP) 92/49 (63) Pulse Ox 93 O2 Delivery Room Air Room Air Room Air Room Air 11/16/18 11/16/18 11/16/18 11/17/18 22:13 23:04 23:43 03:21 Temp 97.3 98.6 97.3 98.6 Pulse 65 63 Resp 18 18 B/P (MAP) 97/50 (66) 91/40 (57) Pulse Ox 99 100 O2 Delivery Room Air Room Air Room Air Room Air 11/17/18 11/17/18 11/17/18 03:48 04:48 07:00 Temp 98.0 98.0 Pulse 66 Resp 16 B/P (MAP) 91/50 (64) Pulse Ox 98 O2 Delivery Room Air Room Air Room Air Intake and Output 2/26/19 2/26/19 2/27/19 15:00 23:00 07:00 Intake Total 800 ml 390 ml 450 ml Balance 800 ml 390 ml 450 ml MELVI MOTA MD Nov 17, 2018 08:56
[2018-11-17] MEDS: lamoTRIgine 100 MG TABLET. PO SCH (09:00)
[2018-11-17] MEDS: CYANOCOBALAMIN (VITAMIN B-12) 1,000 MCG/ML VIAL IM SCH (09:00)
[2018-11-17] MEDS: METOCLOPRAMIDE 10 MG TABLET. PO SCH ×2 (09:00→13:00)
[2018-11-17] MEDS: DOXYCYCLINE HYCLATE 100 MG in IV DEXTROSE 5% 100ML 100 ML IV SCH (09:00)
--- NOTE | 2018-11-17 09:01 | NUR ---
SW following pt. Spoke with [facility] bed controlPaulina and Pt has been accepted at [facility]. Pt currently doing bowel series. SW arranged transportation at 1400 via [place]. Pt's mother, Nae notified Via phone. SW provided RN with a phone number for report. Packet on chart. Physician notified.
--- NOTE | 2018-11-17 09:02 | PDOC3 ---
Discharge Summary Date of Admission: Nov 15, 2018 Date of Discharge: Nov 17, 2018 Follow-Up: 1-2 days Admitting Diagnosis comment: DISCHARGE DX Assessment/Plan Impression: Abdominal pain HX ULCERS HYPOTENSION ANXIETY DISORDER MICROCYTIC ANEMIA DEHYDRATION TOBACCO ABUSE POSSIBLE UTI plan iv dilaudid 1 mg SPARINGLY iv fluid bolus 1000 ml NS PRN SURG CONSULTED PREFER TRANSFER TO [facility] FU with Dr Smith that did her gastric bypass SOON REG DIET ADAT GI CONSULT AMBULATE TRANSFER TO [facility] TODAY IF OK WITH GI IV FLUID SUPPORT IV PROTONIX Vitals Vitals Vital Signs Date Time Temp Pulse Resp B/P (MAP) Pulse Ox O2 Delivery O2 Flow Rate FiO2 11/17/18 07:00 98.0 66 16 91/50 (64) 98 Room Air 98.0 Physical Exam General: Alert, Oriented X3, Cooperative, , mild distress Heart: Regular rate, Normal S1, Normal S2, No murmurs Lungs: Clear Abdomen: Soft Extremities: No cyanosis Skin: No rashes, No breakdown Labs LABS EXAM: Abdomen acute complete. HISTORY: Pain. COMPARISON: CT dated 08/12/2018. FINDINGS: A frontal view the chest and frontal upright and supine views of the abdomen are obtained. There is no infiltrate, pleural effusion or pneumothorax. The heart is normal in size. There is gas and stool within the colon. There are no SPECT sutures within the left mid abdomen and left upper quadrant. There is no evidence of bowel obstruction. There are postoperative clips. There is no free air. IMPRESSION: 1. No acute pulmonary finding. 2. Nonobstructive bowel gas pattern. FINAL DIAGNOSIS Problems Medical Problems: (1) Abdominal pain Status: Acute Brief Hospital Course Ms. Villarreal is a 22 old [sex] who presented with [ SEVERE ABD PAIN , HX PUD] CONDITION AT DISCHARGE: Comment (STILL IN PAIN) Discharge Medications Current Medications Morphine Sulfate (Morphine Sulfate) 4 mg 1X ONCE IV Last administered on at 01:02; Start 11/16/18 at 01:00; Stop 11/16/18 at 01:01; Status DC Sodium Chloride 1,000 ml @ 1,000 mls/hr 1X ONCE IV Last administered on at 01:00; Start 11/16/18 at 01:00; Stop 11/16/18 at 01:59; Status DC Ondansetron HCl (Zofran) 4 mg 1X ONCE IV Last administered on 11/16/18at 01:01 ; Start 11/16/18 at 01:00; Stop 11/16/18 at 01:01; Status DC Ondansetron HCl (Zofran) 4 mg 1X ONCE IV ; Start 11/16/18 at 01:00; Stop at 01:01; Status DC Diphenhydramine HCl (Benadryl) 25 mg 1X ONCE IVP Last administered on at 01:20; Start 11/16/18 at 01:30; Stop 11/16/18 at 01:31; Status DC Sodium Chloride 1,000 ml @ 100 mls/hr Q10H IV Last administered on 11/17/18at 03:51; Start 11/16/18 at 02:30; Stop 11/17/18 at 02:29; Status DC Oxycodone/ Acetaminophen (Percocet 10/325) 1 tab PRN Q4HRS PRN PO MODERATE- SEVERE PAIN Last administered on 11/17/18at 03:48; Start 11/16/18 at 02:30 Alprazolam (Xanax) 1 mg PRN Q4HRS PRN PO ANXIETY Last administered on at 03:48; Start 11/16/18 at 02:30 Alprazolam (Xanax) 0.5 mg STK-MED ONCE .ROUTE ; Start 11/16/18 at 02:30; Stop at 02:31; Status DC Methocarbamol (Robaxin) 500 mg PRN Q6HRS PRN PO MUSCLE SPASMS Last administered on 11/16/18at 22:48; Start 11/16/18 at 03:15 Nicotine (Nicoderm Cq 21mg) 1 patch PRN DAILY PRN TD SMOKING CESSATION Last administered on 11/16/18at 10:40; Start 11/16/18 at 05:45 Hydromorphone HCl (Dilaudid) 1 mg 1X ONCE IV Last administered on 11/16/18at 08 :54; Start 11/16/18 at 08:45; Stop 11/16/18 at 08:48; Status DC Sodium Chloride 1,000 ml @ 1,000 mls/hr 1X ONCE IV Last administered on at 11:00; Start 11/16/18 at 11:00; Stop 11/16/18 at 11:59; Status DC Alprazolam (Xanax) 1 mg PRN Q6HRS PRN PO ANXIETY / AGITATION; Start 11/16/18 at 11:45; Stop 11/16/18 at 11:45; Status DC Metoclopramide HCl (Reglan) 10 mg QID PO Last administered on 11/16/18at 19:47; Start 11/16/18 at 13:00 Acetaminophen (Tylenol) 500 mg PRN Q6HRS PRN PO MILD PAIN / TEMP; Start at 12:00 Lamotrigine (LaMICtal) 200 mg BID PO Last administered on 11/16/18at 19:46; Start 11/16/18 at 12:30 Lidocaine (Lidoderm) 1 patch DAILY TD ; Start 11/16/18 at 12:30; Stop 11/16/18 at 13:05; Status DC Ondansetron HCl (Zofran Odt) 4 mg PRN Q6HRS PRN PO NAUSEA/VOMITING Last administered on 11/16/18at 22:48; Start 11/16/18 at 12:00 Sodium Chloride 1,000 ml @ 125 mls/hr 1X ONCE IV ; Start 11/16/18 at 11:45; Stop 11/16/18 at 19:44; Status DC Pantoprazole Sodium (PROTONIX VIAL for IV PUSH) 40 mg DAILYAC IVP ; Start at 07:30; Stop 11/17/18 at 08:42; Status DC Doxycycline Hyclate 100 mg/ Dextrose 100 ml @ 50 mls/hr Q12HR IV Last administered on 11/16/18at 21:05; Start 11/16/18 at 13:00 Polysaccharide Iron Complex (Niferex 150) 150 mg DAILY PO Last administered on 11/16/18at 12:33; Start 11/16/18 at 13:00; Stop 11/16/18 at 14:45; Status DC Sucralfate (Carafate) 1 gm QIDACHS PO Last administered on 11/16/18at 19:47; Start 11/16/18 at 16:30 Ferrous Sulfate (Iron Oral Solution) 300 mg BIDWMEALS PO ; Start 11/16/18 at 17: 00 Cyanocobalamin (Vitamin B-12) 1,000 mcg DAILY IM Last administered on at 16:32; Start 11/16/18 at 16:30 Hydromorphone HCl (Dilaudid) 0.5 mg 1X ONCE IV Last administered on 11/16/18at 16:24; Start 11/16/18 at 16:15; Stop 11/16/18 at 16:16; Status DC Hydromorphone HCl (Dilaudid) 1 mg 1X ONCE IV Last administered on 11/16/18at 21 :43; Start 11/16/18 at 21:30; Stop 11/16/18 at 21:32; Status DC Diphenhydramine HCl (Benadryl) 25 mg 1X ONCE PO Last administered on at 23:42; Start 11/16/18 at 23:15; Stop 11/16/18 at 23:16; Status DC Barium Sulfate (Liquid E-Z Paque) 710 ml 1X ONCE PO ; Start 11/17/18 at 08:00; Stop 11/17/18 at 08:01; Status DC Pantoprazole Sodium (Protonix) 40 mg DAILYAC PO ; Start 11/18/18 at 07:30 Active Scripts Active Cephalexin 500 Mg Capsule 1 Cap PO QID Carisoprodol 350 Mg Tablet 1 Tab PO QID Alprazolam 1 Mg Tablet 1 Tab PO BID Percocet 10-325 Mg Tablet (Oxycodone/Acetaminophen) 1 Each Tablet 1 Tab PO PRN Q6HRS PRN Percocet 7.5-325 Mg Tablet (Oxycodone/Acetaminophen) 1 Each Tablet 1 Tab PO PRN Q6HRS PRN Alprazolam 1 Mg Tablet 1 Mg PO PRN Q6HRS PRN Soma (Carisoprodol) 350 Mg Tablet 350 Mg PO TID&HS Carisoprodol 350 Mg Tablet 1 Tab PO QID Alprazolam 1 Mg Tablet 1 Tab PO TID Percocet 10-325 Mg Tablet (Oxycodone/Acetaminophen) 1 Each Tablet 1 Tab PO TID PRN Zofran (Ondansetron Hcl) 4 Mg Tablet 1 Tab PO PRN Q6-8HRS Reglan (Metoclopramide Hcl) 10 Mg Tablet 1 Tab PO QID Oxycodone Hcl 5 Mg Capsule 1-2 Cap PO TID PRN Lidocaine 1 Each Adh..patch 1 Each TP Q12HR Keep patch on for 12 hours then please remove and keep off for next 12 hours. Orphenadrine Citrate 100 Mg Tablet.er 1 Tab PO BID PRN Penicillin V Potassium 500 Mg Tablet 1 Tab PO TID Reported Acetaminophen 500 Mg Tablet 1 Tab PO Q6HRS Lamictal (Lamotrigine) 200 Mg Tablet 1 Tab PO BID Vital Signs Vital Signs Date Time Temp Pulse Resp B/P (MAP) Pulse Ox O2 Delivery O2 Flow Rate FiO2 11/17/18 07:00 98.0 66 16 91/50 (64) 98 Room Air 98.0 Labs Laboratory Tests Test 11/16/18 01:03 11/16/18 01:25 11/16/18 02:15 11/16/18 02:22 White Blood Count 9.7 x10^3/uL (4.0-11.0) Red Blood Count 4.49 x10^6/uL (3.50-5.40) Hemoglobin 9.5 g/dL (12.0-15.5) Hematocrit 31.0 % (36.0-47.0) Mean Corpuscular Volume 69 fL (79-100) Mean Corpuscular Hemoglobin 21 pg (25-35) Mean Corpuscular Hemoglobin Concent 31 g/dL (31-37) Red Cell Distribution Width 16.5 % (11.5-14.5) Platelet Count 322 x10^3/uL (140-400) Neutrophils (%) (Auto) 53 % (31-73) Lymphocytes (%) (Auto) 39 % (24-48) Monocytes (%) (Auto) 5 % (0-9) Eosinophils (%) (Auto) 2 % (0-3) Basophils (%) (Auto) 1 % (0-3) Neutrophils # (Auto) 5.1 x10^3uL (1.8-7.7) Lymphocytes # (Auto) 3.8 x10^3/uL (1.0-4.8) Monocytes # (Auto) 0.5 x10^3/uL (0.0-1.1) Eosinophils # (Auto) 0.2 x10^3/uL (0.0-0.7) Basophils # (Auto) 0.1 x10^3/uL (0.0-0.2) Platelet Estimate Adequate (ADEQUATE) Polychromasia Slight Hypochromasia Mod Anisocytosis Slight Microcytosis Mod Prothrombin Time 13.0 SEC (11.7-14.0) Prothromb Time International Ratio 1.0 (0.8-1.1) Sodium Level 140 mmol/L (136-145) Potassium Level 3.8 mmol/L (3.5-5.1) Chloride Level 105 mmol/L (98-107) Carbon Dioxide Level 26 mmol/L (21-32) Anion Gap 9 (6-14) Blood Urea Nitrogen 6 mg/dL (7-20) Creatinine 0.5 mg/dL (0.6-1.0) Estimated GFR (Cockcroft-Gault) 154.3 BUN/Creatinine Ratio 12 (6-20) Glucose Level 95 mg/dL (70-99) Calcium Level 8.5 mg/dL (8.5-10.1) Total Bilirubin 0.2 mg/dL (0.2-1.0) Aspartate Amino Transf (AST/SGOT) 15 U/L (15-37) Alanine Aminotransferase (ALT/SGPT) 11 U/L (14-59) Alkaline Phosphatase 56 U/L (46-116) Total Protein 6.5 g/dL (6.4-8.2) Albumin 3.0 g/dL (3.4-5.0) Albumin/Globulin Ratio 0.9 (1.0-1.7) Lipase 77 U/L (73-393) Lactic Acid Level 0.8 mmol/L (0.4-2.0) Urine Collection Type Unknown Urine Color Yellow Urine Clarity Clear Urine pH 6.5 Urine Specific Pitkin >=1.030 Urine Protein Negative mg/dL (NEG-TRACE) Urine Glucose (UA) Negative mg/dL (NEG) Urine Ketones (Stick) Negative mg/dL (NEG) Urine Blood Negative (NEG) Urine Nitrite Negative (NEG) Urine Bilirubin Negative (NEG) Urine Urobilinogen Dipstick 0.2 mg/dL (0.2 mg/dL) Urine Leukocyte Esterase Small (NEG) Urine RBC Occ /HPF (0-2) Urine WBC 5-10 /HPF (0-4) Urine Squamous Epithelial Cells Many /LPF Urine Bacteria Few /HPF (0-FEW) Bedside Urine HCG, Qualitative Hcg negative (Negative) Test 11/16/18 12:25 11/17/18 05:20 Erythrocyte Sedimentation Rate 10 (0-25) Reticulocyte Count (auto) 1.1 % (0.5-2.5) Iron Level 10 ug/dL (50-170) Total Iron Binding Capacity 405 ug/dL (250-450) Iron Saturation 2 % (15-34) Vitamin B12 Level 189 pg/mL (247-911) Prolactin 53.0 ng/mL (4.8-23.3) White Blood Count 6.0 x10^3/uL (4.0-11.0) Red Blood Count 3.76 x10^6/uL (3.50-5.40) Hemoglobin 8.1 g/dL (12.0-15.5) Hematocrit 26.2 % (36.0-47.0) Mean Corpuscular Volume 70 fL (79-100) Mean Corpuscular Hemoglobin 21 pg (25-35) Mean Corpuscular Hemoglobin Concent 31 g/dL (31-37) Red Cell Distribution Width 16.8 % (11.5-14.5) Platelet Count 244 x10^3/uL (140-400) Neutrophils (%) (Auto) 36 % (31-73) Lymphocytes (%) (Auto) 52 % (24-48) Monocytes (%) (Auto) 7 % (0-9) Eosinophils (%) (Auto) 5 % (0-3) Basophils (%) (Auto) 1 % (0-3) Neutrophils # (Auto) 2.2 x10^3uL (1.8-7.7) Lymphocytes # (Auto) 3.1 x10^3/uL (1.0-4.8) Monocytes # (Auto) 0.4 x10^3/uL (0.0-1.1) Eosinophils # (Auto) 0.3 x10^3/uL (0.0-0.7) Basophils # (Auto) 0.1 x10^3/uL (0.0-0.2) Sodium Level 142 mmol/L (136-145) Potassium Level 4.1 mmol/L (3.5-5.1) Chloride Level 108 mmol/L (98-107) Carbon Dioxide Level 27 mmol/L (21-32) Anion Gap 7 (6-14) Blood Urea Nitrogen 5 mg/dL (7-20) Creatinine 0.5 mg/dL (0.6-1.0) Estimated GFR (Cockcroft-Gault) 154.3 Glucose Level 90 mg/dL (70-99) Calcium Level 8.2 mg/dL (8.5-10.1) Laboratory Tests Test 11/16/18 12:25 11/17/18 05:20 Erythrocyte Sedimentation Rate 10 (0-25) Reticulocyte Count (auto) 1.1 % (0.5-2.5) Iron Level 10 ug/dL (50-170) Total Iron Binding Capacity 405 ug/dL (250-450) Iron Saturation 2 % (15-34) Vitamin B12 Level 189 pg/mL (247-911) Prolactin 53.0 ng/mL (4.8-23.3) White Blood Count 6.0 x10^3/uL (4.0-11.0) Red Blood Count 3.76 x10^6/uL (3.50-5.40) Hemoglobin 8.1 g/dL (12.0-15.5) Hematocrit 26.2 % (36.0-47.0) Mean Corpuscular Volume 70 fL (79-100) Mean Corpuscular Hemoglobin 21 pg (25-35) Mean Corpuscular Hemoglobin Concent 31 g/dL (31-37) Red Cell Distribution Width 16.8 % (11.5-14.5) Platelet Count 244 x10^3/uL (140-400) Neutrophils (%) (Auto) 36 % (31-73) Lymphocytes (%) (Auto) 52 % (24-48) Monocytes (%) (Auto) 7 % (0-9) Eosinophils (%) (Auto) 5 % (0-3) Basophils (%) (Auto) 1 % (0-3) Neutrophils # (Auto) 2.2 x10^3uL (1.8-7.7) Lymphocytes # (Auto) 3.1 x10^3/uL (1.0-4.8) Monocytes # (Auto) 0.4 x10^3/uL (0.0-1.1) Eosinophils # (Auto) 0.3 x10^3/uL (0.0-0.7) Basophils # (Auto) 0.1 x10^3/uL (0.0-0.2) Sodium Level 142 mmol/L (136-145) Potassium Level 4.1 mmol/L (3.5-5.1) Chloride Level 108 mmol/L (98-107) Carbon Dioxide Level 27 mmol/L (21-32) Anion Gap 7 (6-14) Blood Urea Nitrogen 5 mg/dL (7-20) Creatinine 0.5 mg/dL (0.6-1.0) Estimated GFR (Cockcroft-Gault) 154.3 Glucose Level 90 mg/dL (70-99) Calcium Level 8.2 mg/dL (8.5-10.1) Allergies Allergies Coded Allergies Type Severity Reaction Last Updated Verified NSAIDS (Non-Steroidal Anti-Inflamma Allergy Severe "Not supposed to have after bypass" 08/13/18 Yes diclofenac Allergy Severe Hives 08/13/18 Yes meloxicam Allergy Severe "Couldn't breathe" 08/13/18 Yes amoxicillin Allergy Intermediate rash 11/16/18 Yes codeine Allergy Intermediate Hives 08/13/18 Yes dicyclomine Allergy Intermediate Hives 08/13/18 Yes fentanyl Allergy Intermediate "Hives and couldn't breathe" 08/13/18 Yes ketamine Allergy Intermediate HIVES 11/16/18 Yes ketorolac Allergy Intermediate Hives 08/13/18 Yes lidocaine Allergy Intermediate Rash 11/16/18 Yes tizanidine Allergy Intermediate Hives 02/25/17 Yes tramadol Allergy Intermediate Hives 08/13/18 Yes cyclobenzaprine Adverse Reaction Intermediate "DOESN'T WORK" 02/06/17 Yes Disposition/Orders: D/C to Another Facility (TO [facility]) Patient Instructions D/C PLANNING 37 MIN MELVI MOTA MD Nov 17, 2018 09:01
[2018-11-17] MEDS ORDERED: SUCR1ORA5 PO (09:04)
[2018-11-17] MEDS ORDERED: CYAN10002 IM (09:04)
--- NOTE | 2018-11-17 09:05 | DISCH ---
DISCHARGE INSTRUCTIONS Condition on Discharge Condition on Discharge: Guarded Activity After Discharge Activity Instructions for Disc: Activity as tolerated Lifting Instructions after Dis: No heavy lifting Exercise Instruction after Dis: Walk 10 min, 3 x per day, Progress as tolerated Driving Instructions after Dis: Do not drive today, Other, see below Weight Bearing Status after Di: As tolerated Diet after Discharge Diet after Discharge: Regular Diet Texture: Regular Liquid Texture: Thin Liquid Swallowing Supervision: None needed Wound Incision Care Wound/Incision Care: No wound care needed Contacting the DR. after DC Call your doctor for: If your condition worsens Treatment/Equipment after DC Adaptive Equipment Issued: MELVI Silva MD Nov 17, 2018 09:05
--- NOTE | 2018-11-17 10:00 | NUR ---
[facility] down from [id number]. Downtime protocol initiated. See paper-charting for details.
--- NOTE | 2018-11-17 13:03 | RAD ---
Clinical indications: Abdominal pain. History of multiple surgeries including gastric bypass surgery with Aurelio-en-Y in 2014 and history of gallbladder surgery.. Technique: A preliminary KUB was performed. The patient drank two 8 ounce glasses of thin liquid barium and a small bowel series was performed. When the contrast reached the colon, fluoroscopic evaluation of the small bowel was performed including compressive fluoroscopic spot views of the terminal ileum. Total fluoroscopic time: 1.8 minutes. Total fluoroscopic spot images: 8. Findings: No obstructive bowel pattern is seen on the preliminary film.. Mild mild of fecal retention is seen within the colon. Contrast reaches the colon by 180 minutes. Peristalsis of the small bowel loops is observed during fluoroscopy. There is mild distortion of small bowel within the midabdomen without significant dilatation and no abnormal mucosal fold thickening. This may be related to adhesion from previous surgery. Terminal ileum is evaluated. The patient is focally tender in this area. Terminal ileum did not fully distend even with manual compression and fluoroscopic observation. The mucosal pattern appears smooth without irregularity and without any ulceration. This may be due to a spasm or inflammation. The patient patient also points to an area of focal tenderness of the upper mid abdomen which corresponds to the transverse colon. Transverse colon is not completely distended in this area. There is retrograde opacification of the afferent limb of the Aurelio-en-Y reconstruction into the duodenal bulb and distal stomach. No abnormality is seen here. No obstructive bowel pattern is seen. Impression: There is a mild delay in passage of the contrast through the small bowel. It takes 180 minutes for the contrast to pass through small bowel into the colon. Some of this may be related to fecal retention within the colon since the contrast bolus did move more quickly into the distal small bowel and proximal colon after the patient had a bowel movement. Otherwise, no obstructive bowel pattern is seen. There is segmental narrowing of the terminal ileum which may be due to spasm or inflammation. The terminal ileum within the ileocecal valve appears normal and is distensible otherwise. No ulceration or fistula is seen. The appendix is not visualized on this study.
[2018-11-17] MEDS ORDERED: HYDROmorphone 2 MG/ML VIAL IV ONE ×2 (13:15→14:00)
--- NOTE | 2018-11-17 15:00 | NUR ---
Pt transferred to [facility] via EMS. Report called to JASON Rothman at [phone]. All belongings with patient at time of discharge.
[2018-11-18] MEDS ORDERED: PANTOPRAZOLE 40 MG TABLET.DR. PO SCH (07:30)
[2018-11-18 20:12] LABS: ANA INTERP Negative (.)
== END 2018-11-17 15:00 | disposition short-term general hospital (02) | DRG 690 ==
LOC: ER 00:20 → OBSVTOIN 02:20 → 6 SOUTH 02:20 → ER 02:51
PROVIDERS: ADMIT Internal Medicine; ATTEND Internal Medicine
DX: N39.0 Urinary tract infection, site not specified (principal); D50.9 Iron deficiency anemia, unspecified; D51.9 Vitamin B12 deficiency anemia, unspecified; F17.210 Nicotine dependence, cigarettes, uncomplicated; E86.0 Dehydration; F41.9 Anxiety disorder, unspecified; G89.29 Other chronic pain; D49.7 Neoplasm of unspecified behavior of endocrine glands and other parts of nervous system; I95.9 Hypotension, unspecified; J45.909 Unspecified asthma, uncomplicated; K21.9 Gastro-esophageal reflux disease without esophagitis; Z90.49 Acquired absence of other specified parts of digestive tract; Z87.11 Personal history of peptic ulcer disease; Z98.84 Bariatric surgery status; Z88.1 Allergy status to other antibiotic agents; Z79.899 Other long term (current) drug therapy; Z88.5 Allergy status to narcotic agent; Z88.8 Allergy status to other drugs, medicaments and biological substances
CPT/HCPCS: 36415; 74022; 74250; 80048; 80053; 81001; 81025; 82533; 82607; 83540; 83550; 83605; 83690; 84146; 85025; 85045; 85610; 85651; 86038; 87045; 87086; 96361; 96374; 96375; J1170; J1200; J2270; J2405; J3420; J3490; J7030; J8597; Q0162; Q0163; 99285-25

== ENCOUNTER 2018-11-28 15:56 | Emergency (ER) | payer OTHER ==
[~2018-11-28 15:56] MED LIST changes: +CYAN10002 IM; +SUCR1ORA5 PO
== END 2018-11-28 16:30 | disposition left against medical advice (07) ==
LOC: ER 15:56
DX: R10.9 Unspecified abdominal pain (principal); Z53.21 Procedure and treatment not carried out due to patient leaving prior to being seen by health care provider

== ENCOUNTER 2018-12-04 17:34 | Emergency (ER) | payer OTHER ==
[~2018-12-04] VITALS: Ht 157.5 cm; Wt 64.0 kg
[2018-12-04] MEDS ORDERED: METOCLOPRAMIDE HCL 10 MG/2 ML VIAL. IV ONE (18:15)
[2018-12-04] MEDS ORDERED: IV NORMAL SALINE 1000ML BAG 1,000 ML IV ONE (18:15)
[2018-12-04 18:24] LABS: BILIRUBIN,URINE NEGATIVE (NEG); CLARITY,URINE CLOUDY; COLOR,URINE YELLOW; NITRITE,URINE NEGATIVE (NEG); PH,URINE 7.5; PROTEIN,URINE NEGATIVE (NEG-TRACE)
[2018-12-04 18:29] LABS: BARBITURATES NEG (NEG); BENZODIAZEPINES POS (NEG); CANNABINOIDS POS (NEG); COCAINE NEG (NEG); METHADONE NEG (NEG); OPIATES POS (NEG); PHENCYCLIDINE NEG (NEG)
[2018-12-04 18:31] LABS: AMPHETAMINE/METHAMPHETAMINE NEG (NEG)
[2018-12-04 18:34] LABS: BACTERIA,URINE MODERATE /HPF (0-FEW); RBC,URINE 0 /HPF (0-2); SQUAMOUS EPITHELIAL CELL,UR MANY /LPF
--- NOTE | 2018-12-04 18:37 | PHYS DOC ---
Past Medical History Past Medical History: Anxiety, Asthma, Gallstones, Seizure, Other Additional Past Medical Histor: pyodermia,PSYCHOGENIC SEIZURES,ciliac,chrons, pcos,muscle spasms,PA Past Surgical History: Cholecystectomy, Gastric Bypass, Tonsillectomy, Other Additional Past Surgical Histo: RHINOPLASTY,adenoidectomy,HERNIA,CHRONIC PAIN, GASTRIC BYPASS Alcohol Use: None Drug Use: None Adult General Chief Complaint Chief Complaint: CHEST PAIN HPI HPI Patient is a 22 year old female who presents with right lower quadrant pain. She had a recent internal hernia that required operative intervention several weeks ago. She is taken no medicine for this discomfort. It radiates through into her back. She denies any hematuria or dysuria. She also notes that she's had some chest pain. There is no respirophasic component. No fever. No radiation of the discomfort. No worsening with exertion. She has no prior cardiac history. Describes the pain as sharp. Both of these pains have been present since approximately 4:00 this morning[] Review of Systems Review of Systems Constitutional: Denies fever or chills [] Eyes: Denies change in visual acuity, redness, or eye pain [] HENT: Denies nasal congestion or sore throat [] Respiratory: Denies cough or shortness of breath [] Cardiovascular: No additional information not addressed in HPI [] GI: See history of present illness[] : Denies dysuria or hematuria [] Musculoskeletal: Denies back pain or joint pain [] Integument: Denies rash or skin lesions [] Neurologic: Denies headache, focal weakness or sensory changes [] Endocrine: Denies polyuria or polydipsia [] All other systems were reviewed and found to be within normal limits, except as documented in this note. Current Medications Current Medications Current Medications Medications (Trade) Dose Ordered Sig/Julia Start Time Stop Time Status Last Admin Dose Admin Info (CONTRAST GIVEN -- Rx MONITORING) 1 each PRN DAILY PRN 12/04/18 19:30 12/06/18 19:29 Iohexol (Omnipaque 300 Mg/ml) 100 ml 1X ONCE 12/04/18 19:30 12/04/18 19:31 DC 12/04/18 19:46 100 ML Lorazepam (Ativan) 1 mg 1X ONCE 12/04/18 20:15 12/04/18 20:16 DC 12/04/18 20:16 1 MG Metoclopramide HCl (Reglan Vial) 10 mg 1X ONCE 12/04/18 18:15 12/04/18 18:27 DC 12/04/18 18:32 10 MG Sodium Chloride 1,000 ml @ 1,000 mls/hr 1X ONCE 12/04/18 18:15 12/04/18 19:14 DC 12/04/18 18:32 1,000 MLS/HR Allergies Allergies Allergies Coded Allergies Type Severity Reaction Last Updated Verified NSAIDS (Non-Steroidal Anti-Inflamma Allergy Severe "Not supposed to have after bypass" 08/13/18 Yes diclofenac Allergy Severe Hives 08/13/18 Yes meloxicam Allergy Severe "Couldn't breathe" 08/13/18 Yes amoxicillin Allergy Intermediate rash 11/16/18 Yes codeine Allergy Intermediate Hives 08/13/18 Yes dicyclomine Allergy Intermediate Hives 08/13/18 Yes fentanyl Allergy Intermediate "Hives and couldn't breathe" 08/13/18 Yes ketamine Allergy Intermediate HIVES 11/16/18 Yes ketorolac Allergy Intermediate Hives 08/13/18 Yes lidocaine Allergy Intermediate Rash 11/16/18 Yes tizanidine Allergy Intermediate Hives 02/25/17 Yes tramadol Allergy Intermediate Hives 08/13/18 Yes cyclobenzaprine Adverse Reaction Intermediate "DOESN'T WORK" 02/06/17 Yes Physical Exam Physical Exam Constitutional: Well developed, well nourished, tearful, non-toxic appearance. [ ] HENT: Normocephalic, atraumatic, bilateral external ears normal, oropharynx moist, no oral exudates, nose normal. [] Eyes: PERRLA, EOMI, conjunctiva normal, no discharge. [] Neck: Normal range of motion, no tenderness, supple, no stridor. [] Cardiovascular:Heart rate regular rhythm, no murmur [] Lungs & Thorax: Bilateral breath sounds clear to auscultation [] Abdomen: Bowel sounds normal, right lower quadrant tenderness, no masses, no pulsatile masses. [] Skin: Warm, dry, no erythema, no rash. [] Back: No tenderness, no CVA tenderness. [] Extremities: No tenderness, no cyanosis, no clubbing, ROM intact, no edema. [] Neurologic: Alert and oriented X 3, normal motor function, normal sensory function, no focal deficits noted. [] Psychologic: Affect normal, judgement normal, mood normal. [] Current Patient Data Vital Signs Vital Signs Date Time Temp Pulse Resp B/P (MAP) Pulse Ox O2 Delivery O2 Flow Rate FiO2 12/04/18 20:13 86 18 131/67 (88) 99 Room Air 12/04/18 17:43 97.6 97.6 Lab Values Laboratory Tests Test 12/04/18 17:40 12/04/18 18:12 12/04/18 18:40 Urine Collection Type Unknown Urine Color Yellow Urine Clarity Cloudy Urine pH 7.5 Urine Specific [place] 1.015 Urine Protein Negative mg/dL (NEG-TRACE) Urine Glucose (UA) Negative mg/dL (NEG) Urine Ketones (Stick) Negative mg/dL (NEG) Urine Blood Negative (NEG) Urine Nitrite Negative (NEG) Urine Bilirubin Negative (NEG) Urine Urobilinogen Dipstick 1.0 mg/dL (0.2 mg/dL) Urine Leukocyte Esterase Negative (NEG) Urine RBC 0 /HPF (0-2) Urine WBC 1-4 /HPF (0-4) Urine Squamous Epithelial Cells Many /LPF Urine Bacteria Moderate /HPF (0-FEW) Urine Mucus Mod /LPF Urine Opiates Screen Pos (NEG) Urine Methadone Screen Neg (NEG) Urine Barbiturates Neg (NEG) Urine Phencyclidine Screen Neg (NEG) Urine Amphetamine/Methamphetamine Neg (NEG) Urine Benzodiazepines Screen Pos (NEG) Urine Cocaine Screen Neg (NEG) Urine Cannabinoids Screen Pos (NEG) Urine Ethyl Alcohol Neg (NEG) POC Urine HCG, Qualitative Hcg negative (Negative) White Blood Count 5.7 x10^3/uL (4.0-11.0) Red Blood Count 4.95 x10^6/uL (3.50-5.40) Hemoglobin 10.5 g/dL (12.0-15.5) L Hematocrit 34.1 % (36.0-47.0) L Mean Corpuscular Volume 69 fL (79-100) L Mean Corpuscular Hemoglobin 21 pg (25-35) L Mean Corpuscular Hemoglobin Concent 31 g/dL (31-37) Red Cell Distribution Width 18.0 % (11.5-14.5) H Platelet Count 470 x10^3/uL (140-400) H Neutrophils (%) (Auto) 57 % (31-73) Lymphocytes (%) (Auto) 38 % (24-48) Monocytes (%) (Auto) 5 % (0-9) Eosinophils (%) (Auto) 0 % (0-3) Basophils (%) (Auto) 1 % (0-3) Neutrophils # (Auto) 3.2 x10^3uL (1.8-7.7) Lymphocytes # (Auto) 2.1 x10^3/uL (1.0-4.8) Monocytes # (Auto) 0.3 x10^3/uL (0.0-1.1) Eosinophils # (Auto) 0.0 x10^3/uL (0.0-0.7) Basophils # (Auto) 0.0 x10^3/uL (0.0-0.2) Platelet Estimate Pending Prothrombin Time 13.7 SEC (11.7-14.0) Prothrombin Time INR 1.1 (0.8-1.1) D-Dimer (Shama) 0.46 ug/mlFEU (0.00-0.50) Sodium Level 143 mmol/L (136-145) Potassium Level 4.1 mmol/L (3.5-5.1) Chloride Level 105 mmol/L (98-107) Carbon Dioxide Level 27 mmol/L (21-32) Anion Gap 11 (6-14) Blood Urea Nitrogen 5 mg/dL (7-20) L Creatinine 0.5 mg/dL (0.6-1.0) L Estimated GFR (Cockcroft-Gault) 154.3 BUN/Creatinine Ratio 10 (6-20) Glucose Level 96 mg/dL (70-99) Calcium Level 9.4 mg/dL (8.5-10.1) Magnesium Level 2.1 mg/dL (1.8-2.4) Total Bilirubin 0.4 mg/dL (0.2-1.0) Aspartate Amino Transferase (AST) 19 U/L (15-37) Alanine Aminotransferase (ALT) 15 U/L (14-59) Alkaline Phosphatase 64 U/L (46-116) Troponin I Quantitative < 0.017 ng/mL (0.000-0.055) RH-Egl-F-Type Natriuretic Peptide 60 pg/mL (0-124) Total Protein 7.4 g/dL (6.4-8.2) Albumin 3.7 g/dL (3.4-5.0) Albumin/Globulin Ratio 1.0 (1.0-1.7) Lipase 145 U/L (73-393) Thyroid Stimulating Hormone (TSH) 0.217 uIU/mL (0.358-3.74) L Laboratory Tests 12/04/18 18:40 Laboratory Tests 12/04/18 18:40 EKG EKG EKG shows a sinus tachycardia 101 bpm, normal axis, QTC of 512 ms, no ST elevations, no acute changes when compared with EKG from 02/25/2017. Interpreted at 1750[] Radiology/Procedures Radiology/Procedures CT abdomen and pelvis with contrast. HISTORY: Right lower quadrant pain CT scan of the abdomen and pelvis was done using 75 mL Omnipaque cysts 300 contrast. Lung bases are clear. There is no pleural effusion. Liver is normal in appearance. Patient's had a previous cholecystectomy. Spleen and adrenal glands are normal. There is no mass or hydronephrosis in the kidneys. Patient's had a gastric bypass. There is no small bowel obstruction. There is a small amount of free fluid in the pelvis. Uterus and ovaries are normal. Appendix is retrocecal and normal in appearance. There is no small bowel obstruction. . An anterior abdominal wall hernia is not identified. IMPRESSION: 1. Previous cholecystectomy. 2. Previous gastric bypass. 3. Normal appendix. 4. No bowel obstruction. 5. Small amount of fluid in the pelvis nonspecific. Chest x-ray shows no infiltrate, no effusion, no pneumothorax[] Course & Med Decision Making Course & Med Decision Making Pertinent Labs and Imaging studies reviewed. (See chart for details) ED course: Patient arrived, was placed in bed, and tolerated exam well. Patient is noted to be allergic to most pain medicines and says some of the narcotics make her anxious so additional pain medicines be on the acetaminophen that she had taken at home were held. She was given Ativan for anxiety. She was transported to and from ID with any complications. After the return of lab and imaging studies, these were discussed with the patient voiced understanding. Patient is on long-standing narcotic pain medicines will give a low dose, essentially 36 hour supply to allow her to see her primary care physician on Thursday. Medical decision making: There is no evidence of an acute coronary syndrome, pneumonia, pneumothorax, pulmonary embolism, esophageal rupture, dissecting thoracic aneurysm, appendicitis, obstruction, perforation of the abdominal viscera. After discussing plan with patient she relates that her father yesterday, is requesting alprazolam until she is able to see her primary care physician on Thursday.[] Dragon Disclaimer Dragon Disclaimer This electronic medical record was generated, in whole or in part, using a voice recognition dictation system. Departure Departure Impression: Primary Impression: Abdominal pain Additional Impression: Chest pain Disposition: HOME, SELF-CARE Condition: IMPROVED Referrals: ALEX PEOPLES (PCP) Follow-up in 2 days Patient Instructions: Abdominal Pain (Nonspecific), Chest Pain (Nonspecific), Chronic Pain, Chronic Pain Management Additional Instructions: Follow-up with your regular doctor on 12/06/2018. Do not use any drugs or medicines that are not prescribed for you, they may kill you. Return to the ER if worsening pain, unable to tolerate liquids, or any other concerns. Scripts Alprazolam (ALPRAZOLAM) 1 Mg Tablet 1 TAB PO BID, #6 TAB Prov: GILDARDO WILSON DO 12/04/18 Oxycodone/Apap 10-325 (PERCOCET 10-325 MG TABLET ) 1 Each Tablet 1 TAB PO PRN Q6HRS PRN for PAIN, #10 TAB 0 Refills Prov: GILDARDO WILSON DO 12/04/18 Problem Qualifiers Primary Impression: Abdominal pain Abdominal location: right lower quadrant Qualified Codes: R10.31 - Right lower quadrant pain Additional Impression: Chest pain Chest pain type: unspecified Qualified Codes: R07.9 - Chest pain, unspecified GILDARDO WILSON DO Dec 04, 2018 18:37
[2018-12-04 18:53] LABS: BASO % 1 % (0-3); EOS % 0 % (0-3); HEMATOCRIT 34.1 % (36.0-47.0); HEMOGLOBIN 10.5 g/dL (12.0-15.5); LYMPH # 2.1 x10^3/uL (1.0-4.8); LYMPH % 38 % (24-48); MEAN CORPUSCULAR HEMOGLOBIN 21 pg (25-35); MEAN CORPUSCULAR HGB CONC 31 g/dL (31-37); MEAN CORPUSCULAR VOLUME 69 fL (79-100); MONO # 0.3 x10^3/uL (0.0-1.1); MONO % 5 % (0-9); NEUT # 3.2 x10^3uL (1.8-7.7); NEUT % 57 % (31-73); PLATELET COUNT 470 x10^3/uL (140-400); RED BLOOD COUNT 4.95 x10^6/uL (3.50-5.40); WHITE BLOOD COUNT 5.7 x10^3/uL (4.0-11.0)
[2018-12-04 19:09] LABS: CALCIUM 9.4 mg/dL (8.5-10.1); CREATININE 0.5 mg/dL (0.6-1.0); GFR 154.3; POTASSIUM 4.1 mmol/L (3.5-5.1)
[2018-12-04 19:13] LABS: ALBUMIN 3.7 g/dL (3.4-5.0); MAGNESIUM 2.1 mg/dL (1.8-2.4); TOTAL BILIRUBIN 0.4 mg/dL (0.2-1.0); TOTAL PROTEIN 7.4 g/dL (6.4-8.2)
[2018-12-04 19:19] LABS: PROTHROMBIN TIME PATIENT 13.7 SEC (11.7-14.0)
[2018-12-04] MEDS ORDERED: CONTRAST GIVEN. MC PRN (19:30)
[2018-12-04] MEDS ORDERED: IOHEXOL 300 MG/ML 100ML VIAL. IV ONE (19:30)
[2018-12-04 19:32] LABS: D-DIMER 0.46 ug/mlFEU (0.00-0.50)
--- NOTE | 2018-12-04 20:01 | RAD ---
CT abdomen and pelvis with contrast. HISTORY: Right lower quadrant pain CT scan of the abdomen and pelvis was done using 75 mL Omnipaque cysts 300 contrast. Lung bases are clear. There is no pleural effusion. Liver is normal in appearance. Patient's had a previous cholecystectomy. Spleen and adrenal glands are normal. There is no mass or hydronephrosis in the kidneys. Patient's had a gastric bypass. There is no small bowel obstruction. There is a small amount of free fluid in the pelvis. Uterus and ovaries are normal. Appendix is retrocecal and normal in appearance. There is no small bowel obstruction. . An anterior abdominal wall hernia is not identified. IMPRESSION: 1. Previous cholecystectomy. 2. Previous gastric bypass. 3. Normal appendix. 4. No bowel obstruction. 5. Small amount of fluid in the pelvis nonspecific. Electronically signed by: Kirk Buchanan MD (12/04/2018 7:58 PM) [id number]
[2018-12-04 20:13] VITALS: BP 131/67
[2018-12-04] MEDS ORDERED: LORazepam 1 MG TABLET PO ONE (20:15)
[2018-12-04] MEDS ORDERED: OXYC1TAB22 PO (21:13)
[2018-12-04] MEDS ORDERED: ALPR1TAB6 PO (21:25)
--- NOTE | 2018-12-04 21:39 | RAD ---
AP chest. HISTORY: Chest pain AP view was taken of the chest. Lungs are clear. Heart is normal in size without heart failure. There is no effusion. IMPRESSION: 1. No acute chest disease. Electronically signed by: Kirk Buchanan MD (12/04/2018 9:36 PM) [id number]
[2018-12-04 21:44] LABS: PLT ESTIMATE INCREASED (ADEQUATE)
[2018-12-04 21:45] LABS: ANISOCYTOSIS SLIGHT; HYPOCHROMIA MOD; MICROCYTOSIS MARKED
--- NOTE | 2018-12-06 07:08 | EKG ---
[facility] [address] [place] [address] Test Date: 2018-12-04 Test Time: 17:46:35 Pat Name: FERCHO CORTEZ Department: Room: Gender: F Mail Handler: : 1995 Requested By: GILDARDO WILSON Order Number: [id number] Reading MD: Tom Napier MD Measurements Intervals [place] Rate: 101 P: 46 FL: 148 QRS: 58 QRSD: 84 T: -3 QT: 394 QTc: 512 Interpretive Statements SINUS TACHYCARDIA NON-SPECIFIC ST/T CHANGES Electronically Signed On 12-09-2018 15:03:16 CDT by Tom Napier MD
== END 2018-12-04 21:40 | disposition home or self-care (01) ==
LOC: ER 17:34
DX: R10.31 Right lower quadrant pain (principal); R07.89 Other chest pain; J45.909 Unspecified asthma, uncomplicated; G89.29 Other chronic pain; Z90.49 Acquired absence of other specified parts of digestive tract; Z98.84 Bariatric surgery status; Z98.890 Other specified postprocedural states; Z88.1 Allergy status to other antibiotic agents; Z88.4 Allergy status to anesthetic agent; Z88.5 Allergy status to narcotic agent; Z88.6 Allergy status to analgesic agent; Z88.8 Allergy status to other drugs, medicaments and biological substances
CPT/HCPCS: 36415; 71045; 74177; 80053; 80307; 81001; 81025; 83690; 83735; 83880; 84443; 84484; 85025; 85379; 85610; 87086; 93005; 99284; J2765; J7030; Q9967

== ENCOUNTER 2018-12-13 22:23 | Emergency (ER) | payer OTHER ==
[~2018-12-13] VITALS: Ht 157.5 cm; Wt 64.0 kg
[2018-12-13 22:30] VITALS: BP 126/73
[2018-12-13] MEDS ORDERED: ALPR1TAB6 PO (23:15)
[2018-12-13] MEDS ORDERED: ALPRAZolam 0.5 MG TABLET PO ONE (23:15)
[2018-12-13] MEDS ORDERED: CARI350T14 PO (23:15)
[2018-12-13] MEDS ORDERED: OXYC1TAB22 PO (23:15)
[2018-12-13] MEDS ORDERED: oxyCODONE/APAP 10/325 1 TAB TABLET PO ONE (23:15)
--- NOTE | 2018-12-13 23:15 | PHYS DOC ---
Past Medical History Past Medical History: Anxiety, Asthma, Gallstones, Seizure, Other Additional Past Medical Histor: ADDISONS,PSYCHOGENIC SEIZURES,ciliac,chrons, pcos,muscle spasms,PA Past Surgical History: Cholecystectomy, Gastric Bypass, Tonsillectomy, Other Additional Past Surgical Histo: RHINOPLASTY,adenoidectomy,HERNIA,CHRONIC PAIN, GASTRIC BYPASS Alcohol Use: None Drug Use: None Adult General Chief Complaint Chief Complaint: MULTIPLE COMPLAINTS HPI HPI Patient is a 23 year old female who presents with needing medication refills. Patient states that her father just and so she did not have the money for her co-pay and she rescheduled her appointment but cannot get in until this coming Thursday on 329. Patient states that she needs a refill of her Alprazolam, Soma, Percocet. Patient states she has chronic back pain and was exposed to have surgery on her back pain but instead needed to have a hernia repair emergently in the past. Patient states she is having her same chronic pain and she is out of her medication so her pain has gotten out of control. Patient states she has thoracic pain bilaterally that radiates to around her sides to her abdomen. Patient states she has muscle spasms. Patient states she has an appointment with her primary care that she rescheduled on December 17. Patient states that her stated to come to the emergency room to see if we can give her some medications to tide her over until she is seen. Patient has no new complaints only wanting medication refills. Review of Systems Review of Systems Constitutional: Denies fever or chills [] Eyes: Denies change in visual acuity, redness, or eye pain [] HENT: Denies nasal congestion or sore throat [] Respiratory: Denies cough or shortness of breath [] Cardiovascular: No additional information not addressed in HPI [] GI: Denies abdominal pain, nausea, vomiting, bloody stools or diarrhea [] : Denies dysuria or hematuria [] Musculoskeletal: back pain or joint pain [] Integument: Denies rash or skin lesions [] Neurologic: Denies headache, focal weakness or sensory changes [] Endocrine: Denies polyuria or polydipsia [] All other systems were reviewed and found to be within normal limits, except as documented in this note. Current Medications Current Medications Current Medications Medications (Trade) Dose Ordered Sig/Julia Start Time Stop Time Status Last Admin Dose Admin Alprazolam (Xanax) 1 mg 1X ONCE 12/13/18 23:15 12/13/18 23:16 DC Oxycodone/ Acetaminophen (Percocet 10/325) 1 tab 1X ONCE 12/13/18 23:15 12/13/18 23:16 DC Allergies Allergies Allergies Coded Allergies Type Severity Reaction Last Updated Verified NSAIDS (Non-Steroidal Anti-Inflamma Allergy Severe "Not supposed to have after bypass" 08/13/18 Yes diclofenac Allergy Severe Hives 08/13/18 Yes meloxicam Allergy Severe "Couldn't breathe" 08/13/18 Yes amoxicillin Allergy Intermediate rash 11/16/18 Yes codeine Allergy Intermediate Hives 08/13/18 Yes dicyclomine Allergy Intermediate Hives 08/13/18 Yes fentanyl Allergy Intermediate "Hives and couldn't breathe" 08/13/18 Yes ketamine Allergy Intermediate HIVES 11/16/18 Yes ketorolac Allergy Intermediate Hives 08/13/18 Yes lidocaine Allergy Intermediate Rash 11/16/18 Yes tizanidine Allergy Intermediate Hives 02/25/17 Yes tramadol Allergy Intermediate Hives 08/13/18 Yes cyclobenzaprine Adverse Reaction Intermediate "DOESN'T WORK" 02/06/17 Yes Physical Exam Physical Exam Constitutional: Well developed, well nourished, no acute distress, non-toxic appearance. [] HENT: Normocephalic, atraumatic, bilateral external ears normal, oropharynx moist, no oral exudates, nose normal. [] Eyes: PERRLA, EOMI, conjunctiva normal, no discharge. [] Neck: Normal range of motion, no tenderness, supple, no stridor. [] Cardiovascular:Heart rate regular rhythm, no murmur [] Lungs & Thorax: Bilateral breath sounds clear to auscultation [] Abdomen: Bowel sounds normal, soft, no tenderness, no masses, no pulsatile masses. [] Skin: Warm, dry, no erythema, no rash. [] Back: No tenderness, no CVA tenderness. [] Extremities: No tenderness, no cyanosis, no clubbing, ROM intact, no edema. [] Neurologic: Alert and oriented X 3, normal motor function, normal sensory function, no focal deficits noted. [] Psychologic: Crying and anxious. Affect normal, judgement normal, mood normal. [ ] Current Patient Data Vital Signs Vital Signs Date Time Temp Pulse Resp B/P (MAP) Pulse Ox O2 Delivery O2 Flow Rate FiO2 12/13/18 22:30 98.9 141 20 126/73 (90) 98 Room Air 98.9 EKG EKG [] Radiology/Procedures Radiology/Procedures [] Course & Med Decision Making Course & Med Decision Making Patient is a 23 year old female who presents with needing medication refills. Patient states that her father just and so she did not have the money for her co-pay and she rescheduled her appointment but cannot get in until this coming Thursday on 329. Patient states that she needs a refill of her Alprazolam, Soma, Percocet. Patient states she has chronic back pain and was exposed to have surgery on her back pain but instead needed to have a hernia repair emergently in the past. Patient states she is having her same chronic pain and she is out of her medication so her pain has gotten out of control. Patient states she has thoracic pain bilaterally that radiates to around her sides to her abdomen. Patient states she has muscle spasms. Patient states she has an appointment with her primary care that she rescheduled on December 17. Patient states that her stated to come to the emergency room to see if we can give her some medications to tide her over until she is seen. Patient has no new complaints only wanting medication refills. Patient is in the room crying, anxious, rubbing her back. Alert and oriented. Lungs are clear to auscultation lobes. Heart regular without murmur. Patient is ambulatory with a steady gait. Patient denies nausea, vomiting, diarrhea, pelvic pain, vaginal discharge, recent seizures, headache, dizziness, syncope, visual changes, weaknesses, numbness or tingling, dysuria, chest pain, shortness of air. PERRLA. No tenderness to her back with palpation. Abdomen soft and nontender. Neurologically intact. Patient's medications are refilled with only filling 10 pills apiece. Patient to follow up with her primary care doctor as scheduled. Dragon Disclaimer Dragon Disclaimer This electronic medical record was generated, in whole or in part, using a voice recognition dictation system. Departure Departure Impression: Primary Impression: Medication refill Disposition: HOME, SELF-CARE Condition: STABLE Referrals: ALEX PEOPLES (PCP) Patient Instructions: Medication Refill, Emergency Department Additional Instructions: FOLLOW UP WITH YOUR PRIMARY CARE PROVIDER SOON POSSIBLE. Scripts Oxycodone/Apap 10-325 (PERCOCET 10-325 MG TABLET ) 1 Each Tablet 1 TAB PO PRN Q6HRS PRN for PAIN, #10 TAB 0 Refills Prov: MAURICIO POLANCO APRN 12/13/18 Carisoprodol (CARISOPRODOL) 350 Mg Tablet 1 TAB PO QID, #10 TAB Prov: MAURICIO POLANCO APRN 12/13/18 Alprazolam (ALPRAZOLAM) 1 Mg Tablet 1 TAB PO TID, #10 TAB Prov: MAURICIO POLANCO APRN 12/13/18 MAURICIO POLANCO APRN Dec 13, 2018 23:15
== END 2018-12-13 23:20 | disposition home or self-care (01) ==
LOC: ER 22:23
DX: G89.29 Other chronic pain (principal); M62.830 Muscle spasm of back; Z76.0 Encounter for issue of repeat prescription; F41.9 Anxiety disorder, unspecified; J45.909 Unspecified asthma, uncomplicated; Z90.49 Acquired absence of other specified parts of digestive tract; Z90.89 Acquired absence of other organs; Z88.6 Allergy status to analgesic agent; Z88.5 Allergy status to narcotic agent; Z88.1 Allergy status to other antibiotic agents; Z88.8 Allergy status to other drugs, medicaments and biological substances; Z09 Encounter for follow-up examination after completed treatment for conditions other than malignant neoplasm; Z88.4 Allergy status to anesthetic agent
CPT/HCPCS: 99283

== ENCOUNTER 2018-12-26 22:19 | Emergency (ER) | payer OTHER ==
[~2018-12-26] VITALS: Ht 157.5 cm; Wt 63.5 kg
[2018-12-26 22:49] LABS: BILIRUBIN,URINE NEGATIVE (NEG); CLARITY,URINE CLEAR; COLOR,URINE YELLOW; NITRITE,URINE NEGATIVE (NEG); PH,URINE 6.5; PROTEIN,URINE NEGATIVE (NEG-TRACE); UROBILINOGEN,URINE 0.2 mg/dL (0.2 mg/dL)
[2018-12-26 22:58] LABS: BACTERIA,URINE FEW /HPF (0-FEW); RBC,URINE RARE /HPF (0-2); SQUAMOUS EPITHELIAL CELL,UR MOD /LPF; YEAST,URINE PRESENT /HPF
[2018-12-26] MEDS ORDERED: ACETAMINOPHEN 325 MG TABLET. PO ONE (23:00)
[2018-12-26 23:04] LABS: BASO % 1 % (0-3); EOS % 0 % (0-3); HEMATOCRIT 35.5 % (36.0-47.0); HEMOGLOBIN 10.9 g/dL (12.0-15.5); LYMPH # 1.5 x10^3/uL (1.0-4.8); LYMPH % 24 % (24-48); MEAN CORPUSCULAR HEMOGLOBIN 21 pg (25-35); MEAN CORPUSCULAR HGB CONC 31 g/dL (31-37); MEAN CORPUSCULAR VOLUME 68 fL (79-100); MONO # 0.4 x10^3/uL (0.0-1.1); MONO % 6 % (0-9); NEUT # 4.5 x10^3uL (1.8-7.7); NEUT % 70 % (31-73); PLATELET COUNT 482 x10^3/uL (140-400); RED BLOOD COUNT 5.24 x10^6/uL (3.50-5.40); RED CELL DISTRIBUTION WIDTH 18.3 % (11.5-14.5); WHITE BLOOD COUNT 6.5 x10^3/uL (4.0-11.0)
[2018-12-26 23:10] LABS: CALCIUM 9.2 mg/dL (8.5-10.1); CREATININE 0.7 mg/dL (0.6-1.0); GFR 103.7; POTASSIUM 3.8 mmol/L (3.5-5.1)
[2018-12-26 23:15] LABS: ALBUMIN 3.9 g/dL (3.4-5.0); TOTAL BILIRUBIN 0.3 mg/dL (0.2-1.0); TOTAL PROTEIN 7.9 g/dL (6.4-8.2)
[2018-12-26 23:19] LABS: PLT ESTIMATE INCREASED (ADEQUATE)
[2018-12-26 23:20] LABS: HYPOCHROMIA MARKED; MICROCYTOSIS MARKED
--- NOTE | 2018-12-26 23:25 | PHYS DOC ---
Past Medical History Past Medical History: Anxiety, Asthma, Gallstones, Seizure, Other Additional Past Medical Histor: ADDISONS,PSYCHOGENIC SEIZURES,ciliac,chrons, pcos,muscle spasms,PA (ANN MARIE ROCHE APRN) Past Surgical History: Cholecystectomy, Gastric Bypass, Tonsillectomy, Other Additional Past Surgical Histo: RHINOPLASTY,adenoidectomy,HERNIA,CHRONIC PAIN, GASTRIC BYPASS (ANN MARIE ROCHE APRN) Alcohol Use: None Drug Use: None (ANN MARIE ROCHE APRN) Adult General Chief Complaint Chief Complaint: SYNCOPE HPI HPI Patient is a 23 year old female presents for evaluation of syncopal episode in the shower [facility]. Patient states she was standing up in the shower and the next thing she knew she was laying on the floor of the shower talking to her fianc. She reports a history of chronic back pain and states this is exacerbated her back pain. She also states that she is out of her Percocet and muscle relaxers. She denies any chest pain or abdominal pain. No vomiting. (ANN MARIE ROCHE APRN) Review of Systems Review of Systems Constitutional: Denies fever or chills [] Eyes: Denies change in visual acuity, redness, or eye pain [] HENT: Denies nasal congestion or sore throat [] Respiratory: Denies cough or shortness of breath [] Cardiovascular: No additional information not addressed in HPI [] GI: Denies abdominal pain, nausea, vomiting, bloody stools or diarrhea [] : Denies dysuria or hematuria [] Musculoskeletal: Reports back pain[] Integument: Denies rash or skin lesions [] Neurologic: Reports syncopal episode[] Endocrine: Denies polyuria or polydipsia [] All other systems were reviewed and found to be within normal limits, except as documented in this note. (ANN MARIE ROCHE APRN) Current Medications Current Medications Current Medications Medications (Trade) Dose Ordered Sig/Julia Start Time Stop Time Status Last Admin Dose Admin Acetaminophen (Tylenol) 650 mg 1X ONCE 12/26/18 23:00 12/26/18 23:01 DC 12/26/18 23:16 650 MG Lorazepam (Ativan) 1 mg 1X ONCE 12/26/18 23:00 12/26/18 23:01 DC 12/26/18 23:15 1 MG (FCO FLORES DO) Allergies Allergies Allergies Coded Allergies Type Severity Reaction Last Updated Verified NSAIDS (Non-Steroidal Anti-Inflamma Allergy Severe "Not supposed to have after bypass" 08/13/18 Yes diclofenac Allergy Severe Hives 08/13/18 Yes meloxicam Allergy Severe "Couldn't breathe" 08/13/18 Yes amoxicillin Allergy Intermediate rash 11/16/18 Yes codeine Allergy Intermediate Hives 08/13/18 Yes dicyclomine Allergy Intermediate Hives 08/13/18 Yes fentanyl Allergy Intermediate "Hives and couldn't breathe" 08/13/18 Yes ketamine Allergy Intermediate HIVES 11/16/18 Yes ketorolac Allergy Intermediate Hives 08/13/18 Yes lidocaine Allergy Intermediate Rash 11/16/18 Yes tizanidine Allergy Intermediate Hives 02/25/17 Yes tramadol Allergy Intermediate Hives 08/13/18 Yes cyclobenzaprine Adverse Reaction Intermediate "DOESN'T WORK" 02/06/17 Yes (FCO FLORES DO) Physical Exam Physical Exam Constitutional: Well developed, well nourished, no acute distress, non-toxic appearance. [] HENT: Normocephalic, atraumatic, bilateral external ears normal, nose normal. [ ] Eyes: PERRLA, EOMI, conjunctiva normal, no discharge. [] Neck: Normal range of motion, no tenderness, supple, no stridor. [] Cardiovascular:Heart rate regular rhythm, no murmur [] Lungs & Thorax: Bilateral breath sounds clear to auscultation [] Skin: Warm, dry, no erythema, no rash. [] Back: Lumbar paraspinous tenderness, no contusions or abrasions, no signs of trauma[] Extremities: No tenderness, no cyanosis, no clubbing, ROM intact, no edema. [] Neurologic: Alert and oriented X 3, normal motor function, normal sensory function, no focal deficits noted. [] Psychologic: Affect normal, judgement normal, mood normal. [] (ANN MARIE ROCHE APRN) Current Patient Data Vital Signs Vital Signs Date Time Temp Pulse Resp B/P (MAP) Pulse Ox O2 Delivery O2 Flow Rate FiO2 12/26/18 23:32 84 103/60 (74) 98 Room Air 12/26/18 22:35 98.1 20 98.1 (FCO FLORES DO) Lab Values Laboratory Tests Test 12/26/18 22:34 12/26/18 22:38 12/26/18 22:53 Urine Collection Type Unknown Urine Color Yellow Urine Clarity Clear Urine pH 6.5 Urine Specific [place] <=1.005 Urine Protein Negative mg/dL (NEG-TRACE) Urine Glucose (UA) Negative mg/dL (NEG) Urine Ketones (Stick) Negative mg/dL (NEG) Urine Blood Negative (NEG) Urine Nitrite Negative (NEG) Urine Bilirubin Negative (NEG) Urine Urobilinogen Dipstick 0.2 mg/dL (0.2 mg/dL) Urine Leukocyte Esterase Negative (NEG) Urine RBC Rare /HPF (0-2) Urine WBC 1-4 /HPF (0-4) Urine Squamous Epithelial Cells Mod /LPF Urine Bacteria Few /HPF (0-FEW) Urine Yeast Present /HPF POC Urine HCG, Qualitative Hcg negative (Negative) White Blood Count 6.5 x10^3/uL (4.0-11.0) Red Blood Count 5.24 x10^6/uL (3.50-5.40) Hemoglobin 10.9 g/dL (12.0-15.5) L Hematocrit 35.5 % (36.0-47.0) L Mean Corpuscular Volume 68 fL (79-100) L Mean Corpuscular Hemoglobin 21 pg (25-35) L Mean Corpuscular Hemoglobin Concent 31 g/dL (31-37) Red Cell Distribution Width 18.3 % (11.5-14.5) H Platelet Count 482 x10^3/uL (140-400) H Neutrophils (%) (Auto) 70 % (31-73) Lymphocytes (%) (Auto) 24 % (24-48) Monocytes (%) (Auto) 6 % (0-9) Eosinophils (%) (Auto) 0 % (0-3) Basophils (%) (Auto) 1 % (0-3) Neutrophils # (Auto) 4.5 x10^3uL (1.8-7.7) Lymphocytes # (Auto) 1.5 x10^3/uL (1.0-4.8) Monocytes # (Auto) 0.4 x10^3/uL (0.0-1.1) Eosinophils # (Auto) 0.0 x10^3/uL (0.0-0.7) Basophils # (Auto) 0.0 x10^3/uL (0.0-0.2) Platelet Estimate Increased (ADEQUATE) Hypochromasia Marked Microcytosis Marked Sodium Level 143 mmol/L (136-145) Potassium Level 3.8 mmol/L (3.5-5.1) Chloride Level 106 mmol/L (98-107) Carbon Dioxide Level 24 mmol/L (21-32) Anion Gap 13 (6-14) Blood Urea Nitrogen 3 mg/dL (7-20) L Creatinine 0.7 mg/dL (0.6-1.0) Estimated GFR (Cockcroft-Gault) 103.7 BUN/Creatinine Ratio 4 (6-20) L Glucose Level 108 mg/dL (70-99) H Calcium Level 9.2 mg/dL (8.5-10.1) Total Bilirubin 0.3 mg/dL (0.2-1.0) Aspartate Amino Transferase (AST) 18 U/L (15-37) Alanine Aminotransferase (ALT) 15 U/L (14-59) Alkaline Phosphatase 79 U/L (46-116) Total Protein 7.9 g/dL (6.4-8.2) Albumin 3.9 g/dL (3.4-5.0) Albumin/Globulin Ratio 1.0 (1.0-1.7) Laboratory Tests 12/26/18 22:53 Laboratory Tests 12/26/18 22:53 (FCO FLORES DO) EKG EKG [EKG, read by emergency room physician at 2257, heart rate 99, sinus rhythm, no STEMI or acute changes] (ANN MARIE ROCHE APRN) Radiology/Procedures Radiology/Procedures [] (ANN MARIE ROCHE APRN) Course & Med Decision Making Course & Med Decision Making Pertinent Labs and Imaging studies reviewed. (See chart for details) [Vital Signs stable, EKG normal sinus rhythm, labs within normal limits, negative UA. Patient repeatedly asking for pain medication or refills on her prescriptions. I explained to patient that the emergency room is not the appropriate place to get refills on her chronic pain medications. Instead have requested she call tomorrow morning to her doctor's office to discuss refills with them. Patient then tells me that the registrar at her doctor's office is actually her doctor's , who had given her a personal cell phone number. Patient states she called today and the lady told her to come to the emergency room for refills on her prescriptions. I explained to patient that this is inappropriate and she should call the office tomorrow morning to discuss refills on her medications. I attempted to give her Norflex as we had discussed that is currently on back order and out of stock in the hospital. Patient has allergy to Flexeril as well as lidocaine so was unable to provide her a lidocaine patch either. I did explain this to patient. No acute findings today on exam or workup. Patient seems more focused on refills on her pain medications. Displays a drug-seeking behavior. I discussed this case with Dr. Flores who agrees with plan of care. She is stable for discharge home. (ANN MARIE ROCHE APRN) Dragon Disclaimer Dragon Disclaimer This electronic medical record was generated, in whole or in part, using a voice recognition dictation system. (ANN MARIE ROCHE APRN) Departure Departure Impression: Primary Impression: Syncopal episodes Additional Impression: Back pain Disposition: HOME, SELF-CARE Condition: STABLE Referrals: ALEX PEOPLES (PCP) Patient Instructions: Back Pain, Adult, Syncope Attending Signature Attending Signature I have reviewed the PA/LIQUEFACTION SUPERVISOR's note and plan of care. I was available for consultation as needed during the patient's visit in the emergency department. I agree with the clinical impression, plan, and disposition. (FCO FLORES DO) Problem Qualifiers ANN MARIE ROCHE APRN Dec 26, 2018 23:25 FCO FLORES DO Dec 27, 2018 15:09
[2018-12-26 23:32] VITALS: BP 103/60
--- NOTE | 2018-12-27 07:36 | EKG ---
[facility] [address] [place] [address] Test Date: 2018-12-26 Test Time: 22:46:07 Pat Name: FERCHO CORTEZ Department: Room: Gender: F Ball Shagger: : 1995 Requested By: ANN MARIE ROCHE Order Number: [id number] Reading MD: Tom Napier MD Measurements Intervals [place] Rate: 99 P: 46 [place]: 162 QRS: 46 QRSD: 88 T: 4 QT: 358 QTc: 459 Interpretive Statements SINUS RHYTHM NON-SPECIFIC ST/T CHANGES Electronically Signed On 12-27-2018 15:36:04 CDT by Tom Napier MD
== END 2018-12-26 23:50 | disposition home or self-care (01) ==
LOC: ER 22:19
DX: R55 Syncope and collapse (principal); G89.29 Other chronic pain; M54.9 Dorsalgia, unspecified; J45.909 Unspecified asthma, uncomplicated; K50.90 Crohn's disease, unspecified, without complications; Z90.49 Acquired absence of other specified parts of digestive tract; Z98.890 Other specified postprocedural states; Z98.84 Bariatric surgery status; Z88.1 Allergy status to other antibiotic agents; Z88.4 Allergy status to anesthetic agent; Z88.5 Allergy status to narcotic agent; Z88.6 Allergy status to analgesic agent; Z91.041 Radiographic dye allergy status; Z88.8 Allergy status to other drugs, medicaments and biological substances
CPT/HCPCS: 36415; 80053; 81001; 81025; 85025; 93005; 96372; 99284; J2060

== ENCOUNTER 2019-01-02 18:53 | Emergency (ER) | payer OTHER ==
[~2019-01-02] VITALS: Ht 157.5 cm; Wt 64.0 kg
[2019-01-02] MEDS ORDERED: HALOPERIDOL LACTATE 5 MG/ML VIAL. IM ONE (19:30)
[2019-01-02 19:36] LABS: BILIRUBIN,URINE NEGATIVE (NEG); CLARITY,URINE CLOUDY; COLOR,URINE YELLOW; NITRITE,URINE NEGATIVE (NEG); PH,URINE 8.5; PROTEIN,URINE NEGATIVE (NEG-TRACE); UROBILINOGEN,URINE 0.2 mg/dL (0.2 mg/dL)
[2019-01-02 19:45] LABS: SQUAMOUS EPITHELIAL CELL,UR MANY /LPF
[2019-01-02 19:47] LABS: BACTERIA,URINE MANY /HPF (0-FEW)
[2019-01-02 20:17] VITALS: BP 104/68
[2019-01-02] MEDS ORDERED: DOXYCYCLINE HYCLATE 100 MG TABLET PO ONE (20:30)
--- NOTE | 2019-01-02 21:04 | PHYS DOC ---
Past Medical History Past Medical History: Anxiety, Asthma, Gallstones, Seizure, Other Additional Past Medical Histor: ADDISONS,PSYCHOGENIC SEIZURES,ciliac,chrons, pcos,muscle spasms,PA Past Surgical History: Cholecystectomy, Gastric Bypass, Tonsillectomy, Other Additional Past Surgical Histo: RHINOPLASTY,adenoidectomy,HERNIA,CHRONIC PAIN, GASTRIC BYPASS Alcohol Use: None Drug Use: None Adult General Chief Complaint Chief Complaint: ABDOMINAL PAIN HPI HPI Patient is a 23 year old female with history of chronic back pain, leg pain who presents with diffuse lower abdominal pain, and rated moderate to severe. Patient reports stabbing sensation lower abdomen. No fever chills, nausea vomiting or sweats. No constipation or diarrhea. Last menstrual. Was one week ago and was regular. Denies possibility of . No history of kidney stones. Patient states she takes Percocet and Xanax for chronic pain and anxiety and that she ran out of both medications 4 days ago. Patient reports symptoms/lower abdominal pain due to narcotic withdrawals which seems similar presentation. [] Review of Systems Review of Systems ROS as per HPI All other systems were reviewed and found to be within normal limits, except as documented in this note. Current Medications Current Medications Current Medications Medications (Trade) Dose Ordered Sig/Julia Start Time Stop Time Status Last Admin Dose Admin Doxycycline Hyclate (Vibra-Tab) 100 mg 1X ONCE 01/02/19 20:30 01/02/19 20:31 DC 01/02/19 20:33 100 MG Haloperidol Lactate (Haldol Inj) 5 mg 1X ONCE 01/02/19 19:30 01/02/19 19:39 DC 01/02/19 19:39 5 MG Allergies Allergies Allergies Coded Allergies Type Severity Reaction Last Updated Verified NSAIDS (Non-Steroidal Anti-Inflamma Allergy Severe "Not supposed to have after bypass" 08/13/18 Yes diclofenac Allergy Severe Hives 08/13/18 Yes meloxicam Allergy Severe "Couldn't breathe" 08/13/18 Yes amoxicillin Allergy Intermediate rash 11/16/18 Yes codeine Allergy Intermediate Hives 08/13/18 Yes dicyclomine Allergy Intermediate Hives 08/13/18 Yes fentanyl Allergy Intermediate "Hives and couldn't breathe" 08/13/18 Yes ketamine Allergy Intermediate HIVES 11/16/18 Yes ketorolac Allergy Intermediate Hives 08/13/18 Yes lidocaine Allergy Intermediate Rash 11/16/18 Yes tizanidine Allergy Intermediate Hives 02/25/17 Yes tramadol Allergy Intermediate Hives 08/13/18 Yes cyclobenzaprine Adverse Reaction Intermediate "DOESN'T WORK" 02/06/17 Yes Physical Exam Physical Exam Constitutional: Well developed, well nourished, anxious.. [] HENT: Normocephalic, atraumatic, bilateral external ears normal, oropharynx moist, no oral exudates, nose normal. [] Eyes: PERRLA, EOMI, conjunctiva normal, no discharge. [] Neck: Normal range of motion, no tenderness, supple, no stridor. [] Cardiovascular:Heart rate regular rhythm, no murmur [] Lungs & Thorax: Bilateral breath sounds clear to auscultation [] Abdomen: Bowel sounds normal, soft, no tenderness. [] Back: No tenderness, no CVA tenderness. [] Extremities: No tenderness, no cyanosis, no clubbing, ROM intact, no edema. [] Neurologic: Alert and oriented X 3, normal motor function, normal sensory function, no focal deficits noted. [] Current Patient Data Vital Signs Vital Signs Date Time Temp Pulse Resp B/P (MAP) Pulse Ox O2 Delivery O2 Flow Rate FiO2 01/02/19 20:17 90 18 104/68 (80) 97 Room Air 01/02/19 19:10 98.5 98.5 Lab Values Laboratory Tests Test 01/02/19 18:55 01/02/19 19:23 Urine Collection Type Unknown Urine Color Yellow Urine Clarity Cloudy Urine pH 8.5 Urine Specific [place] 1.015 Urine Protein Negative mg/dL (NEG-TRACE) Urine Glucose (UA) Negative mg/dL (NEG) Urine Ketones (Stick) Negative mg/dL (NEG) Urine Blood Negative (NEG) Urine Nitrite Negative (NEG) Urine Bilirubin Negative (NEG) Urine Urobilinogen Dipstick 0.2 mg/dL (0.2 mg/dL) Urine Leukocyte Esterase Moderate (NEG) Urine RBC 3-5 /HPF (0-2) Urine WBC 5-10 /HPF (0-4) Urine Squamous Epithelial Cells Many /LPF Urine Bacteria Many /HPF (0-FEW) Urine Mucus Mod /LPF POC Urine HCG, Qualitative Hcg negative (Negative) EKG EKG [] Radiology/Procedures Radiology/Procedures [] Course & Med Decision Making Course & Med Decision Making Pertinent Labs and Imaging studies reviewed. (See chart for details) [Patient given Ativan for narcotic/benzodiazepine withdrawal with improvement of symptoms. Abdomen remains soft, nonsurgical. First dose of antibiotics given in the emergency department. Patient repeatedly requesting narcotic pain medication and lobes] Dragon Disclaimer Dragon Disclaimer This electronic medical record was generated, in whole or in part, using a voice recognition dictation system. Departure Departure Impression: Primary Impression: Acute cystitis Additional Impression: Chronic narcotic use Disposition: 01 HOME, SELF-CARE Condition: STABLE Referrals: ALEX PEOPLSE (PCP) Patient Instructions: Abdominal Pain (Nonspecific), Narcotic Withdrawal-Brief Problem Qualifiers MEGAN GODDARD DO Jan 02, 2019 21:04
== END 2019-01-02 20:42 | disposition home or self-care (01) ==
LOC: ER 18:53
DX: N30.00 Acute cystitis without hematuria (principal); F11.90 Opioid use, unspecified, uncomplicated; J45.909 Unspecified asthma, uncomplicated; G89.29 Other chronic pain; Z90.49 Acquired absence of other specified parts of digestive tract; Z98.84 Bariatric surgery status; Z88.4 Allergy status to anesthetic agent; Z88.1 Allergy status to other antibiotic agents; Z88.5 Allergy status to narcotic agent; Z88.6 Allergy status to analgesic agent; Z88.8 Allergy status to other drugs, medicaments and biological substances
CPT/HCPCS: 81001; 81025; 87086; 96372; 99284; J1630; 87186

== ENCOUNTER 2019-01-25 23:07 | Emergency (ER) | payer OTHER ==
[~2019-01-25] VITALS: Ht 157.5 cm; Wt 63.5 kg
[2019-01-25 23:25] VITALS: BP 124/57
[2019-01-26] LABS: BILIRUBIN,URINE NEGATIVE (NEG); CLARITY,URINE CLOUDY; COLOR,URINE YELLOW; NITRITE,URINE NEGATIVE (NEG); PROTEIN,URINE NEGATIVE (NEG-TRACE)
[2019-01-26] MEDS ORDERED: oxyCODONE/APAP 5/325 1 TAB TABLET PO ONE
[2019-01-26 00:08] LABS: BARBITURATES NEG (NEG); BENZODIAZEPINES POS (NEG); CANNABINOIDS NEG (NEG); COCAINE NEG (NEG); METHADONE NEG (NEG); OPIATES POS (NEG); PHENCYCLIDINE NEG (NEG)
[2019-01-26 00:19] LABS: SQUAMOUS EPITHELIAL CELL,UR MANY /LPF
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
[2019-01-26 00:31] LABS: AMPHETAMINE/METHAMPHETAMINE NEG (NEG)
--- NOTE | 2019-01-26 00:43 | PHYS DOC ---
Past Medical History Past Medical History: Anxiety, Asthma, Gallstones, Seizure, Other Additional Past Medical Histor: ADDISONS,PSYCHOGENIC SEIZURES,ciliac,chrons,pcos,muscle spasms,PA Past Surgical History: Cholecystectomy, Gastric Bypass, Tonsillectomy, Other Additional Past Surgical Histo: RHINOPLASTY,adenoidectomy,HERNIA,CHRONIC PAIN,GASTRIC BYPASS Alcohol Use: None Drug Use: None Adult General Chief Complaint Chief Complaint: FACE PAIN HPI HPI Patient is a 23 year old [f__sex] who presents with [] Review of Systems Review of Systems Constitutional: Denies fever or chills [] Eyes: Denies change in visual acuity, redness, or eye pain [] HENT: Denies nasal congestion or sore throat [] Respiratory: Denies cough or shortness of breath [] Cardiovascular: No additional information not addressed in HPI [] GI: Denies abdominal pain, nausea, vomiting, bloody stools or diarrhea [] : Denies dysuria or hematuria [] Musculoskeletal: Denies back pain or joint pain [] Integument: Denies rash or skin lesions [] Neurologic: Denies headache, focal weakness or sensory changes [] Endocrine: Denies polyuria or polydipsia [] All other systems were reviewed and found to be within normal limits, except as documented in this note. Current Medications Current Medications Current Medications Medications (Trade) Dose Ordered Sig/Julia Start Time Stop Time Status Last Admin Dose Admin Oxycodone/ Acetaminophen (Percocet 5/325) 1 tab 1X ONCE 01/26/19 00:00 01/26/19 00:01 DC 01/26/19 00:03 1 TAB Allergies Allergies Allergies Coded Allergies Type Severity Reaction Last Updated Verified NSAIDS (Non-Steroidal Anti-Inflamma Allergy Severe "Not supposed to have after bypass" 08/13/18 Yes diclofenac Allergy Severe Hives 08/13/18 Yes meloxicam Allergy Severe "Couldn't breathe" 08/13/18 Yes amoxicillin Allergy Intermediate rash 11/16/18 Yes codeine Allergy Intermediate Hives 08/13/18 Yes dicyclomine Allergy Intermediate Hives 08/13/18 Yes fentanyl Allergy Intermediate "Hives and couldn't breathe" 08/13/18 Yes ketamine Allergy Intermediate HIVES 11/16/18 Yes ketorolac Allergy Intermediate Hives 08/13/18 Yes lidocaine Allergy Intermediate Rash 11/16/18 Yes tizanidine Allergy Intermediate Hives 02/25/17 Yes tramadol Allergy Intermediate Hives 08/13/18 Yes cyclobenzaprine Adverse Reaction Intermediate "DOESN'T WORK" 02/06/17 Yes Physical Exam Physical Exam Constitutional: Well developed, well nourished, no acute distress, non-toxic appearance. [] HENT: Normocephalic, atraumatic, bilateral external ears normal, oropharynx moist, no oral exudates, nose normal. [] Eyes: PERRLA, EOMI, conjunctiva normal, no discharge. [] Neck: Normal range of motion, no tenderness, supple, no stridor. [] Cardiovascular:Heart rate regular rhythm, no murmur [] Lungs & Thorax: Bilateral breath sounds clear to auscultation [] Abdomen: Bowel sounds normal, soft, no tenderness, no masses, no pulsatile masses. [] Skin: Warm, dry, no erythema, no rash. [] Back: No tenderness, no CVA tenderness. [] Extremities: No tenderness, no cyanosis, no clubbing, ROM intact, no edema. [] Neurologic: Alert and oriented X 3, normal motor function, normal sensory function, no focal deficits noted. [] Psychologic: Affect normal, judgement normal, mood normal. [] Current Patient Data Vital Signs Vital Signs Date Time Temp Pulse Resp B/P (MAP) Pulse Ox O2 Delivery O2 Flow Rate FiO2 01/26/19 00:03 18 97 Room Air Lab Values Laboratory Tests Test 01/25/19 23:51 01/25/19 23:56 Urine Collection Type Unknown Urine Color Yellow Urine Clarity Cloudy Urine pH 6.0 Urine Specific [place] 1.015 Urine Protein Negative mg/dL (NEG-TRACE) Urine Glucose (UA) Negative mg/dL (NEG) Urine Ketones (Stick) Negative mg/dL (NEG) Urine Blood Negative (NEG) Urine Nitrite Negative (NEG) Urine Bilirubin Negative (NEG) Urine Urobilinogen Dipstick 1.0 mg/dL (0.2 mg/dL) Urine Leukocyte Esterase Small (NEG) Urine RBC 6-10 /HPF (0-2) Urine WBC 5-10 /HPF (0-4) Urine Squamous Epithelial Cells Many /LPF Urine Bacteria Moderate /HPF (0-FEW) Urine Mucus Marked /LPF Urine Opiates Screen Pos (NEG) Urine Methadone Screen Neg (NEG) Urine Barbiturates Neg (NEG) Urine Phencyclidine Screen Neg (NEG) Urine Amphetamine/Methamphetamine Neg (NEG) Urine Benzodiazepines Screen Pos (NEG) Urine Cocaine Screen Neg (NEG) Urine Cannabinoids Screen Neg (NEG) Urine Ethyl Alcohol Neg (NEG) POC Urine HCG, Qualitative Hcg negative (Negative) EKG EKG [] Radiology/Procedures Radiology/Procedures [] Course & Med Decision Making Course & Med Decision Making Pertinent Labs and Imaging studies reviewed. (See chart for details) [] Dragon Disclaimer Dragon Disclaimer This electronic medical record was generated, in whole or in part, using a voice recognition dictation system. Departure Departure Impression: Primary Impression: Facial pain Additional Impression: Facial contusion Disposition: HOME, SELF-CARE Condition: STABLE Referrals: DIALLO BRUNO MD (PCP) Patient Instructions: Facial or Scalp Contusion, [id number] Additional Instructions: Per [place] Prescription control you were recently prescribed pain medication. You should still have some of the medication that was prescribed on 01/14/19 to take. Unfortunately, we cannot supply you with additional pain medication. IF you are out of your pain medication and require further meds, you must follow with your family physician and/or a pain specialist. You may take over the counter Tylenol as needed. Problem Qualifiers Additional Impression: Facial contusion Encounter type: initial encounter Qualified Codes: S00.83XA - Contusion of other part of head, initial encounter FCO FLORES DO January 26, 2019 00:43
[2019-01-31 11:44] LABS: BACTERIA,URINE FEW /HPF (0-FEW); RBC,URINE OCC /HPF (0-2)
== END 2019-01-26 01:20 | disposition home or self-care (01) ==
LOC: ER 23:07
DX: S00.83XA Contusion of other part of head, initial encounter (principal); J45.909 Unspecified asthma, uncomplicated; W51.XXXA Accidental striking against or bumped into by another person, initial encounter; Y93.89 Activity, other specified; Y92.098 Other place in other non-institutional residence as the place of occurrence of the external cause; Y99.8 Other external cause status
CPT/HCPCS: 70450; 70486; 80307; 81001; 81025; 87086; 99285-25

== ENCOUNTER 2019-01-31 21:27 | Emergency (ER) | payer OTHER ==
[~2019-01-31] VITALS: Ht 157.5 cm; Wt 64.0 kg
[2019-01-31 21:46] VITALS: BP 111/75
== END 2019-01-31 22:15 | disposition left against medical advice (07) ==
LOC: ER 21:27
DX: R10.30 Lower abdominal pain, unspecified (principal); Z53.21 Procedure and treatment not carried out due to patient leaving prior to being seen by health care provider
CPT/HCPCS: 81025

== ENCOUNTER 2019-02-02 00:12 | Emergency (ER) | payer OTHER ==
[~2019-02-02] VITALS: Ht 157.5 cm; Wt 64.0 kg
[2019-02-02 00:33] LABS: BILIRUBIN,URINE NEGATIVE (NEG); CLARITY,URINE CLEAR; COLOR,URINE YELLOW; NITRITE,URINE NEGATIVE (NEG); PROTEIN,URINE NEGATIVE (NEG-TRACE); UROBILINOGEN,URINE 0.2 mg/dL (0.2 mg/dL)
[2019-02-02 00:38] LABS: SQUAMOUS EPITHELIAL CELL,UR MANY /LPF
[2019-02-02 00:39] LABS: BACTERIA,URINE MODERATE /HPF (0-FEW); RBC,URINE 0 /HPF (0-2)
[2019-02-02 00:45] VITALS: BP 138/84
--- NOTE | 2019-02-02 01:23 | PHYS DOC ---
Past Medical History Past Medical History: Anxiety, Asthma, Gallstones, Seizure, Other Additional Past Medical Histor: ADDISONS,PSYCHOGENIC SEIZURES,ciliac,chrons,pcos,muscle spasms,PA Past Surgical History: Cholecystectomy, Gastric Bypass, Tonsillectomy, Other Additional Past Surgical Histo: RHINOPLASTY,adenoidectomy,HERNIA,CHRONIC PAIN,GASTRIC BYPASS Alcohol Use: None Drug Use: None Adult General Chief Complaint Chief Complaint: BACK PAIN OR INJURY HPI HPI Patient is a 23 year old [female came in complaining of some back pain. She has a history of chronic pain. She was playing with some kids were playing with some balloons or a fall and she walked down the stairs and she said she fell down 3 stairs she says that she couldn't believe this but her head hit her heels backwards like a backwards C she heard a crack she said she had a broken back a while back and somebody told her it never healed correctly Review of Systems Review of Systems Constitutional: Denies fever or chills [] Eyes: Denies change in visual acuity, redness, or eye pain [] HENT: Denies nasal congestion or sore throat [] Integument: Denies rash or skin lesions [] Neurologic: Negative for bowel bladder incontinence negative for numbness tingling or weakness All other systems were reviewed and found to be within normal limits, except as documented in this note. Allergies Allergies Allergies Coded Allergies Type Severity Reaction Last Updated Verified NSAIDS (Non-Steroidal Anti-Inflamma Allergy Severe "Not supposed to have after bypass" 08/13/18 Yes diclofenac Allergy Severe Hives 08/13/18 Yes meloxicam Allergy Severe "Couldn't breathe" 08/13/18 Yes amoxicillin Allergy Intermediate rash 11/16/18 Yes codeine Allergy Intermediate Hives 08/13/18 Yes dicyclomine Allergy Intermediate Hives 08/13/18 Yes fentanyl Allergy Intermediate "Hives and couldn't breathe" 08/13/18 Yes ketamine Allergy Intermediate HIVES 11/16/18 Yes ketorolac Allergy Intermediate Hives 08/13/18 Yes lidocaine Allergy Intermediate Rash 11/16/18 Yes tizanidine Allergy Intermediate Hives 02/25/17 Yes tramadol Allergy Intermediate Hives 08/13/18 Yes cyclobenzaprine Adverse Reaction Intermediate "DOESN'T WORK" 02/06/17 Yes Physical Exam Physical Exam Constitutional: Well developed, well nourished, no acute distress, non-toxic appearance. [] HENT: Normocephalic, atraumatic, bilateral external ears normal, oropharynx moist, no oral exudates, nose normal. [] Eyes: PERRLA, EOMI, conjunctiva normal, no discharge. [] Pulmonary: Normal respiratory effort no increased work of breathing no obvious chest wall trauma Abdomen: Bowel sounds normal, soft, no tenderness, no masses, no pulsatile masses. [] Skin: Warm, dry, no erythema, no rash. [] Back: Tenderness at T8-T10 in the midline Extremities: No tenderness, no cyanosis, no clubbing, ROM intact, no edema. [] Neurologic: Alert and oriented X 3, normal motor function, normal sensory function, no focal deficits noted. [] Psychologic: Mild anxiety Current Patient Data Lab Values Laboratory Tests Test 02/02/19 00:15 02/02/19 00:21 Urine Collection Type Unknown Urine Color Yellow Urine Clarity Clear Urine pH 6.0 Urine Specific [place] 1.020 Urine Protein Negative mg/dL (NEG-TRACE) Urine Glucose (UA) Negative mg/dL (NEG) Urine Ketones (Stick) Negative mg/dL (NEG) Urine Blood Negative (NEG) Urine Nitrite Negative (NEG) Urine Bilirubin Negative (NEG) Urine Urobilinogen Dipstick 0.2 mg/dL (0.2 mg/dL) Urine Leukocyte Esterase Moderate (NEG) Urine RBC 0 /HPF (0-2) Urine WBC 11-20 /HPF (0-4) Urine Squamous Epithelial Cells Many /LPF Urine Bacteria Moderate /HPF (0-FEW) Urine Mucus Marked /LPF POC Urine HCG, Qualitative Hcg negative (Negative) EKG EKG [] Radiology/Procedures Radiology/Procedures [] Course & Med Decision Making Course & Med Decision Making Pertinent Labs and Imaging studies reviewed. (See chart for details) []Patient initially told me that she did not drive here in light of that I was thinking about giving a single oral dose of pain meds in the emergency room. She does have a history of chronic pain I reviewed K tracks her last prescription was approximately 3 weeks ago. However then I was told by nursing staff that she was seen on the video camera to be driving into the emergency room parking lot I watched it myself she parked her car she got out of the petrol tanker driver's side she walked with no difficulty at all she even bent over to chicken picker and dropped object in the parking lot, we confirmed that this video was at exactly the time just a minute or 2 before she presented to the triage area. I did confront her about that she said that in fact somebody will be picking her up, as the knot which she told me she told me she did not drive here. X-rays pending at this time likely will be normal and we will discharge her in stable condition. She has a long history of drug-seeking behavior this emergency room visit is example of that given the clear dishonesty Dragon Disclaimer Dragon Disclaimer This electronic medical record was generated, in whole or in part, using a voice recognition dictation system. Departure Departure Impression: Primary Impression: Back pain Disposition: 01 HOME, SELF-CARE Condition: STABLE Referrals: DIALLO BRUNO MD (PCP) Patient Instructions: Back Pain, Adult, [id number] DAMIÁN IBARRA MD February 02, 2019 01:23
--- NOTE | 2019-02-02 08:10 | RAD ---
THORACIC SPINE 3V History: Trauma Comparison: None. Findings: 3 views of the thoracic spine are submitted. There is mild smooth long segment thoracic levoscoliosis. Visualized thoracic vertebral body stature and AP alignment are maintained. No acute osseous abnormality is identified by radiographs. Impression: 1. No acute osseous abnormality is identified by radiographs. Electronically signed by: Brandin Campos MD (02/02/2019 8:07 AM) [id number]
== END 2019-02-02 01:30 | disposition home or self-care (01) ==
LOC: ER 00:12
DX: M54.6 Pain in thoracic spine (principal); G89.29 Other chronic pain; J45.909 Unspecified asthma, uncomplicated; Z90.49 Acquired absence of other specified parts of digestive tract; Z98.84 Bariatric surgery status; Z88.1 Allergy status to other antibiotic agents; Z88.4 Allergy status to anesthetic agent; Z88.5 Allergy status to narcotic agent; Z88.6 Allergy status to analgesic agent; Z88.8 Allergy status to other drugs, medicaments and biological substances
CPT/HCPCS: 72072; 81001; 81025; 87086; 99285-25

== ENCOUNTER 2020-08-15 13:48 | Emergency (ER) | payer SELFPAY ==
[~2020-08-15] VITALS: Ht 157.5 cm; Wt 59.0 kg
[~2020-08-15 13:48] MED LIST changes: +LIDO700A21 TP; -LIDO700A39 TP; -OXYC-411 PO; +OXYC1TAB20 PO
[2020-08-15 14:00] VITALS: BP 125/71
[2020-08-15 14:51] LABS: BILIRUBIN,URINE NEGATIVE (NEG); CLARITY,URINE CLEAR; COLOR,URINE YELLOW; NITRITE,URINE POSITIVE (NEG); PROTEIN,URINE NEGATIVE (NEG-TRACE)
[2020-08-15] MEDS ORDERED: ACYCLOVIR 200 MG CAPSULE. PO STA (14:58)
[2020-08-15 15:00] LABS: BACTERIA,URINE MANY /HPF (0-FEW)
[2020-08-15] MEDS ORDERED: metroNIDAZOLE 500 MG TABLET PO ONE (15:00)
[2020-08-15] MEDS ORDERED: AZITHROMYCIN 250 MG TABLET. PO ONE (15:00)
[2020-08-15] MEDS ORDERED: cefTRIAXone IM 250 MG VIAL IM ONE (15:00)
[2020-08-15] MEDS ORDERED: predniSONE 10 MG TABLET PO ONE (15:00)
[2020-08-15] MEDS ORDERED: ONDANSETRON ODT 4 MG TAB.RAPDIS. PO ONE (15:00)
[2020-08-15] MEDS ORDERED: LIDO30CR41 TP (15:12)
[2020-08-15] MEDS ORDERED: ACYC800T PO (15:12)
[2020-08-15] MEDS ORDERED: PRED50TA PO (15:12)
--- NOTE | 2020-08-15 15:12 | PHYS DOC ---
Past Medical History Past Medical History: Anxiety, Asthma, Gallstones, Seizure, Other Additional Past Medical Histor: ADDISONS,PSYCHOGENIC SEIZURES,ciliac,chrons,pcos,muscle spasms,PA Past Surgical History: Cholecystectomy, Gastric Bypass, Tonsillectomy, Other Additional Past Surgical Histo: RHINOPLASTY,adenoidectomy,HERNIA,CHRONIC PAIN,GASTRIC BYPASS Smoking Status: Current Every Day Smoker Alcohol Use: None Drug Use: None General Adult EDM: Chief Complaint: ABSCESS HPI: HPI: Patient is a 24 year old female well-known to this ED presenting today complaining of left labial lesions that began yesterday. Patient reports unprotected sex. Denies any chance she is . Review of Systems: Review of Systems: Constitutional: Denies fever or chills. [] GI: Denies abdominal pain, nausea, vomiting, bloody stools or diarrhea. [] : Reports left labial lesions. Denies dysuria. [] Musculoskeletal: Denies back pain or joint pain. [] Integument: Denies rash. [] Neurologic: Denies headache, focal weakness or sensory changes. [] Psychiatric: Denies depression or anxiety. [] Heart Score: Risk Factors: Risk Factors: DM, Current or recent (<one month) smoker, HTN, HLP, family history of CAD, obesity. Risk Scores: Score 0 - 3: 2.5% MACE over next 6 weeks - Discharge Home Score 4 - 6: 20.3% MACE over next 6 weeks - Admit for Clinical Observation Score 7 - 10: 72.7% MACE over next 6 weeks - Early Invasive Strategies Current Medications: Current Medications Medications (Trade) Dose Ordered Sig/Julia Start Time Stop Time Status Last Admin Dose Admin Acyclovir (Zovirax) 800 mg 1X STAT 08/15/20 14:58 08/15/20 15:03 DC Azithromycin (Zithromax) 1,000 mg 1X ONCE 08/15/20 15:00 08/15/20 15:03 DC Ceftriaxone Sodium (Rocephin Im) 250 mg 1X ONCE 08/15/20 15:00 08/15/20 15:01 UNV Metronidazole (Flagyl) 2,000 mg 1X ONCE 08/15/20 15:00 08/15/20 15:03 DC Ondansetron HCl (Zofran Odt) 4 mg 1X ONCE 08/15/20 15:00 08/15/20 15:03 DC Prednisone (Prednisone) 50 mg 1X ONCE 08/15/20 15:00 08/15/20 15:03 DC Allergies: Allergies: Allergies Coded Allergies Type Severity Reaction Last Updated Verified NSAIDS (Non-Steroidal Anti-Inflamma Allergy Severe "Not supposed to have after bypass" 08/13/18 Yes diclofenac Allergy Severe Hives 08/13/18 Yes meloxicam Allergy Severe "Couldn't breathe" 08/13/18 Yes amoxicillin Allergy Intermediate rash 11/16/18 Yes codeine Allergy Intermediate Hives 08/13/18 Yes dicyclomine Allergy Intermediate Hives 08/13/18 Yes fentanyl Allergy Intermediate "Hives and couldn't breathe" 08/13/18 Yes ketamine Allergy Intermediate HIVES 11/16/18 Yes ketorolac Allergy Intermediate Hives 08/13/18 Yes lidocaine Allergy Intermediate Rash 11/16/18 Yes tizanidine Allergy Intermediate Hives 02/25/17 Yes tramadol Allergy Intermediate Hives 08/13/18 Yes cyclobenzaprine Adverse Reaction Intermediate "DOESN'T WORK" 02/06/17 Yes Physical Exam: PE: Constitutional: Well developed, well nourished, no acute distress, non-toxic appearance. [] Abdomen: Bowel sounds normal, soft, no tenderness, no masses, no pulsatile masses. [] Left labia majora with moderate swelling and open the wound is consistent with herpes labialis. Similar wounds noted on the buttocks inner cheeks Skin: Warm, dry, no erythema, no rash. [] Back: No tenderness, no CVA tenderness. [] Extremities: No tenderness, no cyanosis, no clubbing, ROM intact, no edema. [] Neurologic: Alert and oriented X 3, normal motor function, normal sensory function, no focal deficits noted. [] Psychologic: Affect normal, judgement normal, mood normal. [] Current Patient Data: Labs: Laboratory Tests Test 08/15/20 14:25 08/15/20 14:38 Urine Collection Type Unknown Urine Color Yellow Urine Clarity Clear Urine pH 6.0 (<5.0-8.0) Urine Specific [place] 1.015 (1.000-1.030) Urine Protein Negative mg/dL (NEG-TRACE) Urine Glucose (UA) 500 mg/dL (NEG) Urine Ketones (Stick) Negative mg/dL (NEG) Urine Blood Moderate (NEG) Urine Nitrite Positive (NEG) Urine Bilirubin Negative (NEG) Urine Urobilinogen Dipstick 1.0 mg/dL (0.2 mg/dL) Urine Leukocyte Esterase Large (NEG) Urine RBC 6-10 /HPF (0-2) Urine WBC 11-20 /HPF (0-4) Urine Squamous Epithelial Cells Many /LPF Urine Bacteria Many /HPF (0-FEW) Urine Mucus Slight /LPF POC Urine HCG, Qualitative Hcg negative (Negative) Vital Signs: Vital Signs Date Time Temp Pulse Resp B/P (MAP) Pulse Ox O2 Delivery O2 Flow Rate FiO2 08/15/20 14:00 96.6 124 17 125/71 (89) 96 Room Air 96.6 EKG: EKG: [] Radiology/Procedures: Radiology/Procedures: [] Course & Med Decision Making: Course & Med Decision Making Pertinent Labs and Imaging studies reviewed. (See chart for details) This is a 24-year-old female patient presenting to the ED today with left labial lesions suspicious of herpes labialis. The lesions were swabbed for herpes. She was treated for standard STDs and given prescription for acyclovir, lidocaine and prednisone. She was educated on safe sex practices and the lifelong nature of herpes labialis. Follow-up with the health department. Heriberto Disclaimer: Heriberto Disclaimer: This electronic medical record was generated, in whole or in part, using a voice recognition dictation system. Departure Departure Impression: Primary Impression: Herpes labialis Additional Impression: Concern about STD in female without diagnosis Disposition: 01 [place] HOME SELF CARE/HOMELESS Condition: STABLE Referrals: DIALLO BRUNO MD (PCP) follow up with the health department and your doctor next week Patient Instructions: Herpes Labialis Additional Instructions: You have lesions on your labia that are suspicious of herpes, we will call you next week if your test is positive. Take the prescribed medication as ordered. Use the lidocaine cream to apply on the exterior aspect of the affected areas on your private region. Follow-up with the health department on the consult Scripts Lidocaine (Lidocaine) 30 Gm Cream..g. 1 DIANA TP TID, #30 GM 0 Refills Prov: MUTUNGA,LOY RESIST COATER DEVELOPER 08/15/20 Prednisone (PREDNISONE) 50 Mg Tablet 1 TAB PO DAILY, #5 TAB Prov: MUTUNGA,LOY RESIST COATER DEVELOPER 11/25/20 Acyclovir (ACYCLOVIR) 800 Mg Tablet 1 TAB PO 5XDAY, #50 TAB Prov: LOY HEREDIA APRN 08/15/20 LOY HEREDIA APRN Aug 15, 2020 15:12
[2020-08-15] MEDS ORDERED: LIDOCAINE 2% TOPICAL JELLY 30GM TUBE. TP ONE (15:15)
== END 2020-08-15 13:55 | disposition home or self-care (01) ==
LOC: ER 13:48
DX: B00.1 Herpesviral vesicular dermatitis (principal); Z20.2 Contact with and (suspected) exposure to infections with a predominantly sexual mode of transmission; J45.909 Unspecified asthma, uncomplicated; G89.29 Other chronic pain; F17.200 Nicotine dependence, unspecified, uncomplicated; Z90.49 Acquired absence of other specified parts of digestive tract; Z88.1 Allergy status to other antibiotic agents; Z88.4 Allergy status to anesthetic agent; Z88.5 Allergy status to narcotic agent; Z88.6 Allergy status to analgesic agent; Z88.8 Allergy status to other drugs, medicaments and biological substances
CPT/HCPCS: 81001; 81025; 87086; 87529; 96372; 99284; J0696; J7512

== ENCOUNTER 2020-10-06 07:14 | Emergency (ER) | payer SELFPAY ==
[~2020-10-06] VITALS: Ht 157.5 cm; Wt 61.0 kg
[~2020-10-06 07:14] MED LIST changes: +ACYC800T PO; +LIDO30CR41 TP; +PRED50TA PO
--- NOTE | 2020-10-06 07:39 | PHYS DOC ---
Past Medical History Past Medical History: Anxiety, Asthma, Gallstones, Seizure, Other Additional Past Medical Histor: ADDISONS,PSYCHOGENIC SEIZ URES,ciliac,chrons,pcos,muscle spasms,PA Past Surgical History: Cholecystectomy, Gastric Bypass, Tonsillectomy, Other Additional Past Surgical Histo: RHINOPLASTY,adenoidectomy,HERNIA,CHRONIC PAIN,GASTRIC BYPASS Smoking Status: Current Every Day Smoker Alcohol Use: None Drug Use: None Adult General Chief Complaint Chief Complaint: ABDOMINAL PAIN HPI HPI Patient is a 24 year old female with no past medical history including Aurelio-en-Y gastric bypass, cholecystectomy and adult onset epilepsy now presenting to the emergency department complaining of new onset of abdominal pain. Patient states that over the last 4 days she is noted worsening aching sensation in the suprapubic region. Patient also states that during that time she has had worsening sensation of dysuria and progressive nausea. States that she does have some pain rating into the mid thoracic back but is not sure where this started. Denies any new sexual partners or unprotected intercourse. Does state that she is having new vaginal discharge which she states is causing. Tissue and excoriation around the external genitalia. Denies any fever, chills, cough, dizziness, lightheadedness Review of Systems Review of Systems Constitutional: Denies fever or chills [] Eyes: Denies change in visual acuity, redness, or eye pain [] HENT: Denies nasal congestion or sore throat [] Respiratory: Denies cough or shortness of breath [] Cardiovascular: No additional information not addressed in HPI [] GI: Denies abdominal pain, nausea, vomiting, bloody stools or diarrhea [] : Denies dysuria or hematuria [] Musculoskeletal: Denies back pain or joint pain [] Integument: Denies rash or skin lesions [] Neurologic: Denies headache, focal weakness or sensory changes [] Endocrine: Denies polyuria or polydipsia [] All other systems were reviewed and found to be within normal limits, except as documented in this note. Current Medications Current Medications Current Medications Medications (Trade) Dose Ordered Sig/Julia Start Time Stop Time Status Last Admin Dose Admin Azithromycin (Zithromax) 1,000 mg 1X ONCE 10/06/20 09:00 10/06/20 09:01 DC 10/06/20 08:57 1,000 MG Ceftriaxone Sodium (Rocephin Im) 250 mg 1X ONCE 10/06/20 09:00 10/06/20 09:01 DC 10/06/20 08:55 250 MG Famotidine (Pepcid Vial) 20 mg 1X ONCE 10/06/20 07:45 10/06/20 07:46 DC 10/06/20 07:48 20 MG Fluconazole (Diflucan) 100 mg 1X ONCE 10/06/20 09:00 10/06/20 09:01 DC 10/06/20 08:56 100 MG Ondansetron HCl (Zofran) 4 mg STK-MED ONCE 10/06/20 07:44 10/06/20 07:44 DC Prednisone (Prednisone) 50 mg 1X ONCE 10/06/20 09:00 10/06/20 09:01 DC 10/06/20 08:57 50 MG Sodium Chloride 1,000 ml @ 1,000 mls/hr Q1H 10/06/20 07:45 10/06/20 08:44 DC 10/06/20 07:46 1,000 MLS/HR Sucralfate (Carafate) 1 gm 1X ONCE 10/06/20 09:00 10/06/20 09:01 DC 10/06/20 08:56 1 GM Allergies Allergies Allergies Coded Allergies Type Severity Reaction Last Updated Verified NSAIDS (Non-Steroidal Anti-Inflamma Allergy Severe "Not supposed to have after bypass" 08/13/18 Yes diclofenac Allergy Severe Hives 08/13/18 Yes meloxicam Allergy Severe "Couldn't breathe" 08/13/18 Yes amoxicillin Allergy Intermediate rash 10/06/20 Yes codeine Allergy Intermediate Hives 08/13/18 Yes dicyclomine Allergy Intermediate Hives 08/13/18 Yes fentanyl Allergy Intermediate "Hives and couldn't breathe" 08/13/18 Yes ketamine Allergy Intermediate HIVES 11/16/18 Yes ketorolac Allergy Intermediate Hives 08/13/18 Yes lidocaine Allergy Intermediate Rash 11/16/18 Yes tizanidine Allergy Intermediate Hives 02/25/17 Yes tramadol Allergy Intermediate Hives 08/13/18 Yes cyclobenzaprine Adverse Reaction Intermediate "DOESN'T WORK" 02/06/17 Yes Physical Exam Physical Exam Constitutional: Well developed, well nourished, no acute distress, non-toxic appearance. [] HENT: Normocephalic, atraumatic, bilateral external ears normal, oropharynx moist, no oral exudates, nose normal. [] Eyes: PERRLA, EOMI, conjunctiva normal, no discharge. [] Neck: Normal range of motion, no tenderness, supple, no stridor. [] Cardiovascular:Heart rate regular rhythm, no murmur [] Lungs & Thorax: Bilateral breath sounds clear to auscultation [] Abdomen: Bowel sounds normal, soft, no masses, no pulsatile masses. Moderate midepigastric tenderness as well as suprapubic tenderness Skin: Warm, dry, no erythema, no rash. [] Back: No tenderness, no CVA tenderness. [] Extremities: No tenderness, no cyanosis, no clubbing, ROM intact, no edema. [] Neurologic: Alert and oriented X 3, normal motor function, normal sensory function, no focal deficits noted. [] Psychologic: Affect normal, judgement normal, mood normal. [] Current Patient Data Vital Signs Vital Signs Date Time Temp Pulse Resp B/P (MAP) Pulse Ox O2 Delivery O2 Flow Rate FiO2 10/06/20 07:21 97.6 100 18 114/58 (76) 96 Room Air 97.6 Lab Values Laboratory Tests Test 10/06/20 07:41 10/06/20 07:45 White Blood Count 11.6 x10^3/uL (4.0-11.0) H Red Blood Count 4.36 x10^6/uL (3.50-5.40) Hemoglobin 7.8 g/dL (12.0-15.5) L Hematocrit 26.6 % (36.0-47.0) L Mean Corpuscular Volume 61 fL (79-100) L Mean Corpuscular Hemoglobin 18 pg (25-35) L Mean Corpuscular Hemoglobin Concent 29 g/dL (31-37) L Red Cell Distribution Width 18.5 % (11.5-14.5) H Platelet Count 418 x10^3/uL (140-400) H Neutrophils (%) (Auto) 67 % (31-73) Lymphocytes (%) (Auto) 23 % (24-48) L Monocytes (%) (Auto) 7 % (0-9) Eosinophils (%) (Auto) 2 % (0-3) Basophils (%) (Auto) 1 % (0-3) Neutrophils # (Auto) 7.8 x10^3/uL (1.8-7.7) H Lymphocytes # (Auto) 2.7 x10^3/uL (1.0-4.8) Monocytes # (Auto) 0.8 x10^3/uL (0.0-1.1) Eosinophils # (Auto) 0.2 x10^3/uL (0.0-0.7) Basophils # (Auto) 0.1 x10^3/uL (0.0-0.2) Platelet Estimate Increased (ADEQUATE) Large Platelets Occ Hypochromasia Marked Poikilocytosis Present Anisocytosis Slight Microcytosis Mod Ovalocytes Present Urine Collection Type U cath Urine Color Yellow Urine Clarity Clear Urine pH 7.5 (<5.0-8.0) Urine Specific [place] 1.020 (1.000-1.030) Urine Protein Negative mg/dL (NEG-TRACE) Urine Glucose (UA) Negative mg/dL (NEG) Urine Ketones (Stick) Negative mg/dL (NEG) Urine Blood Negative (NEG) Urine Nitrite Positive (NEG) Urine Bilirubin Negative (NEG) Urine Urobilinogen Dipstick 2.0 mg/dL (0.2 mg/dL) Urine Leukocyte Esterase Moderate (NEG) Urine RBC 0 /HPF (0-2) Urine WBC 11-20 /HPF (0-4) Urine Squamous Epithelial Cells Occ /LPF Urine Bacteria Many /HPF (0-FEW) Sodium Level 140 mmol/L (136-145) Potassium Level 3.5 mmol/L (3.5-5.1) Chloride Level 107 mmol/L (98-107) Carbon Dioxide Level 24 mmol/L (21-32) Anion Gap 9 (6-14) Blood Urea Nitrogen 8 mg/dL (7-20) Creatinine 0.7 mg/dL (0.6-1.0) Estimated GFR (Cockcroft-Gault) 102.8 Glucose Level 83 mg/dL (70-99) Calcium Level 8.6 mg/dL (8.5-10.1) Lipase 111 U/L (73-393) POC Urine HCG, Qualitative Hcg negative (Negative) Laboratory Tests 10/06/20 07:41 Laboratory Tests 10/06/20 07:41 EKG EKG [] Radiology/Procedures Radiology/Procedures [] Course & Med Decision Making Course & Med Decision Making Pertinent Labs and Imaging studies reviewed. (See chart for details) 24-year-old female in emergency department due to complaint of suprapubic abdominal pain with dysuria and new vaginal discharge which is concern for STI, urinary tract infection, suprapubic infection. There is a small consideration for acute appendicitis or ovarian torsion however the patient's exam is inconsistent with these findings. Patient does also have some epigastric tenderness which does raise concern for acute ulcer especially given the patient's history of a Aurelio-en-Y gastric bypass. Will obtain basic labs, urinalysis and perform pelvic exam to determine any need for further treatment or testing. Back exam demonstrates significant discharge. Patient also has prominent valvular erythema and induration most consistent with an acute herpes infection or yeast infection. Urinalysis does demonstrate nitrites. At this time will discharge home after getting a dose of fluconazole, will give a course of a Cyclovir as well as course of antibiotics to treat urinary tract infection. I spoken with the patient and her caregivers. I explained the patient's condition, diagnoses and treatment plan based on the information available to me at this time. I have answered the patient and her caregiver's questions and addressed any concerns. The patient and her caregivers have a good understanding of patient's diagnosis, condition and treatment plan as can be expected at this point. Vital signs have been stable. Patient's condition is stable and appropriate for discharge from the emergency department. Patient will pursue further outpatient evaluation with primary care physician or other designated or consulting physician as outlined in the discharge instructions. The patient and/or caregivers are agreeable to this plan of care and follow-up instructions have been explained in detail. The patient and/or caregivers have received these instructions in written form and have expressed an understanding of the discharge instructions. The patient and/or caregivers are aware that any significant change of condition or worsening of symptoms should prompt immediate return to this or the closest emergency department or call to 911. Heriberto Disclaimer Dragon Disclaimer This electronic medical record was generated, in whole or in part, using a voice recognition dictation system. Departure Departure Impression: Primary Impression: Urinary tract infection Disposition: 01 DC HOME SELF CARE/HOMELESS Condition: GOOD Referrals: DIALLO BRUNO MD (PCP) Patient Instructions: - Urinary Tract Infection Additional Instructions: EMERGENCY DEPARTMENT GENERAL DISCHARGE INSTRUCTIONS Thank you for coming to [facility] Emergency Department (ED) today and trusting us with you care. We trust that you had a positive experience in our Emergency Department. If you wish to speak to the department management, you may call the Director at [phone]. YOUR FOLLOW UP INSTRUCTIONS ARE FOLLOWS: 1. Do you have a private Doctor? If you do not have a private doctor, please ask for a resource list of physicians or clinics that may be able to assist you with follow up care. 2. The Emergency Physicain has interpreted your x-rays. The X-Ray specialist will also review them. If there is a change in the findings, you will be notified in 48 hours when at all possible. 3. A lab test or culture has been done, your results will be reviewed and you will be notified if you need a change in treatment. ADDITIONAL INSTRUCTIONS AND INFORMATION: 1. Your care today has been supervised by a physician who is specially trained in emergency care. Many problems require more than one evaluation for a complete diagnosis and treatment. We recommend that you schedule your follow up appointment as recommended to ensure complete treatment of you illness or injury. If you are unable to obtain follow up care and continue to have a problem, or if your condition worsens, we recommend that you return to the ED. 2. We are not able to safely determine your condition over the phone nor are we able to give sound medical advice over the phone. For these safety reasons, if you call for medical advice we will ask you to come to the ED for further evaluation. 3. If you have any questions regarding these discharge instructions please call the ED at [phone]. SAFETY INFORMATION: In the interest of safety, wellness, and injury prevention; we encourage you to wear your sealbelt, if you smoke; quite smoking, and we encourage family to use a protective helmet for bicycling and other sporting events that present an increased risk for head injury. IF YOUR SYMPTOMS WORSEN OR NEW SYMPTOMS DEVELOP, OR YOU HAVE CONCERNS ABOUT YOUR CONDITION; OR IF YOUR CONDITION WORSENS WHILE YOU ARE WAITING FOR YOUR FOLLOW UP APPOINTMENT; EITHER CONTACT YOUR PRIMARY CARE DOCTOR, THE PHYSICIAN WHOSE NAME AND NUMBER YOU WERE GIVEN, OR RETURN TO THE ED IMMEDIATELY. Scripts Nitrofurantoin Macrocrystal (NITROFURANTOIN) 100 Mg Capsule 1 CAP PO BID for 10 Days, #20 CAP Prov: SUZAN LÓPEZ MD 10/06/20 Acyclovir (ACYCLOVIR) 400 Mg Tablet 400 MG PO 5XDAY for 7 Days, #35 TAB Prov: SUZAN LÓPEZ MD 10/06/20 Nystatin (NYSTATIN) 15 Gm Cream..g. 1 DIANA TP TID, #30 GM Prov: SUZAN LÓPEZ MD 10/06/20 SUZAN LÓPEZ MD Oct 06, 2020 07:39
[2020-10-06] MEDS ORDERED: ONDANSETRON PF 4 MG/2 ML VIAL. ONE (07:44)
[2020-10-06] MEDS ORDERED: IV NORMAL SALINE 1000ML BAG 1,000 ML IV SCH (07:45)
[2020-10-06] MEDS ORDERED: FAMOTIDINE 20 MG/2 ML VIAL IVP ONE (07:45)
[2020-10-06] MEDS ORDERED: ONDANSETRON PF 4 MG/2 ML VIAL. IVP ONE (07:45)
[2020-10-06 07:50] LABS: BASO # 0.1 x10^3/uL (0.0-0.2); BASO % 1 % (0-3); EOS # 0.2 x10^3/uL (0.0-0.7); EOS % 2 % (0-3); HEMATOCRIT 26.6 % (36.0-47.0); HEMOGLOBIN 7.8 g/dL (12.0-15.5); LYMPH # 2.7 x10^3/uL (1.0-4.8); LYMPH % 23 % (24-48); MEAN CORPUSCULAR HEMOGLOBIN 18 pg (25-35); MEAN CORPUSCULAR HGB CONC 29 g/dL (31-37); MEAN CORPUSCULAR VOLUME 61 fL (79-100); MONO # 0.8 x10^3/uL (0.0-1.1); MONO % 7 % (0-9); NEUT # 7.8 x10^3/uL (1.8-7.7); NEUT % 67 % (31-73); PLATELET COUNT 418 x10^3/uL (140-400); RED BLOOD COUNT 4.36 x10^6/uL (3.50-5.40); RED CELL DISTRIBUTION WIDTH 18.5 % (11.5-14.5); WHITE BLOOD COUNT 11.6 x10^3/uL (4.0-11.0)
[2020-10-06 07:58] LABS: BILIRUBIN,URINE NEGATIVE (NEG); CLARITY,URINE CLEAR; COLOR,URINE YELLOW; NITRITE,URINE POSITIVE (NEG); PH,URINE 7.5 (<5.0-8.0); PROTEIN,URINE NEGATIVE (NEG-TRACE)
[2020-10-06 08:00] LABS: CALCIUM 8.6 mg/dL (8.5-10.1); CREATININE 0.7 mg/dL (0.6-1.0); GFR 102.8; POTASSIUM 3.5 mmol/L (3.5-5.1)
[2020-10-06 08:16] LABS: BACTERIA,URINE MANY /HPF (0-FEW); RBC,URINE 0 /HPF (0-2)
[2020-10-06 08:34] VITALS: BP 106/58
[2020-10-06] MEDS ORDERED: predniSONE 10 MG TABLET PO ONE (09:00)
[2020-10-06] MEDS ORDERED: AZITHROMYCIN 250 MG TABLET. PO ONE (09:00)
[2020-10-06] MEDS ORDERED: cefTRIAXone IM 250 MG VIAL IM ONE (09:00)
[2020-10-06] MEDS ORDERED: FLUCONAZOLE 100 MG TABLET. PO ONE (09:00)
[2020-10-06] MEDS ORDERED: SUCRALFATE 1 GM TABLET. PO ONE (09:00)
[2020-10-06 09:22] LABS: PLT ESTIMATE INCREASED (ADEQUATE)
[2020-10-06 09:23] LABS: ANISOCYTOSIS SLIGHT; HYPOCHROMIA MARKED; MICROCYTOSIS MOD; OVALOCYTES PRESENT; POIKILOCYTOSIS PRESENT
--- NOTE | 2020-10-06 09:31 | RAD ---
EXAMINATION: US PELVIS W/TV (PELVIC ULTRASOUND) HISTORY: Right lower quadrant pain TECHNIQUE: Sonography of the pelvis was performed by transvaginal and transabdominal (limited) techni ques. COMPARISON: None FINDINGS: Uterus: 6.0 x 4.3 x 3.2 cm - Myometrium: Normal sonographic appearance. - Endometrium: 8 mm - Cervix: Nabothian cysts. Right ovary: 2.7 x 1.9 x 2.3 cm - Normal sonographic appearance and blood flow. Left ovary: 4.5 x 2.4 x 2.1 cm - Normal sonographic appearance and blood flow. Pelvic free fluid: None. Other: Structures in the right lower quadrant obscured by prominent bowel gas. IMPRESSION: Unremarkable pelvic ultrasound. Right lower quadrant obscured by bowel gas. If concern for acute appendicitis, recommend CT with intr avenous contrast for further evaluation. Electronically signed by: Quang Rea DO (10/06/2020 9:28 AM) [id number]
[2020-10-06] MEDS ORDERED: MORPHINE SULFATE 4 MG/ML VIAL. IV ONE (09:45)
[2020-10-06] MEDS ORDERED: ACYC400T PO (09:50)
[2020-10-06] MEDS ORDERED: NYST15CR TP (09:50)
[2020-10-06] MEDS ORDERED: NITR100C PO (09:50)
[2020-10-06] MEDS ORDERED: ONDA4TAB7 PO (10:12)
[2020-10-08 19:09] LABS: GC PROBE Negative (Negative)
== END 2020-10-06 10:20 | disposition home or self-care (01) ==
LOC: ER 07:14
DX: N39.0 Urinary tract infection, site not specified (principal); R10.13 Epigastric pain; R30.0 Dysuria; R11.0 Nausea; F41.9 Anxiety disorder, unspecified; J45.909 Unspecified asthma, uncomplicated; F17.200 Nicotine dependence, unspecified, uncomplicated; Z90.49 Acquired absence of other specified parts of digestive tract; Z90.89 Acquired absence of other organs; Z98.890 Other specified postprocedural states; Z87.442 Personal history of urinary calculi; Z88.1 Allergy status to other antibiotic agents; Z88.5 Allergy status to narcotic agent; Z88.8 Allergy status to other drugs, medicaments and biological substances; Z88.6 Allergy status to analgesic agent; Z88.4 Allergy status to anesthetic agent
CPT/HCPCS: 36415; 76830; 76856; 80048; 81001; 81025; 83690; 85025; 87491; 87591; 96361; 96372; 96374; 96375; 99284; J0696; J2270; J2405; J3490; J7030; J7512

== ENCOUNTER 2020-10-20 12:57 | Emergency (ER) | payer OTHER ==
[~2020-10-20] VITALS: Ht 157.5 cm; Wt 59.1 kg
[~2020-10-20 12:57] MED LIST changes: +ACYC400T PO; +NITR100C PO; +NYST15CR TP
[2020-10-20] MEDS ORDERED: cefTRIAXone IM 500 MG VIAL. IM ONE (13:30)
[2020-10-20] MEDS ORDERED: IV NORMAL SALINE 1000ML BAG 1,000 ML IV ONE (14:00)
[2020-10-20] MEDS ORDERED: cefTRIAXone IV Push 1 GM VIAL. IVP ONE (14:00)
[2020-10-20 14:05] LABS: BILIRUBIN,URINE NEGATIVE (NEG); CLARITY,URINE CLEAR; COLOR,URINE ORANGE; NITRITE,URINE POSITIVE (NEG); PH,URINE 7.5 (<5.0-8.0); PROTEIN,URINE NEGATIVE (NEG-TRACE)
[2020-10-20 14:15] LABS: BASO # 0.1 x10^3/uL (0.0-0.2); BASO % 2 % (0-3); EOS # 0.3 x10^3/uL (0.0-0.7); EOS % 4 % (0-3); HEMATOCRIT 26.5 % (36.0-47.0); LYMPH % 25 % (24-48); MEAN CORPUSCULAR HEMOGLOBIN 18 pg (25-35); MEAN CORPUSCULAR HGB CONC 30 g/dL (31-37); MEAN CORPUSCULAR VOLUME 60 fL (79-100); MONO # 0.5 x10^3/uL (0.0-1.1); MONO % 6 % (0-9); NEUT # 5.2 x10^3/uL (1.8-7.7); NEUT % 64 % (31-73); PLATELET COUNT 534 x10^3/uL (140-400); RED CELL DISTRIBUTION WIDTH 18.3 % (11.5-14.5); WHITE BLOOD COUNT 8.1 x10^3/uL (4.0-11.0)
[2020-10-20 14:16] LABS: BACTERIA,URINE MANY /HPF (0-FEW); RBC,URINE 0 /HPF (0-2)
[2020-10-20 14:23] LABS: U PREG PATIENT NEGATIVE (NEG)
[2020-10-20 14:33] LABS: CREATININE 0.5 mg/dL (0.6-1.0); GFR 151.6; POTASSIUM 4.4 mmol/L (3.5-5.1)
[2020-10-20 14:39] LABS: ALBUMIN 3.4 g/dL (3.4-5.0); ALBUMIN/GLOBULIN RATIO 0.9 (1.0-1.7); TOTAL BILIRUBIN 0.3 mg/dL (0.2-1.0); TOTAL PROTEIN 7.2 g/dL (6.4-8.2)
[2020-10-20] MEDS ORDERED: ONDANSETRON PF 4 MG/2 ML VIAL. IVP ONE (14:45)
--- NOTE | 2020-10-20 14:46 | PHYS DOC ---
Past Medical History Past Medical History: Anxiety, Asthma, Gallstones, Seizure, Other Additional Past Medical Histor: ADDISONS,PSYCHOGENIC SEIZ URES,ciliac,chrons,pcos,muscle spasms,PA Past Surgical History: Cholecystectomy, Gastric Bypass, Tonsillectomy, Other Additional Past Surgical Histo: RHINOPLASTY,adenoidectomy,HERNIA,CHRONIC PAIN,GASTRIC BYPASS Smoking Status: Current Every Day Smoker Alcohol Use: None Drug Use: None General Adult EDM: Chief Complaint: MULTIPLE COMPLAINTS HPI: HPI: 24-year-old homeless female past medical history including Aurelio-en-Y gastric bypass, cholecystectomy and adult onset epilepsy presents to the ED with complaints of " I got sick last night and never filled my Macrobid because it is $100." EMR was reviewed and patient was seen here on October 04 and prescribed Macrobid and acyclovir for vaginal herpes infection and nitrite positive UTI. Patient with history of possible UTI and hypotension in 2019. Review of Systems: Review of Systems: Constitutional: Denies fever or chills. [] Eyes: Denies change in visual acuity. [] HENT: Denies nasal congestion or sore throat. [] Respiratory: Denies cough or shortness of breath. [] Cardiovascular: Denies chest pain or edema. [] GI: Denies abdominal pain, nausea, vomiting, bloody stools or diarrhea. [] : Denies dysuria. [] Musculoskeletal: Denies back pain or joint pain. [] Integument: Denies rash. [] Neurologic: Denies headache, focal weakness or sensory changes. [] Endocrine: Denies polyuria or polydipsia. [] Lymphatic: Denies swollen glands. [] Psychiatric: Denies depression or anxiety. [] Heart Score: Risk Factors: Risk Factors: DM, Current or recent (<one month) smoker, HTN, HLP, family history of CAD, obesity. Risk Scores: Score 0 - 3: 2.5% MACE over next 6 weeks - Discharge Home Score 4 - 6: 20.3% MACE over next 6 weeks - Admit for Clinical Observation Score 7 - 10: 72.7% MACE over next 6 weeks - Early Invasive Strategies Current Medications: Current Medications Medications (Trade) Dose Ordered Sig/Julia Start Time Stop Time Status Last Admin Dose Admin Ceftriaxone Sodium (Rocephin Im) 500 mg 1X ONCE 10/20/20 13:30 10/20/20 14:01 DC Ceftriaxone Sodium (Rocephin) 1 gm 1X ONCE 10/20/20 14:00 10/20/20 14:02 DC Ondansetron HCl (Zofran) 4 mg 1X ONCE 10/20/20 14:45 10/20/20 14:46 Sodium Chloride 1,000 ml @ 1,000 mls/hr 1X ONCE 10/20/20 14:00 10/20/20 14:59 Allergies: Allergies: Allergies Coded Allergies Type Severity Reaction Last Updated Verified NSAIDS (Non-Steroidal Anti-Inflamma Allergy Severe "Not supposed to have after bypass" 08/13/18 Yes diclofenac Allergy Severe Hives 08/13/18 Yes meloxicam Allergy Severe "Couldn't breathe" 08/13/18 Yes amoxicillin Allergy Intermediate rash 10/06/20 Yes codeine Allergy Intermediate Hives 08/13/18 Yes dicyclomine Allergy Intermediate Hives 08/13/18 Yes fentanyl Allergy Intermediate "Hives and couldn't breathe" 08/13/18 Yes ketamine Allergy Intermediate HIVES 11/16/18 Yes ketorolac Allergy Intermediate Hives 08/13/18 Yes lidocaine Allergy Intermediate Rash 11/16/18 Yes tizanidine Allergy Intermediate Hives 02/25/17 Yes tramadol Allergy Intermediate Hives 08/13/18 Yes cyclobenzaprine Adverse Reaction Intermediate "DOESN'T WORK" 02/06/17 Yes Physical Exam: PE: Constitutional: Well developed, well nourished, no acute distress, non-toxic appearance. HENT: Normocephalic, atraumatic, Eyes: EOMI, conjunctiva normal, no discharge. Neck: Normal range of motion, supple, Cardiovascular: S1/2 present, regular rhythm Lungs & Thorax: Speaking in full sentences, bilateral equal chest rise, no tachypnea or increased work of breathing Abdomen: soft, no tenderness, Skin: Warm, dry, no erythema, no rash. [] Back: No tenderness, no CVA tenderness. [] Extremities: No tenderness, no cyanosis, no edema Neurologic: Alert and oriented X 3, normal motor function, normal sensory function, no focal deficits noted. [] Psychologic: Affect normal, judgement normal, mood normal. [] Current Patient Data: Labs: Laboratory Tests Test 10/20/20 13:22 10/20/20 13:23 10/20/20 14:10 Urine Collection Type Unknown Urine Color [place] Urine Clarity Clear Urine pH 7.5 (<5.0-8.0) Urine Specific [place] 1.020 (1.000-1.030) Urine Protein Negative mg/dL (NEG-TRACE) Urine Glucose (UA) Negative mg/dL (NEG) Urine Ketones (Stick) Negative mg/dL (NEG) Urine Blood Negative (NEG) Urine Nitrite Positive (NEG) Urine Bilirubin Negative (NEG) Urine Urobilinogen Dipstick 1.0 mg/dL (0.2 mg/dL) Urine Leukocyte Esterase Small (NEG) Urine RBC 0 /HPF (0-2) Urine WBC 5-10 /HPF (0-4) Urine Squamous Epithelial Cells Few /LPF Urine Bacteria Many /HPF (0-FEW) Urine Mucus Slight /LPF Urine Test Negative (NEG) POC Urine HCG, Qualitative Hcg negative (Negative) White Blood Count 8.1 x10^3/uL (4.0-11.0) Red Blood Count 4.40 x10^6/uL (3.50-5.40) Hemoglobin 8.0 g/dL (12.0-15.5) L Hematocrit 26.5 % (36.0-47.0) L Mean Corpuscular Volume 60 fL (79-100) L Mean Corpuscular Hemoglobin 18 pg (25-35) L Mean Corpuscular Hemoglobin Concent 30 g/dL (31-37) L Red Cell Distribution Width 18.3 % (11.5-14.5) H Platelet Count 534 x10^3/uL (140-400) H Neutrophils (%) (Auto) 64 % (31-73) Lymphocytes (%) (Auto) 25 % (24-48) Monocytes (%) (Auto) 6 % (0-9) Eosinophils (%) (Auto) 4 % (0-3) H Basophils (%) (Auto) 2 % (0-3) Neutrophils # (Auto) 5.2 x10^3/uL (1.8-7.7) Lymphocytes # (Auto) 2.0 x10^3/uL (1.0-4.8) Monocytes # (Auto) 0.5 x10^3/uL (0.0-1.1) Eosinophils # (Auto) 0.3 x10^3/uL (0.0-0.7) Basophils # (Auto) 0.1 x10^3/uL (0.0-0.2) Platelet Estimate Pending Sodium Level 138 mmol/L (136-145) Potassium Level 4.4 mmol/L (3.5-5.1) Chloride Level 106 mmol/L (98-107) Carbon Dioxide Level 23 mmol/L (21-32) Anion Gap 9 (6-14) Blood Urea Nitrogen 7 mg/dL (7-20) Creatinine 0.5 mg/dL (0.6-1.0) L Estimated GFR (Cockcroft-Gault) 151.6 BUN/Creatinine Ratio 14 (6-20) Glucose Level 88 mg/dL (70-99) Calcium Level 9.0 mg/dL (8.5-10.1) Total Bilirubin Pending Aspartate Amino Transferase (AST) Pending Alanine Aminotransferase (ALT) Pending Alkaline Phosphatase Pending Total Protein Pending Albumin Pending Albumin/Globulin Ratio Pending Laboratory Tests 10/20/20 14:10 Laboratory Tests 10/20/20 14:10 Vital Signs: Vital Signs Date Time Temp Pulse Resp B/P (MAP) Pulse Ox O2 Delivery O2 Flow Rate FiO2 10/20/20 13:18 98.2 81 16 109/59 (76) 100 Room Air 98.2 EKG: EKG: [] Radiology/Procedures: Radiology/Procedures: [] Course & Med Decision Making: Course & Med Decision Making Pertinent Labs and Imaging studies reviewed. (See chart for details) Will discharge home with strict ED return precautions were given for []. Encouraged urgent outpatient follow-up with PMD and [specialist]. Life- threatening processes were considered but are low suspicion at this time, given history, physical exam and ED workup. Pt was educated on all prescription medications and adverse effects. All patient's questions were answered and pt was stable at time of discharge. Life/limb-threatening differential includes but is not limited to, acute coronary syndrome/myocardial infarction, Boerhaave's, DKA, intracranial hemorrhage, ischemic bowel, meningitis, sepsis, surgical abdomen (AAA), toxi drome (drug over/overdose/carbon monoxide, etc), ovarian/testicular torsion, trauma, or infection/sepsis. I spoken with the patient and her caregivers. I explained the patient's condition, diagnoses and treatment plan based on the information available to me at this time. I have answered the patient and her caregiver's questions and addressed any concerns. The patient and her caregivers have a good understanding of patient's diagnosis, condition and treatment plan as can be expected at this point. Vital signs have been stable. Patient's condition is stable and appropriate for discharge from the emergency department. Patient will pursue further outpatient evaluation with primary care physician or other designated or consulting physician as outlined in the discharge instructions. The patient and/or caregivers are agreeable to this plan of care and follow-up instructions have been explained in detail. The patient and/or caregivers have received these instructions in written form and have expressed an understanding of the discharge instructions. The patient and/or caregivers a re aware that any significant change of condition or worsening of symptoms should prompt immediate return to this or the closest emergency department or call to 911. Heriberto Disclaimer: Heriberto Disclaimer: This electronic medical record was generated, in whole or in part, using a voice recognition dictation system. Departure Departure Impression: Primary Impression: Pyelonephritis Additional Impressions: Noncompliance with medication regimen Nausea & vomiting Disposition: 09 ADMITTED INPT THIS HOSP Admitting Physician: JAYLA (Dr. Llamas) Condition: STABLE Referrals: DIALLO BRUNO MD (PCP) For repeat urinalysis in 10 days Patient Instructions: Nausea and Vomiting, Pyelonephritis, Adult, Urinary Tract Infection Additional Instructions: EMERGENCY DEPARTMENT GENERAL DISCHARGE INSTRUCTIONS Thank you for coming to [facility] Emergency Department (ED) today and trusting us with you care. We trust that you had a positive experience in our Emergency Department. If you wish to speak to the department management, you may call the Director at [phone]. YOUR FOLLOW UP INSTRUCTIONS ARE FOLLOWS: 1. Do you have a private Doctor? If you do not have a private doctor, please ask for a resource list of physicians or clinics that may be able to assist you with follow up care. 2. The Emergency Physicain has interpreted your x-rays. The X-Ray specialist will also review them. If there is a change in the findings, you will be notified in 48 hours when at all possible. 3. A lab test or culture has been done, your results will be reviewed and you will be notified if you need a change in treatment. ADDITIONAL INSTRUCTIONS AND INFORMATION: 1. Your care today has been supervised by a physician who is specially trained in emergency care. Many problems require more than one evaluation for a complete diagnosis and treatment. We recommend that you schedule your follow up appointment as recommended to ensure complete treatment of you illness or injury. If you are unable to obtain follow up care and continue to have a problem, or if your condition worsens, we recommend that you return to the ED. 2. We are not able to safely determine your condition over the phone nor are we able to give sound medical advice over the phone. For these safety reasons, if you call for medical advice we will ask you to come to the ED for further evaluation. 3. If you have any questions regarding these discharge instructions please call the ED at [phone]. SAFETY INFORMATION: In the interest of safety, wellness, and injury prevention; we encourage you to wear your sealbelt, if you smoke; quite smoking, and we encourage family to use a protective helmet for bicycling and other sporting events that present an increased risk for head injury. IF YOUR SYMPTOMS WORSEN OR NEW SYMPTOMS DEVELOP, OR YOU HAVE CONCERNS ABOUT YOUR CONDITION; OR IF YOUR CONDITION WORSENS WHILE YOU ARE WAITING FOR YOUR FOLLOW UP APPOINTMENT; EITHER CONTACT YOUR PRIMARY CARE DOCTOR, THE PHYSICIAN WHOSE NAME AND NUMBER YOU WERE GIVEN, OR RETURN TO THE ED IMMEDIATELY. Scripts Ondansetron (ONDANSETRON ODT) 4 Mg Tab.rapdis 1 TAB PO PRN Q6-8HRS, #20 TAB Prov: VIDYA SANZ DO 10/20/20 Nitrofurantoin Monohyd/M-Cryst (MACROBID 100 MG CAPSULE) 100 Mg Capsule 1 CAP PO BID for 7 Days, #14 CAP 0 Refills Prov: VIDYA SANZ DO 10/20/20 VIDYA SANZ DO Oct 20, 2020 14:46
[2020-10-20] MEDS ORDERED: HALOPERIDOL LACTATE 5 MG/ML VIAL. IVP ONE (15:00)
[2020-10-20 15:06] LABS: BARBITURATES NEG (NEG); BENZODIAZEPINES NEG (NEG); CANNABINOIDS POS (NEG); COCAINE NEG (NEG); METHADONE NEG (NEG); OPIATES NEG (NEG); PHENCYCLIDINE NEG (NEG)
[2020-10-20 15:07] LABS: AMPHETAMINE/METHAMPHETAMINE NEG (NEG)
[2020-10-20] MEDS ORDERED: ACETAMINOPHEN 500 MG TABLET PO ONE (15:15)
[2020-10-20] MEDS ORDERED: FOSFOMYCIN TROMETHAMINE 3 GM PACKET PO ONE (15:30)
--- NOTE | 2020-10-20 15:39 | RAD ---
Examination: CT of the abdomen pelvis without contrast HISTORY: History of left flank pain COMPARISON: 12/04/2018 TECHNIQUE: Axial CT images of the abdomen pelvis were performed without contrast. Coronal and sagitta l reformats performed Exposure: One or more of the following individualized dose reduction techniques were utilized for thi s examination: 1. Automated exposure control 2. Adjustment of the mA and/or kV according to patient size 3. Use of iterative reconstruction technique FINDINGS: The bibasilar lungs are clear. No evidence of free air identified in the abdomen examination is limited lack of IV contrast The visualized noncontrasted liver, spleen, adrenals grossly appears unremarkable. Cholecystectomy changes identified. Surgical changes identified in the stomach The small bowel is nondilated. Moderate amount of feces and gas identified throughout the colon The appendix grossly appears unremarkable There is a 3.5 mm calculus identified in the left kidney. No evidence of hydronephrosis. No evidence of lytic bony destructive lesion IMPRESSION: 1. 3.5 mm calculus identified in the left kidney. No evidence of hydronephrosis. 2. Moderate amount of feces and gas identified throughout the colon. Correlate for constipation. 3. Examination limited without IV contrast. Electronically signed by: Jamie Lugo MD (10/20/2020 3:36 PM) [id number]
[2020-10-20 15:43] LABS: ANISOCYTOSIS SLIGHT; HYPOCHROMIA MARKED; MICROCYTOSIS MARKED; PLT ESTIMATE INCREASED (ADEQUATE)
[2020-10-20 15:44] LABS: BIZZARE CELLS FEW; OVALOCYTES MOD
[2020-10-20] MEDS ORDERED: NITR100C62 PO (16:16)
[2020-10-20] MEDS ORDERED: ONDA4TAB12 PO (16:16)
[2020-10-20 16:35] VITALS: BP 111/64
== END 2020-10-20 16:53 | disposition home or self-care (01) ==
LOC: ER 12:57
DX: N12 Tubulo-interstitial nephritis, not specified as acute or chronic (principal); Z91.14 Patient's other noncompliance with medication regimen; M25.512 Pain in left shoulder; G40.909 Epilepsy, unspecified, not intractable, without status epilepticus; J45.909 Unspecified asthma, uncomplicated; F17.200 Nicotine dependence, unspecified, uncomplicated; G89.29 Other chronic pain; Z90.49 Acquired absence of other specified parts of digestive tract; Z95.1 Presence of aortocoronary bypass graft; Z88.1 Allergy status to other antibiotic agents; Z88.4 Allergy status to anesthetic agent; Z88.5 Allergy status to narcotic agent; Z88.6 Allergy status to analgesic agent; Z88.8 Allergy status to other drugs, medicaments and biological substances
CPT/HCPCS: 36415; 74176; 80053; 80307; 81001; 81025; 83605; 85025; 87040; 87086; 96361; 96374; 96375; 99284; J0696; J2405; J7030

== ENCOUNTER 2021-07-30 09:38 | Emergency (ER) | payer OTHER ==
[~2021-07-30] VITALS: Ht 167.6 cm; Wt 53.6 kg
[~2021-07-30 09:38] MED LIST changes: +ACYC-12 PO; -ACYC400T PO; -ACYC800T PO; +ACYC800T88 PO; +NITR100C62 PO; +ONDA4TAB12 PO
[2021-07-30] MEDS ORDERED: IV NORMAL SALINE 1000ML BAG 1,000 ML IV ONE (11:00)
[2021-07-30] MEDS ORDERED: ONDANSETRON PF 4 MG/2 ML VIAL. IVP ONE (11:00)
--- NOTE | 2021-07-30 11:02 | PHYS DOC ---
Past Medical History Past Medical History: Anxiety, Asthma, Gallstones, Seizure, Other Additional Past Medical Histor: ADDISONS,PSYCHOGENIC SEIZURES,ciliac,chrons,pcos,muscle spasms,PA (DASH BROWN APRN) Past Surgical History: Gastric Bypass Additional Past Surgical Histo: Hernia Repair (DASH BROWN APRN) Smoking Status: Current Every Day Smoker Alcohol Use: None Drug Use: None (DASH BROWN APRN) General Adult EDM: Chief Complaint: FLANK PAIN HPI: HPI: Is a 25-year-old female who presents to the emergency department today for lower abdominal pain that radiates to bilateral flank. She reports that the pain is intermittent and started yesterday. Patient rates her pain 8 out of 10. She states that along with that she is having urinary urgency and did have dysuria along with nausea and vomiting. She states that she has been taking Azo and Tylenol and the dysuria has improved. Patient denies any fevers, hematuria, blood in your vomit. She reports she had a hernia repair performed at [facility] 2 months ago. Patient has a history of a gastric bypass greater than 5 years ago. (DASH BROWN APRN) Review of Systems: Review of Systems: 14 body systems of the review of systems have been reviewed. See HPI for pertinent positive and negative responses, otherwise all other systems are negative, nonpertinent or noncontributory (DASH BROWN APRN) Heart Score: C/O Chest Pain: N/A Risk Factors: Risk Factors: DM, Current or recent (<one month) smoker, HTN, HLP, family history of CAD, obesity. Risk Scores: Score 0 - 3: 2.5% MACE over next 6 weeks - Discharge Home Score 4 - 6: 20.3% MACE over next 6 weeks - Admit for Clinical Observation Score 7 - 10: 72.7% MACE over next 6 weeks - Early Invasive Strategies (DASH BROWN APRN) Current Medications: Current Medications Medications (Trade) Dose Ordered Sig/Julia Start Time Stop Time Status Last Admin Dose Admin Ondansetron HCl (Zofran) 4 mg 1X ONCE 07/30/21 11:00 07/30/21 11:01 Sodium Chloride 1,000 ml @ 1,000 mls/hr 1X ONCE 07/30/21 11:00 07/30/21 11:59 (DASH BROWN APRN) Allergies: Allergies: Allergies Coded Allergies Type Severity Reaction Last Updated Verified NSAIDS (Non-Steroidal Anti-Inflamma Allergy Severe "Not supposed to have after bypass" 07/30/21 Yes diclofenac Allergy Severe Hives 07/30/21 Yes fentanyl Allergy Severe "Hives and couldn't breathe" 07/30/21 Yes meloxicam Allergy Severe "Couldn't breathe" 07/30/21 Yes amoxicillin Allergy Intermediate rash 07/30/21 Yes codeine Allergy Intermediate Hives 07/30/21 Yes dicyclomine Allergy Intermediate Hives 08/13/18 Yes haloperidol Allergy Intermediate rash 10/20/20 Yes ketamine Allergy Intermediate HIVES 11/16/18 Yes ketorolac Allergy Intermediate Hives 08/13/18 Yes lidocaine Allergy Intermediate Rash 11/16/18 Yes nitrofurantoin Allergy Intermediate rash, nausea 10/20/20 Yes tizanidine Allergy Intermediate Hives 02/25/17 Yes tramadol Allergy Intermediate Hives 08/13/18 Yes I S O L A T I O N *CONTACT* Allergy Unknown 10/24/20 Yes cyclobenzaprine Adverse Reaction Intermediate "DOESN'T WORK" 02/06/17 Yes (DASH BROWN APRN) Physical Exam: PE: Constitutional: Well developed, well nourished, no acute distress, non-toxic appearance. [] HENT: Normocephalic, atraumatic, bilateral external ears normal, oropharynx moist, no oral exudates, nose normal. [] Eyes: PERRL, EOMI, conjunctiva normal, no discharge. [] Neck: Normal range of motion, no stridor Cardiovascular:Heart rate regular rhythm, no murmur [] Lungs & Thorax: Bilateral breath sounds clear to auscultation [] Abdomen: Bowel sounds normal, soft, right upper quadrant and bilateral lower abdominal pain with palpation, negative Ernst sign, no active vomiting, surgical incision scar noted to abdomen that appear to be healing well, no masses, no pulsatile masses. [] Skin: Warm, dry, no erythema, no rash. [] Back: No tenderness, right-sided CVA tenderness. [] Extremities: No tenderness, no cyanosis, no clubbing, ROM intact, no edema. [] Neurologic: Alert and oriented X 3, normal motor function, normal sensory f unction, no focal deficits noted. [] Psychologic: Affect normal, judgement normal, mood normal. [] (DASH BROWN APRN) Current Patient Data: Labs: Laboratory Tests Test 07/30/21 10:45 POC Urine HCG, Qualitative Hcg negative (Negative) Vital Signs: Vital Signs Date Time Temp Pulse Resp B/P (MAP) Pulse Ox O2 Delivery O2 Flow Rate FiO2 07/30/21 10:37 98.1 86 16 136/87 (103) 98 98.1 (DASH BROWN APRN) EKG: EKG: [] (DASH BROWN APRN) Radiology/Procedures: Radiology/Procedures: [] (DASH BROWN APRN) Course & Med Decision Making: Course & Med Decision Making Pertinent Labs and Imaging studies reviewed. (See chart for details) [] Patient presents to the emergency department for lower abdominal pain that radiates to bilateral flank. Work-up in the ER consisted of blood work, urinalysis and CT imaging of abdomen as patient did have a hernia repair 2 months ago. Patient does have a history of kidney stones but states that she has not had a kidney stone for a long time. Patient was noted to have a hem oglobin of 7.5 and hematocrit of 25.6, this is consistent with previous findings for chronic anemia. Patient was noted to have a urinary tract infection. The CT abdomen showed no internal hernia as read by the radiologist. I discussed these findings with patient and offered admission to this hospital and GI/surgery consultation and she declined stating that she would like to be transferred to [facility] where her surgeon Dr. Dupont is. I contacted [facility] transfer line to get patient treated to that facility. I was awaiting a return call from the transfer line with acceptance on patient stated that she called her doctor and he advised her to come into the office. Patient is leaving AGAINST MEDICAL ADVICE. Patient acknowledges the risks associated with leaving AGAINST MEDICAL ADVICE including worsening of condition and . Patient is alert and oriented x4 and capable of making medical decisions. AMA papers signed. (DASH BROWN APRN) Dragon Disclaimer: Dragon Disclaimer: This electronic medical record was generated, in whole or in part, using a voice recognition dictation system. (DASH BROWN APRN) Departure Departure Impression: Primary Impression: Hernia Additional Impression: Abdominal pain Qualified Codes: R10.30 - Lower abdominal pain, unspecified Disposition: LEFT AGAINST MEDICAL ADVICE Condition: STABLE Referrals: DIALLO BRUNO MD (PCP) Attending Signature I have participated in the care of this patient and I have reviewed and agree with all pertinent clinical information above including history, exam, and recommendations. (ANTONIETA ALMEIDA DO) DASH BROWN APRN Jul 30, 2021 11:02 ANTONIETA ALMEIDA DO Jul 30, 2021 15:10
[2021-07-30 11:07] LABS: BILIRUBIN,URINE NEGATIVE (NEG); CLARITY,URINE CLOUDY; COLOR,URINE YELLOW; NITRITE,URINE POSITIVE (NEG); PH,URINE 6.5 (<5.0-8.0); PROTEIN,URINE NEGATIVE (NEG-TRACE)
[2021-07-30] MEDS ORDERED: CONTRAST GIVEN. MC PRN (11:15)
[2021-07-30] MEDS ORDERED: IOHEXOL 300 MG/ML 100ML VIAL. IV ONE (11:15)
[2021-07-30 11:21] LABS: BACTERIA,URINE MANY /HPF (0-FEW); RBC,URINE 0 /HPF (0-2)
[2021-07-30 11:39] LABS: BASO # 0.1 x10^3/uL (0.0-0.2); BASO % 2 % (0-3); EOS # 0.2 x10^3/uL (0.0-0.7); EOS % 3 % (0-3); HEMATOCRIT 25.6 % (36.0-47.0); HEMOGLOBIN 7.5 g/dL (12.0-15.5); LYMPH # 1.9 x10^3/uL (1.0-4.8); LYMPH % 29 % (24-48); MEAN CORPUSCULAR HEMOGLOBIN 16 pg (25-35); MEAN CORPUSCULAR HGB CONC 29 g/dL (31-37); MEAN CORPUSCULAR VOLUME 56 fL (79-100); MONO # 0.6 x10^3/uL (0.0-1.1); MONO % 9 % (0-9); NEUT # 3.9 x10^3/uL (1.8-7.7); NEUT % 58 % (31-73); PLATELET COUNT 532 x10^3/uL (140-400); RED BLOOD COUNT 4.59 x10^6/uL (3.50-5.40); RED CELL DISTRIBUTION WIDTH 18.5 % (11.5-14.5); WHITE BLOOD COUNT 6.7 x10^3/uL (4.0-11.0)
[2021-07-30 11:49] LABS: CALCIUM 7.8 mg/dL (8.5-10.1); CREATININE 0.5 mg/dL (0.6-1.0); GFR 150.3; POTASSIUM 3.6 mmol/L (3.5-5.1)
[2021-07-30 11:49] LABS: BARBITURATES NEG (NEG); BENZODIAZEPINES NEG (NEG); CANNABINOIDS POS (NEG); COCAINE NEG (NEG); METHADONE NEG (NEG); OPIATES NEG (NEG); PHENCYCLIDINE NEG (NEG)
[2021-07-30 11:51] LABS: AMPHETAMINE/METHAMPHETAMINE NEG (NEG)
[2021-07-30 11:54] LABS: ALBUMIN 3.1 g/dL (3.4-5.0); ALBUMIN/GLOBULIN RATIO 0.9 (1.0-1.7); TOTAL BILIRUBIN 0.2 mg/dL (0.2-1.0); TOTAL PROTEIN 6.6 g/dL (6.4-8.2)
[2021-07-30] MEDS ORDERED: MORPHINE SULFATE 2 MG/ML INJ. IVP ONE (12:00)
--- NOTE | 2021-07-30 12:34 | RAD ---
EXAMINATION: CT ABDOMEN+PELVIS W CLINICAL HISTORY: Lower abdominal and right upper quadrant abdominal pain. History of gastric bypass, cholecystectomy, and hernia repair TECHNIQUE: CT of the abdomen and pelvis was performed using standard technique, scanning from just ab ove the dome of the diaphragm to the symphysis pubis following administration of intravenous contrast . CT Dose Reduction Employed: One or more of the following individualized dose reduction techniques wer e utilized for this examination: 1. Automated exposure control 2. Adjustment of the mA and/or kV ac cording to patient size 3. Use of iterative reconstruction technique. COMPARISON: 10/20/2020, 12/04/2018 FINDINGS: Visualized heart and lungs unremarkable. Slight biliary ductal prominence status post cholecystectomy. Liver, pancreas, spleen, adrenal glands , and kidneys unremarkable. Mildly filled urinary bladder. Retroverted uterus. Bilateral multifollicular ovaries. Postoperative changes related to gastric bypass procedure with interval shift of the jejunojejunal an astomosis to the right, swirling of the mesentery and mesenteric vessels, and diffuse mesenteric maria teresa a, suspicious for internal hernia. Focally dilated loops of bowel are seen at either side of the jeju nojejunal anastomosis, but there is no definitive evidence of bowel obstruction. No definite bowel wa ll thickening. Appendix not definitively visualized. No abdominal aortic or iliac artery aneurysm. No evidence of acute osseous abnormality. IMPRESSION: Postoperative changes related to gastric bypass procedure with findings suspicious for internal herni a as described. No definitive evidence of bowel obstruction. Findings discussed with DASH BROWN APRN at 07/30/2021 12:29 PM. Electronically signed by: Quang Rea DO (07/30/2021 12:32 PM) LUCY
[2021-07-30 12:49] LABS: PLT ESTIMATE INCREASED (ADEQUATE)
[2021-07-30 12:51] LABS: ANISOCYTOSIS PRESENT; HYPOCHROMIA MARKED; MICROCYTOSIS MARKED
[2021-07-30] MEDS ORDERED: MORPHINE SULFATE 4 MG/ML INJ. IVP ONE (13:15)
[2021-07-30 13:27] VITALS: BP 100/59
== END 2021-07-30 13:48 | disposition home or self-care (01) ==
LOC: ER 09:38
DX: K46.9 Unspecified abdominal hernia without obstruction or gangrene (principal); J45.909 Unspecified asthma, uncomplicated; F17.200 Nicotine dependence, unspecified, uncomplicated; Z98.84 Bariatric surgery status; Z98.890 Other specified postprocedural states; Z88.1 Allergy status to other antibiotic agents; Z88.5 Allergy status to narcotic agent; Z88.4 Allergy status to anesthetic agent; Z88.6 Allergy status to analgesic agent; Z91.041 Radiographic dye allergy status; Z88.8 Allergy status to other drugs, medicaments and biological substances
CPT/HCPCS: 36415; 74177; 80053; 80307; 81001; 81025; 83690; 85025; 87086; 96361; 96374; 96375; 96376; 99285; J2270; J2405; J7030; Q9967; 87077; 87186

== ENCOUNTER 2021-07-31 12:02 | Emergency (ER) | payer OTHER ==
[~2021-07-31] VITALS: Ht 157.5 cm; Wt 53.6 kg
[2021-07-31] MEDS ORDERED: MORPHINE SULFATE 2 MG/ML INJ. IVP ONE ×3 (13:15→16:30)
[2021-07-31] MEDS ORDERED: ONDANSETRON PF 4 MG/2 ML VIAL. IVP ONE (13:15)
[2021-07-31] MEDS ORDERED: IV NORMAL SALINE 1000ML BAG 1,000 ML IV SCH (13:15)
--- NOTE | 2021-07-31 13:25 | PHYS DOC ---
Past Medical History Past Medical History: Anxiety, Asthma, Gallstones, Seizure, Other Additional Past Medical Histor: ADDISONS,PSYCHOGENIC SEIZURES,ciliac,chrons,pcos,muscle spasms,PA Past Surgical History: Gastric Bypass Additional Past Surgical Histo: Hernia Repair Smoking Status: Current Every Day Smoker Alcohol Use: None Drug Use: None General Adult EDM: Chief Complaint: FLANK PAIN HPI: HPI: Patient is a 25 year old female who presents with bilateral lower abdominal pain that goes to bilateral flanks with burning, urgency, nausea, vomiting and has been taking Azo and Tylenol for last 2 days. She had a hernia repair 2 months ago at [facility]. She was diagnosed yesterday when she was seen here in the ED with internal hernia and a UTI with positive nitrites. She states that she did not want to stay here to be admitted and wanted to go back to [facility] that she could call her doctor. She states that she went to [facility] yesterday and they stated they had no beds and she would be sitting in the ER and that she should probably just go back to [place]. Patient had the hernia surgery by a Dr. Hyde at [facility]. She had a gastric bypass greater than 5 years ago. She is rating her pain a sharp/aching 10 out of 10 and states that she has not taken anything today. She states she cannot keep down any food. History of psychogenic seizure, Charlotte's disease, pyoderma, gastric bypass going 5 years ago, drug-seeking behavior, bacterial vaginosis, intractable abdominal pain, syncope, UTI, herpes, right ovarian cyst, dental caries. Review of Systems: Review of Systems: Constitutional: Denies fever or chills. [] Eyes: Denies change in visual acuity. [] HENT: Denies nasal congestion or sore throat. [] Respiratory: Denies cough or shortness of breath. [] Cardiovascular: Denies chest pain or edema. [] GI: + abdominal pain, +nausea, +vomiting, denies bloody stools or diarrhea. [] : + dysuria. [] Musculoskeletal: +bilateral back pain or denies joint pain. [] Integument: Denies rash. [] Neurologic: Denies headache, focal weakness or sensory changes. [] Endocrine: Denies polyuria or polydipsia. [] Lymphatic: Denies swollen glands. [] Psychiatric: Denies depression or anxiety. [] Heart Score: C/O Chest Pain: No Allergies: Allergies: Allergies Coded Allergies Type Severity Reaction Last Updated Verified NSAIDS (Non-Steroidal Anti-Inflamma Allergy Severe "Not supposed to have after bypass" 07/30/21 Yes diclofenac Allergy Severe Hives 07/30/21 Yes fentanyl Allergy Severe "Hives and couldn't breathe" 07/30/21 Yes meloxicam Allergy Severe "Couldn't breathe" 07/30/21 Yes amoxicillin Allergy Intermediate rash 07/30/21 Yes codeine Allergy Intermediate Hives 07/30/21 Yes dicyclomine Allergy Intermediate Hives 08/13/18 Yes haloperidol Allergy Intermediate rash 10/20/20 Yes ketamine Allergy Intermediate HIVES 11/16/18 Yes ketorolac Allergy Intermediate Hives 08/13/18 Yes lidocaine Allergy Intermediate Rash 11/16/18 Yes nitrofurantoin Allergy Intermediate rash, nausea 10/20/20 Yes tizanidine Allergy Intermediate Hives 02/25/17 Yes tramadol Allergy Intermediate Hives 08/13/18 Yes I S O L A T I O N *CONTACT* Allergy Unknown 10/24/20 Yes cyclobenzaprine Adverse Reaction Intermediate "DOESN'T WORK" 02/06/17 Yes Physical Exam: PE: Constitutional: Well developed, well nourished, no acute distress, non-toxic appearance. [] HENT: Normocephalic, atraumatic, bilateral external ears normal, oropharynx moist, no oral exudates, nose normal. [] Eyes: PERRLA, EOMI, conjunctiva normal, no discharge. [] Neck: Normal range of motion, no tenderness, supple, no stridor. [] Cardiovascular:Heart rate regular rhythm, no murmur [] Lungs & Thorax: Bilateral breath sounds clear to auscultation [] Abdomen: Bowel sounds normal, soft, generalized tenderness, no masses, no pulsatile masses. [] Skin: Warm, dry, no erythema, no rash. [] Back: No tenderness, bilateral CVA tenderness. [] Extremities: No tenderness, no cyanosis, no clubbing, ROM intact, no edema. [] Neurologic: Alert and oriented X 3, normal motor function, normal sensory function, no focal deficits noted. [] Psychologic: Affect normal, judgement normal, mood normal. [] Current Patient Data: Labs: Laboratory Tests Test 07/31/21 13:00 POC Urine HCG, Qualitative Hcg negative (Negative) EKG: EKG: [] Radiology/Procedures: Radiology/Procedures: [] Impression: [facility] [address] [place] [address] IMAGING REPORT Signed PATIENT: FERCHO CORTEZ ACCOUNT: [id number] : 1995 LOCATION: ER AGE: 25 SEX: F EXAM STATUS: REG ER ORD. PHYSICIAN: DASH BROWN APRN REASON: lower abdominal/ruq pain PROCEDURE: CT ABD PELV W/ IV CONTRST ONLY EXAMINATION: CT ABDOMEN+PELVIS W CLINICAL HISTORY: Lower abdominal and right upper quadrant abdominal pain. History of gastric bypass, cholecystectomy, and hernia repair TECHNIQUE: CT of the abdomen and pelvis was performed using standard technique, scanning from just above the dome of the diaphragm to the symphysis pubis following administration of intravenous contrast. CT Dose Reduction Employed: One or more of the following individualized dose reduction techniques were utilized for this examination: 1. Automated exposure control 2. Adjustment of the mA and/or kV according to patient size 3. Use of iterative reconstruction technique. COMPARISON: 10/20/2020, 12/04/2018 FINDINGS: Visualized heart and lungs unremarkable. Slight biliary ductal prominence status post cholecystectomy. Liver, pancreas, spleen, adrenal glands, and kidneys unremarkable. Mildly filled urinary bladder. Retroverted uterus. Bilateral multifollicular ovaries. Postoperative changes related to gastric bypass procedure with interval shift of the jejunojejunal anastomosis to the right, swirling of the mesentery and mes enteric vessels, and diffuse mesenteric edema, suspicious for internal hernia. Focally dilated loops of bowel are seen at either side of the jejunojejunal anastomosis, but there is no definitive evidence of bowel obstruction. No definite bowel wall thickening. Appendix not definitively visualized. No abdominal aortic or iliac artery aneurysm. No evidence of acute osseous abnormality. IMPRESSION: Postoperative changes related to gastric bypass procedure with findings suspicious for internal hernia as described. No definitive evidence of bowel obstruction. Findings discussed with DASH BROWN APRN at 07/30/2021 12:29 PM. Electronically signed by: Quang Reyna DO (07/30/2021 12:32 PM) [facility] DICTATED and SIGNED BY: QUANG REYNA DO DATE: 07/30/21 [id number] 0 Course & Med Decision Making: Course & Med Decision Making Pertinent Labs and Imaging studies reviewed. (See chart for details) See HPI. Alert and oriented x4. Ambulatory with steady gait. Speaks in full clear sentences. Skin pink warm and dry. Bilateral CVA tenderness. Generalized abdominal pain tenderness with palpation. Abdomen is soft. She is not guarding. There is no rigidity. She is afebrile. She is tachycardic. She is very anxious. I spoke with our surgeon Dr. Martinez and he states that she needs to go back to [facility] where she had her bariatric surgery to have this internal hernia fixed. We do not have the capabilities for bariatric specialty. Patient's blood work is stable. She does not have a high lactic acid. She is received a total of 4 mg of morphine and is now asking for Dilaudid. I did give her Rocephin through her IV for positive nitrite UTI. She is received a liter of fluids. Rapid Covid is negative. I have had her CT clouded over to [facility]. 1510: We have spoken to Dr. Anselmo Hyde and he states that he had admitted her at [facility] yesterday but the patient eloped. He states that she cannot be trusted unfortunately. He states that he will accept her as an admission to [facility]. At this time patient is also asking for Phenergan and Dilaudid. I have ordered Phenergan p.o. 12.5 mg. However she is drug-seeking and I will not be giving her Dilaudid today. 1622: Awaiting ambulance to come and hop picker patient to take her to [facility]. Patient is having some itching at the IV site after Rocephin given. There is slight redness at the area. I will give her p.o. Benadryl. I have also ordered her another 2 mg of IV morphine. 1700: EMS has hop picker patient and patient is on her way to [facility]. [] Heriberto Disclaimer: Heriberto Disclaimer: This electronic medical record was generated, in whole or in part, using a voice recognition dictation system. Departure Departure Impression: Primary Impression: Internal hernia Additional Impression: UTI (urinary tract infection) Qualified Codes: N39.0 - Urinary tract infection, site not specified Disposition: 02 [facility] (transfer to [facility]) Condition: STABLE Referrals: DIALLO BRUNO MD (PCP) MAURICIO POLANCO APRN Jul 31, 2021 13:25
[2021-07-31] MEDS ORDERED: cefTRIAXone IV Push 1 GM VIAL. IVP ONE (13:30)
[2021-07-31 13:41] LABS: BILIRUBIN,URINE NEGATIVE (NEG); CLARITY,URINE CLEAR; COLOR,URINE YELLOW; NITRITE,URINE POSITIVE (NEG); PH,URINE 7.5 (<5.0-8.0); PROTEIN,URINE NEGATIVE (NEG-TRACE)
[2021-07-31 13:48] LABS: AMPHETAMINE/METHAMPHETAMINE NEG (NEG); BARBITURATES NEG (NEG); BENZODIAZEPINES NEG (NEG); CANNABINOIDS POS (NEG); COCAINE NEG (NEG); METHADONE NEG (NEG); OPIATES POS (NEG); PHENCYCLIDINE NEG (NEG)
[2021-07-31 14:03] LABS: BASO # 0.1 x10^3/uL (0.0-0.2); BASO % 2 % (0-3); EOS # 0.2 x10^3/uL (0.0-0.7); EOS % 3 % (0-3); HEMATOCRIT 25.5 % (36.0-47.0); HEMOGLOBIN 7.5 g/dL (12.0-15.5); LYMPH # 2.7 x10^3/uL (1.0-4.8); LYMPH % 32 % (24-48); MEAN CORPUSCULAR HEMOGLOBIN 16 pg (25-35); MEAN CORPUSCULAR HGB CONC 29 g/dL (31-37); MEAN CORPUSCULAR VOLUME 56 fL (79-100); MONO # 0.5 x10^3/uL (0.0-1.1); MONO % 7 % (0-9); NEUT # 4.7 x10^3/uL (1.8-7.7); NEUT % 57 % (31-73); PLATELET COUNT 583 x10^3/uL (140-400); RED BLOOD COUNT 4.57 x10^6/uL (3.50-5.40); RED CELL DISTRIBUTION WIDTH 18.3 % (11.5-14.5); WHITE BLOOD COUNT 8.3 x10^3/uL (4.0-11.0)
[2021-07-31 14:03] LABS: BACTERIA,URINE MANY /HPF (0-FEW); RBC,URINE 0 /HPF (0-2)
[2021-07-31 14:13] LABS: CALCIUM 8.3 mg/dL (8.5-10.1); CREATININE 0.6 mg/dL (0.6-1.0); GFR 121.8; POTASSIUM 3.9 mmol/L (3.5-5.1)
[2021-07-31 14:19] LABS: ALBUMIN 3.5 g/dL (3.4-5.0); TOTAL BILIRUBIN 0.2 mg/dL (0.2-1.0); TOTAL PROTEIN 7.1 g/dL (6.4-8.2)
[2021-07-31] MEDS ORDERED: PROMETHAZINE 12.5 MG TABLET. PO ONE (15:15)
[2021-07-31] MEDS ORDERED: diphenhydrAMINE HCL 25 MG CAPSULE PO ONE (16:15)
[2021-07-31 17:00] VITALS: BP 113/59
== END 2021-07-31 17:00 | disposition short-term general hospital (02) ==
LOC: ER 12:02
DX: N39.0 Urinary tract infection, site not specified (principal); Z20.822 Contact with and (suspected) exposure to COVID-19; K46.9 Unspecified abdominal hernia without obstruction or gangrene; J45.909 Unspecified asthma, uncomplicated; F17.200 Nicotine dependence, unspecified, uncomplicated; Z98.84 Bariatric surgery status; Z88.1 Allergy status to other antibiotic agents; Z88.5 Allergy status to narcotic agent; Z91.041 Radiographic dye allergy status; Z88.6 Allergy status to analgesic agent; Z88.8 Allergy status to other drugs, medicaments and biological substances
CPT/HCPCS: 36415; 80053; 80307; 81001; 81025; 82962; 83605; 83690; 83735; 85025; 87086; 87426; 87491; 87591; 96361; 96374; 96375; 96376; 99285; J0696; J2060; J2270; J2405; J7030; Q0163; Q0169; U0003; U0005; 87077; 87186